=== PATIENT | female | born 1940 | race Caucasian/White ===

== ENCOUNTER 2018-07-27 01:17 | Inpatient (IN) ==
[2018-07-27] MEDS ORDERED: LACTATED RINGERS 1,000 ML IV ONE (01:30)
[2018-07-27] MEDS ORDERED: ONDANSETRON 4 MG/2 ML VIAL IV ONE (01:30)
[2018-07-27] MEDS ORDERED: HYDROmorphone 2 MG/ML VIAL IV PRN (01:41)
[2018-07-27 02:15] LABS: Basophils # (Auto) 0 K/mcL (0.0-0.3); Basophils % (Auto) 0.2 % (0.0-2.0); Eosinophils # (Auto) 0.1 K/mcL (0.0-0.7); Granulocytes % (Auto) 77.4 % (38.0-78.0); Lymphocytes # (Auto) 2.2 K/mcL (1.5-4.8); Mean Cell Volume 85.2 fL (80.0-100.0); Mean Corpuscular HGB Conc 32.3 g/dL (31.0-36.0); Monocytes # (Auto) 0.9 K/mcL (0.1-0.9); Monocytes % (Auto) 6.4 % (1.0-12.0); Platelet Count 394 K/mcL (140-440); RBC 3.87 M/mcL (4.00-5.20); Red Cell Distribution Width 16.6 % (11.5-14.5)
[2018-07-27 02:33] LABS: ALT/SGPT 162 U/l (0-40); Albumin 4.1 gm/dL (3.2-5.2); Albumin/Globulin Ratio 1.2 (1.0-2.3); Alkaline Phosphatase 278 U/L (39-117); Blood Urea Nitrogen 24 mg/dl (8-23); Lipase 72 U/L (7-60)
[2018-07-27 05:24] LABS: Appearance,Urine HAZY; Bacteria,Urine MANY /hpf (0); Bilirubin,Urine NEG (NEG); Color,Urine YELLOW; Glucose,Urine (UA) NEGATIVE (NEG); Leukocyte Esterase,Urine 75 /uL (NEG); Mucus,Urine FEW /hpf (0); Protein,Urine NEG (NEG); Specific Gravity,Urine 1.018 (1.000-1.035); Urine Blood NEG mg/dL (<0.03); Urine RBC 10 /hpf (0-1); Urine Squamous Epithelial Cell 5 /hpf (0-4); Urine WBC 6 /hpf (0-4)
--- NOTE | 2018-07-27 06:41 | Emergency Department Note ---
Abdominal Pain HPI - General Chief Complaint: Abdominal Pain Stated Complaint: abdominal pain Time Seen by Provider: 07/27/18 06:37 Source: family Mode of arrival: ambulatory Limitations: no limitations - History of Present Illness HPI Narrative: This patient developed right upper quadrant pain about 10 PM last evening and it radiated into her back. Did have some associated nausea. She still has her gallbladder. No other symptoms. - Related Data Home Medications Medication Instructions Recorded Confirmed Warfarin [Coumadin] 5 mg PO DAILY 03/23/18 03/23/18 Allergies Allergy/AdvReac Type Severity Reaction Status Date / Time nutritional therapy, Allergy Severe Heartburn Verified 03/23/18 19:38 metabolic disorder, mv, min#2 [From Sendoid] Review of Systems All systems ED: reviewed and negative except as stated. Abdominal Pain PMH - Past Medical History [facility] Narrative: Medical History Arthralgia (Acute) Acute coronary syndrome (Acute) Medical history: Reports: coronary artery disease, CVA, dementia, hypertension, myocardial infarction, valvular heart disease Surgical history ED: Reports: angioplasty/stent, coronary bypass (CABG), pacemaker/AICD - Social History Smoking status: Former smoker Alcohol use: Reports: Unknown Drug use: Reports: none Physical Exam Limitations: no limitations General appearance: alert Head: atraumatic Eye: Present: normal appearance ENT: normal exam Neck: Present: normal inspection Chest: Present: normal inspection Respiratory: Present: normal lung sounds bilaterally Cardiovascular: Present: regular rate, normal rhythm, normal heart sounds Abdominal: Present: soft, tenderness. Absent: distention, guarding, rebound, rigidity Abdominal tenderness: Present: RUQ, moderate Neurological: Present: alert Psychiatric: Present: normal affect Skin: Present: warm, dry Course Vital Signs Temperature 97.3 F 07/27/18 01:19 Pulse Rate 71 07/27/18 01:19 Respiratory Rate 18 07/27/18 01:19 Blood Pressure 182/63 07/27/18 01:19 Pulse Oximetry (%) 98 07/27/18 01:19 Temperature 97.3 F 07/27/18 01:19 Pulse Rate 75 07/27/18 06:42 Respiratory Rate 18 07/27/18 01:19 Blood Pressure 133/60 07/27/18 06:31 Pulse Oximetry (%) 96 07/27/18 06:42 Abdominal Pain - [facility] Narrative Medical decision making narrative: This patient does have cholecystitis of the gallbladder shows stones and sludge and gallbladder wall thickening but a normal common bile duct. She does have elevated LFTs with a normal bilirubin. This patient does take Coumadin and is not clear to me that she really needs to be on it. She does have a pig valve replacement and has had a stroke in the past. She came home from [place] on 6 w hat sounds like perhaps Plavix and her asp net programmer switched her to Coumadin. I discussed the case with Dr. Li the surgeon and she will be admitted to the hospital. - Lab Data Lab results reviewed: Yes I reviewed the patient's lab results. Result diagrams: 07/27/18 01:40 07/27/18 01:40 Lab Results 07/27/18 07/27/18 07/27/18 Range/Units 01:40 01:40 04:00 WBC 14.5 H (4.5-11.0) K/mcL RBC 3.87 L (4.00-5.20) M/mcL Hgb 10.6 L (12.0-15.0) g/dL Hct 33.0 L (36.0-48.0) % MCV 85.2 (80.0-100.0) fL MCH 27.5 (26.0-34.0) pg MCHC 32.3 (31.0-36.0) g/dL RDW 16.6 H (11.5-14.5) % Plt Count 394 (140-440) K/mcL MPV 8.3 (7.4-10.4) fL Gran % 77.4 (38.0-78.0) % Lymph % (Auto) 15.0 L (15.5-49.0) % [place] % (Auto) 6.4 (1.0-12.0) % Eos % (Auto) 1.0 (0.0-7.0) % Baso % (Auto) 0.2 (0.0-2.0) % Gran # 11.2 H (1.8-8.0) K/mcL Lymph # (Auto) 2.2 (1.5-4.8) K/mcL [place] # (Auto) 0.9 (0.1-0.9) K/mcL Eos # (Auto) 0.1 (0.0-0.7) K/mcL Baso # (Auto) 0 (0.0-0.3) K/mcL Sodium 140 (133-145) mmol/L Potassium 3.9 (3.3-5.1) mmol/L Chloride 103 (96-108) mmol/L Carbon Dioxide 25 (22-30) mmol/L Anion Gap 12.0 (8-16) BUN 24 H (8-23) mg/dl Creatinine 0.7 (0.6-1.1) mg/dl GFR Calculation 82 Glucose 120 H (70-105) mg/dL Calcium 9.2 (8.6-10.4) mg/dl Total Bilirubin 0.8 (0.0-1.0) mg/dL AST 381 H (0-37) U/l ALT 162 H (0-40) U/l Alkaline Phosphatase 278 H (39-117) U/L Total Protein 7.4 (5.9-8.4) gm/dL Albumin 4.1 (3.2-5.2) gm/dL Globulin 3.3 (2.2-3.7) gm/dL Albumin/Globulin Ratio 1.2 (1.0-2.3) Lipase 72 H (7-60) U/L Urine Color Yellow Urine Appearance Hazy Urine pH 5.0 (5.0-9.0) Ur Specific [place] 1.018 (1.000-1.035) Urine Protein Neg (NEG) mg/dL Urine Glucose (UA) Negative (NEG) mg/dL Urine Ketones Neg (NEG) mg/dL Urine Occult Blood Neg (<0.03) mg/dL Urine Nitrate Neg (NEG) Urine Bilirubin Neg (NEG) mg/dL Urine Urobilinogen 2.0 A (NEG) mg/dL Ur Leukocyte Esterase 75 A (NEG) /uL Urine RBC 10 H (0-1) /hpf Urine WBC 6 H (0-4) /hpf Ur Squamous Epith Cells 5 H (0-4) /hpf Urine Bacteria Many A (0) /hpf Urine Mucus Few (0) /hpf Ur Culture Indicated? No - Radiology Data Radiology results reviewed: Yes I reviewed the patient's radiology results. Disposition Pt seen by COKE LOADER/PA only: No Clinical Impression: Cholecystitis Disposition: Xfer As Inpt ([facility]) Condition: Good Referrals: Andrea Foster MD [Primary Care Provider] - Time of Disposition: 07:42
[2018-07-27] MEDS ORDERED: PIPERACILLIN SODIUM/TAZOBACTAM 3.375 GM in DEXTROSE 5% IN WATER 50 ML IV ONE (07:42)
--- NOTE | 2018-07-27 08:02 | XRay Report ---
HISTORY: Preop FINDINGS: Prominent increased interstitial lung markings are present bilaterally. This is most apparent in the right lower lobe. This has become worse since the prior exam done at [facility] on 01/28/18. Lung volumes are normal. There is no consolidating infiltrate, mass or pleural effusion. The heart size is normal. There is a dual-chamber pacemaker. There are clips in the right axilla. No lytic or blastic metastasis are detected. IMPRESSION: Mild generalized interstitial lung disease which has progressed since 01/28/18. This may be due to inflammation, pulmonary fibrosis or mild congestive heart failure. Interpreted and Authenticated by: Roberto Ryan 07/27/18
--- NOTE | 2018-07-27 08:13 | Ultrasound Report ---
History: Right upper quadrant pain FINDINGS: The liver is normal in size but somewhat heterogeneous. There may be mild fatty infiltration. There is a 4 x 5 mm calcification centrally in the right lobe. The Calcification is unchanged from the prior abdomen CT done on 06/14/10. Doppler shows normal blood flow in the hepatic and portal veins. No mass is identified within the liver. The gallbladder contains multiple stones and sludge balls. Largest stone measures up to 1.6 cm. The gallbladder wall is mildly thickened measuring up to 3.6 mm. The intra and extrahepatic bile ducts are normal in caliber with the common duct measuring 6 mm. The visualized portions of the pancreas are normal without evidence of inflammation or mass. No ascites is present. IMPRESSION: Cholelithiasis and thickened gallbladder wall suggesting cholecystitis Interpreted and Authenticated by: Roberto Ryan 07/27/18
[2018-07-27] MEDS ORDERED: 0.9 % SODIUM CHLORIDE 250 ML IV SCH (10:15)
[2018-07-27] MEDS ORDERED: 0.9 % SODIUM CHLORIDE 1,000 ML IV SCH ×2 (10:30→13:30)
[2018-07-27] MEDS: PHYTONADIONE 10 MG/ML AMPUL SQ SCH ×2 (10:38→22:33)
[2018-07-27] MEDS ORDERED: ACETAMINOPHEN 850 MG/85 ML BOTTLE IV PRN (12:28)
--- NOTE | 2018-07-27 13:31 | General Surg History&Physical ---
History of Present Illness Patient information: Note initiated : 07/27/18 at 1:28 pm Service Date, if different from initiated Date: [] Patient: Xochilt Pat a 77 y/o F admitted on 07/27/18 for Abdominal Pain . Chief Complaint: [] HPI: Ms. Pat is a 77 year old F admitted with acute cholecystitis with cholelithia sis. The patient awakened about 10 PM last evening with severe right upper quadrant pain. This was followed by nausea and vomiting. The pain radiated through to her back on the right side. Because the pain became more severe. She was seen in the emergency room. White blood count was 14,500. Her transaminases were all elevated. Bilirubin was normal. Gallbladder ultrasound revealed multiple gallstones with sludge and Thickened gallbladder wall, compatible with acute cholecystitis. She is admitted. She is on Coumadin, so her pro time will have to be corrected. She is counseled for cholecystectomy, which probably will be done tomorrow. Review of Systems - Constitutional fatigue, malaise, weakness, weight loss - EENT Nose, mouth and throat: dizziness, no abnormal hearing - Cardiovascular no chest pain at rest, no chest pain with activity, no dyspnea on exertion, no orthopnea, no paroxysmal nocturnal dyspnea, no syncope - Respiratory no cough, no dyspnea on exertion, no wheezing - Gastrointestinal abdominal pain, diarrhea, nausea, vomiting - Genitourinary Genitourinary: no dysuria, no urinary frequency, no urinary hesitancy, no urinary incontinence - Musculoskeletal arthralgias, back pain, stiffness, no numbness - Integumentary no pruritus, no rash - Neurological dizziness, memory loss, weakness, no abnormal gait, no behavioral changes, no other visual disturbances - Psychiatric memory loss, no anxiety, no confusion, no depression, no hallucinations - Endocrine no excessive sweating, no fatigue, no heat intolerance - Hematologic/Lymphatic no easy bleeding, no easy bruising, no lymphadenopathy - Allergic/Immunologic no tongue swelling, no throat swelling, no uticaria, no wheezing, no lip swelling Past History Past medical history: Coronary artery disease, status post myocardial infarction 2015. 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 Mild progressive dementia. History of TIAs and stroke. Hypertension. Valvular heart disease, status post mitral valve replacement with porcine valve Past surgical history: Tubal ligation. Permanent pacemaker 2015. Mitral valve replacement September 2015 Past family history: Mother due to coronary artery disease and UT at age of 76. Father at the complication of seizures age 82; also with history of Parkinson's disease Past social history: Lives alone. . 4 children. Former smoker. Denies drug use. No alcohol use in many years Medications and Allergies Home Medications Medication Instructions Recorded Confirmed Type Warfarin [Coumadin] 2.5 mg PO DAILY 03/23/18 07/27/18 History Aspirin [Adult Aspirin] 325 mg PO DAILY 07/27/18 07/27/18 History Calcium Carbonate/Vitamin D3 1 each PO DAILY 07/27/18 07/27/18 History [Calcium 500-Vit D3 600 Caplet] Cranberry Fruit Concentrate [Azo 250 mg PO DAILY 07/27/18 07/27/18 History Cranberry] Cyanocobalamin (Vitamin B-12) 2,500 mcg PO DAILY 07/27/18 07/27/18 History [Vitamin B12] Furosemide [Lasix] 40 mg PO DAILY 07/27/18 07/27/18 History Garlic [Odor Free Garlic-X] 1 each PO DAILY 07/27/18 07/27/18 History Omeprazole [PriLOSEC] 40 mg PO ACB 07/27/18 07/27/18 History Potassium Chloride [Kdur] 20 meq PO QAMCC 07/27/18 07/27/18 History Allergies Allergy/AdvReac Type Severity Reaction Status Date / Time nutritional therapy, AdvReac Mild Heartburn Verified 07/27/18 09:14 metabolic disorder, mv, min#2 [From Axona] Exam Temp Pulse Resp BP Pulse Ox 97.3 F 75 18 133/60 96 07/27/18 08:43 07/27/18 08:43 07/27/18 08:43 07/27/18 08:43 07/27/18 08:43 - General physical appearance well developed, well nourished, no distress - Eyes PERRL, normal ocular movement. negative: icteric - ENT normal pinna, normal nares, normal mucosa, no hearing loss, no congestion - Head Head exam IM: Present: atraumatic, normal inspection, normocephalic - Neck no masses, no bruits, trachea midline, no lymphadenopathy, no venous distension - Cardiovascular Cardiovascular exam IM: Present: normal rate and rhythm, RRR, +S1, +S2. Absent: JVD, tachycardia - Respiratory normal expansion, normal respiratory effort, clear to auscultation - Abdomen Abdomen: Present: soft, non tender, tender (mild tenderness right upper quadrant and epigastrium with associated guarding), bowel sounds, guarding Hernia: Present: none - Genitourinary Present: normal external genitalia - Integumentary Present: no rash, no growths, no abnormal pigmentation - Neurologic Present: normal coordination, normal sensation - Musculoskeletal Present: normal gait, normal posture - Psychiatric Present: oriented to time, oriented to person, oriented to place, speech is normal, memory intact Assessment and Plan (1) Cholelithiasis and acute cholecystitis without obstruction Zosyn 3.375 g IV every 6 hours Patient counseled for laparoscopic cholecystectomy to be done tomorrow Status: Acute (2) intermediate current use of anticoagulant therapy Correction of elevated pro time with fresh frozen plasma and vitamin K. Check PT/INR in the morning. Status: Acute (3) Middle cerebral artery aneurysm Status: Acute (4) Mild dementia Status: Acute (5) History of stroke Status: Acute (6) Hypertension Resume antihypertensives when vitals stabilized Status: Acute (7) History of valvular heart disease Status: Acute (8) Coronary artery disease Repeat EKG Check baseline echocardiogram Status: Acute
[2018-07-27] MEDS: PIPERACILLIN SODIUM/TAZOBACTAM 3.375 GM in DEXTROSE 5% IN WATER 50 ML IV SCH ×2 (15:19→20:47)
[2018-07-27] MEDS: PANTOPRAZOLE 40 MG VIAL IV SCH (17:04)
[2018-07-27] MEDS: HYDROmorphone 2 MG/ML VIAL IV PRN (20:57)
[2018-07-27] MEDS: FUROSEMIDE 40 MG TABLET PO SCH (23:49)
[2018-07-27] MEDS: 0.9 % SODIUM CHLORIDE 1,000 ML IV SCH (23:49)
[2018-07-27] MEDS ORDERED: FUROSEMIDE 40 MG TABLET ONE (23:49)
[2018-07-28] MEDS: PIPERACILLIN SODIUM/TAZOBACTAM 3.375 GM in DEXTROSE 5% IN WATER 50 ML IV SCH ×4 (01:00→18:09)
[2018-07-28] MEDS: 0.9 % SODIUM CHLORIDE 1,000 ML IV SCH ×2 (03:17→23:20)
[2018-07-28 06:20] LABS: Basophils # (Auto) 0 K/mcL (0.0-0.3); Basophils % (Auto) 0.3 % (0.0-2.0); Eosinophils # (Auto) 0 K/mcL (0.0-0.7); Eosinophils % (Auto) 0.1 % (0.0-7.0); Granulocytes % (Auto) 86.2 % (38.0-78.0); Lymphocytes # (Auto) 0.9 K/mcL (1.5-4.8); Lymphocytes % (Auto) 6.6 % (15.5-49.0); Mean Cell Volume 86.1 fL (80.0-100.0); Mean Corpuscular HGB Conc 32.4 g/dL (31.0-36.0); Monocytes % (Auto) 6.8 % (1.0-12.0); Platelet Count 348 K/mcL (140-440); Red Cell Distribution Width 16.4 % (11.5-14.5)
[2018-07-28 06:38] LABS: ALT/SGPT 240 U/l (0-40); Albumin/Globulin Ratio 1.2 (1.0-2.3); Alkaline Phosphatase 273 U/L (39-117); Bilirubin,Direct 2.4 mg/dL (0.0-0.3); Blood Urea Nitrogen 12 mg/dl (8-23); Gamma Glutamyl Transpeptidase 602 U/L (5-36); Uric Acid 1.9 mg/dL (2.5-8.0)
[2018-07-28] MEDS: PANTOPRAZOLE 40 MG VIAL IV SCH ×2 (07:49→17:20)
[2018-07-28] MEDS: FUROSEMIDE 40 MG TABLET PO SCH (08:49)
[2018-07-28] MEDS ORDERED: POTASSIUM CHLORIDE 40 MEQ in DEXTROSE 5% IN WATER 500 ML IV ONE (09:56)
--- NOTE | 2018-07-28 10:57 | General Surgery Progress Note ---
Subjective Patient reports: no new complaints, feels better, voiding w/o difficulty Narrative: Note initiated : 07/28/18 at 10:55 am Service Date, if different from initiated Date: [] Patient: Xochilt Pat 77 y/o F admitted on 07/27/18 for Abdominal Pain . Chief Complaint: [] No more pain since admitted & got one pain pill. Has PM - had porcine valve, stent & PM so cannot get MRCP. No change in color urine, stools, skin. US + for stones & sludge. LFT's still up today. Pertinent ROS: No N V F C. Objective Temp Pulse Resp BP Pulse Ox 98 F 73 16 148/70 94 07/28/18 08:00 07/28/18 08:00 07/28/18 08:00 07/28/18 08:00 07/28/18 08:00 - Additional Data Intake & Output - Last 24 hours: Intake & Output 07/26/18 07/27/18 07/28/18 07/29/18 05:59 05:59 05:59 05:59 Intake Total 3352 50 Output Total 1782 50 Balance 1570 0 Weight 130 lb 136 lb - General physical appearance well developed, no distress, no pain - Eyes other (non icteric) - Respiratory normal expansion, normal respiratory effort, clear to auscultation - Cardiovascular Cardiovascular exam: Present: normal rate and rhythm. Absent: JVD Additional comments: PM in place lateral L infraclavicular region - Abdomen soft, non tender, bowel sounds Hernia: none - Labs 07/28/18 04:45 07/28/18 04:45 Diabetes panel 07/28/18 Range/Units 04:45 Sodium 141 (133-145) mmol/L Potassium 3.2 L (3.3-5.1) mmol/L Chloride 98 (96-108) mmol/L Carbon Dioxide 27 (22-30) mmol/L BUN 12 (8-23) mg/dl Creatinine 0.9 (0.6-1.1) mg/dl Glucose 112 H (70-105) mg/dL Calcium 9.1 (8.6-10.4) mg/dl AST 208 H (0-37) U/l ALT 240 H (0-40) U/l Alkaline Phosphatase 273 H (39-117) U/L Total Protein 7.4 (5.9-8.4) gm/dL Albumin 4.0 (3.2-5.2) gm/dL Triglycerides 67 (<150) mg/dl Calcium panel 07/28/18 Range/Units 04:45 Calcium 9.1 (8.6-10.4) mg/dl Phosphorus 2.5 L (2.7-4.5) mg/dL Albumin 4.0 (3.2-5.2) gm/dL Pituitary panel 07/28/18 Range/Units 04:45 Sodium 141 (133-145) mmol/L Potassium 3.2 L (3.3-5.1) mmol/L Chloride 98 (96-108) mmol/L Carbon Dioxide 27 (22-30) mmol/L BUN 12 (8-23) mg/dl Creatinine 0.9 (0.6-1.1) mg/dl Glucose 112 H (70-105) mg/dL Calcium 9.1 (8.6-10.4) mg/dl Adrenal panel 07/28/18 Range/Units 04:45 Sodium 141 (133-145) mmol/L Potassium 3.2 L (3.3-5.1) mmol/L Chloride 98 (96-108) mmol/L Carbon Dioxide 27 (22-30) mmol/L BUN 12 (8-23) mg/dl Creatinine 0.9 (0.6-1.1) mg/dl Glucose 112 H (70-105) mg/dL Calcium 9.1 (8.6-10.4) mg/dl Total Bilirubin 4.1 H (0.0-1.0) mg/dL AST 208 H (0-37) U/l ALT 240 H (0-40) U/l Alkaline Phosphatase 273 H (39-117) U/L Total Protein 7.4 (5.9-8.4) gm/dL Albumin 4.0 (3.2-5.2) gm/dL Assessment and Plan (1) Cholelithiasis Status: Acute Assessment and plan: Needs lap buck - still with INR 1.4. Not a candidate for MRCP due to PM. Will need IOC during procedure. Will give another 2 U FFP - has already received max dose of Vit K and 2 U FFP. Anticipate surgery either late today or 1st thing in AM May need ERCP postop depending on IOC findings. All this discussed with patient. She states she is on Coumadin due to her prior history of a CVA. She does have a 7mm MCA aneurysm of note. Current Visit: Yes (2) intermediate card tender current use of anticoagulant therapy Status: Acute Current Visit: Yes (3) Middle cerebral artery aneurysm Status: Acute Current Visit: Yes (4) Mild dementia Status: Acute Current Visit: Yes (5) History of stroke Status: Acute Current Visit: Yes (6) Hypertension Status: Acute Current Visit: Yes (7) History of valvular heart disease Status: Acute Current Visit: Yes (8) Coronary artery disease Status: Acute Current Visit: Yes - Time Spent With Patient Total time spent is greater than 50% in coordination of care (as documented) at patient's floor/unit and/or counseling patient: Greater than 35 minutes (60 minutes in review, orders, discussion)
[2018-07-28] MEDS ORDERED: 0.9 % SODIUM CHLORIDE 250 ML IV SCH (11:00)
[2018-07-28] MEDS: HYDROmorphone 2 MG/ML VIAL IV PRN (14:58)
[2018-07-29] MEDS: HYDROmorphone 2 MG/ML VIAL IV PRN ×3 (00:46→23:31)
[2018-07-29] MEDS: PIPERACILLIN SODIUM/TAZOBACTAM 3.375 GM in DEXTROSE 5% IN WATER 50 ML IV SCH ×4 (00:47→18:24)
[2018-07-29] MEDS: 0.9 % SODIUM CHLORIDE 1,000 ML IV SCH (00:59)
[2018-07-29 05:48] LABS: Basophils # (Auto) 0 K/mcL (0.0-0.3); Basophils % (Auto) 0.1 % (0.0-2.0); Eosinophils # (Auto) 0 K/mcL (0.0-0.7); Eosinophils % (Auto) 0.1 % (0.0-7.0); Granulocytes % (Auto) 81.8 % (38.0-78.0); Lymphocytes # (Auto) 1.3 K/mcL (1.5-4.8); Lymphocytes % (Auto) 8.7 % (15.5-49.0); Mean Cell Volume 85.5 fL (80.0-100.0); Mean Corpuscular HGB Conc 32.7 g/dL (31.0-36.0); Monocytes # (Auto) 1.3 K/mcL (0.1-0.9); Monocytes % (Auto) 9.3 % (1.0-12.0); Platelet Count 287 K/mcL (140-440); RBC 3.64 M/mcL (4.00-5.20); Red Cell Distribution Width 16.4 % (11.5-14.5)
[2018-07-29 06:01] LABS: ALT/SGPT 140 U/l (0-40); Albumin 3.8 gm/dL (3.2-5.2); Albumin/Globulin Ratio 1.1 (1.0-2.3); Alkaline Phosphatase 249 U/L (39-117); Bilirubin,Direct 1.5 mg/dL (0.0-0.3); Blood Urea Nitrogen 10 mg/dl (8-23); Gamma Glutamyl Transpeptidase 514 U/L (5-36); Uric Acid 1.4 mg/dL (2.5-8.0)
[2018-07-29] MEDS ORDERED: amLODIPine 5 MG TABLET PO ONE (07:06)
[2018-07-29] MEDS ORDERED: POTASSIUM CHLORIDE 20 MEQ TABLET PO SCH (08:00)
[2018-07-29] MEDS ORDERED: LIDOCAINE HCL/PF 100 MG/5 ML SYRINGE IV ONE (08:10)
[2018-07-29] MEDS ORDERED: ONDANSETRON 4 MG/2 ML VIAL IV ONE (08:10)
[2018-07-29] MEDS ORDERED: ePHEDrine 50 MG/ML AMPUL IV ONE (08:10)
[2018-07-29] MEDS ORDERED: DEXAMETHASONE 10 MG/ML VIAL IV ONE (08:10)
[2018-07-29] MEDS ORDERED: ROCURONIUM 10 MG/ML ML IV ONE (08:10)
[2018-07-29] MEDS ORDERED: MIDAZOLAM 2 MG/2 ML VIAL IV ONE ×2 (08:10→13:00)
[2018-07-29] MEDS ORDERED: SUCCINYLCHOLINE 20 MG/ML ML IV ONE (08:10)
[2018-07-29] MEDS ORDERED: PROPOFOL 200 MG/20 ML VIAL IV ONE ×2 (08:10→13:00)
[2018-07-29] MEDS ORDERED: fentaNYL 100 MCG/2 ML VIAL IV ONE (08:10)
[2018-07-29] MEDS ORDERED: BUPIVACAINE W/EPI 0.5% 50 ML VIAL IJ ONE (08:33)
[2018-07-29] MEDS ORDERED: CALCIUM W/VIT D3 500 MG TABLET PO SCH (09:00)
[2018-07-29] MEDS ORDERED: ASPIRIN 325 MG ENTERIC COATED TABLET PO SCH (09:00)
[2018-07-29] MEDS ORDERED: CYANOCOBALAMIN (VITAMIN B-12) 500 MCG TABLET PO SCH (09:00)
[2018-07-29] MEDS ORDERED: FLUMAZENIL 0.1 MG/ML ML IV PRN (09:16)
[2018-07-29] MEDS ORDERED: IPRATROPIUM/ALBUTEROL 3 ML AMPUL.NEB NEB PRN ×2 (09:16→10:17)
[2018-07-29] MEDS ORDERED: ATROPINE SULFATE 0.4 MG/ML VIAL IV PRN (09:16)
[2018-07-29] MEDS ORDERED: MEPERIDINE 25 MG/ML SYRINGE IV PRN (09:16)
[2018-07-29] MEDS ORDERED: NALOXONE HCL 0.4 MG/ML VIAL IV PRN ×2 (09:16→10:17)
[2018-07-29] MEDS ORDERED: diphenhydrAMINE 50 MG/ML VIAL IV PRN ×2 (09:16→10:17)
[2018-07-29] MEDS ORDERED: METOPROLOL TARTRATE 5 MG/5 ML VIAL IV PRN (09:16)
[2018-07-29] MEDS ORDERED: ONDANSETRON 4 MG/2 ML VIAL IV PRN ×2 (09:16→12:49)
[2018-07-29] MEDS ORDERED: PROMETHAZINE 25 MG/ML VIAL IV PRN ×2 (09:16→10:17)
[2018-07-29] MEDS ORDERED: fentaNYL 100 MCG/2 ML VIAL IV PRN (09:16)
[2018-07-29] MEDS ORDERED: ePHEDrine 50 MG/ML AMPUL IV PRN (09:16)
--- NOTE | 2018-07-29 09:25 | General Surgery Procedure Note ---
Date of procedure: Note initiated : 07/29/18 at 9:23 am Service Date, if different from initiated Date: [] Pre-op diagnosis: Symptomatic cholelithiasis Post-op diagnosis: other (Cholelithiasis, acute & chronic cholecystitis, choledocholithiasis with common duct obstruction) Procedure: Laparoscopic cholecystectomy with intra-operative cholangiogram Findings: Liver, stomach, other viscera appeared normal. Cholangiogram showed obstructed common duct with ~ 1 cm stone at ampulla with inverted meniscus sign Anesthesia: GETA Surgeon: Juancarlos Mane Estimated blood loss: 20 Pathology: other (gallbladder) Description of procedure: See dictated note Condition: stable Disposition: PACU
[2018-07-29] MEDS ORDERED: LACTATED RINGERS 1,000 ML IV SCH (09:30)
[2018-07-29] MEDS ORDERED: DEXTROSE 5%-1/2NS W/40MEQ KCL 1,000 ML IV SCH ×2 (09:30→10:17)
[2018-07-29] MEDS ORDERED: IOHEXOL 300 10 ML VIAL IV ONE (09:49)
[2018-07-29] MEDS ORDERED: 0.9 % SODIUM CHLORIDE 1,000 ML IV SCH (10:17)
[2018-07-29] MEDS ORDERED: HYDROmorphone 2 MG/ML VIAL IV PRN (10:17)
[2018-07-29] MEDS: FUROSEMIDE 40 MG TABLET PO SCH (10:32)
[2018-07-29] MEDS: PANTOPRAZOLE 40 MG VIAL IV SCH (10:34)
[2018-07-29] MEDS: POTASSIUM CHLORIDE 40 MEQ in DEXTROSE 5%-1/2NS 1,000 ML IV SCH (11:32)
[2018-07-29] MEDS ORDERED: PROPOFOL 40 ML IV ONE ×2 (12:13)
[2018-07-29] MEDS ORDERED: MIDAZOLAM 2 MG/2 ML VIAL ONE (12:13)
[2018-07-29] MEDS ORDERED: ONDANSETRON 4 MG/2 ML VIAL ONE (12:53)
[2018-07-29] MEDS ORDERED: GLUCAGON,HUMAN RECOMBINANT 1 MG VIAL IV ONE (13:00)
[2018-07-29] MEDS ORDERED: IOPAMIDOL 150 ML BOTTLE IJ ONE (13:00)
[2018-07-30] MEDS: POTASSIUM CHLORIDE 40 MEQ in DEXTROSE 5%-1/2NS 1,000 ML IV SCH (03:59)
[2018-07-30 06:27] LABS: Basophils # (Auto) 0 K/mcL (0.0-0.3); Basophils % (Auto) 0 % (0.0-2.0); Eosinophils # (Auto) 0 K/mcL (0.0-0.7); Eosinophils % (Auto) 0 % (0.0-7.0); Granulocytes % (Auto) 85.6 % (38.0-78.0); Lymphocytes # (Auto) 1.2 K/mcL (1.5-4.8); Lymphocytes % (Auto) 6.8 % (15.5-49.0); Mean Cell Volume 85.8 fL (80.0-100.0); Mean Corpuscular HGB Conc 32.7 g/dL (31.0-36.0); Monocytes # (Auto) 1.4 K/mcL (0.1-0.9); Monocytes % (Auto) 7.6 % (1.0-12.0); Platelet Count 298 K/mcL (140-440); RBC 3.39 M/mcL (4.00-5.20); Red Cell Distribution Width 15.6 % (11.5-14.5)
[2018-07-30 06:46] LABS: ALT/SGPT 98 U/l (0-40); Albumin 3.9 gm/dL (3.2-5.2); Alkaline Phosphatase 197 U/L (39-117); Amylase 29 U/L (28-100); Bilirubin,Direct 0.4 mg/dL (0.0-0.3); Blood Urea Nitrogen 14 mg/dl (8-23)
[2018-07-30] MEDS ORDERED: WARFARIN 5 MG TABLET PO ONE (07:51)
--- NOTE | 2018-07-30 07:55 | General Surgery Progress Note ---
Subjective Patient reports: feels better, still having pain, tolerating liquids well, no bowel movement, afebrile Narrative: Note initiated : 07/30/18 at 7:53 am Service Date, if different from initiated Date: [] Patient: Xochilt Pat 77 y/o F admitted on 07/27/18 for Abdominal Pain . Chief Complaint: [] Postop day 1 after laparoscopic cholecystectomy with intraoperative cholangiogram followed by ERCP and stone extraction. Discussed with her once again the details of the surgery and the endoscopic procedure. LFTs come back to normal, which is been tested. Amylase is normal. She's been tolerating liquids. Still requiring some intravenous analgesia, but will switch to by mouth. Has been up out of bed yet. No bowel movement. Dr. Klein Found that she was on the Coumadin because of vascular interv ention for CVA sometime last fall up in [place]. So we'll need to get her started back on her anticoagulation. We'll start Lovenox as afternoon at 1524 hours after ERCP, I'll go ahead and get her started on Coumadin. Give her 5 mg dose today followed by 2.5 mg daily starting tomorrow. I discussed with the fact she'll need to go home. Give herself shots which he has done in the past. She is hungry, wants to go to her regular diet. Pertinent ROS: No fevers or chills, no nausea or vomiting. No chest pains or shortness of breath. Objective Temp Pulse Resp BP Pulse Ox 98 F 73 16 138/72 95 07/30/18 06:30 07/30/18 04:00 07/30/18 06:30 07/30/18 06:30 07/30/18 06:30 - Additional Data Intake & Output - Last 24 hours: Intake & Output 07/28/18 07/29/18 07/30/18 07/31/18 05:59 05:59 05:59 05:59 Intake Total 3352 2411 2970 Output Total 1782 1172 175 Balance 1570 1239 2795 Weight 136 lb 136 lb 131 lb 8 oz - General physical appearance no distress - Eyes PERRL, other (nonicteric) - Neck no venous distension - Respiratory normal expansion, normal respiratory effort, clear to percussion, clear to auscultation - Cardiovascular Cardiovascular exam: Present: normal rate and rhythm. Absent: diastolic murmur, irregular rhythm, systolic murmur - Abdomen soft, non tender, bowel sounds, surgical scars (. Dressings are clean and dry.) - Musculoskeletal other ( Calves nontender with no edema) - Labs 07/30/18 04:26 07/30/18 04:26 Diabetes panel 07/30/18 Range/Units 04:26 Sodium 138 (133-145) mmol/L Potassium 3.6 (3.3-5.1) mmol/L Chloride 102 (96-108) mmol/L Carbon Dioxide 26 (22-30) mmol/L BUN 14 (8-23) mg/dl Creatinine 0.8 (0.6-1.1) mg/dl Glucose 109 H (70-105) mg/dL Calcium 9.3 (8.6-10.4) mg/dl AST 32 (0-37) U/l ALT 98 H (0-40) U/l Alkaline Phosphatase 197 H (39-117) U/L Total Protein 7.4 (5.9-8.4) gm/dL Albumin 3.9 (3.2-5.2) gm/dL Calcium panel 07/30/18 Range/Units 04:26 Calcium 9.3 (8.6-10.4) mg/dl Albumin 3.9 (3.2-5.2) gm/dL Pituitary panel 07/30/18 Range/Units 04:26 Sodium 138 (133-145) mmol/L Potassium 3.6 (3.3-5.1) mmol/L Chloride 102 (96-108) mmol/L Carbon Dioxide 26 (22-30) mmol/L BUN 14 (8-23) mg/dl Creatinine 0.8 (0.6-1.1) mg/dl Glucose 109 H (70-105) mg/dL Calcium 9.3 (8.6-10.4) mg/dl Adrenal panel 07/30/18 Range/Units 04:26 Sodium 138 (133-145) mmol/L Potassium 3.6 (3.3-5.1) mmol/L Chloride 102 (96-108) mmol/L Carbon Dioxide 26 (22-30) mmol/L BUN 14 (8-23) mg/dl Creatinine 0.8 (0.6-1.1) mg/dl Glucose 109 H (70-105) mg/dL Calcium 9.3 (8.6-10.4) mg/dl Total Bilirubin 1.2 H (0.0-1.0) mg/dL AST 32 (0-37) U/l ALT 98 H (0-40) U/l Alkaline Phosphatase 197 H (39-117) U/L Total Protein 7.4 (5.9-8.4) gm/dL Albumin 3.9 (3.2-5.2) gm/dL Assessment and Plan (1) Cholelithiasis Status: Acute Assessment and plan: Needs lap buck - still with INR 1.4. Not a candidate for MRCP due to PM. Will need IOC during procedure. Will give another 2 U FFP - has already received max dose of Vit K and 2 U FFP. Anticipate surgery either late today or 1st thing in AM May need ERCP postop depending on IOC findings. All this discussed with patient. She states she is on Coumadin due to her prior history of a CVA. She does have a 7mm MCA aneurysm of note. Current Visit: Yes (2) skilled nursing current use of anticoagulant therapy Status: Acute Current Visit: Yes (3) Middle cerebral artery aneurysm Status: Acute Current Visit: Yes (4) Mild dementia Status: Acute Current Visit: Yes (5) History of stroke Status: Acute Current Visit: Yes (6) Hypertension Status: Acute Current Visit: Yes (7) History of valvular heart disease Status: Acute Current Visit: Yes (8) Coronary artery disease Status: Acute Current Visit: Yes (9) Choledocholithiasis Status: Acute Current Visit: Yes - Narrative A/P Narrative: We'll go advance her to a regular diet, Hep-Lock her IV. She'll start her Lovenox this afternoon at 3 PM, will go ahead and resume her Coumadin 5 mg today and 2.5 mg daily tomorrow. Her white blood count is still elevated. We'll repeat a test that in the morning along with repeat LFTs and CMP. Potassium looks good. She'll get out of bed and do some walking today. Will use some by mouth analgesics also. - Time Spent With Patient Total time spent is greater than 50% in coordination of care (as documented) at patient's floor/unit and/or counseling patient: 25 - 35 minutes
[2018-07-30] MEDS ORDERED: FUROSEMIDE 40 MG TABLET PO SCH (09:00)
[2018-07-30] MEDS: amLODIPine 5 MG TABLET PO SCH (09:08)
[2018-07-30] MEDS: FUROSEMIDE 40 MG TABLET PO SCH (09:09)
[2018-07-30] MEDS: POTASSIUM CHLORIDE 20 MEQ TABLET PO SCH (09:09)
[2018-07-30] MEDS: ASPIRIN 325 MG ENTERIC COATED TABLET PO SCH ×2 (09:27→09:39)
[2018-07-30] MEDS: HYDROcodone/APAP 5/325MG TABLET PO PRN ×3 (09:27→21:41)
--- NOTE | 2018-07-30 09:55 | Internal Med Progress Note ---
Medical - PN: Subj Patient information: Note initiated : 07/30/18 at 9:52 am Service Date, if different from initiated Date: [] Patient: Xochilt Pat 77 y/o F admitted on 07/27/18 for Abdominal Pain . Chief Complaint: [] lap CCx yesterday followed by ERCP with extraction of fiarly large CBD stone via sphincterotomy Interval history: pt reports only some soreness at incision sites of abd today. Tolerating liqui ds this a.m. and looks forward to advancement of diet this afternoon. Had BM this a.m. with no melena or other signs of bleeding. Pertinent ROS: No fever, no vomiting, no chest pain, no new neurologic changes. - Constitutional Vitals: Vital Signs Temp Pulse Resp BP Pulse Ox 98 F 73 16 138/72 92 07/30/18 06:30 07/30/18 04:00 07/30/18 06:30 07/30/18 06:30 07/30/18 08:00 Period Temp Pulse Resp BP Sys/Hernandez Pulse Ox Last 24 Hr 97.5 F-98.4 F 72-91 12-24 119-182/37-97 91-100 Intake and Output 07/29/18 07/30/18 07/30/18 21:59 05:59 13:59 Intake Total 2270 Output Total 1 2 Balance -1 2268 Weight 131 lb 8 oz Intake & Output: Intake & Output 07/29/18 07/30/18 07/30/18 21:59 05:59 13:59 Intake Total 2270 Output Total 1 2 Balance -1 2268 Weight 131 lb 8 oz Intake: IV 2070 Potassium Chloride 40 Meq In 1020 Dextrose 5%-1/2Ns IV Solution 1 ,000 ml @ 75 mls/hr IV Q13H PENNIE Rx#:[id number] Oral 200 Output: # of times incontinent of urine 1 2 Other: Stool Color Brown Stool Consistency Soft General appearance: cooperative, no acute distress - Eye Eye exam: Absent: scleral icterus - GI/Abdominal GI/Abdominal exam: Present: soft, tenderness Additional comments: minimal tenderness Medical - PN: Obj Da - Labs CBC & Chem 7: 07/30/18 04:26 07/30/18 04:26 Labs: Abnormal Lab Results 07/30/18 07/30/18 07/29/18 04:26 04:26 04:55 WBC 18.3 H RBC 3.39 L Hgb 9.5 L Hct 29.1 L RDW 15.6 H Gran % 85.6 H Lymph % (Auto) 6.8 L Gran # 15.6 H Lymph # (Auto) 1.2 L [place] # (Auto) 1.4 H PT INR Potassium 3.1 L Glucose 109 H 112 H Uric Acid 1.4 L Phosphorus 2.1 L Total Bilirubin 1.2 H 3.2 H Direct Bilirubin 0.4 H 1.5 H GGT 514 H AST 76 H ALT 98 H 140 H Alkaline Phosphatase 197 H 249 H Lactate Dehydrogenase NT-Pro-B Natriuret Pep 07/29/18 07/28/18 07/28/18 04:55 16:36 04:45 WBC 14.4 H RBC 3.64 L Hgb 10.2 L Hct 31.2 L RDW 16.4 H Gran % 81.8 H Lymph % (Auto) 8.7 L Gran # 11.8 H Lymph # (Auto) 1.3 L [place] # (Auto) 1.3 H PT 15.1 H 17.5 H INR 1.2 H 1.4 H Potassium Glucose Uric Acid Phosphorus Total Bilirubin Direct Bilirubin GGT AST ALT Alkaline Phosphatase Lactate Dehydrogenase NT-Pro-B Natriuret Pep 07/28/18 07/28/18 07/27/18 04:45 04:45 11:07 WBC 14.3 H RBC 3.90 L Hgb 10.9 L Hct 33.6 L RDW 16.4 H Gran % 86.2 H Lymph % (Auto) 6.6 L Gran # 12.3 H Lymph # (Auto) 0.9 L [place] # (Auto) 1.0 H PT INR Potassium 3.2 L Glucose 112 H Uric Acid 1.9 L Phosphorus 2.5 L Total Bilirubin 4.1 H Direct Bilirubin 2.4 H GGT 602 H AST 208 H ALT 240 H Alkaline Phosphatase 273 H Lactate Dehydrogenase 262 H NT-Pro-B Natriuret Pep 1363.0 H Meds: Medications Hydrocodone Bitart/Acetaminophen ([place] 5/325mg) 1 tab PO Q4-6HP PRN PRN Reason: PAIN LEVEL 3-6 Last Admin: 07/30/18 09:27 Dose: 1 tab Documented by: Amlodipine Besylate (Norvasc) 5 mg PO DAILY PENNIE Last Admin: 07/30/18 09:08 Dose: 5 mg Documented by: Aspirin (Ecotrin) 325 mg PO DAILY [facility] Last Admin: 07/30/18 09:39 Dose: Not Given Documented by: Calcium/Vitamin D (Calcium W/Vit D3) 500 mg PO DAILY [facility] Cyanocobalamin (Vitamin B-12) 2,500 mcg PO DAILY [facility] Enoxaparin Sodium (Lovenox) 30 mg SQ DAILY [facility] Furosemide (Lasix) 40 mg PO DAILY [facility] Last Admin: 07/30/18 09:09 Dose: 40 mg Documented by: Hydromorphone HCl (Dilaudid) 0.25 mg IV Q2HP PRN PRN Reason: PAIN LEVEL > 6 Last Admin: 07/29/18 23:31 Dose: 0.25 mg Documented by: Ondansetron HCl (Zofran) 4 mg IV Q6HP PRN PRN Reason: Nausea And Vomiting Potassium Chloride (Kdur) 20 meq PO [facility] Last Admin: 07/30/18 09:09 Dose: 20 meq Documented by: Medical - PN: A/P - Time Spent With Patient Total time spent is greater than 50% in coordination of care (as documented) at patient's floor/unit and/or counseling patient: (1) Choledocholithiasis with acute cholecystitis with obstruction Status: Acute Current Visit: Yes - Narrative A/P Narrative: Acute cholecystitis addressed by cholecystectomy and obstructing CBD stone addressed by ERCP with sphincterotomy done yesterday. Her LFT's are improving nicely. Clinically she is doing well. She is being bridged with Lovenox starting this afternoon and Coumadin being resumed. It may take longer for INR to become therapeutic since she recieved vit K on admission. In any event, I informed pt that she is at risk for bleeding from the sphincterotomy site for the next approximately 10-14 days. She is instructed to return to hospital immed iately for melena, hematemesis, maroon stool, lightheadedness, etc. Medical - PN: Qual - VTE Deep Vein Thrombosis/Pulmonary Embolism Present on Admission: No
[2018-07-30] MEDS: ENOXAPARIN 30 MG/0.3 ML SYRINGE SQ SCH (16:39)
[2018-07-30] MEDS: CALCIUM W/VIT D3 500 MG TABLET PO SCH (17:34)
[2018-07-30] MEDS: CYANOCOBALAMIN (VITAMIN B-12) 500 MCG TABLET PO SCH (17:35)
[2018-07-30] MEDS ORDERED: LOPERAMIDE 2 MG CAPSULE PO PRN (18:19)
[2018-07-31] MEDS: HYDROcodone/APAP 5/325MG TABLET PO PRN (04:45)
[2018-07-31 05:41] LABS: Basophils # (Auto) 0 K/mcL (0.0-0.3); Basophils % (Auto) 0.3 % (0.0-2.0); Eosinophils # (Auto) 0.1 K/mcL (0.0-0.7); Eosinophils % (Auto) 1.1 % (0.0-7.0); Granulocytes % (Auto) 68.6 % (38.0-78.0); Lymphocytes # (Auto) 2.2 K/mcL (1.5-4.8); Lymphocytes % (Auto) 18.3 % (15.5-49.0); Mean Cell Volume 86.1 fL (80.0-100.0); Mean Corpuscular HGB Conc 32.4 g/dL (31.0-36.0); Monocytes # (Auto) 1.4 K/mcL (0.1-0.9); Monocytes % (Auto) 11.7 % (1.0-12.0); Platelet Count 296 K/mcL (140-440); RBC 3.38 M/mcL (4.00-5.20)
[2018-07-31 05:58] LABS: ALT/SGPT 66 U/l (0-40); Albumin 3.4 gm/dL (3.2-5.2); Alkaline Phosphatase 152 U/L (39-117); Blood Urea Nitrogen 18 mg/dl (8-23)
--- NOTE | 2018-07-31 07:35 | Discharge Summary ---
Providers - Providers Patient information: Note initiated : 07/31/18 at 7:32 am Service Date, if different from initiated Date: [] Patient: Xochilt Pat 77 y/o F admitted on 07/27/18 for Abdominal Pain . Chief Complaint: [] 77-year-old lady admitted with signs and symptoms of acute and chronic cholecystitis. Because she was on Coumadin due to a previous CVA, she was given vitamin K and plasma as a start to reverse her Anticoagulation. Date of admission: 07/27/18 Discharge date: 07/31/18 Attending physician: Juancarlos Mcgrath Hospitalization Hospital course: Patient was admitted, given vitamin K and 2 units of FFP. The following morning and was noted. Her bilirubin was up to 4.1. Her INR remained elevated at 1.4. She was given 2 more units of FFP on the second hospital day and after her INR came back to normal and her bilirubin had defervesced a bit. She was taken the operating room, underwent a laparoscopic cholecystectomy. If time. Cholangiogram showed a large 1 cm stone obstructing the distal common bile duct. Dr. Franco was consistent consulted and kindly came and did an ERCP, sphincterotomy and stone extraction. Her bilirubin subsequently returned to normal. White blood count was elevated. The day after and came back towards normal. She was covered with perioperative antibiotics using Zosyn. The day prior to discharge 24 hours after the ERCP, she was started back on Lovenox and a 5 mg initial dose of Coumadin. On the day of discharge, she was able, using only minimal pedal analgesics, eating a regular diet, having bowel and bladder habits were normal. Discharge diagnosis: symptomatic cholelithiasis and choledocholithiasis Secondary discharge diagnosis: Hypertension. On active anticoagulation. Middle cerebral artery aneurysm. Aortic valve Reason for admission: same as above Procedures: #1. Laparoscopic cholecystectomy with intraoperative cholangiogram. #2. ERCP with papillotomy and stone extraction Complications: None Exam Temp Pulse Resp BP Pulse Ox 98 F 74 16 132/78 92 07/31/18 07:17 07/31/18 04:50 07/31/18 07:17 07/31/18 07:17 07/31/18 07:17 - General physical appearance well developed, well nourished, no distress - Eyes PERRL, normal ocular movement - Cardiovascular Cardiovascular exam IM: Present: normal rate and rhythm. Absent: irregular rhythm - Respiratory normal expansion, normal respiratory effort, clear to percussion, clear to auscultation - Abdomen Abdomen: Present: soft, non tender, surgical scars (umbilical and dressing had some blood on and will be changed. The others were clean and dry) - Musculoskeletal Present: other (. Calves were soft and nontender) Discharge Plan - Patient/Caregiver Discharge Instructions Discharge Summary: Patient is given and do bridging Lovenox and follow-up with her PCP to manage her Coumadin. Her back on her baseline Coumadin 2.5 mg daily. She'll continue all of her normal medications. However, follow-up in General surgery clinic in 1 week. Activity: increase activity as tolerated Diet: Cardiac Prescriptions: Enoxaparin [Lovenox] 30 mg SQ DAILY #5 syringe HYDROcodone/APAP 5/325MG [[place] 5-325Mg] 1 tab PO Q6HP PRN #10 tab PRN Reason: Pain Level 3-6 - Follow up Plan Follow up with: Andrea Foster MD [Primary Care Provider] - Miguelangel Li MD [Physician] - Disposition: Home, Self-Care Prognosis: Good Rehab Potential: Good Overall status at discharge: patient is not back to baseline Pending Studies Resuscitation Status Full Code Diet Regular Diet Start Sun Jul 30 752 Hydrocodone Bitart/Acetaminophen ([place] 5/325mg) 1 tab PO Q4-6HP PRN PRN Reason: PAIN LEVEL 3-6 Last Admin: 07/31/18 04:45 Dose: 1 tab Documented by: Admin: 07/30/18 21:41 Dose: 1 tab Documented by: Admin: 07/30/18 17:33 Dose: 1 tab Documented by: [email or web address] Admin: 07/30/18 09:27 Dose: 1 tab Documented by: [email or web address] Amlodipine Besylate (Norvasc) 5 mg PO DAILY [facility] Last Admin: 07/30/18 09:08 Dose: 5 mg Documented by: [email or web address] Calcium/Vitamin D (Calcium W/Vit D3) 500 mg PO DAILY [facility] Last Admin: 07/30/18 17:34 Dose: 500 mg Documented by: [email or web address] Cyanocobalamin (Vitamin B-12) 2,500 mcg PO DAILY [facility] Last Admin: 04/14/19 17:35 Dose: Not Given Documented by: [email or web address] Enoxaparin Sodium (Lovenox) 30 mg SQ DAILY [facility] Last Admin: 07/30/18 16:39 Dose: 30 mg Documented by: [email or web address] Furosemide (Lasix) 40 mg PO DAILY [facility] Last Admin: 07/30/18 09:09 Dose: 40 mg Documented by: [email or web address] Hydromorphone HCl (Dilaudid) 0.25 mg IV Q2HP PRN PRN Reason: PAIN LEVEL > 6 Last Admin: 07/29/18 23:31 Dose: 0.25 mg Documented by: Admin: 07/29/18 11:31 Dose: 0.25 mg Documented by: DENICE Loperamide HCl (Imodium) 2 mg PO TIDP PRN PRN Reason: Diarrhea Last Admin: 07/30/18 19:28 Dose: 2 mg Documented by: GARFIELD Pot[facility]) [facility] Last Admin: 07/30/18 09:09 Dose: 20 meq Documented by: [email or web address] Shift Summary 07/31/18 03:04 Shift Summary by Sita Cao Pt AA&Ox4; RA most of the day, 1 L NC hs; noted by both day and clamp jig assembler nursing staff that while awake, pt breathes shallowly but breaths deeply when sleeping; IV SL locked in right fa; x4 lap sites CDI with shadow drainage on gauze dressing at navel; 1 assist to BSC, used d/t urgency and frequency of stress incontinence, wearing briefs; SCDs in place, coumadin restarted yesterday with Lovenox bridge for hx CVA; Dr. Mane stated D/C today; monitor for blood in stool after ERCP per Dr. Mcgrath; tolerating diet; x1 [place] for pain overnight. Will update at bedside. Initialized on 07/31/18 03:04 - END OF NOTE
--- NOTE | 2018-07-31 08:48 | Operative Note ---
DATE OF OPERATION: 07/29/2018 PREOPERATIVE DIAGNOSIS: Symptomatic cholelithiasis. POSTOPERATIVE DIAGNOSIS: Symptomatic cholelithiasis, acute and chronic cholecystitis, and choledocholithiasis with an obstructed bile duct. OPERATION PERFORMED: Laparoscopic cholecystectomy with intraoperative cholangiogram. SURGEON: Juancarlos Mane MD ANESTHESIA: Please see the notes. FINDINGS: Liver, stomach and other intra-abdominal viscera seen appeared normal. The gallbladder was distended, had some pericholecystic edema. The omentum was moderately stuck to it. Cystic duct was about 6 mm in size. Cholangiogram showed an approximately 1 cm stone at the ampulla with an inverted meniscus sign and no flow into the duodenum with some proximal filling into the common hepatic duct. DESCRIPTION OF PROCEDURE: After informed consent and discussion of risks and options, and having spent over 36 hours getting her INR back to normal, she was taken to the operating room. Timeout was performed. She had been on intravenous Zosyn. Adequate general endotracheal anesthesia was obtained, patient in supine position with appropriate protection, padding and SCDs. Abdomen was prepped with chlorhexidine and sterile drapes applied. 0.5% Marcaine with epinephrine was used at all surgical sites. A vertical infraumbilical incision was made, blunt dissection carried down to the fascia. Two stay sutures of 0 Vicryl were placed, the fascia was picked up and incised, and entered into the abdominal cavity atraumatically with a blunt tipped balloon trocar. Pneumoperitoneum was created at 20 mm flow rate to 12 mm of pressure. Laparoscopic exam ensued, findings were as above. Three 5 mm ports were introduced in their standard locations atraumatically. The gallbladder fundus was grasped and distracted superiorly and I was able to bluntly free up the omental adhesions and reduce them until we got to the infundibulum, and it was grasped and distracted appropriately. I bluntly dissected on the medial and lateral sides around the neck of the gallbladder clearly identifying the critical view space both medially and laterally. I was able easily to see the cystic artery in its classic location, the cystic duct as well as its junction into the common duct, which was easily seen. The cystic artery was quadruply clipped and divided. I cleared off the cystic duct, gently stroked up towards the gallbladder feeling no stones or obstruction, and placed two clips on the gallbladder side. I then made a parag with a scissors, through a separate puncture site introduced a cholangiocatheter into the cystic duct and held in place with a clip. Aspirated bile in the air, and then under fluoroscopy did a cholangiogram with findings as above. Clip and catheter were then removed, there was quite a bit of back pressure from the bile as expected. The patient side of the cystic duct was triply clipped nicely across, well away from the junction of the common duct and then divided. The gallbladder was removed from the fossa with a hook electrocautery quite bloodlessly. A little bile was spilled. The gallbladder was placed in the sac and drawn out through the infraumbilical incision. That trocar was replaced. I inspected the gallbladder fossa noting excellent hemostasis. Clips were noted to be intact and in place. There was no blood or bile in the gallbladder fossa after irrigation which we did with copious amounts of saline, with the patient in Trendelenburg until the effluent returned clear. Pneumoperitoneum was relieved and the 5 mm trocars were removed. Good hemostasis noted internally. Infraumbilical trocar was removed and that fascia closed securely with 0 Vicryl. That wound was irrigated. All the skin wounds were closed with interrupted inverted 3-0 Monocryl. Steri-Strips and dressings were applied. She was awakened, extubated, and taken to PACU having tolerated the procedure well. Sponge and needle counts were correct. ESTIMATED BLOOD LOSS: About 20 mL WWW:foreign Job ID: [id number] Doc ID: [id number] Juancarlos Mane MD
[2018-07-31] MEDS ORDERED: ASPIRIN 81 MG TAB.CHEW CHEWED SCH (09:00)
[2018-07-31] MEDS ORDERED: WARFARIN 2.5 MG TABLET PO ONE (09:00)
[2018-07-31] MEDS: POTASSIUM CHLORIDE 20 MEQ TABLET PO SCH ×2 (09:16→09:35)
[2018-07-31] MEDS: CALCIUM W/VIT D3 500 MG TABLET PO SCH (09:17)
[2018-07-31] MEDS: amLODIPine 5 MG TABLET PO SCH (09:17)
[2018-07-31] MEDS: CYANOCOBALAMIN (VITAMIN B-12) 500 MCG TABLET PO SCH (09:18)
[2018-07-31] MEDS: ENOXAPARIN 30 MG/0.3 ML SYRINGE SQ SCH (09:18)
[2018-07-31] MEDS: FUROSEMIDE 40 MG TABLET PO SCH (09:35)
--- NOTE | 2018-07-31 10:16 | Operative Note ---
DATE OF OPERATION: 07/29/2018 PROCEDURE: ERCP with sphincterotomy and biliary ductal dilation by balloon and stone extraction by balloon catheter. SHUT OFF WORKER AND SAFETY AND HEALTH CONSULTANT: Maverick Mcgrath MD ANESTHETIC USED: Propofol 440 mg IV and Versed 2 mg IV, glucagon 0.75 mg IV. PREOPERATIVE DIAGNOSIS: I was contacted earlier today by the surgeon refrigeration mechanic helper at [facility] regarding a common bile duct stone found in this patient at laparoscopic cholecystectomy earlier today. The patient had presented with acute cholecystitis and underwent the cholecystectomy earlier today. Of note, her liver bilirubin had increased from 0.84 yesterday, but I was not notified at that time. Today the bilirubin is above 3.0 with other liver chemistries clearly abnormal. The patient underwent cholecystectomy today and not surprisingly, the intraoperative cholangiogram shows a stone about a cm in diameter at the distal bile duct. POSTOPERATIVE DIAGNOSIS: Moderately large common bile duct stone removed via sphincterotomy as described below. INFORMED CONSENT: Prior to the procedure, the patient provided her own informed consent. The patient was evaluated and considered medically fit for endoscopy. DESCRIPTION OF PROCEDURE: With the patient in the semi-prone position under fluoroscope, a side-viewing duodenoscope was advanced via the mouth to the esophagus under direct vision. The scope was advanced to the second portion of the duodenum without difficulty. The ampulla appears bulging. There are a couple of small periampullary diverticula present. A cholangiogram was obtained with wire-guided technique. The cannulation over the wire was without any difficulty. Cholangiogram demonstrated an oval 8 x 12 mm stone in the bile duct. The bile duct itself was moderately dilated. I then performed a moderate sphincterotomy. I anticipate the patient will be put back on anticoagulation soon and I wanted to limit the size of the sphincterotomy. After completing the sphincterotomy, I then used a dilating balloon catheter over the wire to dilate the sphincterotomy and biliary tract to 8 mm and then 9 mm in diameter. By doing so, there was no bleeding induced from the 9 mm diameter dilatation. I then tried to pass a trapezoid basket over the wire, but I found that I could not get the trapezoid to safely get up into the bile duct well enough so I removed the trapezoid. I then went to a 12 through 15 mm diameter extraction balloon and inflated the balloon above the stone and was able to sweep the stone out of the bile duct through the sphincterotomy site with ease. No bleeding was induced from passage of the stone by balloon catheter. COMPLICATIONS: None immediate. RECOMMENDATIONS AND FOLLOWUP: In talking with the covering surgeon earlier today, he indicated that there may not be a need for the patient to go back onto her Coumadin. The Coumadin had been held on admission by Dr. Miguelangel Li and I believe he also administered vitamin K and fresh frozen plasma. The INR was down to 1.2 today, I believe. Before coming over to [facility], I reviewed available records from [facility] and I find that this patient may well have a meaningful indication to resume Coumadin and anticoagulation as soon as possible. 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 She has the stroke in late 2018 and is known to have a middle cerebral artery aneurysm that has been evaluated by Dr. Galvan in the past. She has also reported to have a history of paroxysmal atrial fibrillation. After the stroke, she required thrombectomy, performed in [place]. After the thrombectomy she was placed on Xarelto, and then later on Coumadin. With this available information it sounds like she is probably going to have to go back onto her anticoagulation as soon as possible. I have not yet been able to review any records from [place]. Based on my review; however, thus far, I would be inclined to start the patient back on therapeutic Lovenox 24 hours from now and to restart Coumadin now. We would continue the Lovenox until she is therapeutic on her Coumadin. Since I am not the attending physician here, I am going to relay these recommendations to the surgeon who is covering this weekend. JCM:foreign Job ID: [id number] Doc ID: [id number] Maverick Li M.D.
--- NOTE | 2018-07-31 13:10 | Surgical Pathology Report ---
HISTOLOGY SPECIMEN MICROSCOPIC DIAGNOSIS GALLBLADDER, CHOLECYSTECTOMY: -- CHRONIC CHOLECYSTITIS. -- CHOLELITHIASIS. (DMT:sln) PROCEDURAL IMPRESSION Cholecystitis. GROSS DESCRIPTION Received in formalin labeled gallbladder per requisition sheet, is an 8.8 x 5.3 x 4.5 cm gallbladder. The surface is smooth, levine-pink with yellow discoloration. The hepatic contact side shows cautery artifact. The specimen is received with the vascular and cystic duct margins clipped. The specimen is opened to reveal copious brown-green bile and multiple round yellow-green stones and stone fragments ranging in size from 0.5 up to 1.2 cm. The mucosal surface is smooth without masses or lesions. Human Resources Project Manager sections submitted in one cassette. (EBD:adj) Electronically Signed by: Maynor Shaffer M.D.
== END 2018-07-31 13:40 | disposition home or self-care (01) | DRG 419 ==
LOC: ED 01:17 → MEDSUR 01:17 → OBSVTOIN 08:33 → MEDSUR 08:35
PROVIDERS: ADMIT Family Medicine Adult Medicine; ATTEND Surgery
PROC: ERCPPAP (ICD-10-PCS; 2018-07-29 13:00)

== ENCOUNTER 2019-04-23 13:09 | Inpatient (IN) ==
--- NOTE | 2019-04-23 14:06 | XRay Report ---
HISTORY: Fell with right hip pain FINDINGS: There is an acute subcapital fracture of the right femoral neck. There is impaction along the lateral border. The joint space in the hip is normal and there is no underlying arthritis. There is a sclerotic intramedullary lesion in the intertrochanteric region of the left femur. 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 There are surgical clips in both sides the pelvis. The pelvic bones are osteoporotic. IMPRESSION: Subcapital fracture of the right hip Interpreted and Authenticated by: Roberto Ryan 04/23/19
--- NOTE | 2019-04-23 14:20 | Emergency Department Note ---
Lower Extremity Injury HPI - General Chief Complaint: Extremity Injury, Lower Stated Complaint: right hip pain, fall, did not hit head Time Seen by Provider: 04/23/19 13:21 Source: patient, EMS Mode of arrival: EMS Limitations: no limitations - History of Present Illness HPI Narrative: 78-year-old female presents with right-sided hip pain. Onset about an hour prior to arrival. She was trying to put some groceries in her car when she tripped on the curb and fell. Landed on the affected hip. Did not hit her head. No loss of consciousness. No head, neck, or back pain. Her only complaint is right hip pain and some bruising to the right elbow but states the elbow is not really painful she thinks she is just bruised because she is on Coumadin. No numbness or tingling. States she cannot get up and bear any weight on that right leg whatsoever. - Related Data Home Medications Medication Instructions Recorded Confirmed Aspirin [Adult Aspirin] 325 mg PO DAILY 07/27/18 01/27/19 Calcium Carbonate/Vitamin D3 1 each PO DAILY 07/27/18 01/27/19 [Calcium 500-Vit D3 600 Caplet] Cranberry Fruit Concentrate [Azo 250 mg PO DAILY 07/27/18 01/27/19 Cranberry] Cyanocobalamin (Vitamin B-12) 2,500 mcg PO DAILY 07/27/18 01/27/19 [Vitamin B12] Furosemide [Lasix] 40 mg PO DAILY 07/27/18 01/27/19 Garlic [Odor Free Garlic-X] 1 each PO DAILY 07/27/18 01/27/19 Omeprazole [Prilosec] 40 mg PO ACB 07/27/18 01/27/19 Potassium Chloride [Kdur] 20 meq PO QAMCC 07/27/18 01/27/19 Hydrocodone/APAP 7.5/325Mg [[facility] 1 tab PO Q6HP PRN 07/28/18 01/27/19 7.5-325Mg] amLODIPine BESYLATE [Amlodipine 5 mg PO DAILY 07/28/18 01/27/19 Besylate] warfarin 5 mg tablet 2.5 mg PO DAILY tab 08/14/18 01/27/19 Allergies Allergy/AdvReac Type Severity Reaction Status Date / Time nutritional therapy, AdvReac Mild Heartburn Verified 04/23/19 13:11 metabolic disorder, mv, min#2 [From [facility]] Review of Systems All systems ED: reviewed and negative except as stated. Past Medical History - Past Medical History [facility] Narrative: Medical History Arthralgia (Acute) Acute coronary syndrome (Acute) Past Surgical History (Last Updated 08/14/18 @ 10:57 by Danielle Quiñones CMA) History of laparoscopic cholecystectomy (Acute) Medical history: Reports: CAD (coronary artery disease), CVA, dementia, hypertension, myocardial infarction, valvular heart disease Surgical history ED: Reports: angioplasty/stent, coronary bypass (CABG) - Social History smoking status: Never smoker Alcohol use: Reports: Unknown Drug use: Reports: none Physical Exam Limitations: no limitations General appearance: alert Head: atraumatic, normocephalic, normal inspection Eye: Present: normal appearance. Absent: conjunctival injection ENT: Present: mucous membranes moist Neck: Present: normal inspection, trachea midline. Absent: tenderness Chest: Present: symmetric chest wall rise Respiratory: Present: normal lung sounds bilaterally. Absent: respiratory dist ress, rales/crackles, wheezes, accessory muscle use Cardiovascular: Present: regular rate, normal heart sounds Extremities: Absent: normal inspection ( right leg is slightly shortened and rotated. Decreased active and passive range of motion to right hip related to pain. Tender diffusely to right hip, pedal pulse strong and sensation intact to lower extremities bilaterally) Back: Present: normal inspection. Absent: tenderness Neurological: Present: alert, oriented X3. Absent: motor sensory deficit Psychiatric: Present: normal affect, normal mood Skin: Present: warm, dry, intact, other (The right elbow does have a 5 cm in diameter area of to the elbow no tenderness palpation) Course Course Narrative: At 1400 I did speak with orthopedics on-call, Dr. Salgado. He would like us to get a CT which we have ordered. He would also like us to talk to the hospital about possible admit and he will consult. We have requested a bed. Vital Signs Temperature 98.1 F 04/23/19 13:18 Pulse Rate 72 04/23/19 13:18 Respiratory Rate 18 04/23/19 13:18 Blood Pressure 154/76 04/23/19 13:18 Pulse Oximetry (%) 95 04/23/19 13:18 Temperature 98.1 F 04/23/19 13:18 Pulse Rate 72 04/23/19 13:18 Respiratory Rate 18 04/23/19 13:18 Blood Pressure 154/76 04/23/19 13:18 Pulse Oximetry (%) 95 04/23/19 13:18 Extremity Injury, Lower - Radiology Data Radiology results reviewed: Yes I reviewed the patient's radiology results. Disposition Pt seen by SU[employer]/PA only: Yes Clinical Impression: Fall, Closed right hip fracture Disposition: Xf Acute [facility] Hospital Condition: Fair Instructions: Hip Fracture (ED) Referrals: Andrea Foster MD [Primary Care Provider] - Graeme Salgado MD [Physician] - Time of Disposition: 14:21
--- NOTE | 2019-04-23 14:32 | Cat Scan Report ---
History: Fell with right hip fracture TECHNIQUE: The pelvis was imaged without contrast at 2.5 mm intervals. Sagittal and coronal reformats were created. Radiation exposure was limited using dose reduction technology. FINDINGS: There is an acute subcapital fracture the right femoral neck. There is impaction along the superior lateral border. The fracture does not extend into the joint space. The joint space is normal in width and alignment. No other pelvic or hip fracture present. 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 SI joints and symphysis pubis are normal. The left hip is normal. There is a sclerotic bone island in the intertrochanteric region left femur. Patient has a very large cystocele. This extends down to the introitus. There are surgical clips in the lower pelvis. No intrapelvic hematoma is present. IMPRESSION: Subcapital fracture the right hip. Very large bladder cystocele Jackie Lees was called with the results Interpreted and Authenticated by: Roberto Ryan 04/23/19
--- NOTE | 2019-04-23 14:35 | XRay Report ---
HISTORY: Preop to repair right hip fracture FINDINGS: Mild interstitial pulmonary fibrosis is present. This has improved since prior chest x-ray done on 07/27/18. There is no acute infiltrate, mass or congestive heart failure.. Heart size is normal. Patient has a pacemaker and there are sternal wires present. Clips are seen in the right axilla. Aorta is tortuous and has calcified plaques along the wall. There is no evidence of metastasis. IMPRESSION: Mild interstitial fibrosis and no acute abnormality Interpreted and Authenticated by: Roberto Ryan 04/23/19
[2019-04-23 14:55] LABS: Basophils # (Auto) 0.06 K/mcL (0.00-0.30); Basophils % (Auto) 0.4 % (0.0-2.0); Eosinophils # (Auto) 0.12 K/mcL (0.00-0.70); Eosinophils % (Auto) 0.8 % (0.0-7.0); Granulocytes % (Auto) 76.2 % (38.0-78.0); Hematocrit 32.6 % (34.1-44.9); Hemoglobin 10.1 g/dL (11.2-15.7); Lymphocytes # (Auto) 2.21 K/mcL (1.50-4.80); Lymphocytes % (Auto) 14.8 % (15.5-49.0); Mean Cell Volume 80.5 fL (80.0-100.0); Mean Platelet Volume 9.9 fL (7.4-10.4); Monocytes # (Auto) 1.17 K/mcL (0.10-0.90); Monocytes % (Auto) 7.8 % (1.0-12.0); Platelet Count 369 K/mcL (140-440); RBC 4.05 M/mcL (3.59-5.38); Red Cell Distribution Width 16.4 % (11.5-14.5)
[2019-04-23 15:17] LABS: ALT/SGPT 18 U/l (0-40); AST/SGOT 26 U/l (0-37); Albumin 4.3 gm/dL (3.2-5.2); Albumin/Globulin Ratio 1.3 (1.0-2.3); Alkaline Phosphatase 105 U/L (39-117); Bilirubin,Total 0.3 mg/dL (0.0-1.0); Blood Urea Nitrogen 18 mg/dl (8-23); Calcium 9.5 mg/dl (8.6-10.4); Carbon Dioxide 22 mmol/L (22-30); Chloride 99 mmol/L (96-108); Globulin 3.4 gm/dL (2.2-3.7); Glomerular Filtration Rate 60; Glucose 102 mg/dL (70-105)
[2019-04-23 15:18] LABS: INR 1.9 (0.9-1.1); Prothrombin Time 21.3 sec (11.9-14.5)
[2019-04-23] MEDS ORDERED: 0.9 % SODIUM CHLORIDE 250 ML IV SCH (15:45)
[2019-04-23 15:57] LABS: Appearance,Urine HAZY; Bacteria,Urine MANY /hpf (0); Bilirubin,Urine NEG (NEG); Color,Urine YELLOW; Culture Indicated,Urine NO; Glucose,Urine (UA) NEGATIVE (NEG); Ketones,Urine 5/TR mg/dL (NEG); Leukocyte Esterase,Urine 75 /uL (NEG); Mucus,Urine FEW /hpf (0); Nitrate,Urine POS (NEG); Protein,Urine 30 mg/dL (NEG); Specific Gravity,Urine 1.015 (1.000-1.035); Urine Blood 0.03 mg/dL (<0.03); Urine Hyaline Cast 9 /lpf (0-2); Urine RBC 3 /hpf (0-1); Urine Squamous Epithelial Cell 18 /hpf (0-4); Urine WBC 6 /hpf (0-4); Urobilinogen,Urine NEG (NEG)
--- NOTE | 2019-04-23 15:59 | Internal Med History&Physical ---
Medical - H&P: [facility] Patient information: Note initiated : 04/23/19 at 3:57 pm Service Date, if different from initiated Date: [] Patient: Xochilt Pat a 78 y/o F admitted on for right hip pain, fall, did not hit head. Chief Complaint: [] History of present illness: Ms. Pat is a 78 year old F 78-year-old female was getting out of a car and tripped on the curb falling on her right hip feeling immediate pain she did not hit her head. Case was discussed with orthopedic surgeon who asked for hospitalist involvement given her history of recurrent strokes and being on anticoagulation. Patient denies any chest pain coughing shortness of breath. No headache fever chills nausea vomiting. Patient will get 1 unit of FFP and plan for surgery tonight. Review of Systems: Pertinent positives as above. Denies headache/fever/chills/nausea/vomiting/chest or abdominal pain/cough/dyspnea/diarrhea. Remaining 10 point review of system reviewed negative Medical - H&P: PMH Medical history: Medical History Arthralgia (Acute) Recurrent CVAs on anticoagulation and aspirin HTN/HLD Mild cognitive impairment versus early dementia CAD w/stent Chronic back pain Past Surgical History (Last Updated 08/14/18 @ 10:57 by Danielle Quiñones CMA) History of laparoscopic cholecystectomy (Acute) T&A Tubal ligation Mitral valve repair in 2016 porcine Pacemaker Social History (Last Updated 08/15/18 @ 13:51 by Miguelangel Li MD) Quit smoking 25 years ago denies alcohol use lives by herself Does not use a cane or walker to ambulate. Medical - H&P: Meds Home Medications Medication Instructions Recorded Confirmed Type Aspirin [Adult Aspirin] 325 mg PO DAILY 07/27/18 01/27/19 History Calcium Carbonate/Vitamin D3 1 each PO DAILY 07/27/18 01/27/19 History [Calcium 500-Vit D3 600 Caplet] Cranberry Fruit Concentrate [Azo 250 mg PO DAILY 07/27/18 01/27/19 History Cranberry] Cyanocobalamin (Vitamin B-12) 2,500 mcg PO DAILY 07/27/18 01/27/19 History [Vitamin B12] Furosemide [Lasix] 40 mg PO DAILY 07/27/18 01/27/19 History Garlic [Odor Free Garlic-X] 1 each PO DAILY 07/27/18 01/27/19 History Omeprazole [Prilosec] 40 mg PO ACB 07/27/18 01/27/19 History Potassium Chloride [Kdur] 20 meq PO QAMCC 07/27/18 01/27/19 History Hydrocodone/APAP 7.5/325Mg [[place] 1 tab PO Q6HP PRN 07/28/18 01/27/19 History 7.5-325Mg] amLODIPine BESYLATE [Amlodipine 5 mg PO DAILY 07/28/18 01/27/19 History Besylate] warfarin 5 mg tablet 2.5 mg PO DAILY tab 08/14/18 01/27/19 History Allergies Allergy/AdvReac Type Severity Reaction Status Date / Time nutritional therapy, AdvReac Mild Heartburn Verified 04/23/19 13:11 metabolic disorder, mv, min#2 [From [employer]] Medical - H&P: Exam - Constitutional Vitals: Temp Pulse Resp BP Pulse Ox 98.1 F 72 18 154/76 95 04/23/19 13:18 04/23/19 13:18 04/23/19 13:18 04/23/19 13:18 04/23/19 13:18 Exam: General: Alert, Awake, No acute Distress Eyes/N/T: EOMI, PERRL, Head/Neck: neck supple, normocephalic atraumatic CV: RRR, 2/6 SM, normal s1/s2 Pulm: Clear b/l, no wheezing/rhonchi/rales Abd: soft, nontender, +BS x4 Ext: no clubbing/cyanosis, trace b/l LE edema Neuro: Alert, no focal deficits, moves all extremities, CN 2-12 grossly intact, sensations intact b/l upper/lower Skin: warm/dry Medical - H&P: Reslt - Labs CBC & Chem 7: 04/23/19 14:22 04/23/19 14:22 Labs: Short CBC 04/23/19 Range/Units 14:22 WBC 15.0 H (4.50-11.00) K/mcL Hgb 10.1 L (11.2-15.7) g/dL Hct 32.6 L (34.1-44.9) % Plt Count 369 (140-440) K/mcL BMP 04/23/19 14:22 Sodium 135 Potassium 4.3 Chloride 99 Carbon Dioxide 22 BUN 18 Creatinine 0.9 Glucose 102 Calcium 9.5 Liver Function 04/23/19 Range/Units 14:22 Total Bilirubin 0.3 (0.0-1.0) mg/dL AST 26 (0-37) U/l ALT 18 (0-40) U/l Alkaline Phosphatase 105 (39-117) U/L Albumin 4.3 (3.2-5.2) gm/dL Medical - H&P: A/P - Narrative A/P Narrative: A: *R Hip Fx: *h/o CVA x2 with residual mild left side weakness and left vision: on ASA/Warfarin *h/o CAD w/stent: on ASA *HTN/HLD: *mild cognitive impairment versus early Dementia: *Chronic back pain: *GERD: *Anemia, chronic P: -pt is at increase perioperative risk given age and comorbidities, patient understand risks -Dr. Salgado for ortho -1 unit FFP tonight before surgery -cont home bp meds -monitor H&H given CAD, goal >8-10 -IS -pt/ot -ppx: warfarin per pharm post-op/home ppi DNR
--- NOTE | 2019-04-23 16:19 | Consultation ---
DATE OF CONSULTATION: 04/23/2019 REASON FOR CONSULTATION: Right hip fracture. HISTORY OF PRESENT ILLNESS: The patient is an 78-year-old female who earlier this afternoon was getting groceries out of her car when she slipped and fell onto her right hip. She had immediate pain and inability to ambulate. She denies loss of consciousness or hitting her head at that time. She was brought to the emergency department for further evaluation and treatment. Upon presentation, she complains only of right hip pain and only with movement. She has several areas of ecchymosis and bruising; however, does not complain of pain at these locations. Pain is localized to her right hip. PAST MEDICAL HISTORY: Significant for coronary artery disease, valvular heart disease status post heart valve replacement. Prior mini strokes, dementia, hypertension, multiple areas of joint pain including low back and right knee arthritis. PAST SURGICAL HISTORY: Pacemaker, heart valve replacement, CABG, cholecystectomy. ALLERGIES: multivitamin/mineral which causes heartburn. MEDICATIONS: 1. Daily aspirin 325 mg. 2. Calcium. 3. Vitamin D. 4. Multivitamin. 5. Lasix. 6. Garlic. 7. Prilosec. 8. Potassium. 9. Narcotic pain medication 7.5 mg daily. 10. Amlodipine. 11. Warfarin 5 mg daily. SOCIAL HISTORY: She resides by herself. Her several years ago. She has two steps to get into her house. She denies tobacco use. Of note, she also has several children within the area and neighbors that would be able to assist her at home. REVIEW OF SYSTEMS: A 10-point review of system otherwise negative. PHYSICAL EXAMINATION: GENERAL: Alert, oriented x3, no acute distress. She is appropriate. VITAL SIGNS: She is afebrile at 98.1. Her pulse rate is 72, blood pressure 154/76, with 95% on room air. EXTREMITIES: Bilateral upper extremities reveal she has bruising over the right elbow. The skin is intact. She has full pain-free range of motion of the shoulder, elbow, wrist, and hand. They are symmetrical. She is neurovascularly intact in the extremities. The pelvis is stable to compression. Left lower extremity: She has skin intact. She has no crepitus or tenderness with palpation. She has no pain with log roll of her hip. She can flex and extend the knee without difficulty as well as her ankles and toes. Her foot is warm and well perfused with sensation intact. Right lower extremity: Skin is intact. There is no bruising about the hip itself. She has no joint effusion about the knee. She does move, flex and roll, internal and externally rotate her hip on her own with minimal discomfort. She has some tenderness about her ankle or foot. Her foot is warm and well perfused with sensation being intact throughout. IMAGING: She has plain x-rays of her pelvis and right hip demonstrating a valgus impacted femoral neck fracture. She has a CT demonstrating the same. There is no displacement on the axial cuts. LABORATORY DATA: She has a CBC with a white count of 15, hemoglobin 10, hematocrit of 32, and a platelet count of 369. She has a normal creatinine of 0.9. Her glucose is 102. She has an INR of 1.9 and a PT of 21.3. Urine is pending. ASSESSMENT AND PLAN: This is an 78-year-old female with a right valgus impacted femoral neck fracture that is closed in nature. I discussed the diagnosis and the treatment options with her. My recommendation is for operative treatment with cannulated screws to hold the fracture in a reduced alignment while it heals. This will allow for the best overall function of her hip. I did discuss there is some risk of AVN developing down the road. This could potentially become symptomatic and require surgical intervention, including a total hip arthroplasty and hardware removal. Discussed the benefits of the surgery to include immediate mobilization, better pain control, no restriction to range of motion. There would be some restriction to weightbearing to partial initially. She does have an increased risk of surgery given her medical comorbidities. Non operative treatment is an option but would be relatively nonmobile until the fracture has healed, which carries its own risks. After discussion, she does want to proceed with the surgery. She will be admitted by the hospitalist and evaluated as well. Plan will be for operative treatment right hip fracture. YAEL:isrrael Job ID: [id number] Doc ID: [id number] Graeme PADRON
[2019-04-23] MEDS ORDERED: ONDANSETRON 4 MG/2 ML VIAL IV PRN ×2 (17:09→18:45)
[2019-04-23] MEDS ORDERED: LABETALOL 5 MG/ML ML IV PRN ×2 (17:09→18:45)
[2019-04-23] MEDS ORDERED: MAGNESIUM SULFATE 2 GM/50 ML BAG IV PRN (17:09)
[2019-04-23] MEDS ORDERED: HYDROcodone/APAP 5/325MG TABLET PO PRN (17:09)
[2019-04-23] MEDS ORDERED: SENNOSIDES 1 TABLET PO PRN (17:09)
[2019-04-23] MEDS ORDERED: IPRATROPIUM/ALBUTEROL 3 ML AMPUL.NEB NEB PRN ×2 (17:09→18:45)
[2019-04-23] MEDS ORDERED: ACETAMINOPHEN 325 MG TABLET PO PRN (17:09)
[2019-04-23] MEDS ORDERED: POTASSIUM CHLORIDE 40 MEQ in DEXTROSE 5% IN WATER 500 ML IV PRN (17:09)
[2019-04-23] MEDS ORDERED: 0.9 % SODIUM CHLORIDE 1,000 ML IV SCH (17:09)
[2019-04-23] MEDS ORDERED: POTASSIUM CHLORIDE 20 MEQ TABLET PO PRN ×2 (17:09)
[2019-04-23] MEDS ORDERED: LACTULOSE 20 GM/30 ML ORAL.SOL PO PRN (17:09)
[2019-04-23] MEDS ORDERED: POLYETHYLENE GLYCOL 3350 17 GM PACKET PO PRN (17:09)
[2019-04-23] MEDS ORDERED: fentaNYL 100 MCG/2 ML VIAL IV ONE (18:15)
[2019-04-23] MEDS ORDERED: GLYCOPYRROLATE 0.2 MG/ML VIAL IV ONE (18:15)
[2019-04-23] MEDS ORDERED: ONDANSETRON 4 MG/2 ML VIAL IV ONE (18:15)
[2019-04-23] MEDS ORDERED: PROPOFOL 200 MG/20 ML VIAL IV ONE (18:15)
[2019-04-23] MEDS ORDERED: LIDOCAINE HCL/PF 100 MG/5 ML SYRINGE IV ONE (18:15)
[2019-04-23] MEDS ORDERED: KETAMINE 100 MG/ML ML IV ONE (18:15)
[2019-04-23] MEDS ORDERED: DEXAMETHASONE 10 MG/ML VIAL IV ONE (18:15)
[2019-04-23] MEDS ORDERED: PHENYLEPHRINE 10 MG/ML VIAL IV ONE (18:15)
[2019-04-23] MEDS ORDERED: BENZOCAINE/MENTHOL 1 LOZENGE PO PRN (18:45)
[2019-04-23] MEDS ORDERED: LACTATED RINGERS 1,000 ML IV SCH ×2 (18:45→19:15)
[2019-04-23] MEDS ORDERED: fentaNYL 100 MCG/2 ML VIAL IV PRN (18:45)
[2019-04-23] MEDS ORDERED: NALOXONE HCL 0.4 MG/ML VIAL IV PRN (18:45)
[2019-04-23] MEDS ORDERED: LACTATED RINGERS 250 ML IV PRN (18:45)
[2019-04-23] MEDS ORDERED: FLUMAZENIL 0.1 MG/ML ML IV PRN (18:45)
[2019-04-23] MEDS ORDERED: ACETAMINOPHEN 1,000 MG/100 ML BOTTLE IV ONE ×2 (18:45→19:18)
[2019-04-23] MEDS ORDERED: MEPERIDINE 25 MG/ML SYRINGE IV PRN (18:45)
[2019-04-23] MEDS ORDERED: METOPROLOL TARTRATE 5 MG/5 ML VIAL IV PRN (18:45)
[2019-04-23] MEDS ORDERED: METHOCARBAMOL 1,000 MG/10 ML VIAL IV PRN (18:45)
[2019-04-23 18:49] LABS: INR 1.8 (0.9-1.1); Prothrombin Time 20.8 sec (11.9-14.5)
--- NOTE | 2019-04-23 19:02 | Brief Operative Note ---
Date of procedure: 04/23/19 Pre-op diagnosis: right valgus impacted femoral neck fracture Post-op diagnosis: same Procedure: operative fixation of right femoral neck fracture with cannulated screws. Grafts/Implants: Yes (6.5mm cannulated tina partially threaded screws) Anesthesia: GETA Findings: valgus impacted femoral neck fracture Complications: none Surgeon: Graeme Salgado Catalyst Impregnator: Arun Felix Estimated blood loss (cc): 15 Tourniquet Time (Minutes): 0 Specimens Removed/Pathology: none sent Condition: stable Disposition: PACU
[2019-04-23] MEDS ORDERED: FLEETS ADULT ENEMA PR PRN (19:03)
[2019-04-23] MEDS ORDERED: BISACODYL 10 MG SUPP.RECT PR PRN (19:03)
[2019-04-23] MEDS ORDERED: MEPERIDINE 50 MG/ML INJECTION ONE (19:25)
[2019-04-23] MEDS ORDERED: MEPERIDINE 50 MG/ML INJECTION IM ONE (19:28)
[2019-04-23] MEDS: HYDROcodone/APAP 5/325MG TABLET PO PRN (23:00)
[2019-04-24] MEDS: ceFAZolin 1 GM VIAL IV SCH ×2 (01:00→07:53)
[2019-04-24] MEDS: 0.9 % SODIUM CHLORIDE 10 ML SYRINGE IV SCH ×4 (01:39→22:06)
[2019-04-24] MEDS: DOCUSATE SODIUM 100 MG CAPSULE PO SCH ×3 (01:59→21:02)
[2019-04-24] MEDS: HYDROcodone/APAP 5/325MG TABLET PO PRN ×2 (03:49→16:21)
--- NOTE | 2019-04-24 07:35 | Internal Med Progress Note ---
Medical - PN: Subj Patient information: Note initiated : 04/24/19 at 7:33 am Service Date, if different from initiated Date: [] Patient: Xochilt Pat 78 y/o F admitted on 04/23/19 for right hip pain, fall, did not hit head. Chief Complaint: [] Interval history: Ms. Pat is a 78 year old F 78-year-old female was getting out of a car and tripped on the curb falling on her right hip feeling immediate pain she did not hit her head. Case was discussed with orthopedic surgeon who asked for hospitalist involvement given her history of recurrent strokes and being on anticoagulation. Patient denies any chest pain coughing shortness of breath. No headache fever chills nausea vomiting. Patient will get 1 unit of FFP and plan for surgery tonight. 04/24 With poor sleep last night. Some nausea this morning. Working with physical therapy this morning. Tolerated procedure yesterday. Review of Systems: denies headache/fever/chills/vomiting/chest or abdominal pain/cough/dyspnea/diar mario. Otherwise see above. - Constitutional Vitals: Vital Signs Temp Pulse Resp BP Pulse Ox 98.0 F 73 16 102/59 98 04/24/19 03:17 04/24/19 06:58 04/24/19 06:58 04/24/19 03:17 04/24/19 06:58 Period Temp Pulse Resp BP Sys/Hernandez Pulse Ox Last 24 Hr 97.5 F-98.9 F 70-77 12-18 102-190/59-105 91-98 Intake and Output 04/23/19 04/24/19 04/24/19 21:59 05:59 13:59 Intake Total 850 320 Output Total 500 950 Balance 350 -630 Weight 64.183 kg Intake & Output: Intake & Output 04/23/19 04/24/19 04/24/19 21:59 05:59 13:59 Intake Total 850 320 Output Total 500 950 Balance 350 -630 Weight 64.183 kg Intake: IV 100 Oral 50 320 IV - Manual Only 700 Output: Urine Catheter Amount 500 950 Other: Meal Dinner Percent of Meal Consumed 50% Feeding Ability Independent Urine Appearance Clear Clear Clear Uretheral (Marshall) Clear Urine Color Bright Yellow Bright Yellow Bright Yellow Uretheral (Marshall) Pale Urine Odor Normal Normal Uretheral (Marshall) Normal Exam: General: Alert, Awake, No acute Distress Eyes/N/T: EOMI, Head/Neck: neck supple, CV: RRR, 2/6 SM, Pulm: Clear b/l, no wheezing/rhonchi/rales Abd: soft, nontender, +BS x4 Ext: no clubbing/cyanosis, trace b/l LE edema Neuro: Alert, no focal deficits, moves all extremities, Skin: warm/dry Medical - PN: Obj Da - Labs CBC & Chem 7: 04/24/19 06:30 04/23/19 14:22 Labs: Abnormal Lab Results 04/23/19 04/23/19 04/23/19 17:18 15:22 14:22 WBC Hgb Hct MCH RDW Lymph % (Auto) Gran # Saunders # (Auto) PT 20.8 H 21.3 H INR 1.8 H 1.9 H Urine Protein 30 A Urine Ketones 5/tr A Urine Occult Blood 0.03 A Urine Nitrate Pos A Ur Leukocyte Esterase 75 A Urine RBC 3 H Urine WBC 6 H Ur Squamous Epith Cells 18 H Urine Bacteria Many A Hyaline Casts 9 H 04/23/19 14:22 WBC 15.0 H Hgb 10.1 L Hct 32.6 L MCH 24.9 L RDW 16.4 H Lymph % (Auto) 14.8 L Gran # 11.39 H Saunders # (Auto) 1.17 H PT INR Urine Protein Urine Ketones Urine Occult Blood Urine Nitrate Ur Leukocyte Esterase Urine RBC Urine WBC Ur Squamous Epith Cells Urine Bacteria Hyaline Casts Meds: Medications Acetaminophen (Tylenol) 650 mg PO Q6HP PRN PRN Reason: PAIN/FEVER > 101 Hydrocodone Bitart/Acetaminophen (Largo 5/325mg) 1 - 2 tab PO Q4HP PRN PRN Reason: PAIN LEVEL 3-6 Last Admin: 04/24/19 03:49 Dose: 1 tab Documented by: Albuterol/Ipratropium (Duoneb) 3 ml NEB Q4HP PRN PRN Reason: Shortness Of Breath Bisacodyl (Dulcolax) 10 mg NE Q2-3DAYS PRN PRN Reason: Constipation Docusate Sodium (Colace) 100 mg PO BID PENNIE Last Admin: 04/24/19 01:59 Dose: Not Given Documented by: Potassium Chloride 40 meq/ (Dextrose) 520 mls @ 130 mls/hr IV UD PRN PRN Reason: Potassium < 3 Magnesium Sulfate (Magnesium Sulfate) 2 gm in 50 mls @ 50 mls/hr IV UD PRN PRN Reason: Magnesium </= 1.6 Lactated Ringer's (Lactated Ringers) 1,000 mls @ 75 mls/hr IV .[id number] [facility] Last Admin: 04/23/19 20:24 Dose: 75 mls/hr Documented by: Labetalol HCl (Trandate) 0 mg IV Q2HP PRN PRN Reason: Hypertension Lactulose (Cephulac) 20 gm PO DAILYP PRN PRN Reason: Constipation Morphine Sulfate (Morphine) 0 mg IV Q3HP PRN PRN Reason: Pain Last Admin: 04/23/19 23:58 Dose: 1 mg Documented by: Morphine Sulfate (Morphine) 2 mg IV Q2HP PRN; Protocol PRN Reason: Per Pain Protocol Ondansetron HCl (Zofran) 4 mg IV Q4HP PRN PRN Reason: Nausea And Vomiting Polyethylene Glycol (Miralax) 17 gm PO DAILYP PRN PRN Reason: Constipation Potassium Chloride (Kdur) 40 meq PO UD PRN PRN Reason: Potssium is 3-3.5 Potassium Chloride (Kdur) 40 meq PO UD PRN PRN Reason: Potassium < 3 Senna (Senokot) 2 tab PO DAILYP PRN PRN Reason: Constipation Sodium Biphosphate/Sodium Phosphate (Fleets Adult) 1 dose NE Q3-4DAYS PRN PRN Reason: Constipation Sodium Chloride (Saline Flush) 10 ml IV Q8 [facility] Last Admin: 04/24/19 01:39 Dose: Not Given Documented by: Warfarin Sodium (Coumadin Per Pharmacy) 1 order PO DAILY@1400 [facility] Last Admin: 04/24/19 07:28 Dose: Not Given Documented by: Medical - PN: A/P - Time Spent With Patient Total time spent is greater than 50% in coordination of care (as documented) at patient's floor/unit and/or counseling patient: - Narrative A/P Narrative: A: *R Hip Fx: s/p ORIF (04/23) *h/o CVA x2 with residual mild left side weakness and left vision: on ASA/Warfarin *h/o CAD w/stent: on ASA *HTN/HLD: *mild cognitive impairment versus early Dementia: *Chronic back pain: *GERD: *Anemia, chronic P: -pt is at increase perioperative risk given age and comorbidities, patient understand risks -Dr. Salgado for ortho -cont home bp meds -monitor H&H given CAD, goal >8-10 -IS -Meds need to be confirmed -pt/ot -ppx: warfarin per pharm post-op/home ppi
--- NOTE | 2019-04-24 07:37 | XRay Report ---
HISTORY: FINDINGS: IMPRESSION: 1.1 minute of fluoroscopy time was used Interpreted and Authenticated by: Roberto Ryan 04/24/19
--- NOTE | 2019-04-24 07:57 | Orthopedic Progress Note ---
Subjective Patient information: Note initiated : 04/24/19 at 7:54 am Service Date, if different from initiated Date: [] Patient: Xochilt Pat 78 y/o F admitted on 04/23/19 for right hip pain, fall, did not hit head. Chief Complaint: [] Interval history: No acute issues overnight with pain controlled this AM. Also complains of back pain give the supine position as she is unable to sleep on her side per usual. No chest pain or shortness of breath. Has not been out of bed yet. Objective Vital signs: Vital Signs Temp Pulse Pulse Resp BP Pulse Ox 04/24/19 06:58 73 16 98 04/24/19 03:17 98.0 F 73 14 102/59 98 04/23/19 22:50 97.9 F 70 14 130/72 97 04/23/19 21:53 77 127/63 96 04/23/19 21:23 76 171/72 95 04/23/19 20:53 77 144/65 92 04/23/19 20:38 77 168/76 93 04/23/19 20:23 70 168/73 94 04/23/19 20:08 76 166/73 91 04/23/19 19:53 97.5 F 76 12 149/82 91 04/23/19 19:37 98.5 F 72 18 169/85 94 04/23/19 19:22 98.8 F 73 16 151/105 94 04/23/19 19:17 74 173/70 94 04/23/19 19:12 72 14 132/101 96 04/23/19 19:07 98.9 F 77 15 158/73 98 04/23/19 17:15 73 18 97 04/23/19 17:09 98.1 F 73 18 190/80 97 04/23/19 16:51 98.1 F 74 18 97 04/23/19 16:29 74 174/82 97 04/23/19 13:18 98.1 F 72 18 154/76 95 Intake and Output 04/23/19 04/24/19 04/24/19 21:59 05:59 13:59 Intake Total 850 320 Output Total 500 950 Balance 350 -630 Intake: IV 100 Oral 50 320 IV - Manual Only 700 Output: Urine Catheter Amount 500 950 Other: Meal Dinner Percent of Meal Consumed 50% Feeding Ability Independent Urine Appearance Clear Clear Clear Uretheral (Lau) Clear Urine Color Bright Yellow Bright Yellow Bright Yellow Uretheral (Lau) Pale Urine Odor Normal Normal Uretheral (Lau) Normal Weight 141 lb 8 oz Intake & Output: Intake & Output 04/23/19 04/24/19 04/24/19 21:59 05:59 13:59 Intake Total 850 320 Output Total 500 950 Balance 350 -630 Weight 141 lb 8 oz Intake: IV 100 Oral 50 320 IV - Manual Only 700 Output: Urine Catheter Amount 500 950 Other: Meal Dinner Percent of Meal Consumed 50% Feeding Ability Independent Urine Appearance Clear Clear Clear Uretheral (Lau) Clear Urine Color Bright Yellow Bright Yellow Bright Yellow Uretheral (Lau) Pale Urine Odor Normal Normal Uretheral (Lau) Normal Incision: Yes clean and dry Dressing: Yes clean, Yes dry, Yes intact Weight bearing status: partial Neurological exam IM: Yes neurovascular intact Additional Comments: NVIT distally. - Labs CBC & BMP: 04/23/19 14:22 04/23/19 14:22 Labs: Orthopedic Labs 04/24/19 04/23/19 04/23/19 06:30 17:18 14:22 PT Pending 20.8 H 21.3 H INR Pending 1.8 H 1.9 H 04/24/19 04/23/19 06:30 14:22 Hgb Pending 10.1 L Hct Pending 32.6 L Assessment and Plan - Narrative A/P Narrative: POD 1 s/p operative fixation of right femoral neck fracture with cannulated screws. -- PT/OT today with 50% weight bearing. No restrictions to ROM -- Pain control- uses norco at baseline and muscle relaxant. Will continue and trend to baseline. IV for only breakthrough pain -- Oral diet -- D/c lau this AM ? UTI -- Labs this AM are still pending -- Appreciate Hospitals management -- Prophy: scds, ambulation, IS, restart coumadin today again per pharmacy protocol -- Dispo: pending on how she does with therapy as she resides alone.
[2019-04-24 07:59] LABS: Basophils # (Auto) 0.02 K/mcL (0.00-0.30); Basophils % (Auto) 0.1 % (0.0-2.0); Eosinophils # (Auto) 0 K/mcL (0.00-0.70); Eosinophils % (Auto) 0 % (0.0-7.0); Granulocytes % (Auto) 88.6 % (38.0-78.0); Hematocrit 25.4 % (34.1-44.9); Hemoglobin 7.8 g/dL (11.2-15.7); Lymphocytes # (Auto) 0.88 K/mcL (1.50-4.80); Lymphocytes % (Auto) 5.5 % (15.5-49.0); Mean Cell Volume 81.7 fL (80.0-100.0); Mean Corpuscular HGB Conc 30.7 g/dL (31.0-36.0); Mean Platelet Volume 10.4 fL (7.4-10.4); Monocytes # (Auto) 0.93 K/mcL (0.10-0.90); Monocytes % (Auto) 5.8 % (1.0-12.0); Platelet Count 334 K/mcL (140-440); RBC 3.11 M/mcL (3.59-5.38); Red Cell Distribution Width 16.5 % (11.5-14.5); WBC 15.9 K/mcL (4.50-11.00)
--- NOTE | 2019-04-24 08:08 | Operative Note ---
DATE OF OPERATION: 04/23/2019 PREOPERATIVE DIAGNOSIS: Right valgus impacted femoral neck fracture. POSTOPERATIVE DIAGNOSIS: Right valgus impacted femoral neck fracture. PROCEDURE PERFORMED: Open reduction with internal fixation with cannulated screws of right hip. SURGEON: Graeme Salgado MD TOOL DESIGN DRAFTSPERSON: Jared Felix PA-C. This provider's expertise and technical skill were required throughout the case. The PA assisted with preoperative coordination, intraoperative retraction, wound closure, dressing and splint application, as well as postoperative documentation and care coordination. ANESTHESIA: General via LMA by Kings Lopez CRNA IV FLUIDS: 600 mL lactated ringer. IV ANTIBIOTICS: 2 grams Ancef. ESTIMATED BLOOD LOSS: Less than 15 mL TOURNIQUET TIME: Not applicable. IMPLANTS: Three Siddhartha 6.5 partially threaded cannulated screws. PATHOLOGY/LAB: None. INTRAOPERATIVE COMPLICATIONS: None apparent. INDICATIONS: The patient is an 78-year-old female who sustained a valgus impacted femoral neck fracture earlier today from a ground level fall without any syncopal event. She has significant medical comorbidities and was evaluated by the hospital as well as Anesthesia and deemed appropriate to proceed with surgery for a pinning of her right hip. I did discuss the risks and benefits of the surgery with the patient as well as the postoperative rehabilitation course and she elected to proceed in that fashion. DESCRIPTION OF PROCEDURE: The patient was taken to the preoperative holding area. Site was verified and marked with the patient's input. She was then taken back to the operating room where she underwent successful anesthesia via LMA. Her left lower extremity was placed into a padded boot as well as her right lower extremity placed in a padded boot. She was placed onto the [place] table with a padded perineal post with minimal traction on bilateral lower extremities. The right hip was then prepped and draped in the usual sterile fashion with ChloraPrep. Surgical timeout was performed to verify patient identity, correct procedure being performed and extremity to be operated on and everybody was in agreement. A large fluoroscopy was utilized to obtain an AP and a perfect lateral of the hip. At this time, we localized to the area just lateral to the lesser trochanter in order not to move inferior to it. The initial guidepin was placed along the inferior neck and subsequently placed to subchondral bone and 2 additional K-wires were placed parallel to this on the AP and lateral, utilizing the targeting device. This was in an inverted triangle construct. These were then measured. The outer cortex was drilled and the screws were placed individually, initially placing the inferior inferior. Subsequently placed the superior posterior screw and the distally and posterior superior screw and the superior anterior screw. The fracture remained well aligned with the valgus impacted nature of the fracture. Multiple views of the hip were obtained to ensure none of the screws penetrated the subchondral bone. At the conclusion of this, the wound was copiously irrigated. Subcutaneous tissue was closed with 3-0 Vicryl and the skin was closed with kelly. The leg with hip was then cleaned and dried and Xeroform along with fluffs and Medipore tape to secure dressing was applied. The patient awoke from anesthesia and was transferred to Post-Anesthetic Care Unit in stable condition. POSTOPERATIVE PLAN: The patient will be admitted back to the floor for postoperative rehabilitation and recovery. YAEL:foreign Job ID: [id number] Doc ID: [id number] Graeme PADRON
[2019-04-24 08:25] LABS: INR 1.9 (0.9-1.1); Prothrombin Time 21.2 sec (11.9-14.5)
[2019-04-24 08:41] LABS: ALT/SGPT 13 U/l (0-40); AST/SGOT 19 U/l (0-37); Albumin 3.8 gm/dL (3.2-5.2); Albumin/Globulin Ratio 1.4 (1.0-2.3); Alkaline Phosphatase 79 U/L (39-117); Bilirubin,Direct < 0.2 mg/dL (0.0-0.3); Bilirubin,Total 0.2 mg/dL (0.0-1.0); Blood Urea Nitrogen 20 mg/dl (8-23); Calcium 9.1 mg/dl (8.6-10.4); Carbon Dioxide 22 mmol/L (22-30); Chloride 100 mmol/L (96-108); Globulin 2.7 gm/dL (2.2-3.7); Glomerular Filtration Rate 43; Glucose 194 mg/dL (70-105); Lactate Dehydrogenase 272 U/L (94-250); Phosphorous 3.1 mg/dL (2.7-4.5); Triglycerides 42 mg/dl (<150); Uric Acid 4.6 mg/dL (2.5-8.0)
[2019-04-24] MEDS ORDERED: 0.9 % SODIUM CHLORIDE 500 ML IV SCH (09:30)
[2019-04-24 09:52] LABS: Appearance,Urine CLEAR; Bacteria,Urine 0 /hpf (0); Bilirubin,Urine NEG (NEG); Color,Urine YELLOW; Culture Indicated,Urine YES; Glucose,Urine (UA) NEGATIVE (NEG); Ketones,Urine NEG (NEG); Leukocyte Esterase,Urine 500 /uL (NEG); Mucus,Urine FEW /hpf (0); Nitrate,Urine NEG (NEG); Protein,Urine NEG (NEG); Specific Gravity,Urine 1.035 (1.000-1.035); Urine Blood 0.03 mg/dL (<0.03); Urine Hyaline Cast 3 /lpf (0-2); Urine RBC 14 /hpf (0-1); Urine Squamous Epithelial Cell 3 /hpf (0-4); Urine Transitional Epi Cells < 1 /hpf (0-2); Urine WBC 52 /hpf (0-4); Urobilinogen,Urine NEG (NEG)
[2019-04-24] MEDS ORDERED: FLU VACC QS2019-20(6MOS UP)/PF 60 MCG/0.5 ML SYRINGE IM ONE (10:00)
[2019-04-24 10:11] LABS: Band Neutrophils % 4 % (0-10); Hypochromasia 1+ (NONE SEEN); Lymphocytes % 5 % (15-49); Monocytes % (Manual) 4 % (1-12); Platelet Estimate NORMAL (NORMAL); RBC Morphology ABNORM (NORMAL); Segmented Neutrophils % 87 % (38-78)
[2019-04-24] MEDS: LIDOCAINE PATCH TOPICAL SCH ×2 (11:54→22:05)
[2019-04-24] MEDS: cefTRIAXone 1 GM VIAL IV SCH (13:30)
[2019-04-24 13:54] LABS: Hematocrit 23.6 % (34.1-44.9); Hemoglobin 7.3 g/dL (11.2-15.7)
[2019-04-24] MEDS ORDERED: WARFARIN 2.5 MG TABLET PO ONE (15:00)
[2019-04-24] MEDS ORDERED: 0.9 % SODIUM CHLORIDE 250 ML IV SCH (15:15)
[2019-04-24] MEDS ORDERED: FUROSEMIDE 40 MG TABLET PO PRN (16:02)
[2019-04-24] MEDS ORDERED: CYCLOBENZAPRINE 10 MG TABLET PO PRN (16:02)
[2019-04-24] MEDS ORDERED: NITROGLYCERIN 0.4 MG TAB.SUBL SL PRN (16:02)
[2019-04-24] MEDS: OMEPRAZOLE 20 MG CAPSULE PO SCH (16:22)
[2019-04-24] MEDS: HYDROCODONE/APAP 7.5/325MG TABLET PO PRN (20:55)
[2019-04-25 02:05] LABS: Hematocrit 25.3 % (34.1-44.9); Hemoglobin 7.8 g/dL (11.2-15.7)
[2019-04-25] MEDS: HYDROCODONE/APAP 7.5/325MG TABLET PO PRN ×4 (06:31→23:09)
[2019-04-25] MEDS: 0.9 % SODIUM CHLORIDE 10 ML SYRINGE IV SCH ×3 (06:35→21:01)
[2019-04-25] MEDS: OMEPRAZOLE 20 MG CAPSULE PO SCH ×2 (07:21→16:52)
--- NOTE | 2019-04-25 07:36 | Internal Med Progress Note ---
Medical - PN: Subj Patient information: Note initiated : 04/25/19 at 7:35 am Service Date, if different from initiated Date: [] Patient: Xochilt Pat 78 y/o F admitted on 04/23/19 for right hip pain, fall, did not hit head. Chief Complaint: [] Interval history: Ms. Pat is a 78 year old F 78-year-old female was getting out of a car and tripped on the curb falling on her right hip feeling immediate pain she did not hit her head. Case was discussed with orthopedic surgeon who asked for hospitalist involvement given her history of recurrent strokes and being on anticoagulation. Patient denies any chest pain coughing shortness of breath. No headache fever chills nausea vomiting. Patient will get 1 unit of FFP and plan for surgery tonight. 04/24 With poor sleep last night. Some nausea this morning. Working with physical therapy this morning. Tolerated procedure yesterday. 04/25 Slept well. Feeling better. No fevers or chills. White blood cells elevated, afebrile. No coughing or respiratory issues Review of Systems: denies headache/fever/chills/vomiting/chest or abdominal pain/cough/dyspnea/diarrhea. Otherwise see above. - Constitutional Vitals: Vital Signs Temp Pulse Resp BP Pulse Ox 98.1 F 76 14 138/61 90 04/25/19 04:29 04/25/19 04:29 04/25/19 04:29 04/25/19 04:29 04/25/19 04:29 Period Temp Pulse Resp BP Sys/Hernandez Pulse Ox Last 24 Hr 97.7 F-98.8 F 71-82 12-18 127-138/53-63 90-95 Intake and Output 04/24/19 04/25/19 04/25/19 21:59 05:59 13:59 Intake Total 1817 443 Output Total 625 176 101 Balance 1192 267 -101 Weight 63.004 kg Intake & Output: Intake & Output 04/24/19 04/25/19 04/25/19 21:59 05:59 13:59 Intake Total 1817 443 Output Total 625 176 101 Balance 1192 267 -101 Weight 63.004 kg Intake: IV 500 43 Sodium Chloride 0.9% 500 ml @ 500 75 mls/hr IV .[id number] [facility] Rx#: [id number] Sodium Chloride 0.9% 250 ml @ 43 20 mls/hr IV .[id number] [facility] Rx#: [id number] Oral 1040 400 Blood Product 277 Output: Urine Catheter Amount 350 Void Amount 275 175 100 # of times incontinent of urine 1 1 Other: Meal Dinner Percent of Meal Consumed 75% Feeding Ability Independent Urine Appearance Clear Clear Urine Color Bright Yellow Pale Urine Odor Normal Normal Stool Size Small Stool Color Brown Stool Consistency Formed # Bowel Movements 1 Exam: General: Alert, Awake, No acute Distress Eyes/N/T: EOMI, Head/Neck: neck supple, CV: RRR, 2/6 SM, Pulm: Clear b/l, no wheezing/rhonchi/rales Abd: soft, nontender, +BS x4 Ext: no clubbing/cyanosis, trace b/l LE edema Neuro: Alert, no focal deficits, moves all extremities, Skin: warm/dry Medical - PN: Obj Da - Labs CBC & Chem 7: 04/25/19 06:16 04/24/19 06:30 Labs: Abnormal Lab Results 04/25/19 04/24/19 04/24/19 01:00 13:21 08:58 WBC RBC Hgb 7.8 L 7.3 L Hct 25.3 L 23.6 L MCH MCHC RDW Gran % Lymph % (Auto) Gran # Lymph # (Auto) Knott # (Auto) Seg Neutrophils % Lymphocytes % RBC Morphology Hypochromasia PT INR Creatinine Glucose Lactate Dehydrogenase Urine Protein Urine Ketones Urine Occult Blood 0.03 A Urine Nitrate Ur Leukocyte Esterase 500 A Urine RBC 14 H Urine WBC 52 H Ur Squamous Epith Cells Urine Bacteria Hyaline Casts 3 H 04/24/19 04/24/19 04/24/19 06:31 06:30 06:30 WBC RBC Hgb Hct MCH MCHC RDW Gran % Lymph % (Auto) Gran # Lymph # (Auto) Knott # (Auto) Seg Neutrophils % 87 H Lymphocytes % 5 L RBC Morphology Abnorm A Hypochromasia 1+ A PT 21.2 H INR 1.9 H Creatinine 1.2 H Glucose 194 H Lactate Dehydrogenase 272 H Urine Protein Urine Ketones Urine Occult Blood Urine Nitrate Ur Leukocyte Esterase Urine RBC Urine WBC Ur Squamous Epith Cells Urine Bacteria Hyaline Casts 04/24/19 04/23/19 04/23/19 06:30 17:18 15:22 WBC 15.9 H RBC 3.11 L Hgb 7.8 L Hct 25.4 L MCH 25.1 L MCHC 30.7 L RDW 16.5 H Gran % 88.6 H Lymph % (Auto) 5.5 L Gran # 14.08 H Lymph # (Auto) 0.88 L Knott # (Auto) 0.93 H Seg Neutrophils % Lymphocytes % RBC Morphology Hypochromasia PT 20.8 H INR 1.8 H Creatinine Glucose Lactate Dehydrogenase Urine Protein 30 A Urine Ketones 5/tr A Urine Occult Blood 0.03 A Urine Nitrate Pos A Ur Leukocyte Esterase 75 A Urine RBC 3 H Urine WBC 6 H Ur Squamous Epith Cells 18 H Urine Bacteria Many A Hyaline Casts 9 H 04/23/19 04/23/19 14:22 14:22 WBC 15.0 H RBC Hgb 10.1 L Hct 32.6 L MCH 24.9 L MCHC RDW 16.4 H Gran % Lymph % (Auto) 14.8 L Gran # 11.39 H Lymph # (Auto) Knott # (Auto) 1.17 H Seg Neutrophils % Lymphocytes % RBC Morphology Hypochromasia PT 21.3 H INR 1.9 H Creatinine Glucose Lactate Dehydrogenase Urine Protein Urine Ketones Urine Occult Blood Urine Nitrate Ur Leukocyte Esterase Urine RBC Urine WBC Ur Squamous Epith Cells Urine Bacteria Hyaline Casts Meds: Medications Acetaminophen (Tylenol) 650 mg PO Q6HP PRN PRN Reason: PAIN/FEVER > 101 Hydrocodone Bitart/Acetaminophen ([place] 5/325mg) 1 - 2 tab PO Q4HP PRN PRN Reason: PAIN LEVEL 3-6 Last Admin: 04/24/19 16:21 Dose: 1 tab Documented by: Hydrocodone Bitart/Acetaminophen ([place] 7.5/325mg) 1 tab PO Q6HP PRN; Protocol PRN Reason: Pain Last Admin: 04/25/19 06:31 Dose: 1 tab Documented by: Albuterol/Ipratropium (Duoneb) 3 ml NEB Q4HP PRN PRN Reason: Shortness Of Breath Amlodipine Besylate (Norvasc) 5 mg PO DAILY [facility] Aspirin (Aspirin) 81 mg PO DAILY [facility] Bisacodyl (Dulcolax) 10 mg UT Q2-3DAYS PRN PRN Reason: Constipation Ceftriaxone Sodium (Rocephin) 1 gm IV Q24H [facility]; Protocol Last Admin: 04/24/19 13:30 Dose: 1 gm Documented by: Cyclobenzaprine HCl (Flexeril) 5 mg PO TIDP PRN PRN Reason: Muscle Spasm Docusate Sodium (Colace) 100 mg PO BID [facility] Last Admin: 04/24/19 21:02 Dose: Not Given Documented by: Furosemide (Lasix) 40 mg PO DAILYP PRN PRN Reason: Hypertension Potassium Chloride 40 meq/ (Dextrose) 520 mls @ 130 mls/hr IV UD PRN PRN Reason: Potassium < 3 Magnesium Sulfate (Magnesium Sulfate) 2 gm in 50 mls @ 50 mls/hr IV UD PRN PRN Reason: Magnesium </= 1.6 Labetalol HCl (Trandate) 0 mg IV Q2HP PRN PRN Reason: Hypertension Lactulose (Cephulac) 20 gm PO DAILYP PRN PRN Reason: Constipation Lidocaine (Lidoderm) 1 patch TOPICAL DAILY@1000 [facility] Last Admin: 04/24/19 11:54 Dose: 1 patch Documented by: Lidocaine (Lidoderm) 0 patch TOPICAL DAILY@2200 [facility] Last Admin: 04/24/19 22:05 Dose: Not Given Documented by: Morphine Sulfate (Morphine) 0 mg IV Q3HP PRN PRN Reason: Pain Last Admin: 04/23/19 23:58 Dose: 1 mg Documented by: Morphine Sulfate (Morphine) 2 mg IV Q2HP PRN; Protocol PRN Reason: Per Pain Protocol Nitroglycerin (Nitrostat) 0.4 mg SL Q5M PRN PRN Reason: Chest Pain [facility] Last Admin: 04/25/19 07:21 Dose: 40 mg Documented by: Ondansetron HCl (Zofran) 4 mg IV Q4HP PRN PRN Reason: Nausea And Vomiting Last Admin: 04/24/19 08:41 Dose: 4 mg Documented by: Polyethylene Glycol (Miralax) 17 gm PO DAILYP PRN PRN Reason: Constipation Potassium Chloride (Kdur) 40 meq PO UD PRN PRN Reason: Potssium is 3-3.5 Potassium Chloride (Kdur) 40 meq PO UD PRN PRN Reason: Potassium < 3 Potassium Chloride (Kdur) 20 meq PO [facility] Senna (Senokot) 2 tab PO DAILYP PRN PRN Reason: Constipation Sodium Biphosphate/Sodium Phosphate (Fleets Adult) 1 dose UT Q3-4DAYS PRN PRN Reason: Constipation Sodium Chloride (Saline Flush) 10 ml IV Q8 [facility] Last Admin: 04/25/19 06:35 Dose: 10 ml Documented by: Warfarin Sodium (Coumadin Per Pharmacy) 1 order PO DAILY@1400 [facility] Last Admin: 04/24/19 14:45 Dose: Not Given Documented by: Medical - PN: A/P - Time Spent With Patient Total time spent is greater than 50% in coordination of care (as documented) at patient's floor/unit and/or counseling patient: - Narrative A/P Narrative: A: *R Hip Fx: s/p ORIF (04/23) *UTI on admit: *Leukocytosis: ?reactive vs UTI vs. 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 Salgado for ortho -rocephin, pending UC -monitor cbc -monitor H&H given CAD, goal >8-10 -cont home bp meds -IS -Meds need to be confirmed -pt/ot -ppx: warfarin per pharm post-op/home ppi
[2019-04-25 07:43] LABS: Basophils # (Auto) 0.05 K/mcL (0.00-0.30); Basophils % (Auto) 0.3 % (0.0-2.0); Eosinophils # (Auto) 0.16 K/mcL (0.00-0.70); Eosinophils % (Auto) 0.9 % (0.0-7.0); Granulocytes % (Auto) 74.5 % (38.0-78.0); Hematocrit 26.4 % (34.1-44.9); Hemoglobin 8.5 g/dL (11.2-15.7); Lymphocytes % (Auto) 15.9 % (15.5-49.0); Mean Cell Volume 80.7 fL (80.0-100.0); Mean Corpuscular HGB Conc 32.2 g/dL (31.0-36.0); Mean Platelet Volume 10.4 fL (7.4-10.4); Monocytes # (Auto) 1.48 K/mcL (0.10-0.90); Monocytes % (Auto) 8.4 % (1.0-12.0); Platelet Count 299 K/mcL (140-440); RBC 3.27 M/mcL (3.59-5.38); Red Cell Distribution Width 15.9 % (11.5-14.5); WBC 17.6 K/mcL (4.50-11.00)
--- NOTE | 2019-04-25 07:46 | Orthopedic Progress Note ---
Subjective Patient information: Note initiated : 04/25/19 at 7:42 am Service Date, if different from initiated Date: [] Patient: Xochilt Pat 78 y/o F admitted on 04/23/19 for right hip pain, fall, did not hit head. Chief Complaint: [] Interval history: Transfused 1 unit yesterday and started on abx for UTI. Otherwise doing better this AM. Able to mobilize with PT and is up in chair this AM. Denies chest p ain or shortness of breath. No dizziness with standing this AM. Objective Vital signs: Vital Signs Temp Pulse Resp BP Pulse Ox 04/25/19 04:29 98.1 F 76 14 138/61 90 04/24/19 23:22 98.3 F 71 12 133/53 93 04/24/19 19:15 98.8 F 82 12 138/61 95 04/24/19 16:00 98.7 F 73 18 127/59 93 04/24/19 12:19 98.2 F 71 18 136/63 93 04/24/19 08:00 97.7 F 71 18 130/61 90 Intake and Output 04/24/19 04/25/19 04/25/19 21:59 05:59 13:59 Intake Total 1817 443 Output Total 625 176 101 Balance 1192 267 -101 Intake: IV 500 43 Sodium Chloride 0.9% 500 ml @ 500 75 mls/hr IV .[id number] [facility] Rx#: [id number] Sodium Chloride 0.9% 250 ml @ 43 20 mls/hr IV .[id number] [facility] Rx#: [id number] Oral 1040 400 Blood Product 277 Output: Urine Catheter Amount 350 Void Amount 275 175 100 # of times incontinent of urine 1 1 Other: Meal Dinner Percent of Meal Consumed 75% Feeding Ability Independent Urine Appearance Clear Clear Urine Color Bright Yellow Pale Urine Odor Normal Normal Stool Size Small Stool Color Brown Stool Consistency Formed # Bowel Movements 1 Weight 138 lb 14.4 oz Intake & Output: Intake & Output 04/24/19 04/25/19 04/25/19 21:59 05:59 13:59 Intake Total 1817 443 Output Total 625 176 101 Balance 1192 267 -101 Weight 138 lb 14.4 oz Intake: IV 500 43 Sodium Chloride 0.9% 500 ml @ 500 75 mls/hr IV .[id number] [facility] Rx#: [id number] Sodium Chloride 0.9% 250 ml @ 43 20 mls/hr IV .[id number] [facility] Rx#: [id number] Oral 1040 400 Blood Product 277 Output: Urine Catheter Amount 350 Void Amount 275 175 100 # of times incontinent of urine 1 1 Other: Meal Dinner Percent of Meal Consumed 75% Feeding Ability Independent Urine Appearance Clear Clear Urine Color Bright Yellow Pale Urine Odor Normal Normal Stool Size Small Stool Color Brown Stool Consistency Formed # Bowel Movements 1 Incision clean and dry: Yes Dressing: Yes intact Weight bearing status: partial Additional Comments: baseline neuropathy. Additional Comments: dressing removed with only small amount of dry drainage. - Labs CBC & BMP: 04/25/19 01:00 04/24/19 06:30 Labs: Orthopedic Labs 04/25/19 04/24/19 04/24/19 06:16 07:58 06:30 PT Pending TNP 21.2 H INR Pending TNP 1.9 H 04/23/19 04/23/19 17:18 14:22 PT 20.8 H 21.3 H INR 1.8 H 1.9 H 04/25/19 04/25/19 04/24/19 06:16 01:00 13:21 Hgb Pending 7.8 L 7.3 L Hct Pending 25.3 L 23.6 L 04/24/19 04/23/19 06:30 14:22 Hgb 7.8 L 10.1 L Hct 25.4 L 32.6 L Assessment and Plan - Narrative A/P Narrative: POD 2 s/p operative fixation of right femoral neck fracture with cannulated screws. -- PT/OT today with 50% weight bearing. No restrictions to ROM -- Pain control- uses norco at baseline and muscle relaxant. Will continue and trend to baseline. -- dressing changed this AM to silver dressing- OK to shower. -- Oral diet -- UTI- started abx yesterday -- Hemaglobin 7.8 this AM, vitals stable -- Appreciate Hospitals management -- Prophy: scds, ambulation, IS, coumadin per pharmacy protocol -- Dispo: plan for dispo to care home facility likely tomorrow.
[2019-04-25] MEDS: POTASSIUM CHLORIDE 20 MEQ TABLET PO SCH (07:49)
[2019-04-25 09:05] LABS: INR 2.3 (0.9-1.1); Prothrombin Time 24.7 sec (11.9-14.5)
[2019-04-25] MEDS: DOCUSATE SODIUM 100 MG CAPSULE PO SCH ×2 (09:17→21:01)
[2019-04-25] MEDS: amLODIPine 5 MG TABLET PO SCH (09:17)
[2019-04-25] MEDS: ASPIRIN 81 MG TAB.CHEW PO SCH (09:17)
[2019-04-25] MEDS: cefTRIAXone 1 GM VIAL IV SCH (09:26)
[2019-04-25] MEDS: LIDOCAINE PATCH TOPICAL SCH ×2 (09:27→21:01)
[2019-04-25] MEDS ORDERED: WARFARIN 2.5 MG TABLET PO ONE (16:00)
[2019-04-26] MEDS: HYDROCODONE/APAP 7.5/325MG TABLET PO PRN (06:07)
[2019-04-26] MEDS: 0.9 % SODIUM CHLORIDE 10 ML SYRINGE IV SCH (06:07)
[2019-04-26 06:47] LABS: INR 1.8 (0.9-1.1); Prothrombin Time 20.6 sec (11.9-14.5)
[2019-04-26] MEDS: OMEPRAZOLE 20 MG CAPSULE PO SCH (06:59)
[2019-04-26 07:22] LABS: Hematocrit 22.7 % (34.1-44.9); Hemoglobin 7.2 g/dL (11.2-15.7); Mean Cell Volume 79.6 fL (80.0-100.0); Mean Corpuscular HGB Conc 31.7 g/dL (31.0-36.0); Mean Platelet Volume 10.2 fL (7.4-10.4); Platelet Count 256 K/mcL (140-440); RBC 2.85 M/mcL (3.59-5.38); WBC 12.3 K/mcL (4.50-11.00)
--- NOTE | 2019-04-26 07:36 | Orthopedic Progress Note ---
Subjective Patient information: Note initiated : 04/26/19 at 7:33 am Service Date, if different from initiated Date: [] Patient: Xochilt Pat 78 y/o F admitted on 04/23/19 for right hip pain, fall, did not hit head. Chief Complaint: [] Principal diagnosis: right hip fracture Interval history: No acute issues overnight . Pain controlled. Denies chest pain/dizziness/shortness of breath. Objective Vital signs: Vital Signs Temp Pulse Resp BP Pulse Ox 04/26/19 04:20 98.3 F 76 14 138/70 91 04/25/19 22:52 98.1 F 75 16 125/60 92 04/25/19 19:45 98.3 F 72 16 147/57 91 04/25/19 19:13 14 04/25/19 12:00 98.4 F 80 14 120/64 92 04/25/19 07:57 98.6 F 82 14 122/58 92 04/25/19 07:53 76 14 94 Intake and Output 04/25/19 04/26/19 04/26/19 21:59 05:59 13:59 Intake Total 240 400 Output Total 400 225 101 Balance -160 175 -101 Intake: Oral 240 400 Output: Void Amount 400 225 100 # of times incontinent of urine 1 Other: Meal Dinner Percent of Meal Consumed 100% Feeding Ability Independent Urine Appearance Clear Clear Clear Urine Color Pale Bright Yellow Pale Urine Odor Normal Normal Normal Stool Size Moderate Small Small Stool Color Brown Brown Stool Consistency Formed Judith Judith Judith # Voids 1 # Bowel Movements 1 1 Weight 139 lb 6.4 oz Intake & Output: Intake & Output 04/25/19 04/26/19 04/26/19 21:59 05:59 13:59 Intake Total 240 400 Output Total 400 225 101 Balance -160 175 -101 Weight 139 lb 6.4 oz Intake: Oral 240 400 Output: Void Amount 400 225 100 # of times incontinent of urine 1 Other: Meal Dinner Percent of Meal Consumed 100% Feeding Ability Independent Urine Appearance Clear Clear Clear Urine Color Pale Bright Yellow Pale Urine Odor Normal Normal Normal Stool Size Moderate Small Small Stool Color Brown Brown Stool Consistency Formed Judith Judith Judith # Voids 1 # Bowel Movements 1 1 Dressing: Yes intact Weight bearing status: partial Additional Comments: baseline neuropathy. Additional Comments: small linear strikethrough on the dressing- minimal. - Labs CBC & BMP: 04/26/19 05:45 04/24/19 06:30 Labs: Orthopedic Labs 04/26/19 04/25/19 04/24/19 05:45 06:16 07:58 PT 20.6 H 24.7 H TNP INR 1.8 H 2.3 H TNP 04/24/19 04/23/19 04/23/19 06:30 17:18 14:22 PT 21.2 H 20.8 H 21.3 H INR 1.9 H 1.8 H 1.9 H 04/26/19 04/25/19 04/25/19 05:45 06:16 01:00 Hgb 7.2 L 8.5 L 7.8 L Hct 22.7 L 26.4 L 25.3 L 04/24/19 04/24/19 04/23/19 13:21 06:30 14:22 Hgb 7.3 L 7.8 L 10.1 L Hct 23.6 L 25.4 L 32.6 L Assessment and Plan - Narrative A/P Narrative: POD 3 s/p operative fixation of right femoral neck fracture with cannulated screws. -- PT/OT today with 50% weight bearing. No restrictions to ROM -- Pain control- uses norco at baseline and muscle relaxant. -- Oral diet -- UTI- on abx with downtrending WBC -- Hemaglobin 7.2 (7.8) this AM -- Appreciate Hospitals management -- Prophy: scds, ambulation, IS, coumadin per pharmacy protocol -- Dispo: plan for dispo to [facility] facility - will need f/u with VINICIO Perez in 11-14 days from surgery.
[2019-04-26 08:38] LABS: Anisocytosis 1+ (NONE SEEN); Eosinophils % (Manual) 3 % (0-7); Lymphocytes % 16 % (15-49); Monocytes % (Manual) 10 % (1-12); Ovalocytes FEW (NONE SEEN); Platelet Estimate NORMAL (NORMAL); RBC Morphology ABNORM (NORMAL); Segmented Neutrophils % 71 % (38-78)
[2019-04-26] MEDS: cefTRIAXone 1 GM VIAL IV SCH (09:43)
[2019-04-26] MEDS: ASPIRIN 81 MG TAB.CHEW PO SCH (09:51)
[2019-04-26] MEDS: DOCUSATE SODIUM 100 MG CAPSULE PO SCH (09:51)
[2019-04-26] MEDS: amLODIPine 5 MG TABLET PO SCH (09:51)
[2019-04-26] MEDS: POTASSIUM CHLORIDE 20 MEQ TABLET PO SCH (09:51)
[2019-04-26] MEDS: LIDOCAINE PATCH TOPICAL SCH (09:52)
--- NOTE | 2019-04-26 09:58 | Internal Med Progress Note ---
Medical - PN: Subj Patient information: Note initiated : 04/26/19 at 9:55 am Service Date, if different from initiated Date: [] Patient: Xochilt Pat 78 y/o F admitted on 04/23/19 for right hip pain, fall, did not hit head. Chief Complaint: [] Interval history: Ms. Pat is a 78 year old F 78-year-old female was getting out of a car and tripped on the curb falling on her right hip feeling immediate pain she did not hit her head. Case was discussed with orthopedic surgeon who asked for hospitalist involvement given her history of recurrent strokes and being on anticoagulation. Patient denies any chest pain coughing shortness of breath. No headache fever chills nausea vomiting. Patient will get 1 unit of FFP and plan for surgery tonight. 04/24 With poor sleep last night. Some nausea this morning. Working with physical therapy this morning. Tolerated procedure yesterday. 04/25 Slept well. Feeling better. No fevers or chills. White blood cells elevated, afebrile. No coughing or respiratory issues 04/26 She is ambulating Her urine culture came back negative and antibiotics stopped Her leukocytosis improved Patient can be discharged and orthopedic planning to release her today Pertinent ROS: Respiratory-no shortness of breath, no cough Cardiovascular-no chest pain no palpitations no dizziness Abdomen-no pain no tenderness no diarrhea Neuro-no focal neuro deficit, no seizure Psychiatric-no anxiety no depression Musculoskeletal-continued having pain improved and able to work with physical therapy - Constitutional Vitals: Vital Signs Temp Pulse Resp BP Pulse Ox 98.7 F 91 H 14 102/53 95 04/26/19 08:00 04/26/19 08:00 04/26/19 08:00 04/26/19 08:00 04/26/19 08:00 Period Temp Pulse Resp BP Sys/Hernandez Pulse Ox Last 24 Hr 98.1 F-98.7 F 72-91 14-16 102-147/53-70 91-95 Intake and Output 04/25/19 04/26/19 04/26/19 21:59 05:59 13:59 Intake Total 240 400 Output Total 400 225 101 Balance -160 175 -101 Weight 139 lb 6.4 oz Intake & Output: Intake & Output 04/25/19 04/26/19 04/26/19 21:59 05:59 13:59 Intake Total 240 400 Output Total 400 225 101 Balance -160 175 -101 Weight 139 lb 6.4 oz Intake: Oral 240 400 Output: Void Amount 400 225 100 # of times incontinent of urine 1 Other: Meal Dinner Percent of Meal Consumed 100% Feeding Ability Independent Urine Appearance Clear Clear Clear Urine Color Pale Bright Yellow Pale Urine Odor Normal Normal Normal Stool Size Moderate Small Small Stool Color Brown Brown Stool Consistency Formed Judith Judith Judith # Voids 1 # Bowel Movements 1 1 - Head Head exam: Present: atraumatic, normal inspection, normocephalic - Eye Eye exam: Present: normal appearance. Absent: periorbital swelling, periorbital tenderness - ENT ENT exam: Present: mucous membranes moist, normal exam, normal external ear exam, normal oropharynx - Neck Neck exam: Present: meningismus. Absent: lymphadenopathy - Respiratory Respiratory exam: Present: normal respiratory exam. Absent: accessory muscle use, chest wall tenderness - Cardiovascular Cardiovascular exam: Present: normal rate and rhythm. Absent: bradycardia - GI/Abdominal GI/Abdominal exam: Present: normal bowel sounds, soft. Absent: distended - Neurological Exam Neurological exam: Present: alert, oriented X3. Absent: motor sensory deficit - Psychiatric Psychiatric exam: Absent: agitated, anxious, depressed Medical - PN: Obj Da - Labs CBC & Chem 7: 04/26/19 05:45 04/24/19 06:30 Labs: Abnormal Lab Results 04/26/19 04/26/19 04/25/19 05:45 05:45 06:16 WBC 12.3 H 17.6 H RBC 2.85 L 3.27 L Hgb 7.2 L 8.5 L Hct 22.7 L 26.4 L MCV 79.6 L MCH 25.3 L MCHC RDW 16.0 H 15.9 H Gran % Lymph % (Auto) Gran # 13.14 H Lymph # (Auto) Deuel # (Auto) 1.48 H Seg Neutrophils % Lymphocytes % RBC Morphology Abnorm A Hypochromasia Anisocytosis 1+ A Ovalocytes Few A PT 20.6 H INR 1.8 H Creatinine Glucose Lactate Dehydrogenase Urine Protein Urine Ketones Urine Occult Blood Urine Nitrate Ur Leukocyte Esterase Urine RBC Urine WBC Ur Squamous Epith Cells Urine Bacteria Hyaline Casts 04/25/19 04/25/19 04/24/19 06:16 01:00 13:21 WBC RBC Hgb 7.8 L 7.3 L Hct 25.3 L 23.6 L MCV MCH MCHC RDW Gran % Lymph % (Auto) Gran # Lymph # (Auto) Deuel # (Auto) Seg Neutrophils % Lymphocytes % RBC Morphology Hypochromasia Anisocytosis Ovalocytes PT 24.7 H INR 2.3 H Creatinine Glucose Lactate Dehydrogenase Urine Protein Urine Ketones Urine Occult Blood Urine Nitrate Ur Leukocyte Esterase Urine RBC Urine WBC Ur Squamous Epith Cells Urine Bacteria Hyaline Casts 04/24/19 04/24/19 04/24/19 08:58 06:31 06:30 WBC RBC Hgb Hct MCV MCH MCHC RDW Gran % Lymph % (Auto) Gran # Lymph # (Auto) Deuel # (Auto) Seg Neutrophils % 87 H Lymphocytes % 5 L RBC Morphology Abnorm A Hypochromasia 1+ A Anisocytosis Ovalocytes PT 21.2 H INR 1.9 H Creatinine Glucose Lactate Dehydrogenase Urine Protein Urine Ketones Urine Occult Blood 0.03 A Urine Nitrate Ur Leukocyte Esterase 500 A Urine RBC 14 H Urine WBC 52 H Ur Squamous Epith Cells Urine Bacteria Hyaline Casts 3 H 04/24/19 04/24/19 04/23/19 06:30 06:30 17:18 WBC 15.9 H RBC 3.11 L Hgb 7.8 L Hct 25.4 L MCV MCH 25.1 L MCHC 30.7 L RDW 16.5 H Gran % 88.6 H Lymph % (Auto) 5.5 L Gran # 14.08 H Lymph # (Auto) 0.88 L Deuel # (Auto) 0.93 H Seg Neutrophils % Lymphocytes % RBC Morphology Hypochromasia Anisocytosis Ovalocytes PT 20.8 H INR 1.8 H Creatinine 1.2 H Glucose 194 H Lactate Dehydrogenase 272 H Urine Protein Urine Ketones Urine Occult Blood Urine Nitrate Ur Leukocyte Esterase Urine RBC Urine WBC Ur Squamous Epith Cells Urine Bacteria Hyaline Casts 04/23/19 04/23/19 04/23/19 15:22 14:22 14:22 WBC 15.0 H RBC Hgb 10.1 L Hct 32.6 L MCV MCH 24.9 L MCHC RDW 16.4 H Gran % Lymph % (Auto) 14.8 L Gran # 11.39 H Lymph # (Auto) Deuel # (Auto) 1.17 H Seg Neutrophils % Lymphocytes % RBC Morphology Hypochromasia Anisocytosis Ovalocytes PT 21.3 H INR 1.9 H Creatinine Glucose Lactate Dehydrogenase Urine Protein 30 A Urine Ketones 5/tr A Urine Occult Blood 0.03 A Urine Nitrate Pos A Ur Leukocyte Esterase 75 A Urine RBC 3 H Urine WBC 6 H Ur Squamous Epith Cells 18 H Urine Bacteria Many A Hyaline Casts 9 H Meds: Medications Acetaminophen (Tylenol) 650 mg PO Q6HP PRN PRN Reason: PAIN/FEVER > 101 Hydrocodone Bitart/Acetaminophen ([place] 5/325mg) 1 - 2 tab PO Q4HP PRN PRN Reason: PAIN LEVEL 3-6 Last Admin: 04/24/19 16:21 Dose: 1 tab Documented by: Hydrocodone Bitart/Acetaminophen ([place] 7.5/325mg) 1 tab PO Q6HP PRN; Protocol PRN Reason: Pain Last Admin: 04/26/19 06:07 Dose: 1 tab Documented by: Albuterol/Ipratropium (Duoneb) 3 ml NEB Q4HP PRN PRN Reason: Shortness Of Breath Amlodipine Besylate (Norvasc) 5 mg PO DAILY [facility] Last Admin: 04/26/19 09:51 Dose: 5 mg Documented by: Aspirin (Aspirin) 81 mg PO DAILY [facility] Last Admin: 04/26/19 09:51 Dose: 81 mg Documented by: Bisacodyl (Dulcolax) 10 mg MD Q2-3DAYS PRN PRN Reason: Constipation Ceftriaxone Sodium (Rocephin) 1 gm IV Q24H [facility]; Protocol Last Admin: 04/26/19 09:43 Dose: Not Given Documented by: Cyclobenzaprine HCl (Flexeril) 5 mg PO TIDP PRN PRN Reason: Muscle Spasm Last Admin: 04/25/19 19:20 Dose: 5 mg Documented by: Docusate Sodium (Colace) 100 mg PO BID [facility] Last Admin: 04/26/19 09:51 Dose: 100 mg Documented by: Furosemide (Lasix) 40 mg PO DAILYP PRN PRN Reason: Hypertension Potassium Chloride 40 meq/ (Dextrose) 520 mls @ 130 mls/hr IV UD PRN PRN Reason: Potassium < 3 Magnesium Sulfate (Magnesium Sulfate) 2 gm in 50 mls @ 50 mls/hr IV UD PRN PRN Reason: Magnesium </= 1.6 Labetalol HCl (Trandate) 0 mg IV Q2HP PRN PRN Reason: Hypertension Lactulose (Cephulac) 20 gm PO DAILYP PRN PRN Reason: Constipation Lidocaine (Lidoderm) 1 patch TOPICAL DAILY@1000 [facility] Last Admin: 04/26/19 09:52 Dose: 1 patch Documented by: Lidocaine (Lidoderm) 0 patch TOPICAL DAILY@2200 [facility] Last Admin: 04/25/19 21:01 Dose: Not Given Documented by: Morphine Sulfate (Morphine) 0 mg IV Q3HP PRN PRN Reason: Pain Last Admin: 04/23/19 23:58 Dose: 1 mg Documented by: Morphine Sulfate (Morphine) 2 mg IV Q2HP PRN; Protocol PRN Reason: Per Pain Protocol Nitroglycerin (Nitrostat) 0.4 mg SL Q5M PRN PRN Reason: Chest Pain Omeprazole (Prilosec) 40 mg PO BIDAC [facility] Last Admin: 04/26/19 06:59 Dose: 40 mg Documented by: Ondansetron HCl (Zofran) 4 mg IV Q4HP PRN PRN Reason: Nausea And Vomiting Last Admin: 04/24/19 08:41 Dose: 4 mg Documented by: Polyethylene Glycol (Miralax) 17 gm PO DAILYP PRN PRN Reason: Constipation Last Admin: 04/25/19 09:17 Dose: 17 gm Documented by: Potassium Chloride (Kdur) 40 meq PO UD PRN PRN Reason: Potssium is 3-3.5 Potassium Chloride (Kdur) 40 meq PO UD PRN PRN Reason: Potassium < 3 Potassium Chloride (Kdur) 20 meq PO QAC [facility] Last Admin: 04/26/19 09:51 Dose: 20 meq Documented by: Senna (Senokot) 2 tab PO DAILYP PRN PRN Reason: Constipation Sodium Biphosphate/Sodium Phosphate (Fleets Adult) 1 dose MD Q3-4DAYS PRN PRN Reason: Constipation Sodium Chloride (Saline Flush) 10 ml IV Q8 [facility] Last Admin: 04/26/19 06:07 Dose: 10 ml Documented by: Warfarin Sodium (Coumadin Per Pharmacy) 1 order PO DAILY@1400 [facility] Last Admin: 04/25/19 15:36 Dose: Not Given Documented by: Warfarin Sodium (Coumadin) 4 mg PO ONCE@1400 ONE Stop: 04/26/19 14:01 Medical - PN: A/P - Time Spent With Patient Total time spent is greater than 50% in coordination of care (as documented) at patient's floor/unit and/or counseling patient: - Narrative A/P Narrative: Right hip fracture-status post ORIF on the sixth Orthopedic planning to discharge her Pain management per orthopedic surgeon Leukocytosis-probably reactive Stopped antibiotic as her culture came back negative No UTI History of CVA Continue aspirin and warfarin home medications\ Mild cognitive impairment and probable underlying early dementia Needs to follow-up with primary care provider Essential hypertension Continue home medications Patient can be discharged from medical standpoint
--- NOTE | 2019-04-26 10:37 | Discharge Summary ---
Medical - DS: Prov Patient information: Note initiated : 04/26/19 at 10:35 am Service Date, if different from initiated Date: [] Patient: Xochilt Pat 78 y/o F admitted on 04/23/19 for right hip pain, fall, did not hit head. Chief Complaint: [] Date of admission: 04/23/19 16:43 Discharge date: 04/26/19 Primary care physician: Andrea Foster Consults: 04/23/19 Consult to Physician [CONS] Stat Comment: Consulting Provider: Charles Maravilla Reason For Exam: Physician to Consult Consult to Physician [CONS] Stat Comment: Consulting Provider: Graeme Salgado Reason For Exam: Physician to Consult Medical - DS: Meds - Discharge Medications Prescriptions: Cyclobenzaprine [Flexeril] 5 mg PO TIDP PRN #30 tab PRN Reason: Muscle Spasm Transmission Status: Received by [id number] Hydrocodone/APAP 7.5/325Mg [[place] 7.5-325Mg] 1 tab PO Q6HP PRN #50 tab PRN Reason: Pain Prescription Printed Active and Home Medications: Home Medications Calcium Carbonate/Vitamin D3 [Calcium 500-Vit D3 600 Caplet] 1 each PO DAILY 07/27/18 [History Confirmed 04/24/19 Last Taken 04/22/19] Cranberry Fruit Concentrate [Azo Cranberry] 4,200 mg PO DAILY 07/27/18 [History Confirmed 04/24/19 Last Taken 04/22/19] Cyanocobalamin (Vitamin B-12) [Vitamin B12] 500 mcg PO DAILY 07/27/18 [History Confirmed 04/24/19 Last Taken 04/22/19] Furosemide [Lasix] 40 mg PO DAILY PRN 07/27/18 [History Confirmed 04/24/19 Last Taken 04/09/19] Garlic [Odor Free Garlic-X] 1,000 mg PO DAILY 07/27/18 [History Confirmed 04/24/19 Last Taken 04/22/19] Omeprazole [Prilosec] 40 mg PO BID 07/27/18 [History Confirmed 04/24/19 Last Taken 04/23/19] Potassium Chloride [Kdur] 20 meq PO QAMCC 07/27/18 [History Confirmed 04/24/19 Last Taken 04/22/19] amLODIPine BESYLATE [Amlodipine Besylate] 5 mg PO DAILY 07/28/18 [History Confirmed 04/24/19 Last Taken 04/23/19] warfarin 5 mg tablet 2.5 mg PO DAILY tab 08/14/18 [History Confirmed 04/24/19 Last Taken 04/23/19] Cyclobenzaprine HCl 5 mg PO TIDP PRN 04/24/19 [History Confirmed 04/24/19 Last Taken Unknown] Nitroglycerin [Nitrostat] 0.4 mg SL Q5M PRN 04/24/19 [History Confirmed 04/24/19 Last Taken Unknown] Aspirin 81 mg PO DAILY tab.chew 04/26/19 [Rx Last Taken Unknown] Cyclobenzaprine [Flexeril] 5 mg PO TIDP PRN #30 tab 04/26/19 [Rx Last Taken Unknown] Docusate Sodium [Colace] 100 mg PO BID #30 cap 04/26/19 [Rx Last Taken Unknown] Hydrocodone/APAP 7.5/325Mg [[place] 7.5-325Mg] 1 tab PO Q6HP PRN #50 tab 04/26/19 [Rx Last Taken Unknown] Medical - DS: Hosp Hospital Course: Ms. Pat is a 78 year old F 78-year-old female was getting out of a car and tripped on the curb falling on her right hip feeling immediate pain she did not hit her head. Case was discussed with orthopedic surgeon who asked for hospitalist involvement given her history of recurrent strokes and being on anticoagulation. Patient denies any chest pain coughing shortness of breath. No headache fever chills nausea vomiting. Patient will get 1 unit of FFP and plan for surgery tonight. 04/24 With poor sleep last night. Some nausea this morning. Working with physical therapy this morning. Tolerated procedure yesterday. 04/25 Slept well. Feeling better. No fevers or chills. White blood cells elevated, afebrile. No coughing or respiratory issues 04/26 She is ambulating Her urine culture came back negative and antibiotics stopped Her leukocytosis improved Patient can be discharged and orthopedic planning to release her today Right hip fracture-status post ORIF on the sixth Orthopedic planning to discharge her Pain management per orthopedic surgeon Leukocytosis-probably reactive Stopped antibiotic as her culture came back negative No UTI History of CVA Continue aspirin and warfarin home medications\ Mild cognitive impairment and probable underlying early dementia Needs to follow-up with primary care provider Essential hypertension Continue home medications Patient can be discharged from medical standpoint Discharge diagnosis: Right hip fracture, leukocytosis, probable early dementia - Time Spent with Patient Total time spent providing and/or coordinating discharge services: Greater than 30 minutes Medical - DS: Exam - Constitutional Vitals: Vital Signs Temp Pulse Resp BP Pulse Ox 04/26/19 08:00 98.7 F 91 H 14 102/53 95 04/26/19 04:20 98.3 F 76 14 138/70 91 04/25/19 22:52 98.1 F 75 16 125/60 92 04/25/19 19:45 98.3 F 72 16 147/57 91 04/25/19 19:13 14 04/25/19 12:00 98.4 F 80 14 120/64 92 Intake and Output 04/25/19 04/26/19 04/26/19 21:59 05:59 13:59 Intake Total 240 400 Output Total 400 225 101 Balance -160 175 -101 Intake: Oral 240 400 Output: Void Amount 400 225 100 # of times incontinent of urine 1 Other: Meal Dinner Percent of Meal Consumed 100% Feeding Ability Independent Urine Appearance Clear Clear Clear Urine Color Pale Bright Yellow Pale Urine Odor Normal Normal Normal Stool Size Moderate Small Small Stool Color Brown Brown Stool Consistency Formed Judith Judith Judith # Voids 1 # Bowel Movements 1 1 Weight 139 lb 6.4 oz General appearance: average body habitus, cooperative - Head Head exam: Present: atraumatic, normal inspection, normocephalic - ENT ENT exam: Present: mucous membranes moist, normal exam, normal external ear exam - Respiratory Respiratory exam: Present: normal respiratory exam. Absent: accessory muscle use, chest wall tenderness, rhonchi, stridor, wheezes - Cardiovascular Cardiovascular exam: Present: normal rate and rhythm. Absent: systolic murmur - GI/Abdominal GI/Abdominal exam: Present: normal bowel sounds, soft. Absent: diminished bowel sounds - Neurological Exam Neurological exam: Present: alert, oriented X3. Absent: motor sensory deficit Medical - DS: Data Labs on day of discharge: Labs from last 24 hours 04/26/19 04/26/19 05:45 05:45 WBC 12.3 H RBC 2.85 L Hgb 7.2 L Hct 22.7 L MCV 79.6 L MCH 25.3 L MCHC 31.7 RDW 16.0 H Plt Count 256 MPV 10.2 Total Counted 100 Seg Neutrophils % 71 Band Neutrophils % Not Reportable Lymphocytes % 16 Monocytes % (Manual) 10 Eosinophils % (Manual) 3 Platelet Estimate Normal RBC Morphology Abnorm A Anisocytosis 1+ A Ovalocytes Few A PT 20.6 H INR 1.8 H Medical - DS: A/P - Patient/Caregiver Discharge Instructions Activity: as per physical therapy Diet: Regular Diet Additional Instructions: Discharge Instructions: OK to shower with dressing in place, do not scrub - let water run over and then pat dry. 50% weight bearing on right lower extremity. No range of motion restrictions or posterior hip precautions. To avoid constipation while taking any narcotic pain medication, take an over the counter stool softener/laxative. Use ice packs as directed, on for 20 minutes at a time, throughout the day. Ice and elevation will help with pain and swelling. If you have any questions or concerns call your orthopedic surgeon before going to the emergency room. [facility] has a compensation consulting manager physician 24 hours per day/7 days per week and can be reached at [phone]. Call for fevers above 100.5 or pain not controlled by medication. Prescriptions: Cyclobenzaprine [Flexeril] 5 mg PO TIDP PRN #30 tab PRN Reason: Muscle Spasm Transmission Status: Received by [facility] Hydrocodone/APAP 7.5/325Mg [[place] 7.5-325Mg] 1 tab PO Q6HP PRN #50 tab PRN Reason: Pain Prescription Printed Other Amb Orders: OT Discharge Order Location: None Selected Physical Therapy at Discharge - General Location: None Selected Prothrombin Time INR Location: None Selected - Follow up Plan Follow up with: Graeme Salgado MD [Physician] - (Please call and schedule surgical follow up to be done 10-14 days post surgery.) Andrea Foster MD [Primary Care Provider] - (Please call and scheduled hospital follow up.) Disposition: Xfer SNF Care Plan Goals: This discharge packet is provided to you to help keep you informed about your care. We want to ensure you get everything you need when you go home. You will also be receiving a call from us in a few days to follow up with you and see how you are doing since your discharge. This gives us a chance to listen to any concerns you maybe experiencing since you were discharged or any additional needs you may have, as well as providing us feedback on your care experience. We strive to always provide excellent care and thank you for your feedback and for choosing [facility]. Prognosis: Fair Rehab Potential: Good Overall status at discharge: patient is progressing back to baseline
[2019-04-26] MEDS ORDERED: WARFARIN 2 MG TABLET PO ONE (14:00)
== END 2019-04-26 11:25 | DRG 481 ==
LOC: ED 13:09 → MEDSUR 16:05
PROVIDERS: ADMIT Internal Medicine; ATTEND Internal Medicine

== ENCOUNTER 2020-02-16 13:42 | Observation (INO) ==
--- NOTE | 2020-02-16 14:31 | Emergency Department Note ---
Back Pain HPI General Chief Complaint: Back Pain/Injury Stated Complaint: back pain Time Seen by Provider: 02/16/20 13:53 Source: EMS Limitations: physical limitation History of Present Illness HPI Narrative: Narrative:Patient reports she has been here twice recently for this back pain. She reports a history of back pain. Today she complains of back pain in her right mid back. She is asking to be admitted for this back pain. She reports it is difficult to tell if she has had dysuria because she has a bladder prolapse.She has had 2 recent visits to the this emergency department. She states that she has had an increase in back pain over the past 2 weeks since she had an intervention done by the pain specialist. She is unable to take care of her self at home and wears incontinence briefs so she does not have to get up to go to the bathroom. She denies chest pain shortness of breath or other illness. Related Data Home Medications Medication Instructions Recorded Confirmed cyanocobalamin (vitamin B-12) 5,000 mcg PO DAILY 07/27/18 02/16/20 furosemide 40 mg PO DAILY PRN 07/27/18 02/16/20 potassium chloride 20 meq PO QAMCC 07/27/18 02/16/20 amlodipine 5 mg PO DAILY 07/28/18 02/16/20 warfarin 5 mg tablet 2.5 mg PO DAILY tab 08/14/18 02/16/20 methocarbamol 750 mg PO Q6 PRN 06/20/19 02/16/20 vitamin E 400 unit PO DAILY 06/20/19 02/16/20 celecoxib 200 mg PO QDAY 02/16/20 02/16/20 cholecalciferol (vitamin D3) 1 unit PO DAILY 02/16/20 02/16/20 [Vitamin D3] cranberry fruit concentrate [Azo 650 mg PO DAILY 02/16/20 02/16/20 Cranberry] famotidine [Pepcid] 40 mg PO DAILY 02/16/20 02/16/20 ferrous sulfate 325 mg PO QDAY 02/16/20 02/16/20 folic acid 1 mg PO DAILY 02/16/20 02/16/20 hydrocodone-acetaminophen 1 tab PO Q6HP PRN 02/16/20 02/16/20 magnesium 1 tab PO DAILY 02/16/20 02/16/20 Previous Rx's Medication Instructions Recorded aspirin 81 mg PO DAILY tab.chew 04/26/19 lidocaine 1 patch TOPICAL QDAY #15 each 02/14/20 nitrofurantoin monohyd/m-cryst 100 mg PO Q12H 5 Days #10 cap 02/14/20 [Macrobid] Allergies Allergy/AdvReac Type Severity Reaction Status Date / Time codeine Allergy Unknown Nausea Verified 01/29/20 14:05 Review of Systems ROS Constitutional: Denies fever and chills ENT ED: Denies throat pain Cardiovascular: Reports as per HPI; Denies chest pain, palpitations and edema Respiratory: Denies shortness of breath, cough and wheezes Gastrointestinal: Denies abdominal pain, nausea and diarrhea Genitourinary: Reports other (Currently being treated for UTI from last visit here at the ED.Reports right flank pain along with her back pain.) Musculoskeletal: Reports back pain; Denies joint swelling Integumentary: Denies rash and lesions Neurological: Denies headache, numbness and dizziness Hematological/Lymphatic: Reports easy bleeding (Patient is on warfarin.) [facility] Narrative Patient History Narrative: Narrative: Medical/Surgical/Family History All Active Problems (Updated 02/16/20 @ 21:10 by AKIRA Schwartz) UTI (urinary tract infection) (Acute) Elevated INR (Acute) Chronic back pain (Acute) Anemia (Acute) Back pain (Acute) Spondylosis without myelopathy or radiculopathy, lumbosacral region (Acute) Spondylosis without myelopathy or radiculopathy, lumbar region (Acute) Low back pain (Chronic) Chronic pain (Chronic) History of breast cancer (Chronic) Myofascial pain (Chronic) Osteoporosis (Chronic) GERD (gastroesophageal reflux disease) (Chronic) Subacromial bursitis (Chronic) Degenerative joint disease (DJD) of lumbar spine (Chronic) Lymphadenopathy (Chronic) Melena (Chronic) Hand contusion (Chronic) Hand laceration (Chronic) Chronic back pain (Chronic) Exacerbation of chronic back pain (Chronic) Strain of right trapezius muscle (Chronic) 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) Coronary artery disease (Chronic) 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 (CVA) (Chronic) TIA (transient ischemic attack) (Chronic) Anemia (Chronic) Middle cerebral artery aneurysm (Chronic) Mild dementia (Chronic) Hypertension (Chronic) History of valvular heart disease (Chronic) Ascending cholangitis (Chronic) Medical History Acute coronary syndrome (Resolved) Anemia (Chronic) Ascending cholangitis (Chronic) Cholecystitis (Resolved) Choledocholithiasis with acute cholecystitis with obstruction (Resolved) Cholelithiasis and acute cholecystitis without obstruction (Resolved) Chronic pain (Chronic) Closed right hip fracture (Resolved) Coronary artery disease (Chronic) Excessive anticoagulation (Resolved) GERD (gastroesophageal reflux disease) (Chronic) History of breast cancer (Chronic) History of valvular heart disease (Chronic) Hypertension (Chronic) 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 (CVA) (Chronic) halfway current use of anticoagulant therapy (Chronic) Low back pain (Chronic) Lymphadenopathy (Chronic) Middle cerebral artery aneurysm (Chronic) Mild dementia (Chronic) Myofascial pain (Chronic) Osteoporosis (Chronic) Rectal bleeding (Resolved) Subacromial bursitis (Chronic) TIA (transient ischemic attack) (Chronic) Surgical History History of laparoscopic cholecystectomy (Acute) 07/29/2018-with intraoperative choleangiogram Family History Other No pertinent family history Social History Smoking Status: Former smoker Exam Narrative Narrative: Narrative: General Limitations: physical limitation Eye Eye: Present normal appearance, PERRL and EOMI; Absent scleral icterus and conjunctival injection ENT ENT: Present normal oropharynx and mucous membranes moist Neck Neck: Present trachea midline; Absent lymphadenopathy and thyromegaly Chest Chest: Present symmetric chest wall rise Respiratory Respiratory: Present normal lung sounds bilaterally; Absent respiratory distress, wheezes, stridor, accessory muscle use and prolonged expiratory phase Cardiovascular Cardiovascular: Present regular rate and normal rhythm; Absent systolic murmur and diastolic murmur Adbominal Abdominal: Present soft; Absent distention, tenderness, guarding, rebound, rigidity, organomegaly and mass Extremities Extremities: Absent pedal edema, pretibial edema and calf tenderness Back Back: Present tenderness (Patient has palpable tenderness from thoracic spine down to her sacrum.), CVA tenderness (R) and other (Has guarding with leg raises on both legs. She has range of motion with assistance. Main complaint is the exquisite pain of her right thoracic area.); Absent CVA tenderness (L) Neurological Neurological: Present alert and oriented X3 Skin Skin: Present warm (WNL), dry and other (Patient has a bruise on her lower back. This appears to be the injection site from her pain intervention performed by the pain clinic. No heat or surrounding redness. No swelling.) Course Course Course Narrative: Perform renal studies due to patient's complaint of right flank pain and treatment of recent UTI. Both of the studies do not explain the patient's right flank pain. I do notice a palpable tenderness and tightness in this area. Patient also reports a history of right hip fracture. Has chronic tenderness in this area as well. Reevaluation(s) Reevaluation #1: Labs show that patient has elevated clotting studies. She reports that this is abnormally high for her. Reevaluation #2: I discussed this case with Dr. Mendieta. He accompanied be during an exam. It was discussed that this patient should be admitted for lack of ability to care for herself at home, elevated INR, anemia and intractable back pain.I had performed a guaiac stool. Exam was negative for blood in stool. Not appear to have signs of bleeding. Vital Signs Vital signs: Vital Signs Temperature 99.1 F H 02/16/20 13:44 Pulse Rate 79 02/16/20 13:44 Respiratory Rate 18 02/16/20 13:44 Blood Pressure 189/88 02/16/20 13:44 Pulse Oximetry (%) 96 02/16/20 13:44 Temperature 99.1 F H 02/16/20 13:44 Pulse Rate 77 02/16/20 20:32 Respiratory Rate 18 02/16/20 13:44 Blood Pressure 179/94 02/16/20 20:47 Pulse Oximetry (%) 96 02/16/20 20:32 [facility] MDM Narrative Medical decision making narrative: Narrative: Lab Data Result diagrams: 02/16/20 14:29 02/16/20 14:29 Labs: Lab Results 02/16/20 02/16/20 02/16/20 Range/Units 14:29 14:29 14:29 WBC 14.6 H (4.5-11.0) K/mcL RBC 3.59 L (4.00-5.20) M/mcL Hgb 7.7 L (12.0-15.0) g/dL Hct 26.7 L (36.0-48.0) % POC Hct 28 L (36-48) % MCV 74.4 L (80.0-100.0) fL MCH 21.4 L (26.0-34.0) pg MCHC 28.8 L (31.0-36.0) g/dL RDW 18.8 H (11.5-14.5) % Plt Count 460 H (140-440) K/mcL MPV 9.5 (7.4-10.4) fL Neut % (Auto) 83.7 H (38.0-78.0) % Lymph % (Auto) 7.2 L (15.0-49.0) % [place] % (Auto) 8.6 (1.0-12.0) % Eos % (Auto) 0.2 (0.0-7.0) % Baso % (Auto) 0.3 (0.0-2.0) % Lymph # (Auto) 1.06 L (1.50-4.80) K/mcL [place] # (Auto) 1.26 H (0.10-0.90) K/mcL Eos # (Auto) 0.03 (0.00-0.70) K/mcL Baso # (Auto) 0.05 (0.00-0.20) K/mcL Absolute Neutrophils 12.23 H (1.80-8.00) K/mcL ESR (0-20) mm/hr PT 43.7 H (11.9-14.5) sec INR 4.6 H (0.9-1.1) APTT 72.3 H (20.0-37.0) sec POC Sodium 140 (133-145) mEq/L Sodium 137 (133-145) mmol/L POC Potassium 3.1 L (3.3-5.1) mEql/L Potassium 3.1 L (3.3-5.1) mmol/L POC Chloride 101 (96-108) mEq/L Chloride 99 (96-108) mmol/L Carbon Dioxide 25 (22-30) mmol/L POC Total CO2 24 (22-30) mmol/L Anion Gap 13.0 (8.0-16.0) POC BUN 17 (6-20) mg/dL BUN 17 (8-23) mg/dL Creatinine 0.7 (0.6-1.1) mg/dL POC Creatinine 0.5 L (0.6-1.2) mg/dL GFR Calculation 81 Glucose 110 H (70-105) mg/dL POC Glucose 103 (70-105) mg/dL Calcium 9.5 (8.6-10.4) mg/dL POC WB Ioniz Calcium 1.24 (1.16-1.32) mmEq/L Total Bilirubin 0.5 (0.1-1.0) mg/dL AST 17 (<32) U/L ALT 8 (<40) U/L Alkaline Phosphatase 73 (39-117) U/L C-Reactive Protein (0.03-0.80) mg/dL Total Protein 7.1 (5.9-8.4) gm/dL Albumin 3.9 (3.2-5.2) gm/dL Globulin 3.2 (2.2-3.7) gm/dL Albumin/Globulin Ratio 1.2 (1.0-2.3) Urine Color Urine Appearance (Clear) Urine pH (5.0-9.0) Ur Specific Dick[place] (1.000-1.035) Urine Protein (Negative) mg/dL Urine Glucose (UA) (Negative) mg/dL Urine Ketones (Negative) mg/dL Urine Occult Blood (Negative) mg/dL Urine Nitrate (Negative) Urine Bilirubin (Negative) mg/dL Urine Urobilinogen mg/dL Ur Leukocyte Esterase (Negative) /ug Urine RBC (0-1) /hpf Urine WBC (0-4) /hpf Ur Squamous Epith Cells (0-4) /hpf Ur Transition Epith Cell (0-2) /hpf Urine Bacteria (0) /hpf Hyaline Casts (0-2) /lph Urine Mucus (None) /hpf Ur Culture Indicated? 02/16/20 02/16/20 02/16/20 Range/Units 14:29 14:29 18:39 WBC (4.5-11.0) K/mcL RBC (4.00-5.20) M/mcL Hgb (12.0-15.0) g/dL Hct (36.0-48.0) % POC Hct (36-48) % MCV (80.0-100.0) fL MCH (26.0-34.0) pg MCHC (31.0-36.0) g/dL RDW (11.5-14.5) % Plt Count (140-440) K/mcL MPV (7.4-10.4) fL Neut % (Auto) (38.0-78.0) % Lymph % (Auto) (15.0-49.0) % [place] % (Auto) (1.0-12.0) % Eos % (Auto) (0.0-7.0) % Baso % (Auto) (0.0-2.0) % Lymph # (Auto) (1.50-4.80) K/mcL [place] # (Auto) (0.10-0.90) K/mcL Eos # (Auto) (0.00-0.70) K/mcL Baso # (Auto) (0.00-0.20) K/mcL Absolute Neutrophils (1.80-8.00) K/mcL ESR 49 H (0-20) mm/hr PT (11.9-14.5) sec INR (0.9-1.1) APTT (20.0-37.0) sec POC Sodium (133-145) mEq/L Sodium (133-145) mmol/L POC Potassium (3.3-5.1) mEql/L Potassium (3.3-5.1) mmol/L POC Chloride (96-108) mEq/L Chloride (96-108) mmol/L Carbon Dioxide (22-30) mmol/L POC Total CO2 (22-30) mmol/L Anion Gap (8.0-16.0) POC BUN (6-20) mg/dL BUN (8-23) mg/dL Creatinine (0.6-1.1) mg/dL POC Creatinine (0.6-1.2) mg/dL GFR Calculation Glucose (70-105) mg/dL POC Glucose (70-105) mg/dL Calcium (8.6-10.4) mg/dL POC WB Ioniz Calcium (1.16-1.32) mmEq/L Total Bilirubin (0.1-1.0) mg/dL AST (<32) U/L ALT (<40) U/L Alkaline Phosphatase (39-117) U/L C-Reactive Protein 8.50 H (0.03-0.80) mg/dL Total Protein (5.9-8.4) gm/dL Albumin (3.2-5.2) gm/dL Globulin (2.2-3.7) gm/dL Albumin/Globulin Ratio (1.0-2.3) Urine Color Yellow Urine Appearance Clear (Clear) Urine pH 5.0 (5.0-9.0) Ur Specific [place] 1.020 (1.000-1.035) Urine Protein 100 A (Negative) mg/dL Urine Glucose (UA) Negative (Negative) mg/dL Urine Ketones 80 A (Negative) mg/dL Urine Occult Blood 0.20 (Negative) mg/dL Urine Nitrate Negative (Negative) Urine Bilirubin Negative (Negative) mg/dL Urine Urobilinogen Negative mg/dL Ur Leukocyte Esterase Negative (Negative) /ug Urine RBC 7 H (0-1) /hpf Urine WBC 3 (0-4) /hpf Ur Squamous Epith Cells 1 (0-4) /hpf Ur Transition Epith Cell < 1 (0-2) /hpf Urine Bacteria Many A (0) /hpf Hyaline Casts 1 (0-2) /lph Urine Mucus Many A (None) /hpf Ur Culture Indicated? T Discharge Plan Patient/Caregiver Discharge Instructions Pt seen by [employer] TECHNICIAN/PA only: No Clinical Impression: Elevated INR, Chronic back pain, Anemia, Back pain Patient Disposition: Xfer As Inpt ([facility]) Condition: Undetermined
[2020-02-16 14:43] LABS: POC Blood Urea Nitrogen 17 mg/dL (6-20); POC CO2 24 mmol/L (22-30); POC Calcium, Ionized 1.24 mmEq/L (1.16-1.32); POC Chloride 101 mEq/L (96-108); POC Creatinine 0.5 mg/dL (0.6-1.2); POC Glucose, Random 103 mg/dL (70-105); POC Hematocrit 28 % (36-48); POC Potassium 3.1 mEql/L (3.3-5.1); POC Sodium 140 mEq/L (133-145)
--- NOTE | 2020-02-16 14:44 | Cat Scan Report ---
INDICATION: Right flank pain COMPARISON: Previous plain film lumbar spine dated 02/14/2020. Previous abdominal ultrasound dated 07/27/2018. Previous CT scan dated 06/14/2010 TECHNIQUE: Axial images were obtained through the abdomen and pelvis. Sagittally and coronally reformatted images. FINDINGS: Lung bases:No pulmonary parenchymal density. No calcified or noncalcified nodule. No pleural or pericardial effusion. There is cardiomegaly. There are pacemaker leads and previous median sternotomy. There is an elliptical shaped soft tissue density in the soft tissues of the right breast. This measures 3.9 cm in size. This is only partially imaged. Correlation with physical examination recommended. Liver:Negative to the limits of noncontrast enhanced examination. Liver contour is smooth without evidence for cirrhosis Gallbladder, bilary:Surgical clips in the gallbladder fossa. Common bile duct is dilated to 9 mm at the gallbladder fossa. No detectable choledocholithiasis. No intrahepatic bile duct dilatation. Spleen:No splenomegaly Pancreas:No pancreatic mass. No peripancreatic abnormality Adrenal glands:Adrenal glands are enlarged bilaterally. Appearance is similar to prior CT scan. No discrete adrenal nodule Kidneys, ureters, bladder: There is a 12 mm low-density abnormality in the right mid pole. This may be a simple cyst. Follow-up ultrasound is recommended to exclude a solid mass. There are no right renal calculi. No right hydronephrosis. Left kidney is negative. No obstructing or nonobstructing calculi. No left hydronephrosis. No hydroureter. No ureteral stone No bladder calculus Gastrointestinal:No significant diverticulosis or evidence for diverticulitis. No detectable colonic mass No mechanical small bowel obstruction. No small bowel dilatation. Stomach and duodenum are negative Appendix: The appendix is negative Vascular:There is extensive calcified atherosclerotic plaque following the length of the abdominal aorta. No abdominal aortic aneurysm. There is calcified plaque at the origins of the celiac trunk and superior mesenteric artery. No evidence for stenosis. Common iliac arteries are calcified. Lymphatic:No retroperitoneal adenopathy. No significant mesenteric adenopathy. Mesentery, peritoneum:No free intraperitoneal fluid. No intra-abdominal abscess. No pneumoperitoneum Reproductive:Uterus is present. No adnexal mass. There are surgical clips in the pelvis. Musculoskeletal:Mild L2 superior endplate depression. Mild 11 compression deformity. Chronicity is not certain. No well-defined discrete fracture lines identified. Sacrum is negative. No insufficiency fracture. Pelvis is negative. Rami are negative for fracture IMPRESSION: 1. No renal or ureteral calculi. There is no hydronephrosis or hydroureter. 2. 12 mm low-density lesion within the kidney. Recommend follow-up ultrasound 3. Mild compression deformity of the T11 vertebral body. Mild superior endplate compression at L2 4. Extensive atherosclerotic disease 5. Previous cholecystectomy. Common bile duct is dilated to approximately 9 mm 6. Elliptical shaped soft tissue density in the anterior right chest wall. This may be within the right breast. Clinical correlation recommended The exam was performed using radiation dose optimization techniques including, but not limited to, automated exposure control, adjustment of the mA and/or kV according to patient size and use of iterative reconstruction technique. Interpreted and Authenticated by: Maverick Reid 02/16/20
[2020-02-16] MEDS ORDERED: ONDANSETRON 4 MG/2 ML VIAL IV ONE (14:52)
[2020-02-16] MEDS: HYDROmorphone 0.5 MG/0.5 ML SYRINGE IV PRN ×3 (15:00→18:10)
[2020-02-16 15:24] LABS: Basophils # (Auto) 0.05 K/mcL (0.00-0.20); Basophils % (Auto) 0.3 % (0.0-2.0); Eosinophils # (Auto) 0.03 K/mcL (0.00-0.70); Eosinophils % (Auto) 0.2 % (0.0-7.0); Hematocrit 26.7 % (36.0-48.0); Hemoglobin 7.7 g/dL (12.0-15.0); Lymphocytes # (Auto) 1.06 K/mcL (1.50-4.80); Lymphocytes % (Auto) 7.2 % (15.0-49.0); Mean Cell Volume 74.4 fL (80.0-100.0); Mean Corpuscular HGB Conc 28.8 g/dL (31.0-36.0); Mean Platelet Volume 9.5 fL (7.4-10.4); Monocytes # (Auto) 1.26 K/mcL (0.10-0.90); Monocytes % (Auto) 8.6 % (1.0-12.0); Neutrophils % (Auto) 83.7 % (38.0-78.0); Platelet Count 460 K/mcL (140-440); RBC 3.59 M/mcL (4.00-5.20); Red Cell Distribution Width 18.8 % (11.5-14.5); WBC 14.6 K/mcL (4.5-11.0)
[2020-02-16 15:45] LABS: ALT/SGPT 8 U/L (<40); AST/SGOT 17 U/L (<32); Albumin 3.9 gm/dL (3.2-5.2); Albumin/Globulin Ratio 1.2 (1.0-2.3); Alkaline Phosphatase 73 U/L (39-117); Bilirubin,Total 0.5 mg/dL (0.1-1.0); Blood Urea Nitrogen 17 mg/dL (8-23); Calcium 9.5 mg/dL (8.6-10.4); Carbon Dioxide 25 mmol/L (22-30); Chloride 99 mmol/L (96-108); Globulin 3.2 gm/dL (2.2-3.7); Glomerular Filtration Rate 81; Glucose 110 mg/dL (70-105)
--- NOTE | 2020-02-16 16:02 | Ultrasound Report ---
INDICATION: R flank pain, mass found on ct TECHNIQUE: Grayscale and color flow Doppler spectral imaging. COMPARISON: Previous noncontrast enhanced abdominal CT scan dated 02/16/2020 FINDINGS: Right kidney: Right kidney [id number] x 4.8 x 4.0 cm. There is no hydronephrosis. No solid right renal mass. Renal cortex is normal. No detectable calculi. There are two right renal cysts. Upper pole cyst measures 10 mm maximally. There is a mid pole cyst which measures 19 mm maximally. This corresponds in location to the CT abnormality Left kidney: Left kidney measures9.8 x 4.4 x 5.5 cm. There is no hydronephrosis. No solid left renal mass. Renal cortex is normal. No detectable calculi. Bladder: Prevoid bladder [id number] mL. No bladder calculi. No detectable mass. Bladder wall appears trabeculated. Bilateral ureteral jets visualized. IMPRESSION: 1. Benign right renal cysts 2. No solid renal mass. No hydronephrosis Interpreted and Authenticated by: Maverick Reid 02/16/20
[2020-02-16 17:55] LABS: INR 4.6 (0.9-1.1); Partial Thromboplastin Time 72.3 sec (20.0-37.0); Prothrombin Time 43.7 sec (11.9-14.5)
[2020-02-16 19:16] LABS: Appearance,Urine CLEAR (Clear); Bacteria,Urine MANY /hpf (0); Bilirubin,Urine Negative (Negative); Color,Urine YELLOW; Culture Indicated,Urine T; Glucose,Urine (UA) Negative (Negative); Ketones,Urine 80 mg/dL (Negative); Leukocyte Esterase,Urine Negative /ug (Negative); Mucus,Urine MANY /hpf; Nitrate,Urine Negative (Negative); Protein,Urine 100 mg/dL (Negative); Urine Hyaline Cast 1 /lph (0-2); Urine RBC 7 /hpf (0-1); Urine Squamous Epithelial Cell 1 /hpf (0-4); Urine Transitional Epi Cells < 1 /hpf (0-2); Urine WBC 3 /hpf (0-4); Urobilinogen,Urine Negative
--- NOTE | 2020-02-16 20:41 | Internal Med History&Physical ---
HPI History of Present Illness Patient information: Note initiated : 02/16/20 at 8:34 pm Service Date, if different from initiated Date: [] Patient: Xochilt Pat a 79 y/o F admitted on for back pain. Chief Complaint: Intractable back pain History of present illness: Ms. Pat is a 79 year old F with a history of CVA/anticoagulation/hypertension/chronic back pain who presents to the ER with intractable back pain limiting her ability to function. She had been following up with the pain clinic and underwent steroid injections at the pain clinic 2 weeks ago. However she has continued to deteriorate. She is unable to perform activities of daily living. She presents today to the ER with worsening symptoms. She denies incontinence/lower extremity weakness/dysesthesia or paresthesia. She further denies bowel incontinence. Initial work-up the ER was essentially unremarkable except for white count over 14,000. However no clear source was identified. T-max 99.1. INR 4.6. Hospitalist service was consulted in light of intractable back pain and inability to take care of self At the time of my evaluation patient endorses history as above. She denies recent trauma or fall. She denies changes in medications. She endorses to minimal relief with opioids administered at the ER. Review of systems 10 point review system was performed and is negative except for ones cussed above PFSH PFSH All Active Problems UTI (urinary tract infection) (Acute) Spondylosis without myelopathy or radiculopathy, lumbosacral region (Acute) Spondylosis without myelopathy or radiculopathy, lumbar region (Acute) Low back pain (Chronic) Chronic pain (Chronic) History of breast cancer (Chronic) Myofascial pain (Chronic) Osteoporosis (Chronic) GERD (gastroesophageal reflux disease) (Chronic) Subacromial bursitis (Chronic) Degenerative joint disease (DJD) of lumbar spine (Chronic) Lymphadenopathy (Chronic) Melena (Chronic) Hand contusion (Chronic) Hand laceration (Chronic) Chronic back pain (Chronic) Exacerbation of chronic back pain (Chronic) Strain of right trapezius muscle (Chronic) FDC current use of anticoagulant therapy (Chronic) Coronary artery disease (Chronic) 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 (CVA) (Chronic) TIA (transient ischemic attack) (Chronic) Anemia (Chronic) Middle cerebral artery aneurysm (Chronic) Mild dementia (Chronic) Hypertension (Chronic) History of valvular heart disease (Chronic) Ascending cholangitis (Chronic) Medical History Acute coronary syndrome (Resolved) Anemia (Chronic) Ascending cholangitis (Chronic) Cholecystitis (Resolved) Choledocholithiasis with acute cholecystitis with obstruction (Resolved) Cholelithiasis and acute cholecystitis without obstruction (Resolved) Chronic pain (Chronic) Closed right hip fracture (Resolved) Coronary artery disease (Chronic) Excessive anticoagulation (Resolved) GERD (gastroesophageal reflux disease) (Chronic) History of breast cancer (Chronic) History of valvular heart disease (Chronic) Hypertension (Chronic) 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 (CVA) (Chronic) 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) Low back pain (Chronic) Lymphadenopathy (Chronic) Middle cerebral artery aneurysm (Chronic) Mild dementia (Chronic) Myofascial pain (Chronic) Osteoporosis (Chronic) Rectal bleeding (Resolved) Subacromial bursitis (Chronic) TIA (transient ischemic attack) (Chronic) Surgical History History of laparoscopic cholecystectomy (Acute) 07/29/2018-with intraoperative choleangiogram Family History Other No pertinent family history Social History (Updated 08/15/18 @ 13:51 by Miguelangel Li MD) smoking status: Former smoker MEDS/ALLERGIES Home Medications and Allergies Home Medications Medication Instructions Recorded Confirmed Type calcium carbonate-vitamin D3 1 each PO DAILY 07/27/18 02/05/20 History cyanocobalamin (vitamin B-12) 500 mcg PO DAILY 07/27/18 02/05/20 History furosemide 40 mg PO DAILY PRN 07/27/18 02/05/20 History potassium chloride 20 meq PO QAMCC 07/27/18 02/05/20 History amlodipine 5 mg PO DAILY 07/28/18 02/05/20 History warfarin 5 mg tablet 2.5 mg PO DAILY tab 08/14/18 02/05/20 History aspirin 81 mg PO DAILY tab.chew 04/26/19 02/05/20 Rx docusate sodium 100 mg PO BID #30 cap 04/26/19 02/05/20 Rx Lactobacillus acidophilus 1 tab PO DAILY 06/20/19 02/05/20 History methocarbamol 750 mg PO Q6 PRN 06/20/19 02/05/20 History omega-3 fatty acids-fish oil 1 each PO DAILY 06/20/19 02/05/20 History vitamin E 400 unit PO DAILY 06/20/19 02/05/20 History cyclobenzaprine 5 mg PO TID PRN #7 tab 10/20/19 02/05/20 Rx hydrocodone-acetaminophen 1 tab PO Q6-8HP PRN #10 tab 02/14/20 Rx lidocaine 1 patch TOPICAL QDAY #15 each 02/14/20 Rx nitrofurantoin monohyd/m-cryst 100 mg PO Q12H 5 Days #10 cap 02/14/20 Rx [Macrobid] Allergies Allergy/AdvReac Type Severity Reaction Status Date / Time codeine Allergy Unknown Nausea Verified 01/29/20 14:05 EXAM Constitutional Vitals: Temp Pulse Resp BP Pulse Ox 99.1 F H 79 18 160/66 96 02/16/20 13:44 02/16/20 13:44 02/16/20 13:44 02/16/20 19:30 02/16/20 13:44 Anxious and distressed Head normocephalic Oral cavity moist No ear nose discharge Eye movement symmetrical Neck supple no lymphadenopathy S1-S2 regular Nonlabored breathing Nondistended nontender abdomen Lower extremity no cyanosis clubbing or joint swelling Skin no suspicious lesion Psych no hallucination delusion Neuro normal higher function DATA Data Completed and Pending Labs: Labs from last 24 hours 02/16/20 02/16/20 02/16/20 18:39 14:29 14:29 WBC RBC Hgb Hct POC Hct MCV MCH MCHC RDW Plt Count MPV Neut % (Auto) Lymph % (Auto) [place] % (Auto) Eos % (Auto) Baso % (Auto) Lymph # (Auto) [place] # (Auto) Eos # (Auto) Baso # (Auto) Absolute Neutrophils ESR 49 H PT INR APTT POC Sodium Sodium POC Potassium Potassium POC Chloride Chloride Carbon Dioxide POC Total CO2 Anion Gap POC BUN BUN Creatinine POC Creatinine GFR Calculation Glucose POC Glucose Calcium POC WB Ioniz Calcium Total Bilirubin AST ALT Alkaline Phosphatase C-Reactive Protein 8.50 H Total Protein Albumin Globulin Albumin/Globulin Ratio Urine Color Yellow Urine Appearance Clear Urine pH 5.0 Ur Specific [place] 1.020 Urine Protein 100 A Urine Glucose (UA) Negative Urine Ketones 80 A Urine Occult Blood 0.20 Urine Nitrate Negative Urine Bilirubin Negative Urine Urobilinogen Negative Ur Leukocyte Esterase Negative Urine RBC 7 H Urine WBC 3 Ur Squamous Epith Cells 1 Ur Transition Epith Cell < 1 Urine Bacteria Many A Hyaline Casts 1 Urine Mucus Many A Ur Culture Indicated? T 02/16/20 02/16/20 02/16/20 14:29 14:29 14:29 WBC 14.6 H RBC 3.59 L Hgb 7.7 L Hct 26.7 L POC Hct 28 L MCV 74.4 L MCH 21.4 L MCHC 28.8 L RDW 18.8 H Plt Count 460 H MPV 9.5 Neut % (Auto) 83.7 H Lymph % (Auto) 7.2 L [place] % (Auto) 8.6 Eos % (Auto) 0.2 Baso % (Auto) 0.3 Lymph # (Auto) 1.06 L [place] # (Auto) 1.26 H Eos # (Auto) 0.03 Baso # (Auto) 0.05 Absolute Neutrophils 12.23 H ESR PT 43.7 H INR 4.6 H APTT 72.3 H POC Sodium 140 Sodium 137 POC Potassium 3.1 L Potassium 3.1 L POC Chloride 101 Chloride 99 Carbon Dioxide 25 POC Total CO2 24 Anion Gap 13.0 POC BUN 17 BUN 17 Creatinine 0.7 POC Creatinine 0.5 L GFR Calculation 81 Glucose 110 H POC Glucose 103 Calcium 9.5 POC WB Ioniz Calcium 1.24 Total Bilirubin 0.5 AST 17 ALT 8 Alkaline Phosphatase 73 C-Reactive Protein Total Protein 7.1 Albumin 3.9 Globulin 3.2 Albumin/Globulin Ratio 1.2 Urine Color Urine Appearance Urine pH Ur Specific [place] Urine Protein Urine Glucose (UA) Urine Ketones Urine Occult Blood Urine Nitrate Urine Bilirubin Urine Urobilinogen Ur Leukocyte Esterase Urine RBC Urine WBC Ur Squamous Epith Cells Ur Transition Epith Cell Urine Bacteria Hyaline Casts Urine Mucus Ur Culture Indicated? A/P Narrative A/P Narrative: * Intractable back pain-no recent trauma, patient follows up with pain clinic. Continue analgesics/conservative management. Lower back imaging. * History of CVA-continue anticoagulation on Coumadin. INR supratherapeutic. 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
[2020-02-16] MEDS ORDERED: guaiFENesin/CODEINE 10 ML UDC PO PRN (21:10)
[2020-02-16] MEDS ORDERED: ACETAMINOPHEN 325 MG TABLET PO PRN (21:10)
[2020-02-16] MEDS ORDERED: ACETAMINOPHEN 650 MG/65 ML BOTTLE IV PRN (21:10)
[2020-02-16] MEDS ORDERED: POLYETHYLENE GLYCOL 3350 17 GM PACKET PO PRN (21:10)
[2020-02-16] MEDS ORDERED: BISACODYL 10 MG SUPP.RECT PR PRN (21:10)
[2020-02-16] MEDS ORDERED: HEPARIN 5,000 UNIT/ML VIAL SQ SCH (21:10)
[2020-02-16] MEDS ORDERED: MAGNESIUM SULFATE 2 GM/50 ML BAG IV PRN (21:10)
[2020-02-16] MEDS ORDERED: ONDANSETRON 4 MG/2 ML VIAL IV PRN (21:10)
[2020-02-16] MEDS: SENNOSIDES/DOCUSATE SODIUM 1 TAB TABLET PO SCH (21:52)
[2020-02-16] MEDS: DOCUSATE SODIUM 100 MG CAPSULE PO SCH (21:52)
[2020-02-16] MEDS: traMADol 50 MG TABLET PO PRN (21:53)
[2020-02-16] MEDS: 0.9 % SODIUM CHLORIDE 1,000 ML IV SCH (21:53)
[2020-02-16] MEDS: 0.9 % SODIUM CHLORIDE 10 ML SYRINGE IV SCH (21:54)
[2020-02-16 22:06] LABS: Basophils # (Auto) 0.04 K/mcL (0.00-0.20); Basophils % (Auto) 0.3 % (0.0-2.0); Eosinophils # (Auto) 0.04 K/mcL (0.00-0.70); Eosinophils % (Auto) 0.3 % (0.0-7.0); Hematocrit 26.8 % (36.0-48.0); Hemoglobin 7.8 g/dL (12.0-15.0); Lymphocytes # (Auto) 1.56 K/mcL (1.50-4.80); Lymphocytes % (Auto) 9.9 % (15.0-49.0); Mean Cell Volume 75.3 fL (80.0-100.0); Mean Corpuscular HGB Conc 29.1 g/dL (31.0-36.0); Mean Platelet Volume 9.4 fL (7.4-10.4); Monocytes # (Auto) 1.51 K/mcL (0.10-0.90); Monocytes % (Auto) 9.6 % (1.0-12.0); Neutrophils % (Auto) 79.9 % (38.0-78.0); Platelet Count 460 K/mcL (140-440); RBC 3.56 M/mcL (4.00-5.20); Red Cell Distribution Width 19.1 % (11.5-14.5); WBC 15.8 K/mcL (4.5-11.0)
[2020-02-16] MEDS: HYDROcodone/APAP 5/325MG TABLET PO PRN (22:37)
[2020-02-17] MEDS: morphine 2 MG/ML VIAL IV PRN ×4 (00:33→20:09)
[2020-02-17] MEDS: HYDROcodone/APAP 5/325MG TABLET PO PRN ×8 (01:48→22:21)
[2020-02-17] MEDS: 0.9 % SODIUM CHLORIDE 10 ML SYRINGE IV SCH ×3 (06:02→22:08)
[2020-02-17] MEDS: FERROUS SULFATE 325 MG TABLET PO SCH ×2 (08:00→14:02)
[2020-02-17] MEDS: traMADol 50 MG TABLET PO PRN ×3 (08:04→23:21)
[2020-02-17] MEDS ORDERED: HYDROcodone/APAP 10/325MG TABLET PO PRN (08:06)
[2020-02-17] MEDS ORDERED: FUROSEMIDE 40 MG TABLET PO PRN (08:06)
[2020-02-17] MEDS ORDERED: IRON SUCROSE COMPLEX 100 MG/5 ML VIAL IV ONE (08:08)
[2020-02-17] MEDS ORDERED: NITROFURANTOIN SR 100 MG CAPSULE PO SCH (08:15)
[2020-02-17] MEDS: CYANOCOBALAMIN (VITAMIN B-12) 500 MCG TABLET PO SCH ×2 (08:23→14:02)
[2020-02-17] MEDS: FAMOTIDINE 20 MG TABLET PO SCH ×2 (08:25→13:57)
[2020-02-17] MEDS: VITAMIN D3 1,000 UNIT TABLET PO SCH ×2 (08:25→14:02)
[2020-02-17] MEDS: VITAMIN E (DL,TOCOPHERYL ACET) 400 UNIT CAPSULE PO SCH ×2 (08:25→14:02)
[2020-02-17] MEDS: ASPIRIN 81 MG TAB.CHEW PO SCH ×2 (08:25→13:58)
[2020-02-17] MEDS: MAGNESIUM OXIDE 400 MG TABLET PO SCH ×2 (08:26→13:58)
[2020-02-17] MEDS: amLODIPine 5 MG TABLET PO SCH ×2 (08:26→13:57)
[2020-02-17] MEDS: MULTIVIT,THER IRON,CA,FA & MIN 1 TABLET PO SCH ×2 (08:26→13:57)
[2020-02-17] MEDS: DOCUSATE SODIUM 100 MG CAPSULE PO SCH ×2 (08:27→20:09)
[2020-02-17] MEDS: CELECOXIB 200 MG CAPSULE PO SCH ×2 (08:27→13:58)
[2020-02-17] MEDS: FOLIC ACID 1 MG TABLET PO SCH ×2 (08:28→13:58)
--- NOTE | 2020-02-17 08:58 | Internal Med Progress Note ---
SUBJECTIVE Subjective Patient information: Note initiated : 02/17/20 at 8:53 am Service Date, if different from initiated Date: [] Patient: Xochilt Pat 79 y/o F admitted on 02/16/20 for back pain. Chief Complaint: History of present illness: Ms. Pat is a 79 year old F with a history of CVA x2/anticoagulation/CAD/HTN/chronic back pain who presents to the ER with intractable back pain limiting her ability to function. She had been following up with the pain clinic with Dr. Macedo and underwent block injections at the pain clinic 2 weeks ago. However she has continued to deteriorate. She is unable to perform activities of daily living. She presents today to the ER with worsening symptoms. She denies incontinence/lower extremity weakness/dysesthesia or paresthesia. She further denies bowel incontinence. Initial work-up the ER was essentially unremarkable except for white count over 14,000. However no clear source was identified. T-max 99.1. INR 4.6. Hospitalist service was consulted in light of intractable back pain and inability to take care of self At the time of my evaluation patient endorses history as above. She denies recent trauma or fall. She denies changes in medications. She endorses to minimal relief with opioids administered at the ER. 02/16-patient complains of persistent pain. Started on lidocaine patch/trial of IV opioids. Hemoglobin 7.7. Check ferritin. Iron sucrose infusion in light of microcytic anemia. No overnight fever chills. Appears anxious and distressed due to persistent lower back pain. Constitutional Vitals: Vital Signs Temp Pulse Resp BP Pulse Ox 97.8 F 72 16 131/75 96 02/17/20 04:14 02/17/20 04:14 02/17/20 04:14 02/17/20 04:14 02/17/20 04:14 Period Temp Pulse Resp BP Sys/[place] Pulse Ox Last 24 Hr 97.8 F-99.2 F 69-98 16-18 131-191/63-94 93-98 Intake and Output 02/16/20 02/17/20 02/17/20 22:59 05:59 13:59 Intake Total Output Total Balance Weight anxious and distressed Nonlabored breathing Persistent lower back pain No lymphedema Intake & Output: Intake & Output 02/16/20 02/17/20 02/17/20 22:59 05:59 13:59 Intake Total Output Total Balance Weight Intake: Oral Output: Void Amount # of times incontinent of urine Other: Urine Appearance Fem Cath Urine Color Fem Cath # Bowel Movements OBJ DATA Labs CBC & Chem 7: 02/16/20 21:25 02/16/20 14:29 Labs: Abnormal Lab Results 02/16/20 02/16/20 02/16/20 21:25 18:39 14:29 WBC 15.8 H RBC 3.56 L Hgb 7.8 L Hct 26.8 L POC Hct MCV 75.3 L MCH 21.9 L MCHC 29.1 L RDW 19.1 H Plt Count 460 H Neut % (Auto) 79.9 H Lymph % (Auto) 9.9 L Lymph # (Auto) [place] # (Auto) 1.51 H Absolute Neutrophils 12.64 H ESR PT INR APTT POC Potassium Potassium POC Creatinine Glucose C-Reactive Protein 8.50 H Urine Protein 100 A Urine Ketones 80 A Urine RBC 7 H Urine Bacteria Many A Urine Mucus Many A 02/16/20 02/16/20 02/16/20 14:29 14:29 14:29 WBC RBC Hgb Hct POC Hct 28 L MCV MCH MCHC RDW Plt Count Neut % (Auto) Lymph % (Auto) Lymph # (Auto) [place] # (Auto) Absolute Neutrophils ESR 49 H PT 43.7 H INR 4.6 H APTT 72.3 H POC Potassium 3.1 L Potassium 3.1 L POC Creatinine 0.5 L Glucose 110 H C-Reactive Protein Urine Protein Urine Ketones Urine RBC Urine Bacteria Urine Mucus 02/16/20 14:29 WBC 14.6 H RBC 3.59 L Hgb 7.7 L Hct 26.7 L POC Hct MCV 74.4 L MCH 21.4 L MCHC 28.8 L RDW 18.8 H Plt Count 460 H Neut % (Auto) 83.7 H Lymph % (Auto) 7.2 L Lymph # (Auto) 1.06 L [place] # (Auto) 1.26 H Absolute Neutrophils 12.23 H ESR PT INR APTT POC Potassium Potassium POC Creatinine Glucose C-Reactive Protein Urine Protein Urine Ketones Urine RBC Urine Bacteria Urine Mucus Meds: Medications Acetaminophen (Tylenol) 650 mg PO Q4-6HP PRN; Protocol PRN Reason: Per Pain Protocol/Fever > 101 Hydrocodone Bitart/Acetaminophen ([place] 5/325mg) 1 - 2 tab PO Q4HP PRN; Protocol PRN Reason: Per Pain Protocol Last Admin: 02/17/20 08:24 Dose: 1 tab Documented by: Amlodipine Besylate (Norvasc) 5 mg PO DAILY [facility] Last Admin: 02/17/20 08:26 Dose: 5 mg Documented by: Aspirin (Aspirin) 81 mg PO DAILY [facility] Last Admin: 02/17/20 08:25 Dose: 81 mg Documented by: Bisacodyl (Dulcolax) 10 mg DE Q2-3DAYS PRN PRN Reason: Constipation Celecoxib (Celebrex) 200 mg PO QDAY [facility] Last Admin: 02/17/20 08:27 Dose: 200 mg Documented by: Ciprofloxacin (Cipro) 250 mg PO BID [facility] Cyanocobalamin (Vitamin B-12) 5,000 mcg PO DAILY [facility] Last Admin: 02/17/20 08:23 Dose: 5,000 mcg Documented by: Docusate Sodium (Colace) 100 mg PO BID [facility] Last Admin: 02/17/20 08:27 Dose: 100 mg Documented by: Famotidine (Pepcid) 40 mg PO DAILY [facility] Last Admin: 02/17/20 08:25 Dose: 40 mg Documented by: Ferrous Sulfate (Ferrous Sulfate) 325 mg PO [facility] Last Admin: 02/17/20 08:00 Dose: 325 mg Documented by: Folic Acid (Folic Acid) 1 mg PO DAILY [facility] Last Admin: 02/17/20 08:28 Dose: 1 mg Documented by: Furosemide (Lasix) 40 mg PO DAILYP PRN PRN Reason: Hypertension Guaifenesin/Codeine Phosphate (Robitussin Ac) 10 ml PO Q4HP PRN PRN Reason: Cough Hydromorphone HCl (Dilaudid) 0.25 - 0.5 mg IV Q4HP PRN; Protocol PRN Reason: Per Pain Protocol Acetaminophen (Ofirmev) 650 mg in 65 mls @ 130 mls/hr IV Q6HP PRN; Protocol PRN Reason: Per Pain Protocol/Fever > 101 Magnesium Sulfate (Magnesium Sulfate) 2 gm in 50 mls @ 50 mls/hr IV UD PRN PRN Reason: MG = or < 1.7 Sodium Chloride (Sodium Chloride 0.9%) 1,000 mls @ 50 mls/hr IV .Q20H [facility] Stop: 02/19/20 09:09 Last Admin: 02/16/20 21:53 Dose: 50 mls/hr Documented by: Iron Carb/Multivit/[place]y/Folic Acid (Multivitamin W/Minerals) 1 tab PO DAILY [facility] Last Admin: 02/17/20 08:26 Dose: 1 tab Documented by: Lidocaine (Lidoderm) 1 patch TOPICAL QDAY [facility] Lidocaine (Lidoderm) 1 patch TOPICAL DAILY@1000 [place] Magnesium Oxide (Magnesium Oxide) 400 mg PO DAILY [facility] Last Admin: 02/17/20 08:26 Dose: 400 mg Documented by: Melatonin (Melatonin 3mg Tablet) 3 mg PO HSP PRN PRN Reason: Insomnia Methocarbamol (Robaxin) 750 mg PO Q6HP PRN PRN Reason: Muscle Spasm Morphine Sulfate (Morphine) 2 mg IV Q4HP PRN; Protocol PRN Reason: Per Pain Protocol Last Admin: 02/17/20 00:33 Dose: 2 mg Documented by: Ondansetron HCl (Zofran Odt) 4 mg SL Q4-6HP PRN; Protocol PRN Reason: Nausea And Vomiting Ondansetron HCl (Zofran) 4 mg IV Q4-6HP PRN; Protocol PRN Reason: Nausea And Vomiting Polyethylene Glycol (Miralax) 17 gm PO DAILYP PRN PRN Reason: Constipation Potassium Chloride (Klor-Con) 40 meq PO DAILYP PRN PRN Reason: K+ < 3.5 Senna/Docusate Sodium (Senna Plus Tablet) 1 tab PO HS [facility] Last Admin: 02/16/20 21:52 Dose: 1 tab Documented by: Sodium Chloride (Saline Flush) 10 ml IV Q8 [facility] Last Admin: 02/17/20 06:02 Dose: Not Given Documented by: Tramadol HCl (Ultram) 50 mg PO Q4-6HP PRN; Protocol PRN Reason: Per Pain Protocol Last Admin: 02/17/20 08:04 Dose: 50 mg Documented by: Vitamin D (Vitamin D3) 2,000 unit PO DAILY [facility] Last Admin: 02/17/20 08:25 Dose: 2,000 unit Documented by: Vitamin E (Vitamin E) 400 unit PO DAILY [facility] Last Admin: 02/17/20 08:25 Dose: 400 unit Documented by: Warfarin Sodium (Coumadin Per Pharmacy) 1 order PO DAILY@1400 [facility] A/P Narrative A/P Narrative: * Intractable acute on chronic back pain- patient follows up with pain clinic Dr. Cooley. Underwent recent steroid injections 02/04 without benefit. No neurological changes. Continue analgesics/conservative management. Lower back imaging. * History of CVA x2 with residual mild left-sided weakness-continue anticoagulation on Coumadin. INR supratherapeutic. Hold Coumadin for 24 hours * History of CAD status post stenting currently on Coumadin * Chronic anemia hemoglobin 7.7. Microcytic. No evidence of bleed. 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
[2020-02-17] MEDS ORDERED: LIDOCAINE PATCH TOPICAL SCH (09:00)
[2020-02-17] MEDS ORDERED: CRANBERRY FRUIT PO SCH (09:00)
[2020-02-17 09:17] LABS: Basophils # (Auto) 0.04 K/mcL (0.00-0.20); Basophils % (Auto) 0.3 % (0.0-2.0); Eosinophils # (Auto) 0.09 K/mcL (0.00-0.70); Eosinophils % (Auto) 0.7 % (0.0-7.0); Hematocrit 25.2 % (36.0-48.0); Hemoglobin 7.2 g/dL (12.0-15.0); Lymphocytes # (Auto) 1.86 K/mcL (1.50-4.80); Lymphocytes % (Auto) 14.7 % (15.0-49.0); Mean Cell Volume 75.2 fL (80.0-100.0); Mean Corpuscular HGB Conc 28.6 g/dL (31.0-36.0); Mean Platelet Volume 9.8 fL (7.4-10.4); Monocytes # (Auto) 1.59 K/mcL (0.10-0.90); Monocytes % (Auto) 12.6 % (1.0-12.0); Neutrophils % (Auto) 71.7 % (38.0-78.0); Platelet Count 446 K/mcL (140-440); RBC 3.35 M/mcL (4.00-5.20); WBC 12.6 K/mcL (4.5-11.0)
[2020-02-17 09:35] LABS: ALT/SGPT 7 U/L (<40); AST/SGOT 14 U/L (<32); Albumin 3.5 gm/dL (3.2-5.2); Albumin/Globulin Ratio 1.1 (1.0-2.3); Alkaline Phosphatase 70 U/L (39-117); Bilirubin,Direct < 0.2 mg/dL (<0.3); Bilirubin,Total 0.4 mg/dL (0.1-1.0); Blood Urea Nitrogen 17 mg/dL (8-23); Calcium 9.4 mg/dL (8.6-10.4); Carbon Dioxide 26 mmol/L (22-30); Chloride 101 mmol/L (96-108); Globulin 3.2 gm/dL (2.2-3.7); Glomerular Filtration Rate 81; Glucose 92 mg/dL (70-105); Lactate Dehydrogenase 229 U/L (135-225); Phosphorous 2.9 mg/dL (2.5-4.5); Triglycerides 92 mg/dL (<150); Uric Acid 4.3 mg/dL (2.5-8.0)
[2020-02-17] MEDS: LIDOCAINE PATCH TOPICAL SCH (10:00)
[2020-02-17 10:04] LABS: INR 4.6 (0.9-1.1)
[2020-02-17] MEDS ORDERED: 0.9 % SODIUM CHLORIDE 250 ML IV SCH (12:15)
[2020-02-17] MEDS: CIPROFLOXACIN 250 MG TABLET PO SCH ×2 (13:58→19:00)
[2020-02-17] MEDS: 0.9 % SODIUM CHLORIDE 1,000 ML IV SCH (15:23)
[2020-02-17] MEDS: METHOCARBAMOL 750 MG TABLET PO PRN (18:54)
[2020-02-17] MEDS: SENNOSIDES/DOCUSATE SODIUM 1 TAB TABLET PO SCH (20:09)
[2020-02-17] MEDS: MELATONIN 3 MG TABLET PO PRN (22:21)
[2020-02-18] MEDS: morphine 2 MG/ML VIAL IV PRN ×6 (00:13→23:49)
[2020-02-18] MEDS: METHOCARBAMOL 750 MG TABLET PO PRN ×3 (00:47→19:13)
[2020-02-18] MEDS: HYDROcodone/APAP 5/325MG TABLET PO PRN ×7 (00:47→22:02)
[2020-02-18] MEDS: POTASSIUM CHLORIDE 20 MEQ PACKET PO PRN (04:04)
[2020-02-18] MEDS: 0.9 % SODIUM CHLORIDE 10 ML SYRINGE IV SCH ×3 (04:11→22:02)
[2020-02-18] MEDS: FERROUS SULFATE 325 MG TABLET PO SCH (07:37)
[2020-02-18 08:07] LABS: Basophils # (Auto) 0.06 K/mcL (0.00-0.20); Basophils % (Auto) 0.4 % (0.0-2.0); Eosinophils # (Auto) 0.09 K/mcL (0.00-0.70); Eosinophils % (Auto) 0.6 % (0.0-7.0); Hemoglobin 9.7 g/dL (12.0-15.0); Mean Cell Volume 76.7 fL (80.0-100.0); Mean Corpuscular HGB Conc 31.3 g/dL (31.0-36.0); Mean Platelet Volume 9.4 fL (7.4-10.4); Monocytes % (Auto) 10.7 % (1.0-12.0); Neutrophils % (Auto) 78.3 % (38.0-78.0); Platelet Count 380 K/mcL (140-440); RBC 4.04 M/mcL (4.00-5.20); Red Cell Distribution Width 18.1 % (11.5-14.5)
[2020-02-18] MEDS: CIPROFLOXACIN 250 MG TABLET PO SCH ×2 (08:13→20:02)
[2020-02-18] MEDS: amLODIPine 5 MG TABLET PO SCH (08:13)
[2020-02-18 08:25] LABS: Prothrombin Time 39.7 sec (11.9-14.5)
[2020-02-18 08:26] LABS: ALT/SGPT 6 U/L (<40); AST/SGOT 12 U/L (<32); Albumin 3.3 gm/dL (3.2-5.2); Albumin/Globulin Ratio 1.1 (1.0-2.3); Alkaline Phosphatase 62 U/L (39-117); Bilirubin,Direct < 0.2 mg/dL (<0.3); Bilirubin,Total 0.7 mg/dL (0.1-1.0); Blood Urea Nitrogen 13 mg/dL (8-23); Calcium 8.7 mg/dL (8.6-10.4); Carbon Dioxide 26 mmol/L (22-30); Chloride 103 mmol/L (96-108); Glomerular Filtration Rate 91; Glucose 91 mg/dL (70-105); Lactate Dehydrogenase 226 U/L (135-225); Phosphorous 2.3 mg/dL (2.5-4.5); Triglycerides 91 mg/dL (<150); Uric Acid 3.2 mg/dL (2.5-8.0)
--- NOTE | 2020-02-18 08:26 | XRay Report ---
HISTORY: Back pain, interval change FINDINGS: There are moderate generalized hazy opacities throughout both lungs, left greater than right. This has become significantly worse since prior chest x-ray done on 04/23/19. This could be due to congestive heart failure or pneumonia. Lung volumes are normal. There is no lobar consolidation or pleural effusion. The heart size is within normal limits. There is a dual-chamber pacemaker and the pacemaker power pack is in left pectoral region. Patient's had a prior right chest surgery and there are clips in the right axilla. No metastasis are identified. IMPRESSION: Congestive heart failure versus diffuse bilateral pneumonia Interpreted and Authenticated by: Roberto Ryan 02/18/20
--- NOTE | 2020-02-18 08:47 | Internal Med Progress Note ---
SUBJECTIVE Subjective Patient information: Note initiated : 02/18/20 at 8:40 am Service Date, if different from initiated Date: [] Patient: Xochilt Pat 79 y/o F admitted on 02/16/20 for back pain. Chief Complaint: History of present illness: Ms. Pat is a 79 year old F with a history of CVA x2/anticoagulation/CAD/HTN/chronic back pain who presents to the ER with intractable back pain limiting her ability to function. She had been following up with the pain clinic with Dr. Macedo and underwent block injections at the pain clinic 2 weeks ago. However she has continued to deteriorate. She is unable to perform activities of daily living. She presents today to the ER with worsening symptoms. She denies incontinence/lower extremity weakness/dysesthesia or paresthesia. She further denies bowel incontinence. Initial work-up the ER was essentially unremarkable except for white count over 14,000. However no clear source was identified. T-max 99.1. INR 4.6. Hospitalist service was consulted in light of intractable back pain and inability to take care of self At the time of my evaluation patient endorses history as above. She denies recent trauma or fall. She denies changes in medications. She endorses to minimal relief with opioids administered at the ER. 02/16-patient complains of persistent pain. Started on lidocaine patch/trial of IV opioids. Hemoglobin 7.7. Check ferritin. Iron sucrose infusion in light of microcytic anemia. No overnight fever chills. Appears anxious and distressed due to persistent lower back pain. 02/17- Pt overnight on multiple opioids. Difficult to control pain despite lidocaine/IV Tylenol/tramadol/morphine/Dilaudid/hydrocodone. Await callback from interventional pain clinic for further recommendations on pain management. Constitutional Vitals: Vital Signs Temp Pulse Resp BP Pulse Ox 97.2 F 74 16 150/73 95 02/18/20 07:19 02/18/20 04:10 02/18/20 07:19 02/18/20 07:19 02/18/20 07:19 Period Temp Pulse Resp BP Sys/Hernandez Pulse Ox Last 24 Hr 97.2 F-99.0 F 72-77 16-18 150-174/73-78 91-95 Intake and Output 02/17/20 02/18/20 02/18/20 21:59 05:59 13:59 Intake Total 1947 385 Output Total 1 3 Balance 1946 382 Weight 57.606 kg Anxious due to pain Nonlabored breathing Unable to ambulate Intake & Output: Intake & Output 02/17/20 02/18/20 02/18/20 21:59 05:59 13:59 Intake Total 1947 385 Output Total 1 3 Balance 1946 382 Weight 57.606 kg Intake: IV 1098 25 Sodium Chloride 0.9% 1,000 ml @ 1098 50 mls/hr IV .Q20H [facility] Rx#: [id number] Sodium Chloride 0.9% 250 ml @ 25 20 mls/hr IV .[id number] [facility] Rx#: [id number] Oral 240 360 Blood Product 610 Output: # of times incontinent of urine 1 3 Other: Meal Dinner Nourishment/Supplement Percent of Meal Consumed 25% Feeding Ability Independent Nourishment/Supplement name crackers OBJ DATA Labs CBC & Chem 7: 02/18/20 05:54 02/18/20 05:54 Labs: Abnormal Lab Results 02/18/20 02/18/20 02/18/20 05:54 05:54 05:54 WBC 14.0 H RBC Hgb 9.7 L Hct 31.0 L POC Hct MCV 76.7 L MCH 24.0 L MCHC RDW 18.1 H Plt Count Neut % (Auto) 78.3 H Lymph % (Auto) 10.0 L [place] % (Auto) Lymph # (Auto) 1.40 L [place] # (Auto) 1.50 H Absolute Neutrophils 10.99 H ESR PT 39.7 H INR 4.0 H APTT POC Potassium Potassium Creatinine 0.5 L POC Creatinine Glucose Phosphorus 2.3 L Lactate Dehydrogenase 226 H C-Reactive Protein Urine Protein Urine Ketones Urine RBC Urine Bacteria Urine Mucus 02/17/20 02/17/20 02/17/20 08:43 06:17 06:17 WBC 12.6 H RBC 3.35 L Hgb 7.2 L Hct 25.2 L POC Hct MCV 75.2 L MCH 21.5 L MCHC 28.6 L RDW 19.0 H Plt Count 446 H Neut % (Auto) Lymph % (Auto) 14.7 L [place] % (Auto) 12.6 H Lymph # (Auto) [place] # (Auto) 1.59 H Absolute Neutrophils 9.06 H ESR PT 44.0 H INR 4.6 H APTT POC Potassium Potassium Creatinine POC Creatinine Glucose Phosphorus Lactate Dehydrogenase 229 H C-Reactive Protein Urine Protein Urine Ketones Urine RBC Urine Bacteria Urine Mucus 02/16/20 02/16/20 02/16/20 21:25 18:39 14:29 WBC 15.8 H RBC 3.56 L Hgb 7.8 L Hct 26.8 L POC Hct MCV 75.3 L MCH 21.9 L MCHC 29.1 L RDW 19.1 H Plt Count 460 H Neut % (Auto) 79.9 H Lymph % (Auto) 9.9 L [place] % (Auto) Lymph # (Auto) [place] # (Auto) 1.51 H Absolute Neutrophils 12.64 H ESR PT INR APTT POC Potassium Potassium Creatinine POC Creatinine Glucose Phosphorus Lactate Dehydrogenase C-Reactive Protein 8.50 H Urine Protein 100 A Urine Ketones 80 A Urine RBC 7 H Urine Bacteria Many A Urine Mucus Many A 02/16/20 02/16/20 02/16/20 14:29 14:29 14:29 WBC RBC Hgb Hct POC Hct 28 L MCV MCH MCHC RDW Plt Count Neut % (Auto) Lymph % (Auto) [place] % (Auto) Lymph # (Auto) [place] # (Auto) Absolute Neutrophils ESR 49 H PT 43.7 H INR 4.6 H APTT 72.3 H POC Potassium 3.1 L Potassium 3.1 L Creatinine POC Creatinine 0.5 L Glucose 110 H Phosphorus Lactate Dehydrogenase C-Reactive Protein Urine Protein Urine Ketones Urine RBC Urine Bacteria Urine Mucus 02/16/20 14:29 WBC 14.6 H RBC 3.59 L Hgb 7.7 L Hct 26.7 L POC Hct MCV 74.4 L MCH 21.4 L MCHC 28.8 L RDW 18.8 H Plt Count 460 H Neut % (Auto) 83.7 H Lymph % (Auto) 7.2 L [place] % (Auto) Lymph # (Auto) 1.06 L [place] # (Auto) 1.26 H Absolute Neutrophils 12.23 H ESR PT INR APTT POC Potassium Potassium Creatinine POC Creatinine Glucose Phosphorus Lactate Dehydrogenase C-Reactive Protein Urine Protein Urine Ketones Urine RBC Urine Bacteria Urine Mucus Meds: Medications Acetaminophen (Tylenol) 650 mg PO Q4-6HP PRN; Protocol PRN Reason: Per Pain Protocol/Fever > 101 Hydrocodone Bitart/Acetaminophen ([place] 5/325mg) 1 - 2 tab PO Q4HP PRN; Protocol PRN Reason: Per Pain Protocol Last Admin: 02/18/20 06:39 Dose: 1 tab Documented by: Amlodipine Besylate (Norvasc) 5 mg PO DAILY [facility] Last Admin: 02/18/20 08:13 Dose: 5 mg Documented by: Aspirin (Aspirin) 81 mg PO DAILY [facility] Last Admin: 02/17/20 13:58 Dose: Not Given Documented by: Bisacodyl (Dulcolax) 10 mg [place] Q2-3DAYS PRN PRN Reason: Constipation Ciprofloxacin (Cipro) 250 mg PO BID [facility] Last Admin: 02/18/20 08:13 Dose: 250 mg Documented by: Cyanocobalamin (Vitamin B-12) 5,000 mcg PO DAILY [facility] Last Admin: 02/17/20 14:02 Dose: Not Given Documented by: Docusate Sodium (Colace) 100 mg PO BID [facility] Last Admin: 02/17/20 20:09 Dose: 100 mg Documented by: Famotidine (Pepcid) 40 mg PO DAILY [facility] Last Admin: 02/17/20 13:57 Dose: Not Given Documented by: Folic Acid (Folic Acid) 1 mg PO DAILY [facility] Last Admin: 02/17/20 13:58 Dose: Not Given Documented by: Furosemide (Lasix) 40 mg PO DAILYP PRN PRN Reason: Hypertension Guaifenesin/Codeine Phosphate (Robitussin Ac) 10 ml PO Q4HP PRN PRN Reason: Cough Hydromorphone HCl (Dilaudid) 0.25 - 0.5 mg IV Q4HP PRN; Protocol PRN Reason: Per Pain Protocol Acetaminophen (Ofirmev) 650 mg in 65 mls @ 130 mls/hr IV Q6HP PRN; Protocol PRN Reason: Per Pain Protocol/Fever > 101 Magnesium Sulfate (Magnesium Sulfate) 2 gm in 50 mls @ 50 mls/hr IV UD PRN PRN Reason: MG = or < 1.7 Sodium Chloride (Sodium Chloride 0.9%) 1,000 mls @ 50 mls/hr IV .Q20H [facility] Stop: 02/19/20 09:09 Last Infusion: 02/17/20 18:50 Dose: 0 mls/hr Documented by: Iron Carb/Multivit/Sprinkler Inspector/Folic Acid (Multivitamin W/Minerals) 1 tab PO DAILY [facility] Last Admin: 02/17/20 13:57 Dose: Not Given Documented by: Lidocaine (Lidoderm) 1 patch TOPICAL DAILY@1000 [facility] Last Admin: 02/17/20 10:00 Dose: 1 patch Documented by: Magnesium Oxide (Magnesium Oxide) 400 mg PO DAILY [facility] Last Admin: 02/17/20 13:58 Dose: Not Given Documented by: Melatonin (Melatonin 3mg Tablet) 3 mg PO HSP PRN PRN Reason: Insomnia Last Admin: 02/17/20 22:21 Dose: 3 mg Documented by: Methocarbamol (Robaxin) 750 mg PO Q6HP PRN PRN Reason: Muscle Spasm Last Admin: 02/18/20 06:40 Dose: 750 mg Documented by: Morphine Sulfate (Morphine) 2 mg IV Q4HP PRN; Protocol PRN Reason: Per Pain Protocol Last Admin: 02/18/20 08:12 Dose: 2 mg Documented by: Ondansetron HCl (Zofran Odt) 4 mg SL Q4-6HP PRN; Protocol PRN Reason: Nausea And Vomiting Ondansetron HCl (Zofran) 4 mg IV Q4-6HP PRN; Protocol PRN Reason: Nausea And Vomiting Polyethylene Glycol (Miralax) 17 gm PO DAILYP PRN PRN Reason: Constipation Potassium Chloride (Klor-Con) 40 meq PO DAILYP PRN PRN Reason: K+ < 3.5 Last Admin: 02/18/20 04:04 Dose: 40 meq Documented by: Senna/Docusate Sodium (Senna Plus Tablet) 1 tab PO HS [facility] Last Admin: 02/17/20 20:09 Dose: 1 tab Documented by: Sodium Chloride (Saline Flush) 10 ml IV Q8 [facility] Last Admin: 02/18/20 04:11 Dose: Not Given Documented by: Tramadol HCl (Ultram) 50 mg PO Q4-6HP PRN; Protocol PRN Reason: Per Pain Protocol Last Admin: 02/17/20 23:21 Dose: 50 mg Documented by: Vitamin D (Vitamin D3) 2,000 unit PO DAILY [facility] Last Admin: 02/17/20 14:02 Dose: Not Given Documented by: Vitamin E (Vitamin E) 400 unit PO DAILY [facility] Last Admin: 02/17/20 14:02 Dose: Not Given Documented by: Warfarin Sodium (Coumadin Per Pharmacy) 1 order PO DAILY@1400 [facility] Last Admin: 02/17/20 18:42 Dose: Not Given Documented by: A/P Narrative A/P Narrative: * Intractable acute on chronic back pain- patient follows up with pain clinic Dr. Arteaga. Underwent recent steroid injections 02/04 without benefit. No neurological changes. Continue analgesics/conservative management. 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 INR supratherapeutic. Continue Coumadin dosing based on INR * History of CAD status post stenting currently on Coumadin * Iron deficiency anemia hemoglobin- status post 2 units blood transfusion/iron infusion. Hemoglobin 9.7. 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
[2020-02-18] MEDS: ONDANSETRON 4 MG ODT TABLET SL PRN (09:00)
[2020-02-18] MEDS: HYDROmorphone 0.5 MG/0.5 ML SYRINGE IV PRN ×2 (09:48→19:12)
[2020-02-18] MEDS: MULTIVIT,THER IRON,CA,FA & MIN 1 TABLET PO SCH (09:49)
[2020-02-18] MEDS: VITAMIN D3 1,000 UNIT TABLET PO SCH (09:49)
[2020-02-18] MEDS: MAGNESIUM OXIDE 400 MG TABLET PO SCH (09:49)
[2020-02-18] MEDS: LIDOCAINE PATCH TOPICAL SCH (09:54)
[2020-02-18] MEDS ORDERED: FLU VACC QS2020-21(6MOS UP)/PF 60 MCG/0.5 ML SYRINGE IM ONE (10:00)
[2020-02-18] MEDS ORDERED: IRON SUCROSE COMPLEX 100 MG/5 ML VIAL IV ONE (10:07)
[2020-02-18] MEDS: FOLIC ACID 1 MG TABLET PO SCH (10:13)
[2020-02-18] MEDS: DOCUSATE SODIUM 100 MG CAPSULE PO SCH ×2 (10:15→20:53)
[2020-02-18] MEDS: CYANOCOBALAMIN (VITAMIN B-12) 500 MCG TABLET PO SCH (10:16)
[2020-02-18] MEDS: VITAMIN E (DL,TOCOPHERYL ACET) 400 UNIT CAPSULE PO SCH (10:16)
[2020-02-18] MEDS: FAMOTIDINE 20 MG TABLET PO SCH (10:16)
[2020-02-18] MEDS: LISINOPRIL 2.5 MG TABLET PO SCH (12:17)
[2020-02-18] MEDS: hydrALAZINE 20 MG/ML VIAL IV PRN ×2 (12:18→21:00)
[2020-02-18] MEDS ORDERED: fentaNYL 12 MCG PATCH TOPICAL SCH (13:00)
--- NOTE | 2020-02-18 13:12 | Internal Med Progress Note ---
SUBJECTIVE Subjective Patient information: Note initiated : 02/18/20 at 1:11 pm Service Date, if different from initiated Date: [] Patient: Xochilt Pat 79 y/o F admitted on 02/16/20 for back pain. Chief Complaint: [] Interval history: History of present illness: Ms. Pat is a 79 year old F with a history of CVA x2/anticoagulation/CAD/HTN/chronic back pain who presents to the ER with intractable back pain limiting her ability to function. She had been following up with the pain clinic with Dr. Macedo and underwent block injections at the pain clinic 2 weeks ago. However she has continued to deteriorate. She is unable to perform activities of daily living. She presents today to the ER with worsening symptoms. She denies incontinence/lower extremity weakness/dysesthesia or paresthesia. She further denies bowel incontinence. Initial work-up the ER was essentially unremarkable except for white count over 14,000. However no clear source was identified. T-max 99.1. INR 4.6. Hospitalist service was consulted in light of intractable back pain and inability to take care of self At the time of my evaluation patient endorses history as above. She denies recent trauma or fall. She denies changes in medications. She endorses to minimal relief with opioids administered at the ER. 02/16-patient complains of persistent pain. Started on lidocaine patch/trial of IV opioids. Hemoglobin 7.7. Check ferritin. Iron sucrose infusion in light of microcytic anemia. No overnight fever chills. Appears anxious and distressed due to persistent lower back pain. 02/17- Pt overnight on multiple opioids. Difficult to control pain despite lidocaine/IV Tylenol/tramadol/morphine/Dilaudid/hydrocodone. Await callback from interventional pain clinic for further recommendations on pain management. 02/18 Constitutional Vitals: Vital Signs Temp Pulse Resp BP Pulse Ox 99 F 73 20 170/72 95 02/18/20 12:00 02/18/20 08:00 02/18/20 12:00 02/18/20 12:00 02/18/20 12:00 Period Temp Pulse Resp BP Sys/Hernandez Pulse Ox Last 24 Hr 97.2 F-99.0 F 72-77 16-20 150-174/72-78 91-95 Intake and Output 02/17/20 02/18/20 02/18/20 21:59 05:59 13:59 Intake Total 1947 385 290 Output Total 1 3 250 Balance 1946 382 40 Weight 57.606 kg Intake & Output: Intake & Output 02/17/20 02/18/20 02/18/20 21:59 05:59 13:59 Intake Total 1947 385 290 Output Total 1 3 250 Balance 1946 382 40 Weight 57.606 kg Intake: IV 1098 25 50 Sodium Chloride 0.9% 1,000 ml @ 1098 50 mls/hr IV .Q20H [facility] Rx#: [id number] Sodium Chloride 0.9% 250 ml @ 25 20 mls/hr IV .[id number] [facility] Rx#: [id number] Oral 240 360 240 Blood Product 610 Output: Void Amount 250 # of times incontinent of urine 1 3 Other: Meal Dinner Nourishment/Supplement Lunch Percent of Meal Consumed 25% bites Feeding Ability Independent Independent Nourishment/Supplement name crackers Urine Appearance Clear Urine Color Dark Yellow Urine Odor Normal Exam: General: Alert, Awake, No acute Distress Eyes/N/T: EOMI, Head/Neck: neck supple, CV: RRR, No murmurs, Pulm: Clear b/l, no wheezing/rhonchi/rales Abd: soft, nontender, +BS x4 Ext: no clubbing/cyanosis/edema Neuro: Alert, no focal deficits, moves all extremities, Skin: warm/dry OBJ DATA Labs CBC & Chem 7: 02/18/20 05:54 02/18/20 05:54 Labs: Abnormal Lab Results 02/18/20 02/18/20 02/18/20 05:54 05:54 05:54 WBC 14.0 H RBC Hgb 9.7 L Hct 31.0 L POC Hct MCV 76.7 L MCH 24.0 L MCHC RDW 18.1 H Plt Count Neut % (Auto) 78.3 H Lymph % (Auto) 10.0 L [place] % (Auto) Lymph # (Auto) 1.40 L [place] # (Auto) 1.50 H Absolute Neutrophils 10.99 H ESR PT 39.7 H INR 4.0 H APTT POC Potassium Potassium Creatinine 0.5 L POC Creatinine Glucose Phosphorus 2.3 L Lactate Dehydrogenase 226 H C-Reactive Protein Urine Protein Urine Ketones Urine RBC Urine Bacteria Urine Mucus 02/17/20 02/17/20 02/17/20 08:43 06:17 06:17 WBC 12.6 H RBC 3.35 L Hgb 7.2 L Hct 25.2 L POC Hct MCV 75.2 L MCH 21.5 L MCHC 28.6 L RDW 19.0 H Plt Count 446 H Neut % (Auto) Lymph % (Auto) 14.7 L [place] % (Auto) 12.6 H Lymph # (Auto) [place] # (Auto) 1.59 H Absolute Neutrophils 9.06 H ESR PT 44.0 H INR 4.6 H APTT POC Potassium Potassium Creatinine POC Creatinine Glucose Phosphorus Lactate Dehydrogenase 229 H C-Reactive Protein Urine Protein Urine Ketones Urine RBC Urine Bacteria Urine Mucus 02/16/20 02/16/20 02/16/20 21:25 18:39 14:29 WBC 15.8 H RBC 3.56 L Hgb 7.8 L Hct 26.8 L POC Hct MCV 75.3 L MCH 21.9 L MCHC 29.1 L RDW 19.1 H Plt Count 460 H Neut % (Auto) 79.9 H Lymph % (Auto) 9.9 L [place] % (Auto) Lymph # (Auto) [place] # (Auto) 1.51 H Absolute Neutrophils 12.64 H ESR PT INR APTT POC Potassium Potassium Creatinine POC Creatinine Glucose Phosphorus Lactate Dehydrogenase C-Reactive Protein 8.50 H Urine Protein 100 A Urine Ketones 80 A Urine RBC 7 H Urine Bacteria Many A Urine Mucus Many A 02/16/20 02/16/20 02/16/20 14:29 14:29 14:29 WBC RBC Hgb Hct POC Hct 28 L MCV MCH MCHC RDW Plt Count Neut % (Auto) Lymph % (Auto) [place] % (Auto) Lymph # (Auto) [place] # (Auto) Absolute Neutrophils ESR 49 H PT 43.7 H INR 4.6 H APTT 72.3 H POC Potassium 3.1 L Potassium 3.1 L Creatinine POC Creatinine 0.5 L Glucose 110 H Phosphorus Lactate Dehydrogenase C-Reactive Protein Urine Protein Urine Ketones Urine RBC Urine Bacteria Urine Mucus 02/16/20 14:29 WBC 14.6 H RBC 3.59 L Hgb 7.7 L Hct 26.7 L POC Hct MCV 74.4 L MCH 21.4 L MCHC 28.8 L RDW 18.8 H Plt Count 460 H Neut % (Auto) 83.7 H Lymph % (Auto) 7.2 L [place] % (Auto) Lymph # (Auto) 1.06 L [place] # (Auto) 1.26 H Absolute Neutrophils 12.23 H ESR PT INR APTT POC Potassium Potassium Creatinine POC Creatinine Glucose Phosphorus Lactate Dehydrogenase C-Reactive Protein Urine Protein Urine Ketones Urine RBC Urine Bacteria Urine Mucus Meds: Medications Acetaminophen (Tylenol) 650 mg PO Q4-6HP PRN; Protocol PRN Reason: Per Pain Protocol/Fever > 101 Hydrocodone Bitart/Acetaminophen ([place] 5/325mg) 1 - 2 tab PO Q4HP PRN; Protocol PRN Reason: Per Pain Protocol Last Admin: 02/18/20 06:39 Dose: 1 tab Documented by: Amlodipine Besylate (Norvasc) 5 mg PO DAILY [facility] Last Admin: 02/18/20 08:13 Dose: 5 mg Documented by: Aspirin (Aspirin) 81 mg PO HS [facility] Bisacodyl (Dulcolax) 10 mg [place] Q2-3DAYS PRN PRN Reason: Constipation Ciprofloxacin (Cipro) 250 mg PO BID [facility] Last Admin: 02/18/20 08:13 Dose: 250 mg Documented by: Cyanocobalamin (Vitamin B-12) 5,000 mcg PO DAILY [facility] Last Admin: 02/18/20 10:16 Dose: Not Given Documented by: Docusate Sodium (Colace) 100 mg PO BID [facility] Last Admin: 02/18/20 10:15 Dose: Not Given Documented by: Famotidine (Pepcid) 40 mg PO DAILY [facility] Last Admin: 02/18/20 10:16 Dose: Not Given Documented by: Fentanyl (Duragesic) 12 mcg TOPICAL Q72H [facility] Folic Acid (Folic Acid) 1 mg PO DAILY [facility] Last Admin: 02/18/20 10:13 Dose: 1 mg Documented by: Guaifenesin/Codeine Phosphate (Robitussin Ac) 10 ml PO Q4HP PRN PRN Reason: Cough Hydralazine HCl (Apresoline) 10 mg IV Q6HP PRN PRN Reason: Hypertension Last Admin: 02/18/20 12:18 Dose: 10 mg Documented by: Hydromorphone HCl (Dilaudid) 0.25 - 0.5 mg IV Q4HP PRN; Protocol PRN Reason: Per Pain Protocol Last Admin: 02/18/20 09:48 Dose: 0.5 mg Documented by: Acetaminophen (Ofirmev) 650 mg in 65 mls @ 130 mls/hr IV Q6HP PRN; Protocol PRN Reason: Per Pain Protocol/Fever > 101 Magnesium Sulfate (Magnesium Sulfate) 2 gm in 50 mls @ 50 mls/hr IV UD PRN PRN Reason: MG = or < 1.7 Last Infusion: 02/18/20 12:05 Dose: Infused Documented by: Sodium Chloride (Sodium Chloride 0.9%) 1,000 mls @ 50 mls/hr IV .Q20H [facility] Stop: 02/19/20 09:09 Last Infusion: 02/17/20 18:50 Dose: 0 mls/hr Documented by: Iron Carb/Multivit/Leather Tacker/Folic Acid (Multivitamin W/Minerals) 1 tab PO DAILY [facility] Last Admin: 02/18/20 09:49 Dose: 1 tab Documented by: Lidocaine (Lidoderm) 1 patch TOPICAL DAILY@1000 [facility] Last Admin: 02/18/20 09:54 Dose: 1 patch Documented by: Lisinopril (Zestril) 2.5 mg PO DAILY [facility] Last Admin: 02/18/20 12:17 Dose: 2.5 mg Documented by: Magnesium Oxide (Magnesium Oxide) 400 mg PO DAILY [facility] Last Admin: 02/18/20 09:49 Dose: 400 mg Documented by: Melatonin (Melatonin 3mg Tablet) 3 mg PO HSP PRN PRN Reason: Insomnia Last Admin: 02/17/20 22:21 Dose: 3 mg Documented by: Methocarbamol (Robaxin) 750 mg PO Q6HP PRN PRN Reason: Muscle Spasm Last Admin: 02/18/20 06:40 Dose: 750 mg Documented by: Morphine Sulfate (Morphine) 2 mg IV Q4HP PRN; Protocol PRN Reason: Per Pain Protocol Last Admin: 02/18/20 08:12 Dose: 2 mg Documented by: Ondansetron HCl (Zofran Odt) 4 mg SL Q4-6HP PRN; Protocol PRN Reason: Nausea And Vomiting Last Admin: 02/18/20 09:00 Dose: 4 mg Documented by: Ondansetron HCl (Zofran) 4 mg IV Q4-6HP PRN; Protocol PRN Reason: Nausea And Vomiting Polyethylene Glycol (Miralax) 17 gm PO DAILYP PRN PRN Reason: Constipation Potassium Chloride (Klor-Con) 40 meq PO DAILYP PRN PRN Reason: K+ < 3.5 Last Admin: 02/18/20 04:04 Dose: 40 meq Documented by: Senna/Docusate Sodium (Senna Plus Tablet) 1 tab PO HS [facility] Last Admin: 02/17/20 20:09 Dose: 1 tab Documented by: Sodium Chloride (Saline Flush) 10 ml IV Q8 [facility] Last Admin: 02/18/20 04:11 Dose: Not Given Documented by: Tramadol HCl (Ultram) 50 mg PO Q4-6HP PRN; Protocol PRN Reason: Per Pain Protocol Last Admin: 02/17/20 23:21 Dose: 50 mg Documented by: Vitamin D (Vitamin D3) 2,000 unit PO DAILY [facility] Last Admin: 02/18/20 09:49 Dose: 2,000 unit Documented by: Vitamin E (Vitamin E) 400 unit PO DAILY [facility] Last Admin: 02/18/20 10:16 Dose: Not Given Documented by: Warfarin Sodium (Coumadin Per Pharmacy) 1 order PO DAILY@1400 [facility] Last Admin: 02/17/20 18:42 Dose: Not Given Documented by: A/P Narrative A/P Narrative: A: *Intractable acute on chronic back pain: follows up with pain clinic Dr. Arteaga. Underwent recent steroid inj. (02/04) -No neurological changes *Persistent leukocytosis, has been present outpt for months *h/o CVA x2 with residual mild left side weakness and left vision: on ASA/Warfarin *h/o CAD w/stent: on ASA *SALAS: status post 2 units blood transfusion/iron infusion. Hemoglobin 9.7. Ferritin 46 *HTN: *JOIE/early dementia: Plan: -Continue analgesics/conservative management -Discussed with Dr. Macedo, recommended MRI but unable d/t pacemaker, ordered CT lumbar -Dr. Macedo also recommended fentanyl patch -PT OT eval -cont home norvasc/lisinopril -f/u with Dr. Macedo -ppx: Coumadin per pharamacy/home pepcid Full code Time Spent With Patient Time: Total time spent is greater than 50% in coordination of care (as documented) at patient's floor/unit and/or counseling patient: QUALITY Stroke Symptom Onset Unknown: No VTE Deep Vein Thrombosis/Pulmonary Embolism Present on Admission: No
[2020-02-18] MEDS: 0.9 % SODIUM CHLORIDE 1,000 ML IV SCH (13:19)
--- NOTE | 2020-02-18 14:22 | Cat Scan Report ---
History: Intractable back pain TECHNIQUE: The lumbar spine was imaged in axial plane without contrast at 2.5 mm intervals. Sagittal and coronal reformats are created. Radiation exposure was limited using dose reduction technology. FINDINGS: There are stable old mild compression fractures involving the superior endplates of T11 and L2. These have remained stable since 2017. No new fracture or destructive bone lesion have developed. There is a mild dextroscoliotic curvature in the mid lumbar spine. This is accentuated by a pelvic tilt. The left iliac crest is higher than the right. There are intermediate size spurs around the margins of the disks at L2-3 with smaller marginal spurs throughout the remainder the spine. There is also arthritis in the facet joints with the most severe degeneration in the right facet at L5-S1. There is a large broad-based posterior disc protrusion at L2-3 and a moderate-sized broad-based posterior disc protrusion at L3-4. This is causing moderate to severe central canal stenosis at L2-3 and moderate central canal stenosis at L3-4. There are smaller posterior bulges at L1-2 and L4-5. Heavily calcified plaques have formed along the wall of the aorta. There is no paraspinal mass. In the deep subcutaneous fat posterior to the spinous processes and posterior to the extensor muscles there is a large collection of fluid which didn't extends from the S1 segment of the sacrum up to the top of L1. Measures 13 cm in length, 7.5 cm in width and 1.5 cm in thickness. This was not seen on the prior CT done on 12/14/16. Comparison with the prior CT, the protruding discs and spinal canal stenosis are chronic stable findings. The arthritis in the right facet at L5-S1 has become worse. IMPRESSION: Spinal canal stenosis at L2-3 and L3-4 due to large broad-based posterior protruding disc. The larger disc protrusion is at L2-3. 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 This may be edema if the patient has been bedridden. A seroma is another possibility. This is unlikely due to an infection. Interpreted and Authenticated by: Roberto Ryan 02/18/20
[2020-02-18 15:22] LABS: Anisocytosis 2+ (None Seen); Band Neutrophils % 1 % (0-10); Eosinophils % (Manual) 1 % (0-7); Hypochromasia 1+ (None Seen); Lymphocytes % 14 % (15-49); Microcytosis 1+ (None Seen); Monocytes % (Manual) 10 % (1-12); Platelet Estimate NORMAL (Normal); Polychromasia 1+ (None Seen); RBC Morphology ABNORMAL (Normal); Segmented Neutrophils % 74 % (38-78)
[2020-02-18] MEDS: ASPIRIN 81 MG TAB.CHEW PO SCH (20:02)
[2020-02-18] MEDS: SENNOSIDES/DOCUSATE SODIUM 1 TAB TABLET PO SCH (20:52)
[2020-02-18] MEDS: MELATONIN 3 MG TABLET PO PRN (22:02)
[2020-02-19] MEDS: HYDROcodone/APAP 5/325MG TABLET PO PRN ×10 (00:35→22:00)
[2020-02-19] MEDS: morphine 2 MG/ML VIAL IV PRN ×2 (04:14→07:59)
[2020-02-19] MEDS: METHOCARBAMOL 750 MG TABLET PO PRN ×2 (04:40→22:00)
[2020-02-19] MEDS: 0.9 % SODIUM CHLORIDE 10 ML SYRINGE IV SCH ×3 (06:20→22:01)
--- NOTE | 2020-02-19 07:08 | Internal Med Progress Note ---
SUBJECTIVE Subjective Patient information: Note initiated : 02/19/20 at 7:05 am Service Date, if different from initiated Date: [] Patient: Xochilt Pat 79 y/o F admitted on 02/16/20 for back pain. Chief Complaint: [] Interval history: History of present illness: Ms. Pat is a 79 year old F with a history of CVA x2/anticoagulation/CAD/HTN/chronic back pain who presents to the ER with intractable back pain limiting her ability to function. She had been following up with the pain clinic with Dr. Macedo and underwent block injections at the pain clinic 2 weeks ago. However she has continued to deteriorate. She is unable to perform activities of daily living. She presents today to the ER with worsening symptoms. She denies incontinence/lower extremity weakness/dysesthesia or paresthesia. She further denies bowel incontinence. Initial work-up the ER was essentially unremarkable except for white count over 14,000. However no clear source was identified. T-max 99.1. INR 4.6. Hospitalist service was consulted in light of intractable back pain and inability to take care of self At the time of my evaluation patient endorses history as above. She denies recent trauma or fall. She denies changes in medications. She endorses to minimal relief with opioids administered at the ER. 02/16-patient complains of persistent pain. Started on lidocaine patch/trial of IV opioids. Hemoglobin 7.7. Check ferritin. Iron sucrose infusion in light of microcytic anemia. No overnight fever chills. Appears anxious and distressed due to persistent lower back pain. 02/17- Pt overnight on multiple opioids. Difficult to control pain despite lidocaine/IV Tylenol/tramadol/morphine/Dilaudid/hydrocodone. Await callback from interventional pain clinic for further recommendations on pain management. 02/18 Feeling a little better today. Able to move around bit more. Ordered LSO brace. Review of Systems: denies headache/fever/chills/nausea/vomiting/chest or abdominal pain/cough/dyspnea/diarrhea. Otherwise see above. Constitutional Vitals: Vital Signs Temp Pulse Resp BP Pulse Ox 98.7 F 74 20 113/62 91 02/19/20 04:58 02/19/20 04:58 02/19/20 04:58 02/19/20 04:58 02/19/20 04:58 Period Temp Pulse Resp BP Sys/Hernandez Pulse Ox Last 24 Hr 97.2 F-99 F 73-82 16-24 109-170/57-91 91-95 Intake and Output 02/18/20 02/19/20 02/19/20 21:59 05:59 13:59 Intake Total 480 400 Output Total 1 Balance 480 399 Weight 60.016 kg Intake & Output: Intake & Output 02/18/20 02/19/20 02/19/20 21:59 05:59 13:59 Intake Total 480 400 Output Total 1 Balance 480 399 Weight 60.016 kg Intake: Oral 480 400 Output: # of times incontinent of urine 1 Other: Meal Dinner Percent of Meal Consumed 25% Feeding Ability Assist with Tray Set Up # Voids 1 Exam: General: Alert, Awake, No acute Distress Eyes/N/T: EOMI, Head/Neck: neck supple, CV: RRR, No murmurs, Pulm: Clear b/l, no wheezing/rhonchi/rales Abd: soft, nontender, +BS x4 Ext: no clubbing/cyanosis/edema Neuro: Alert, no focal deficits, moves all extremities, Skin: warm/dry Back: no mass/abscess/cellulitis OBJ DATA Labs CBC & Chem 7: 02/18/20 05:54 02/18/20 05:54 Labs: Abnormal Lab Results 02/18/20 02/18/20 02/18/20 05:54 05:54 05:54 WBC 14.0 H RBC Hgb 9.7 L Hct 31.0 L POC Hct MCV 76.7 L MCH 24.0 L MCHC RDW 18.1 H Plt Count Neut % (Auto) 78.3 H Lymph % (Auto) 10.0 L [place] % (Auto) Lymph # (Auto) 1.40 L [place] # (Auto) 1.50 H Lymphocytes % 14 L Absolute Neutrophils 10.99 H RBC Morphology Abnormal A Polychromasia 1+ A Hypochromasia 1+ A Anisocytosis 2+ A Microcytosis 1+ A ESR PT 39.7 H INR 4.0 H APTT POC Potassium Potassium Creatinine POC Creatinine Glucose Phosphorus Lactate Dehydrogenase C-Reactive Protein Urine Protein Urine Ketones Urine RBC Urine Bacteria Urine Mucus 02/18/20 02/17/20 02/17/20 05:54 08:43 06:17 WBC 12.6 H RBC 3.35 L Hgb 7.2 L Hct 25.2 L POC Hct MCV 75.2 L MCH 21.5 L MCHC 28.6 L RDW 19.0 H Plt Count 446 H Neut % (Auto) Lymph % (Auto) 14.7 L [place] % (Auto) 12.6 H Lymph # (Auto) [place] # (Auto) 1.59 H Lymphocytes % Absolute Neutrophils 9.06 H RBC Morphology Polychromasia Hypochromasia Anisocytosis Microcytosis ESR PT 44.0 H INR 4.6 H APTT POC Potassium Potassium Creatinine 0.5 L POC Creatinine Glucose Phosphorus 2.3 L Lactate Dehydrogenase 226 H C-Reactive Protein Urine Protein Urine Ketones Urine RBC Urine Bacteria Urine Mucus 02/17/20 02/16/20 02/16/20 06:17 21:25 18:39 WBC 15.8 H RBC 3.56 L Hgb 7.8 L Hct 26.8 L POC Hct MCV 75.3 L MCH 21.9 L MCHC 29.1 L RDW 19.1 H Plt Count 460 H Neut % (Auto) 79.9 H Lymph % (Auto) 9.9 L [place] % (Auto) Lymph # (Auto) [place] # (Auto) 1.51 H Lymphocytes % Absolute Neutrophils 12.64 H RBC Morphology Polychromasia Hypochromasia Anisocytosis Microcytosis ESR PT INR APTT POC Potassium Potassium Creatinine POC Creatinine Glucose Phosphorus Lactate Dehydrogenase 229 H C-Reactive Protein Urine Protein 100 A Urine Ketones 80 A Urine RBC 7 H Urine Bacteria Many A Urine Mucus Many A 02/16/20 02/16/20 02/16/20 14:29 14:29 14:29 WBC RBC Hgb Hct POC Hct MCV MCH MCHC RDW Plt Count Neut % (Auto) Lymph % (Auto) [place] % (Auto) Lymph # (Auto) [place] # (Auto) Lymphocytes % Absolute Neutrophils RBC Morphology Polychromasia Hypochromasia Anisocytosis Microcytosis ESR 49 H PT 43.7 H INR 4.6 H APTT 72.3 H POC Potassium Potassium Creatinine POC Creatinine Glucose Phosphorus Lactate Dehydrogenase C-Reactive Protein 8.50 H Urine Protein Urine Ketones Urine RBC Urine Bacteria Urine Mucus 02/16/20 02/16/20 14:29 14:29 WBC 14.6 H RBC 3.59 L Hgb 7.7 L Hct 26.7 L POC Hct 28 L MCV 74.4 L MCH 21.4 L MCHC 28.8 L RDW 18.8 H Plt Count 460 H Neut % (Auto) 83.7 H Lymph % (Auto) 7.2 L [place] % (Auto) Lymph # (Auto) 1.06 L [place] # (Auto) 1.26 H Lymphocytes % Absolute Neutrophils 12.23 H RBC Morphology Polychromasia Hypochromasia Anisocytosis Microcytosis ESR PT INR APTT POC Potassium 3.1 L Potassium 3.1 L Creatinine POC Creatinine 0.5 L Glucose 110 H Phosphorus Lactate Dehydrogenase C-Reactive Protein Urine Protein Urine Ketones Urine RBC Urine Bacteria Urine Mucus Meds: Medications Acetaminophen (Tylenol) 650 mg PO Q4-6HP PRN; Protocol PRN Reason: Per Pain Protocol/Fever > 101 Hydrocodone Bitart/Acetaminophen ([place] 5/325mg) 1 - 2 tab PO Q4HP PRN; Protocol PRN Reason: Per Pain Protocol Last Admin: 02/19/20 06:19 Dose: 1 tab Documented by: Amlodipine Besylate (Norvasc) 5 mg PO DAILY [facility] Last Admin: 02/18/20 08:13 Dose: 5 mg Documented by: Aspirin (Aspirin) 81 mg PO HS [facility] Last Admin: 02/18/20 20:02 Dose: 81 mg Documented by: Bisacodyl (Dulcolax) 10 mg PA Q2-3DAYS PRN PRN Reason: Constipation Last Admin: 02/18/20 19:00 Dose: 10 mg Documented by: Ciprofloxacin (Cipro) 250 mg PO BID [facility] Last Admin: 02/18/20 20:02 Dose: 250 mg Documented by: Cyanocobalamin (Vitamin B-12) 5,000 mcg PO DAILY [facility] Last Admin: 02/18/20 10:16 Dose: Not Given Documented by: Docusate Sodium (Colace) 100 mg PO BID [facility] Last Admin: 02/18/20 20:53 Dose: 100 mg Documented by: Famotidine (Pepcid) 40 mg PO DAILY [facility] Last Admin: 02/18/20 10:16 Dose: Not Given Documented by: Fentanyl (Duragesic) 12 mcg TOPICAL Q72H [facility] Last Admin: 02/18/20 13:19 Dose: 12 mcg Documented by: Folic Acid (Folic Acid) 1 mg PO DAILY [facility] Last Admin: 02/18/20 10:13 Dose: 1 mg Documented by: Guaifenesin/Codeine Phosphate (Robitussin Ac) 10 ml PO Q4HP PRN PRN Reason: Cough Hydralazine HCl (Apresoline) 10 mg IV Q6HP PRN PRN Reason: Hypertension Last Admin: 02/18/20 21:00 Dose: 10 mg Documented by: Hydromorphone HCl (Dilaudid) 0.25 - 0.5 mg IV Q4HP PRN; Protocol PRN Reason: Per Pain Protocol Last Admin: 02/18/20 19:12 Dose: 0.5 mg Documented by: Acetaminophen (Ofirmev) 650 mg in 65 mls @ 130 mls/hr IV Q6HP PRN; Protocol PRN Reason: Per Pain Protocol/Fever > 101 Magnesium Sulfate (Magnesium Sulfate) 2 gm in 50 mls @ 50 mls/hr IV UD PRN PRN Reason: MG = or < 1.7 Last Infusion: 02/18/20 12:05 Dose: Infused Documented by: Iron Carb/Multivit/[place]/Folic Acid (Multivitamin W/Minerals) 1 tab PO DAILY [facility] Last Admin: 02/18/20 09:49 Dose: 1 tab Documented by: Lidocaine (Lidoderm) 1 patch TOPICAL DAILY@1000 [facility] Last Admin: 02/18/20 09:54 Dose: 1 patch Documented by: Lisinopril (Zestril) 2.5 mg PO DAILY [facility] Last Admin: 02/18/20 12:17 Dose: 2.5 mg Documented by: Magnesium Oxide (Magnesium Oxide) 400 mg PO DAILY [facility] Last Admin: 02/18/20 09:49 Dose: 400 mg Documented by: Melatonin (Melatonin 3mg Tablet) 3 mg PO HSP PRN PRN Reason: Insomnia Last Admin: 02/18/20 22:02 Dose: 3 mg Documented by: Methocarbamol (Robaxin) 750 mg PO Q6HP PRN PRN Reason: Muscle Spasm Last Admin: 02/19/20 04:40 Dose: 750 mg Documented by: Morphine Sulfate (Morphine) 2 mg IV Q4HP PRN; Protocol PRN Reason: Per Pain Protocol Last Admin: 02/19/20 04:14 Dose: 2 mg Documented by: Ondansetron HCl (Zofran Odt) 4 mg SL Q4-6HP PRN; Protocol PRN Reason: Nausea And Vomiting Last Admin: 02/18/20 09:00 Dose: 4 mg Documented by: Ondansetron HCl (Zofran) 4 mg IV Q4-6HP PRN; Protocol PRN Reason: Nausea And Vomiting Polyethylene Glycol (Miralax) 17 gm PO DAILYP PRN PRN Reason: Constipation Last Admin: 02/18/20 17:48 Dose: 17 gm Documented by: Potassium Chloride (Klor-Con) 40 meq PO DAILYP PRN PRN Reason: K+ < 3.5 Last Admin: 02/18/20 04:04 Dose: 40 meq Documented by: Senna/Docusate Sodium (Senna Plus Tablet) 1 tab PO HS [facility] Last Admin: 02/18/20 20:52 Dose: 1 tab Documented by: Sodium Chloride (Saline Flush) 10 ml IV Q8 [facility] Last Admin: 02/19/20 06:20 Dose: Not Given Documented by: Tramadol HCl (Ultram) 50 mg PO Q4-6HP PRN; Protocol PRN Reason: Per Pain Protocol Last Admin: 02/17/20 23:21 Dose: 50 mg Documented by: Vitamin D (Vitamin D3) 2,000 unit PO DAILY [facility] Last Admin: 02/18/20 09:49 Dose: 2,000 unit Documented by: Vitamin E (Vitamin E) 400 unit PO DAILY [facility] Last Admin: 02/18/20 10:16 Dose: Not Given Documented by: Warfarin Sodium (Coumadin Per Pharmacy) 1 order PO DAILY@1400 [facility] Last Admin: 02/18/20 14:45 Dose: Not Given Documented by: A/P Narrative A/P Narrative: A: *Intractable acute on chronic back pain: follows up with pain clinic Dr. Arteaga. Underwent recent steroid inj. (02/04) -No neurological changes -CT lumbar spine no acute pathology, shows DDD and herniated disc *Persistent leukocytosis, has been present outpt for months. 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 Hemoglobin 9.7. Ferritin 46 *HTN: *JOIE/early dementia: Plan: -Continue analgesics/conservative management, fentanyl patch started -LSO brace -Discussed with Dr. Macedo -PT OT eval -cont home norvasc/lisinopril -f/u with Dr. Macedo -JOSE for SNF placement -ppx: Coumadin per pharamacy/home pepcid Full code Time Spent With Patient Time: Total time spent is greater than 50% in coordination of care (as documented) at patient's floor/unit and/or counseling patient: QUALITY Stroke Symptom Onset Unknown: No VTE Deep Vein Thrombosis/Pulmonary Embolism Present on Admission: No
[2020-02-19] MEDS ORDERED: SENNOSIDES 1 TABLET PO ONE (08:22)
[2020-02-19] MEDS ORDERED: POLYETHYLENE GLYCOL 3350 17 GM PACKET PO ONE (08:22)
[2020-02-19] MEDS: LISINOPRIL 2.5 MG TABLET PO SCH (08:47)
[2020-02-19] MEDS: CIPROFLOXACIN 250 MG TABLET PO SCH ×2 (08:48→20:01)
[2020-02-19] MEDS: amLODIPine 5 MG TABLET PO SCH (08:49)
[2020-02-19] MEDS: DOCUSATE SODIUM 100 MG CAPSULE PO SCH ×2 (09:16→22:01)
[2020-02-19] MEDS: MAGNESIUM OXIDE 400 MG TABLET PO SCH (09:16)
[2020-02-19] MEDS: CYANOCOBALAMIN (VITAMIN B-12) 500 MCG TABLET PO SCH (09:21)
[2020-02-19] MEDS: VITAMIN E (DL,TOCOPHERYL ACET) 400 UNIT CAPSULE PO SCH (09:21)
[2020-02-19] MEDS: VITAMIN D3 1,000 UNIT TABLET PO SCH (09:22)
[2020-02-19] MEDS: FAMOTIDINE 20 MG TABLET PO SCH (09:22)
[2020-02-19] MEDS: MULTIVIT,THER IRON,CA,FA & MIN 1 TABLET PO SCH (09:22)
[2020-02-19] MEDS: FOLIC ACID 1 MG TABLET PO SCH (09:22)
[2020-02-19] MEDS: METHYLNALTREXONE BROMIDE 12 MG/0.6 ML SYRINGE SC ONE ×2 (09:24→10:01)
[2020-02-19 09:58] LABS: Basophils # (Auto) 0.03 K/mcL (0.00-0.20); Basophils % (Auto) 0.2 % (0.0-2.0); Eosinophils # (Auto) 0.25 K/mcL (0.00-0.70); Eosinophils % (Auto) 1.7 % (0.0-7.0); Hematocrit 29.6 % (36.0-48.0); Hemoglobin 9.2 g/dL (12.0-15.0); Lymphocytes # (Auto) 1.74 K/mcL (1.50-4.80); Lymphocytes % (Auto) 11.7 % (15.0-49.0); Mean Cell Volume 77.5 fL (80.0-100.0); Mean Corpuscular HGB Conc 31.1 g/dL (31.0-36.0); Monocytes # (Auto) 1.67 K/mcL (0.10-0.90); Monocytes % (Auto) 11.3 % (1.0-12.0); Neutrophils % (Auto) 75.1 % (38.0-78.0); Platelet Count 352 K/mcL (140-440); RBC 3.82 M/mcL (4.00-5.20); Red Cell Distribution Width 19.2 % (11.5-14.5); WBC 14.8 K/mcL (4.5-11.0)
[2020-02-19] MEDS: LIDOCAINE PATCH TOPICAL SCH (10:01)
[2020-02-19 10:24] LABS: ALT/SGPT 6 U/L (<40); AST/SGOT 14 U/L (<32); Alkaline Phosphatase 61 U/L (39-117); Bilirubin,Direct < 0.2 mg/dL (<0.3); Bilirubin,Total 0.6 mg/dL (0.1-1.0); Blood Urea Nitrogen 14 mg/dL (8-23); Calcium 8.6 mg/dL (8.6-10.4); Carbon Dioxide 24 mmol/L (22-30); Chloride 101 mmol/L (96-108); Globulin 2.9 gm/dL (2.2-3.7); Glomerular Filtration Rate 81; Glucose 96 mg/dL (70-105); Lactate Dehydrogenase 263 U/L (135-225); Phosphorous 2.4 mg/dL (2.5-4.5); Triglycerides 90 mg/dL (<150)
--- NOTE | 2020-02-19 10:29 | Discharge Summary ---
Discharge Provider Provider Patient information: Note initiated : 02/19/20 at 10:28 am Service Date, if different from initiated Date: [] Patient: Xochilt Pat 79 y/o F admitted on 02/16/20 for back pain. Chief Complaint: [] Date of admission: 02/16/20 21:05 Discharge date: 02/20/20 Primary care physician: Andrea Foster Consults: 02/17/20 09:13 Consult to Physician [CONS] Routine Comment: Consulting Provider: Yovanny Ly Reason For Exam: Physician to Consult 02/18/20 08:47 Consult to Physician [CONS] Routine Comment: Consulting Provider: Nolberto Macedo Reason For Exam: Physician to Consult Discharge Meds Discharge Medications Home Medications cyanocobalamin (vitamin B-12) 5,000 mcg PO DAILY 07/27/18 [History Confirmed 02/16/20 Last Taken 02/16/20 09:00] furosemide 40 mg PO DAILY PRN 07/27/18 [History Confirmed 02/16/20 Last Taken 04/09/19] potassium chloride 20 meq PO QAMCC 07/27/18 [History Confirmed 02/16/20 Last Taken 02/16/20 09:00] amlodipine 5 mg PO DAILY 07/28/18 [History Confirmed 02/16/20 Last Taken 02/15/20 20:00] warfarin 5 mg tablet 2.5 mg PO DAILY tab 08/14/18 [History Confirmed 02/16/20 Last Taken 02/15/20 22:00] aspirin 81 mg PO DAILY tab.chew 04/26/19 [Rx Confirmed 02/16/20 Last Taken 02/16/20 09:00] methocarbamol 750 mg PO Q6 PRN 06/20/19 [History Confirmed 02/16/20 Last Taken 02/16/20 12:00] vitamin E 400 unit PO DAILY 06/20/19 [History Confirmed 02/16/20 Last Taken 02/16/20 09:00] lidocaine 1 patch TOPICAL QDAY #15 each 02/14/20 [Rx Confirmed 02/16/20 Last Taken Unknown] nitrofurantoin monohyd/m-cryst [Macrobid] 100 mg PO Q12H 5 Days #10 cap 02/14/20 [Rx Confirmed 02/16/20 Last Taken 02/16/20 09:00] Azo Cranberry 650 mg PO DAILY 02/16/20 [History Confirmed 02/16/20 Last Taken 02/16/20 09:00] celecoxib 200 mg PO QDAY 02/16/20 [History Confirmed 02/16/20 Last Taken Unknown] cholecalciferol (vitamin D3) [Vitamin D3] 1 unit PO DAILY 02/16/20 [History Confirmed 02/16/20 Last Taken 02/16/20 09:00] famotidine [Pepcid] 40 mg PO DAILY 02/16/20 [History Confirmed 02/16/20 Last Taken 02/16/20 09:00] ferrous sulfate 325 mg PO QDAY 02/16/20 [History Confirmed 02/16/20 Last Taken Unknown] folic acid 1 mg PO DAILY 02/16/20 [History Confirmed 02/16/20 Last Taken Unknown] hydrocodone-acetaminophen 1 tab PO Q6HP PRN 02/16/20 [History Confirmed 02/16/20 Last Taken 02/16/20 13:00] magnesium 1 tab PO DAILY 02/16/20 [History Confirmed 02/16/20 Last Taken 09:00] fentanyl 12 mcg TOPICAL Q72H #7 ea 02/19/20 [Rx Last Taken Unknown] COURSE Hospital Course Hospital course: History of present illness: Ms. Pat is a 79 year old F with a history of CVA x2/anticoagulation/CAD/HTN/chronic back pain who presents to the ER with intractable back pain limiting her ability to function. She had been following up with the pain clinic with Dr. Macedo and underwent block injections at the pain clinic 2 weeks ago. However she has continued to deteriorate. She is unable to perform activities of daily living. She presents today to the ER with worsening symptoms. She denies incontinence/lower extremity weakness/dysesthesia or paresthesia. She further denies bowel incontinence. Initial work-up the ER was essentially unremarkable except for white count over 14,000. However no clear source was identified. T-max 99.1. INR 4.6. Hospitalist service was consulted in light of intractable back pain and inability to take care of self At the time of my evaluation patient endorses history as above. She denies recent trauma or fall. She denies changes in medications. She endorses to minimal relief with opioids administered at the ER. 02/16-patient complains of persistent pain. Started on lidocaine patch/trial of IV opioids. Hemoglobin 7.7. Check ferritin. Iron sucrose infusion in light of microcytic anemia. No overnight fever chills. Appears anxious and distressed due to persistent lower back pain. 02/17- Pt overnight on multiple opioids. Difficult to control pain despite lidocaine/IV Tylenol/tramadol/morphine/Dilaudid/hydrocodone. Await callback from interventional pain clinic for further recommendations on pain management. 02/18 Feeling a little better today. Able to move around bit more. Ordered LSO brace. CT of the lumbar spine with degeneration/arthritis and herniated disc. Radiologist commented on edema in the soft tissue possibility of seroma. On physical exam its does not look cellulitic and there is no feeling of an abscess, no signs of infection. A lot of her pain is in the paraspinal musculature. 02/19 Doing a little better today. Patient seen by Dr. Macedo yesterday and suspected that she probably developed hematoma over the site of injection causing increased pain. There is a question of some blood in her stool yesterday she had a stool guaiac today which was negative. Patient's otherwise stable labs stable patient stable for discharge A: *Intractable acute on chronic back pain: follows up with pain clinic Dr. Arteaga. Underwent recent steroid inj. (02/04), likely post-procedure hematoma -No neurological changes -CT lumbar spine no acute pathology, shows DDD and herniated disc *suspected hematoma post-procedure: likely etiology of above *Persistent leukocytosis, has been present outpt for months. no bandemia *SALAS: status post 2 units blood transfusion/iron infusion. Hemoglobin 9.7. F erritin 46 -stool guaiac neg *h/o CVA x2 with residual mild left side weakness and left vision: on ASA/Warfarin *h/o CAD w/stent: on ASA *HTN: *JOIE/early dementia: Discharge diagnosis: acute on chronic back pain Secondary discharge diagnosis: History of persistent leukocytosis history of stroke CAD iron deficiency anemia hypertension mild cognitive impairment/early dementia Time Spent with Patient Time attestation: Total time spent providing and/or coordinating discharge services: Time spent: Greater than 30 minutes EXAM Constitutional Vitals: Temp Pulse Resp BP Pulse Ox 97.4 F 77 20 105/54 95 02/19/20 07:11 02/19/20 07:25 02/19/20 07:25 02/19/20 07:11 02/19/20 07:25 Discharge Data Data Completed and Pending Labs on day of discharge: Labs from last 24 hours 02/19/20 02/19/20 02/19/20 09:21 05:16 05:15 WBC RBC Hgb Hct MCV MCH MCHC RDW Plt Count MPV Neut % (Auto) Lymph % (Auto) [place] % (Auto) Eos % (Auto) Baso % (Auto) Lymph # (Auto) [place] # (Auto) Eos # (Auto) Baso # (Auto) Seg Neutrophils % Band Neutrophils % Lymphocytes % Monocytes % (Manual) Eosinophils % (Manual) Absolute Neutrophils Platelet Estimate RBC Morphology Polychromasia Hypochromasia Anisocytosis Microcytosis ESR Pending PT INR Sodium Potassium Chloride Carbon Dioxide Anion Gap BUN Creatinine GFR Calculation Glucose Uric Acid Calcium Phosphorus Magnesium Total Bilirubin Direct Bilirubin GGT AST ALT Alkaline Phosphatase Lactate Dehydrogenase C-Reactive Protein 11.60 H Total Protein Albumin Globulin Albumin/Globulin Ratio Triglycerides SARS-CoV-2 (PCR) Pending 02/19/20 02/19/20 02/19/20 05:15 05:15 05:14 WBC 14.8 H RBC 3.82 L Hgb 9.2 L Hct 29.6 L MCV 77.5 L MCH 24.1 L MCHC 31.1 RDW 19.2 H Plt Count 352 MPV 10.0 Neut % (Auto) 75.1 Lymph % (Auto) 11.7 L [place] % (Auto) 11.3 Eos % (Auto) 1.7 Baso % (Auto) 0.2 Lymph # (Auto) 1.74 [place] # (Auto) 1.67 H Eos # (Auto) 0.25 Baso # (Auto) 0.03 Seg Neutrophils % Band Neutrophils % Lymphocytes % Monocytes % (Manual) Eosinophils % (Manual) Absolute Neutrophils 11.15 H Platelet Estimate RBC Morphology Polychromasia Hypochromasia Anisocytosis Microcytosis ESR PT Pending INR Pending Sodium 136 Potassium 3.4 Chloride 101 Carbon Dioxide 24 Anion Gap 11.0 BUN 14 Creatinine 0.7 GFR Calculation 81 Glucose 96 Uric Acid 3.0 Calcium 8.6 Phosphorus 2.4 L Magnesium 2.1 Total Bilirubin 0.6 Direct Bilirubin < 0.2 GGT 12 AST 14 ALT 6 Alkaline Phosphatase 61 Lactate Dehydrogenase 263 H C-Reactive Protein Total Protein 5.9 Albumin 3.0 L Globulin 2.9 Albumin/Globulin Ratio 1.0 Triglycerides 90 SARS-CoV-2 (PCR) 02/18/20 05:54 WBC RBC Hgb Hct MCV MCH MCHC RDW Plt Count MPV Neut % (Auto) Lymph % (Auto) [place] % (Auto) Eos % (Auto) Baso % (Auto) Lymph # (Auto) [place] # (Auto) Eos # (Auto) Baso # (Auto) Seg Neutrophils % 74 Band Neutrophils % 1 Lymphocytes % 14 L Monocytes % (Manual) 10 Eosinophils % (Manual) 1 Absolute Neutrophils Platelet Estimate Normal RBC Morphology Abnormal A Polychromasia 1+ A Hypochromasia 1+ A Anisocytosis 2+ A Microcytosis 1+ A ESR PT INR Sodium Potassium Chloride Carbon Dioxide Anion Gap BUN Creatinine GFR Calculation Glucose Uric Acid Calcium Phosphorus Magnesium Total Bilirubin Direct Bilirubin GGT AST ALT Alkaline Phosphatase Lactate Dehydrogenase C-Reactive Protein Total Protein Albumin Globulin Albumin/Globulin Ratio Triglycerides SARS-CoV-2 (PCR) Preliminary micro results at discharge 02/16/20 18:39 Urine Culture - Preliminary Urine - Catheterized Gram negative bacillus Discharge Plan Patient/Caregiver Discharge Instructions Activity: increase activity as tolerated Diet: Cardiac Prescriptions: New fentanyl 12 mcg/hr Patch 72 Hour 12 mcg topical Q72H Qty: 7 RF: 0 Continued warfarin 5 mg tablet 2.5 mg PO DAILY RF: 0 furosemide 40 MG tablet 40 mg PO DAILY PRN (Reason: Hypertension) RF: 0 potassium chloride 20 MEQ tablet 20 meq PO QAMCC RF: 0 cyanocobalamin (vitamin B-12) 2,500 MCG tablet,chewable 5,000 mcg PO DAILY RF: 0 amlodipine 5 MG tablet 5 mg PO DAILY RF: 0 aspirin 81 MG tablet,chewable 81 mg PO DAILY RF: 0 methocarbamol 750 MG tablet 750 mg PO Q6 PRN (Reason: Muscle Spasm) RF: 0 vitamin E 400 UNIT capsule 400 unit PO DAILY RF: 0 nitrofurantoin monohyd/m-cryst [Macrobid] 100 mg capsule 100 mg PO Q12H 5 Days Qty: 10 RF: 0 lidocaine 5 % adhesive patch,medicated 1 patch TOPICAL QDAY Qty: 15 RF: 0 hydrocodone-acetaminophen 10-325 mg tablet 1 tab PO Q6HP PRN (Reason: pain) RF: 0 celecoxib 200 mg Capsule 200 mg PO QDAY RF: 0 famotidine [Pepcid] 40 mg Tablet 40 mg PO DAILY RF: 0 folic acid 1 mg Tablet 1 mg PO DAILY RF: 0 ferrous sulfate 325 mg (65 mg iron) Tablet,Delayed Release (Dr/Ec) 325 mg PO QDAY RF: 0 cholecalciferol (vitamin D3) [Vitamin D3] 50 mcg (2,000 unit) Capsule 1 unit PO DAILY RF: 0 Azo Cranberry 250 mg Tablet,Chewable 650 mg PO DAILY RF: 0 magnesium 1 tab PO DAILY RF: 0 Follow Up Plan Follow up with: Andrea Foster MD [Primary Care Provider] - Nolberto Macedo MD [Physician] - Patient Disposition: Xfer SNF Prognosis: Undetermined Rehab Potential: Fair I certify that the patient requires SNF services: Yes Overall status at discharge: patient is progressing back to baseline Discharge Orders: Discharge Order (Routine); Ordered 02/20/20 Ordered By: Charles Maravilla [facility] VTE Deep Vein Thrombosis/Pulmonary Embolism Present on Admission: No
[2020-02-19 10:36] LABS: INR 2.3 (0.9-1.1); Prothrombin Time 26.2 sec (11.9-14.5)
[2020-02-19] MEDS: HYDROmorphone 0.5 MG/0.5 ML SYRINGE IV PRN (11:00)
[2020-02-19] MEDS: traMADol 50 MG TABLET PO PRN (18:56)
[2020-02-19] MEDS: POTASSIUM CHLORIDE 20 MEQ PACKET PO PRN (18:56)
[2020-02-19] MEDS: ASPIRIN 81 MG TAB.CHEW PO SCH ×2 (22:01→22:04)
[2020-02-19] MEDS: SENNOSIDES/DOCUSATE SODIUM 1 TAB TABLET PO SCH ×2 (22:01→22:04)
[2020-02-19] MEDS: MELATONIN 3 MG TABLET PO PRN (22:01)
[2020-02-20] MEDS: HYDROcodone/APAP 5/325MG TABLET PO PRN ×3 (00:03→08:17)
[2020-02-20] MEDS: 0.9 % SODIUM CHLORIDE 10 ML SYRINGE IV SCH ×2 (03:44→06:10)
[2020-02-20] MEDS: traMADol 50 MG TABLET PO PRN ×2 (06:33→10:37)
[2020-02-20 07:03] LABS: Basophils # (Auto) 0.05 K/mcL (0.00-0.20); Basophils % (Auto) 0.4 % (0.0-2.0); Eosinophils # (Auto) 0.36 K/mcL (0.00-0.70); Eosinophils % (Auto) 2.8 % (0.0-7.0); Hematocrit 28.7 % (36.0-48.0); Hemoglobin 8.8 g/dL (12.0-15.0); Lymphocytes # (Auto) 1.12 K/mcL (1.50-4.80); Lymphocytes % (Auto) 8.6 % (15.0-49.0); Mean Cell Volume 79.1 fL (80.0-100.0); Mean Corpuscular HGB Conc 30.7 g/dL (31.0-36.0); Mean Platelet Volume 9.3 fL (7.4-10.4); Monocytes # (Auto) 1.49 K/mcL (0.10-0.90); Monocytes % (Auto) 11.5 % (1.0-12.0); Neutrophils % (Auto) 76.7 % (38.0-78.0); Platelet Count 361 K/mcL (140-440); RBC 3.63 M/mcL (4.00-5.20); Red Cell Distribution Width 20.1 % (11.5-14.5)
--- NOTE | 2020-02-20 07:10 | Internal Med Progress Note ---
SUBJECTIVE Subjective Patient information: Note initiated : 02/20/20 at 7:07 am Service Date, if different from initiated Date: [] Patient: Xochilt Pat 79 y/o F admitted on 02/16/20 for back pain. Chief Complaint: [] Interval history: History of present illness: Ms. Pat is a 79 year old F with a history of CVA x2/anticoagulation/CAD/HTN/chronic back pain who presents to the ER with intractable back pain limiting her ability to function. She had been following up with the pain clinic with Dr. Macedo and underwent block injections at the pain clinic 2 weeks ago. However she has continued to deteriorate. She is unable to perform activities of daily living. She presents today to the ER with worsening symptoms. She denies incontinence/lower extremity weakness/dysesthesia or paresthesia. She further denies bowel incontinence. Initial work-up the ER was essentially unremarkable except for white count over 14,000. However no clear source was identified. T-max 99.1. INR 4.6. Hospitalist service was consulted in light of intractable back pain and inability to take care of self At the time of my evaluation patient endorses history as above. She denies recent trauma or fall. She denies changes in medications. She endorses to minimal relief with opioids administered at the ER. 02/16-patient complains of persistent pain. Started on lidocaine patch/trial of IV opioids. Hemoglobin 7.7. Check ferritin. Iron sucrose infusion in light of microcytic anemia. No overnight fever chills. Appears anxious and distressed due to persistent lower back pain. 02/17- Pt overnight on multiple opioids. Difficult to control pain despite lidocaine/IV Tylenol/tramadol/morphine/Dilaudid/hydrocodone. Await callback from interventional pain clinic for further recommendations on pain management. 02/18 Feeling a little better today. Able to move around bit more. Ordered LSO brace. Review of Systems: denies headache/fever/chills/nausea/vomiting/chest or abdominal pain/cough/dyspnea/diarrhea. Otherwise see above. Constitutional Vitals: Vital Signs Temp Pulse Resp BP Pulse Ox 97.4 F 70 16 134/73 96 02/20/20 03:21 02/20/20 03:21 02/20/20 03:21 02/20/20 03:21 02/20/20 03:21 Period Temp Pulse Resp BP Sys/Hernandez Pulse Ox Last 24 Hr 97.3 F-98.4 F 70-77 16-20 105-153/54-73 95-96 Intake and Output 02/19/20 02/20/20 02/20/20 21:59 05:59 13:59 Intake Total 360 Output Total 1 1 Balance -1 359 Weight 60.47 kg Intake & Output: Intake & Output 02/19/20 02/20/20 02/20/20 21:59 05:59 13:59 Intake Total 360 Output Total 1 1 Balance -1 359 Weight 60.47 kg Intake: Oral 360 Output: # of times incontinent of urine 1 1 Other: Stool Size Large Stool Color Blood Tinged Stool Consistency Judith Loose # Voids 1 1 # Bowel Movements 1 Exam: General: Alert, Awake, No acute Distress Eyes/N/T: EOMI, Head/Neck: neck supple, CV: RRR, No murmurs, Pulm: Clear b/l, no wheezing/rhonchi/rales Abd: soft, nontender, +BS x4 Ext: no clubbing/cyanosis/edema Neuro: Alert, no focal deficits, moves all extremities, Skin: warm/dry Back: no mass/abscess/cellulitis OBJ DATA Labs CBC & Chem 7: 02/20/20 05:17 02/19/20 05:14 Labs: Abnormal Lab Results 02/20/20 02/19/20 02/19/20 05:17 05:16 05:15 WBC 13.0 H RBC 3.63 L Hgb 8.8 L Hct 28.7 L MCV 79.1 L MCH 24.2 L MCHC 30.7 L RDW 20.1 H Plt Count Neut % (Auto) Lymph % (Auto) 8.6 L Tripp % (Auto) Lymph # (Auto) 1.12 L Tripp # (Auto) 1.49 H Lymphocytes % Absolute Neutrophils 9.96 H RBC Morphology Polychromasia Hypochromasia Anisocytosis Microcytosis ESR 41 H PT INR Creatinine Phosphorus Lactate Dehydrogenase C-Reactive Protein 11.60 H Albumin 02/19/20 02/19/20 02/19/20 05:15 05:15 05:14 WBC 14.8 H RBC 3.82 L Hgb 9.2 L Hct 29.6 L MCV 77.5 L MCH 24.1 L MCHC RDW 19.2 H Plt Count Neut % (Auto) Lymph % (Auto) 11.7 L Tripp % (Auto) Lymph # (Auto) Tripp # (Auto) 1.67 H Lymphocytes % Absolute Neutrophils 11.15 H RBC Morphology Polychromasia Hypochromasia Anisocytosis Microcytosis ESR PT 26.2 H INR 2.3 H Creatinine Phosphorus 2.4 L Lactate Dehydrogenase 263 H C-Reactive Protein Albumin 3.0 L 02/18/20 02/18/20 02/18/20 05:54 05:54 05:54 WBC 14.0 H RBC Hgb 9.7 L Hct 31.0 L MCV 76.7 L MCH 24.0 L MCHC RDW 18.1 H Plt Count Neut % (Auto) 78.3 H Lymph % (Auto) 10.0 L Tripp % (Auto) Lymph # (Auto) 1.40 L Tripp # (Auto) 1.50 H Lymphocytes % 14 L Absolute Neutrophils 10.99 H RBC Morphology Abnormal A Polychromasia 1+ A Hypochromasia 1+ A Anisocytosis 2+ A Microcytosis 1+ A ESR PT 39.7 H INR 4.0 H Creatinine Phosphorus Lactate Dehydrogenase C-Reactive Protein Albumin 02/18/20 02/17/20 02/17/20 05:54 08:43 06:17 WBC 12.6 H RBC 3.35 L Hgb 7.2 L Hct 25.2 L MCV 75.2 L MCH 21.5 L MCHC 28.6 L RDW 19.0 H Plt Count 446 H Neut % (Auto) Lymph % (Auto) 14.7 L Tripp % (Auto) 12.6 H Lymph # (Auto) Tripp # (Auto) 1.59 H Lymphocytes % Absolute Neutrophils 9.06 H RBC Morphology Polychromasia Hypochromasia Anisocytosis Microcytosis ESR PT 44.0 H INR 4.6 H Creatinine 0.5 L Phosphorus 2.3 L Lactate Dehydrogenase 226 H C-Reactive Protein Albumin 02/17/20 06:17 WBC RBC Hgb Hct MCV MCH MCHC RDW Plt Count Neut % (Auto) Lymph % (Auto) Tripp % (Auto) Lymph # (Auto) Tripp # (Auto) Lymphocytes % Absolute Neutrophils RBC Morphology Polychromasia Hypochromasia Anisocytosis Microcytosis ESR PT INR Creatinine Phosphorus Lactate Dehydrogenase 229 H C-Reactive Protein Albumin Meds: Medications Acetaminophen (Tylenol) 650 mg PO Q4-6HP PRN; Protocol PRN Reason: Per Pain Protocol/Fever > 101 Hydrocodone Bitart/Acetaminophen ([place] 5/325mg) 1 - 2 tab PO Q4HP PRN; Protocol PRN Reason: Per Pain Protocol Last Admin: 02/20/20 03:44 Dose: 2 tab Documented by: Amlodipine Besylate (Norvasc) 5 mg PO DAILY [facility] Last Admin: 02/19/20 08:49 Dose: 5 mg Documented by: Aspirin (Aspirin) 81 mg PO HS [facility] Last Admin: 02/19/20 22:04 Dose: 81 mg Documented by: Bisacodyl (Dulcolax) 10 mg HI Q2-3DAYS PRN PRN Reason: Constipation Last Admin: 02/18/20 19:00 Dose: 10 mg Documented by: Ciprofloxacin (Cipro) 250 mg PO BID [facility] Last Admin: 02/19/20 20:01 Dose: 250 mg Documented by: Cyanocobalamin (Vitamin B-12) 5,000 mcg PO DAILY [facility] Last Admin: 02/19/20 09:21 Dose: 5,000 mcg Documented by: Docusate Sodium (Colace) 100 mg PO BID [facility] Last Admin: 02/19/20 22:01 Dose: Not Given Documented by: Famotidine (Pepcid) 40 mg PO DAILY [facility] Last Admin: 02/19/20 09:22 Dose: Not Given Documented by: Fentanyl (Duragesic) 12 mcg TOPICAL Q72H [facility] Last Admin: 02/18/20 13:19 Dose: 12 mcg Documented by: Folic Acid (Folic Acid) 1 mg PO DAILY [facility] Last Admin: 02/19/20 09:22 Dose: 1 mg Documented by: Guaifenesin/Codeine Phosphate (Robitussin Ac) 10 ml PO Q4HP PRN PRN Reason: Cough Hydralazine HCl (Apresoline) 10 mg IV Q6HP PRN PRN Reason: Hypertension Last Admin: 02/18/20 21:00 Dose: 10 mg Documented by: Hydromorphone HCl (Dilaudid) 0.25 - 0.5 mg IV Q4HP PRN; Protocol PRN Reason: Per Pain Protocol Last Admin: 02/19/20 11:00 Dose: 0.5 mg Documented by: Acetaminophen (Ofirmev) 650 mg in 65 mls @ 130 mls/hr IV Q6HP PRN; Protocol PRN Reason: Per Pain Protocol/Fever > 101 Magnesium Sulfate (Magnesium Sulfate) 2 gm in 50 mls @ 50 mls/hr IV UD PRN PRN Reason: MG = or < 1.7 Last Infusion: 02/18/20 12:05 Dose: Infused Documented by: Iron Carb/Multivit/Preble/Folic Acid (Multivitamin W/Minerals) 1 tab PO DAILY [facility] Last Admin: 02/19/20 09:22 Dose: 1 tab Documented by: Lidocaine (Lidoderm) 1 patch TOPICAL DAILY@1000 [facility] Last Admin: 02/19/20 10:01 Dose: 1 patch Documented by: Lisinopril (Zestril) 2.5 mg PO DAILY [facility] Last Admin: 02/19/20 08:47 Dose: 2.5 mg Documented by: Magnesium Oxide (Magnesium Oxide) 400 mg PO DAILY [facility] Last Admin: 02/19/20 09:16 Dose: 400 mg Documented by: Melatonin (Melatonin 3mg Tablet) 3 mg PO HSP PRN PRN Reason: Insomnia Last Admin: 02/19/20 22:01 Dose: 3 mg Documented by: Methocarbamol (Robaxin) 750 mg PO Q6HP PRN PRN Reason: Muscle Spasm Last Admin: 02/19/20 22:00 Dose: 750 mg Documented by: Morphine Sulfate (Morphine) 2 mg IV Q4HP PRN; Protocol PRN Reason: Per Pain Protocol Last Admin: 02/19/20 07:59 Dose: 2 mg Documented by: Ondansetron HCl (Zofran Odt) 4 mg SL Q4-6HP PRN; Protocol PRN Reason: Nausea And Vomiting Last Admin: 02/18/20 09:00 Dose: 4 mg Documented by: Ondansetron HCl (Zofran) 4 mg IV Q4-6HP PRN; Protocol PRN Reason: Nausea And Vomiting Polyethylene Glycol (Miralax) 17 gm PO DAILYP PRN PRN Reason: Constipation Last Admin: 02/18/20 17:48 Dose: 17 gm Documented by: Potassium Chloride (Klor-Con) 40 meq PO DAILYP PRN PRN Reason: K+ < 3.5 Last Admin: 02/19/20 18:56 Dose: 40 meq Documented by: Senna/Docusate Sodium (Senna Plus Tablet) 1 tab PO HS [facility] Last Admin: 02/19/20 22:04 Dose: Not Given Documented by: Sodium Chloride (Saline Flush) 10 ml IV Q8 [facility] Last Admin: 02/20/20 06:10 Dose: Not Given Documented by: Tramadol HCl (Ultram) 50 mg PO Q4-6HP PRN; Protocol PRN Reason: Per Pain Protocol Last Admin: 02/20/20 06:33 Dose: 50 mg Documented by: Vitamin D (Vitamin D3) 2,000 unit PO DAILY [facility] Last Admin: 02/19/20 09:22 Dose: 2,000 unit Documented by: Vitamin E (Vitamin E) 400 unit PO DAILY [facility] Last Admin: 02/19/20 09:21 Dose: 400 unit Documented by: Warfarin Sodium (Coumadin Per Pharmacy) 1 order PO DAILY@1400 [facility] Last Admin: 02/19/20 13:55 Dose: Not Given Documented by: A/P Narrative A/P Narrative: A: *Intractable acute on chronic back pain: follows up with pain clinic Dr. Arteaga. Underwent recent steroid inj. (02/04) -No neurological changes -CT lumbar spine no acute pathology, shows DDD and herniated disc *suspected hematoma post-procedure: likely etiology of above *Persistent leukocytosis, has been present outpt for months. no bandemia *SALAS: status post 2 units blood transfusion/iron infusion. Hemoglobin 9.7. 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 Macedo -PT OT eval -cont home norvasc/lisinopril -f/u with Dr. Macedo -CM for SNF placement -ppx: Coumadin per pharmacy/home pepcid Full code Time Spent With Patient Time: Total time spent is greater than 50% in coordination of care (as documented) at patient's floor/unit and/or counseling patient: QUALITY Stroke Symptom Onset Unknown: No VTE Deep Vein Thrombosis/Pulmonary Embolism Present on Admission: No
[2020-02-20 07:23] LABS: INR 1.7 (0.9-1.1); Prothrombin Time 20.8 sec (11.9-14.5)
[2020-02-20 08:08] LABS: ALT/SGPT 6 U/L (<40); AST/SGOT 13 U/L (<32); Alkaline Phosphatase 57 U/L (39-117); Bilirubin,Direct < 0.2 mg/dL (<0.3); Bilirubin,Total 0.5 mg/dL (0.1-1.0); Blood Urea Nitrogen 14 mg/dL (8-23); Carbon Dioxide 25 mmol/L (22-30); Chloride 101 mmol/L (96-108); Globulin 3.1 gm/dL (2.2-3.7); Glomerular Filtration Rate 91; Glucose 97 mg/dL (70-105); Lactate Dehydrogenase 240 U/L (135-225); Phosphorous 2.6 mg/dL (2.5-4.5); Triglycerides 78 mg/dL (<150); Uric Acid 3.6 mg/dL (2.5-8.0)
[2020-02-20] MEDS: ONDANSETRON 4 MG ODT TABLET SL PRN (08:40)
[2020-02-20] MEDS: CIPROFLOXACIN 250 MG TABLET PO SCH (10:38)
[2020-02-20] MEDS: DOCUSATE SODIUM 100 MG CAPSULE PO SCH (10:41)
[2020-02-20] MEDS: FOLIC ACID 1 MG TABLET PO SCH (10:41)
[2020-02-20] MEDS: MAGNESIUM OXIDE 400 MG TABLET PO SCH ×2 (10:42→11:44)
[2020-02-20] MEDS: CYANOCOBALAMIN (VITAMIN B-12) 500 MCG TABLET PO SCH (10:42)
[2020-02-20] MEDS: MULTIVIT,THER IRON,CA,FA & MIN 1 TABLET PO SCH (10:42)
[2020-02-20] MEDS: VITAMIN D3 1,000 UNIT TABLET PO SCH (10:43)
[2020-02-20] MEDS: VITAMIN E (DL,TOCOPHERYL ACET) 400 UNIT CAPSULE PO SCH (10:43)
[2020-02-20] MEDS: FAMOTIDINE 20 MG TABLET PO SCH (10:43)
[2020-02-20] MEDS: amLODIPine 5 MG TABLET PO SCH (10:50)
[2020-02-20] MEDS: LISINOPRIL 2.5 MG TABLET PO SCH (10:50)
[2020-02-20] MEDS: LIDOCAINE PATCH TOPICAL SCH (10:51)
--- NOTE | 2020-02-22 15:44 | Consultation ---
DATE OF CONSULTATION: 02/16/2020 HISTORY OF PRESENT ILLNESS: Xochilt Pat is an 79-year-old woman, who was hospitalized for severe right flank pain. She has had this chronically and [facility]. She had right flank pain and had a right lumbar medial branch blocks, L2-S1. This was done without incident and was negative for relief indicating that is not the source of her pain. She was hospitalized a couple days ago, and I came in to see her today. She now states that she has had increased right flank pain since shortly after that injection a couple of weeks ago. She states this became uncontrollable, and she ended up admitted to the hospital where she was initially on some morphine. She was converted to fentanyl and hydrocodone and has had ice placed to the site. Nurse reports she has been a bit slow to ambulate. She was set to be transferred to a SNF facility today, but kept due to a small amount of blood in her stool. Her history is significant, and she is on chronic warfarin therapy, I believe, due to a stroke she had 6-9 months ago. OBJECTIVE: GENERAL: On exam of the patient, she is pleasant and talkative. MUSCULOSKELETAL: Examination of the back was remarkable and that over her right flank, she has considerable ecchymoses, which appears to be bruising. Her skin is slightly yellowish discolored consistent with a hematoma. LABORATORY DATA: The patient had a CT scan done today, and this is remarkable and that she had some superior endplate fracture, T11 and L2, which remained stable since 2017. She has some severe facet degeneration of the right L5-S1. She has a large posterior broad-based disk protrusions at 2-3 and 3-4, which caused some moderate to severe central stenosis. There is a large collection of fluid which is new compared to old films that extend from the top of L1 to the S1 segment in the subcutaneous fat superficial to the spinous processes. IMPRESSION: Chronic right flank pain with acute severe exacerbation. It is possible that based on her description this is becoming worse after that injection that she developed a hematoma; and on exam, she does have some ecchymosis that look consistent with that across the area where I would have injected her. PLAN: I advised the patient of this. I advised her that she should get out of bed and cooperate with physical therapy, be as active as possible as people with back pain who moved did better than those who sit. I also warned her that lying in bed puts her at risk for deep venous thrombosis and possible complication of more serious nature. I advised her that I thought this flank pain would resolve back to baseline with time, and she understood. LES:chandrika Job ID: [id number] Doc ID: [id number] Nolberto Macedo MD
== END 2020-02-20 12:10 ==
LOC: MEDSUR 13:42 → ED 13:42 → MEDSUR 21:10
PROVIDERS: ADMIT Internal Medicine; ATTEND Internal Medicine

== ENCOUNTER 2020-06-07 14:32 | Observation (INO) ==
[2020-06-07] MEDS ORDERED: HYDROmorphone 1 MG/ML SYRINGE IV ONE (14:37)
[2020-06-07] MEDS ORDERED: morphine 4 MG/ML VIAL IV ONE (14:38)
[2020-06-07] MEDS ORDERED: ONDANSETRON 4 MG/2 ML VIAL IV ONE (14:49)
[2020-06-07 15:06] LABS: Basophils # (Auto) 0.06 K/mcL (0.00-0.20); Basophils % (Auto) 0.5 % (0.0-2.0); Eosinophils # (Auto) 0.21 K/mcL (0.00-0.70); Eosinophils % (Auto) 1.9 % (0.0-7.0); Hematocrit 43.2 % (36.0-48.0); Hemoglobin 13.4 g/dL (12.0-15.0); Lymphocytes # (Auto) 1.83 K/mcL (1.50-4.80); Lymphocytes % (Auto) 16.7 % (15.0-49.0); Mean Cell Volume 91.5 fL (80.0-100.0); Mean Platelet Volume 9.5 fL (7.4-10.4); Monocytes # (Auto) 1.07 K/mcL (0.10-0.90); Monocytes % (Auto) 9.8 % (1.0-12.0); Neutrophils % (Auto) 71.1 % (38.0-78.0); Platelet Count 482 K/mcL (140-440); RBC 4.72 M/mcL (4.00-5.20)
--- NOTE | 2020-06-07 15:25 | Emergency Department Note ---
Back Pain HPI General Chief Complaint: Back Pain/Injury Stated Complaint: back pain Time Seen by Provider: 06/07/20 14:37 History of Present Illness HPI Narrative: Narrative: 79-year-old female presents the emergency department with thoracic back pain. Patient states this is her chronic back pain. States that she had a vertebroplasty done 05/29/2020 says she has had continued pain since then. She was actually recently here a few days ago for the same chronic back pain but she refused to be admitted and does not want to go to a nursing facility. Now she said that she feels like she does need to. Says she has not got off the couch in the last 3 days and she is having a hard time living just secondary to the pain. Says she has been taking her oxycodone 10 mg every 6 hours with 0 pain relief. Says she currently has 10 out of 10 back pain. There is no loss of bladder or bowel movements. She has no neck pain. She said that she is scheduled for another vertebroplasty and procedure to get done on Tuesday but says she is cannot wait until that time. Patient states she wants to be admitted for pain control. Patient said no new falls or trauma to the area. She has no nausea no vomiting. She is not an IV drug user. She does see pain management and receives her pain medication from the pain management team. Related Data Home Medications Medication Instructions Recorded Confirmed cyanocobalamin (vitamin B-12) 5,000 mcg PO DAILY 07/27/18 06/03/20 furosemide 40 mg PO DAILY PRN 07/27/18 06/03/20 potassium chloride 20 meq PO QAC 07/27/18 06/03/20 amlodipine 5 mg PO DAILY 07/28/18 06/03/20 warfarin 5 mg tablet 2.5 mg PO DAILY tab 08/14/18 06/03/20 vitamin E 400 unit PO DAILY 06/20/19 06/03/20 famotidine [Pepcid] 40 mg PO DAILY 02/16/20 06/03/20 folic acid 1 mg PO DAILY 02/16/20 06/03/20 magnesium 1 tab PO DAILY 02/16/20 06/03/20 Previous Rx's Medication Instructions Recorded aspirin 81 mg PO DAILY tab.chew 04/26/19 lidocaine 1 patch TOPICAL QDAY #15 each 10/29/20 hydrocodone-acetaminophen 1 tab PO Q6HP PRN #10 tab 02/20/20 Allergies Allergy/AdvReac Type Severity Reaction Status Date / Time codeine Allergy Unknown Nausea Verified 06/03/20 10:28 Review of Systems ROS ROS Narrative: Narrative: All systems ED: reviewed and negative except as stated. 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) use of opiate analgesic (Acute) Intractable back pain (Acute) Age-related osteoporosis with current pathological fracture, vertebra(e), initial encounter for fracture (Acute) Pain in thoracic spine (Acute) Supratherapeutic INR (Acute) Compression fracture (Acute) Hematochezia (Acute) Edema (Chronic) Chronic back pain (Chronic) Anemia (Chronic) Back pain (Chronic) Spondylosis without myelopathy or radiculopathy, 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, lumbar region (Chronic) Low back pain (Chronic) Chronic pain (Chronic) History of breast cancer (Chronic) Myofascial pain (Chronic) Osteoporosis (Chronic) GERD (gastroesophageal reflux disease) (Chronic) Subacromial bursitis (Chronic) Degenerative joint disease (DJD) of lumbar spine (Chronic) Lymphadenopathy (Chronic) Chronic back pain (Chronic) Strain of right trapezius muscle (Chronic) jail current use of anticoagulant therapy (Chronic) Coronary artery disease (Chronic) 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 (CVA) (Chronic) TIA (transient ischemic attack) (Chronic) Anemia (Chronic) Middle cerebral artery aneurysm (Chronic) Mild dementia (Chronic) Hypertension (Chronic) History of valvular heart disease (Chronic) Medical History Acute coronary syndrome Age-related osteoporosis with current pathological fracture, vertebra(e), initial encounter for fracture Anemia Ascending cholangitis Cholecystitis Choledocholithiasis with acute cholecystitis with obstruction Cholelithiasis and acute cholecystitis without obstruction Chronic pain Closed right hip fracture Coronary artery disease Edema Elevated INR Exacerbation of chronic back pain Excessive anticoagulation GERD (gastroesophageal reflux disease) History of breast cancer History of valvular heart disease Hypertension 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 (CVA) jail current use of anticoagulant therapy Low back pain Lymphadenopathy Melena Middle cerebral artery aneurysm Mild dementia Myofascial pain Osteoporosis Pain in thoracic spine Rectal bleeding Subacromial bursitis TIA (transient ischemic attack) UTI (urinary tract infection) Surgical History History of laparoscopic cholecystectomy 07/29/2018-with intraoperative choleangiogram Family History Other No pertinent family history Social History Smoking Status: Former smoker Alcohol Intake Frequency: does not drink Substance Use: does not use (denies marijuana) Exam Narrative Narrative: Narrative: Vital signs noted General: Awake. Alert. No distress. Skin: Warm. Dry. No rash. HEENT: NCAT. PERRL. EOMI. No conjunctivitis. No nystagmus. No pharyngitis. Membranes moist. No otitis. No rhinitis. Neck: No PTP. Good ROM. No meningeal signs. No stridor. No thyromegaly. No JVD. Cardiovascular: RRR. No murmur. No rubs. No gallops. Respiratory: No respiratory distress. Breath sounds equal. Lungs clear. Gastrointestinal: Abdomen soft. No tenderness. No distention. Normal bowel sounds. No palpable organomegaly or masses. Back: No deformity. No CVAT. Pain while palpating the thoracic spine paraspinal muscles very little in the midline. Musculoskeletal: No tenderness. No swelling. No erythema. No edema. Good peripheral pulses x 4 Lymphatic: No palpable adenopathy. Neurological: No focal neurological deficits observed. CN 2-12 are intact. Course Vital Signs Vital signs: Vital Signs Temperature 97.7 F 06/07/20 14:33 Pulse Rate 77 06/07/20 14:33 Respiratory Rate 16 06/07/20 14:33 Blood Pressure 189/98 06/07/20 14:33 Pulse Oximetry (%) 98 06/07/20 14:33 Temperature 97.7 F 06/07/20 14:33 Pulse Rate 72 06/07/20 16:46 Respiratory Rate 16 06/07/20 14:33 Blood Pressure 172/76 06/07/20 16:46 Pulse Oximetry (%) 92 06/07/20 16:46 MDM MDM Narrative Medical decision making narrative: Narrative: Patient looks well on exam. She does not seem to be in any I did review the imaging that was done from 3 days ago there is been no new trauma since then x- rays did show T9 and T10 with recent vertebroplasty with a extreme compression fracture T10. This vertebrae is probably what the patient is going to receive further treatment on on Tuesday is probably T10. We will give her dose of morphine to see if that helps with the pain. Also give Zofran for nausea and vomiting. We will get basic labs to be sure there is no other acute problems going on. Disposition will be pending results. After the morphine patient was still having pain so I did give her a dose of Dilaudid that did not seem to help her pain at all we tried to sit patient up at the bedside said that she would sit up to the side of the bed but cannot stand secondary to the pain was too bad. Says she does have a bowel movement she cannot even get up to a commode. At this time again I see advanced with the hospitalist about admission for pain control. Spoke with the hospitalist and he is agreeable to admit the patient for chronic back pain and intractable pain. Patient did receive 2 doses of IV pain medications with no relief. She is admitted in stable condition. Lab Data Result diagrams: 06/07/20 14:42 06/07/20 14:42 Labs: Lab Results 06/07/20 06/07/20 Range/Units 14:42 14:42 WBC 11.0 (4.5-11.0) K/mcL RBC 4.72 (4.00-5.20) M/mcL Hgb 13.4 (12.0-15.0) g/dL Hct 43.2 (36.0-48.0) % MCV 91.5 (80.0-100.0) fL MCH 28.4 (26.0-34.0) pg MCHC 31.0 (31.0-36.0) g/dL RDW 15.0 H (11.5-14.5) % Plt Count 482 H (140-440) K/mcL MPV 9.5 (7.4-10.4) fL Neut % (Auto) 71.1 (38.0-78.0) % Lymph % (Auto) 16.7 (15.0-49.0) % [place] % (Auto) 9.8 (1.0-12.0) % Eos % (Auto) 1.9 (0.0-7.0) % Baso % (Auto) 0.5 (0.0-2.0) % Lymph # (Auto) 1.83 (1.50-4.80) K/mcL [place] # (Auto) 1.07 H (0.10-0.90) K/mcL Eos # (Auto) 0.21 (0.00-0.70) K/mcL Baso # (Auto) 0.06 (0.00-0.20) K/mcL Absolute Neutrophils 7.79 (1.80-8.00) K/mcL Sodium 141 (133-145) mmol/L Potassium 3.7 (3.3-5.1) mmol/L Chloride 100 (96-108) mmol/L Carbon Dioxide 27 (22-30) mmol/L Anion Gap 14.0 (8.0-16.0) BUN 20 (8-23) mg/dL Creatinine 0.8 (0.6-1.1) mg/dL GFR Calculation 69 Glucose 109 H (70-105) mg/dL Calcium 9.8 (8.6-10.4) mg/dL Total Bilirubin 0.4 (0.1-1.0) mg/dL AST 14 (<32) U/L ALT 7 (<40) U/L Alkaline Phosphatase 161 H (39-117) U/L Total Protein 7.9 (5.9-8.4) gm/dL Albumin 4.1 (3.2-5.2) gm/dL Globulin 3.8 H (2.2-3.7) gm/dL Albumin/Globulin Ratio 1.1 (1.0-2.3) Discharge Plan Patient/Caregiver Discharge Instructions Pt seen by TIMBER MANAGEMENT SPECIALIST/PA only: No Clinical Impression: Intractable back pain Patient Disposition: Xfer As Outpt/Obs ([facility]) Follow up with: Andrea Foster MD [Primary Care Provider] - Prescriptions: No Action warfarin 5 mg tablet 2.5 mg PO DAILY RF: 0 furosemide 40 MG tablet 40 mg PO DAILY PRN (Reason: Hypertension) RF: 0 potassium chloride 20 MEQ tablet 20 meq PO QAMCC RF: 0 cyanocobalamin (vitamin B-12) 2,500 MCG tablet,chewable 5,000 mcg PO DAILY RF: 0 amlodipine 5 MG tablet 5 mg PO DAILY RF: 0 aspirin 81 MG tablet,chewable 81 mg PO DAILY RF: 0 vitamin E 400 UNIT capsule 400 unit PO DAILY RF: 0 lidocaine 5 % adhesive patch,medicated 1 patch TOPICAL QDAY Qty: 15 RF: 0 famotidine [Pepcid] 40 mg Tablet 40 mg PO DAILY RF: 0 folic acid 1 mg Tablet 1 mg PO DAILY RF: 0 magnesium 1 tab PO DAILY RF: 0 hydrocodone-acetaminophen 10-325 mg tablet 1 tab PO Q6HP PRN (Reason: pain) Qty: 10 RF: 0
[2020-06-07 15:33] LABS: ALT/SGPT 7 U/L (<40); AST/SGOT 14 U/L (<32); Albumin 4.1 gm/dL (3.2-5.2); Albumin/Globulin Ratio 1.1 (1.0-2.3); Alkaline Phosphatase 161 U/L (39-117); Bilirubin,Total 0.4 mg/dL (0.1-1.0); Blood Urea Nitrogen 20 mg/dL (8-23); Calcium 9.8 mg/dL (8.6-10.4); Carbon Dioxide 27 mmol/L (22-30); Chloride 100 mmol/L (96-108); Globulin 3.8 gm/dL (2.2-3.7); Glomerular Filtration Rate 69; Glucose 109 mg/dL (70-105)
[2020-06-07] MEDS ORDERED: HYDROmorphone 0.5 MG/0.5 ML SYRINGE IV ONE (17:53)
--- NOTE | 2020-06-07 18:17 | Internal Med History&Physical ---
HPI History of Present Illness Patient information: Note initiated : 06/07/20 at 6:02 pm Service Date, if different from initiated Date: [] Patient: Xochilt Pat 79 y/o F admitted on for back pain. Chief Complaint: [back pain] History of present illness: Ms. Pat is a 79 year old female with a history of hypertension, coronary artery disease s/p remote stent placement, CVA, mitral valve replacement (bioprosthetic), pacemaker placement, GERD, osteoporosis, recent vertebral fractures status post T10 vertebroplasty (06/02/20) who presented to the hospital for back pain near the recent vertebroplasty site. Since the vertebroplasty, the patient says that her back pain has been increasingly unbearable. Patient presented to the ED on 06/05/20 for back pain and discharged to home. She may have an acute T9 fracture based on repeat xrays. The current plan is for another vertebroplasty after holding coumadin, potentially 06/09/20 if all goes well. Meanwhile she has had difficulty taking care of herself therefore presented again to the ED. The patient lives at home alone but has assistance from friends and family. In the ED, the patient's vitals were stable. Routine labs were unremarkable. No focal neurologic findings to suggest myelopathy. Her back pain is fairly localized in the posterior back near the recent vertebroplasty site. There is no suspicious swelling or point tenderness present. No redness or warmth to suggest an in fectious process. She says her pacemaker is not MRI compatible. She has been holding coumadin. The patient was admitted to observation. Constitutional Constitutional: Absent fatigue and weakness Breasts Breasts: Absent change in shape, mass and skin changes Additional comments: Remote hx of breast surgery. Cardiovascular Cardiovascular: Absent chest pain and dyspnea Respiratory Respiratory: Absent cough and dyspnea Gastrointestinal Gastrointestinal: Present constipation; Absent abdominal pain Genitourinary Genitourinary: Absent difficulty voiding and dysuria Musculoskeletal Musculoskeletal: Present back pain; Absent muscle weakness and stiffness Integumentary Integumentary: Absent new lesions and wounds Neurological Neurological: Absent focal weakness and numbness Psychiatric Psychiatric: Absent anxiety PFSH PFSH All Active Problems (Updated 06/07/20 @ 17:19 by Cj Meléndez DO) Acute thoracic back pain (Acute) S/P vertebroplasty (Acute) 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 analgesic (Acute) Intractable back pain (Acute) Age-related osteoporosis with current pathological fracture, vertebra(e), initial encounter for fracture (Acute) Pain in thoracic spine (Acute) Supratherapeutic INR (Acute) Compression fracture (Acute) Hematochezia (Acute) Edema (Chronic) Chronic back pain (Chronic) Anemia (Chronic) Back pain (Chronic) Spondylosis without myelopathy or radiculopathy, 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, lumbar region (Chronic) Low back pain (Chronic) Chronic pain (Chronic) History of breast cancer (Chronic) Myofascial pain (Chronic) Osteoporosis (Chronic) GERD (gastroesophageal reflux disease) (Chronic) Subacromial bursitis (Chronic) Degenerative joint disease (DJD) of lumbar spine (Chronic) Lymphadenopathy (Chronic) Chronic back pain (Chronic) Strain of right trapezius muscle (Chronic) FDC current use of anticoagulant therapy (Chronic) Coronary artery disease (Chronic) 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 (CVA) (Chronic) TIA (transient ischemic attack) (Chronic) Anemia (Chronic) Middle cerebral artery aneurysm (Chronic) Mild dementia (Chronic) Hypertension (Chronic) History of valvular heart disease (Chronic) Medical History Acute coronary syndrome Age-related osteoporosis with current pathological fracture, vertebra(e), initial encounter for fracture Anemia Ascending cholangitis Cholecystitis Choledocholithiasis with acute cholecystitis with obstruction Cholelithiasis and acute cholecystitis without obstruction Chronic pain Closed right hip fracture Coronary artery disease Edema Elevated INR Exacerbation of chronic back pain Excessive anticoagulation GERD (gastroesophageal reflux disease) History of breast cancer History of valvular heart disease Hypertension 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 (CVA) 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 Low back pain Lymphadenopathy Melena Middle cerebral artery aneurysm Mild dementia Myofascial pain Osteoporosis Pain in thoracic spine Rectal bleeding Subacromial bursitis TIA (transient ischemic attack) UTI (urinary tract infection) Surgical History History of laparoscopic cholecystectomy 07/29/2018-with intraoperative choleangiogram Family History Other No pertinent family history Social History (Updated 08/15/18 @ 13:51 by Miguelangel Li MD) smoking status: Former smoker alcohol intake frequency: does not drink substance use type: does not use (denies marijuana) MEDS/ALLERGIES Home Medications and Allergies Home Medications Medication Instructions Recorded Confirmed Type cyanocobalamin (vitamin B-12) 5,000 mcg PO DAILY 07/27/18 06/07/20 History furosemide 40 mg PO DAILY PRN 07/27/18 06/07/20 History potassium chloride 20 meq PO QAMCC 07/27/18 06/07/20 History amlodipine 5 mg PO DAILY 07/28/18 06/07/20 History warfarin 5 mg tablet 2.5 mg PO DAILY tab 08/14/18 06/07/20 History aspirin 81 mg PO DAILY tab.chew 04/26/19 06/07/20 Rx vitamin E 400 unit PO DAILY 06/20/19 06/07/20 History lidocaine 1 patch TOPICAL QDAY #15 each 02/14/20 06/07/20 Rx famotidine [Pepcid] 40 mg PO DAILY 02/16/20 06/07/20 History folic acid 1 mg PO DAILY 02/16/20 06/07/20 History magnesium 1 tab PO DAILY 02/16/20 06/07/20 History hydrocodone-acetaminophen 1 tab PO Q6HP PRN #10 tab 02/20/20 06/07/20 Rx fentanyl 1 patch TRANSDERMAL Q72H 06/07/20 06/07/20 History Allergies Allergy/AdvReac Type Severity Reaction Status Date / Time codeine AdvReac Mild Nausea Verified 06/07/20 17:59 EXAM Constitutional Vitals: Temp Pulse Resp BP Pulse Ox 97.7 F 75 16 149/94 98 06/07/20 14:33 06/07/20 17:47 06/07/20 14:33 06/07/20 17:47 06/07/20 17:47 Additional findings Additional findings: Head: Atraumatic, normal inspection. Eyes: normal appearance, no scleral icterus. Neck: full ROM Respiratory: no respiratory distress. Breasts: surgical scar on right breast from breast cancer surgery. Cardiovascular: normal rate and rhythm, S1, S2, pacemaker present. GI/Abdominal: soft, nontender, no guarding. Extremities: full range of motion, nontender. Neurological: CN II-XII intact, intact motor, intact sensation. Psychiatric: normal mood. Skin: warm, normal color DATA Data Completed and Pending Labs: Labs from last 24 hours 06/07/20 06/07/20 14:42 14:42 WBC 11.0 RBC 4.72 Hgb 13.4 Hct 43.2 MCV 91.5 MCH 28.4 MCHC 31.0 RDW 15.0 H Plt Count 482 H MPV 9.5 Neut % (Auto) 71.1 Lymph % (Auto) 16.7 [place] % (Auto) 9.8 Eos % (Auto) 1.9 Baso % (Auto) 0.5 Lymph # (Auto) 1.83 [place] # (Auto) 1.07 H Eos # (Auto) 0.21 Baso # (Auto) 0.06 Absolute Neutrophils 7.79 Sodium 141 Potassium 3.7 Chloride 100 Carbon Dioxide 27 Anion Gap 14.0 BUN 20 Creatinine 0.8 GFR Calculation 69 Glucose 109 H Calcium 9.8 Total Bilirubin 0.4 AST 14 ALT 7 Alkaline Phosphatase 161 H Total Protein 7.9 Albumin 4.1 Globulin 3.8 H Albumin/Globulin Ratio 1.1 A/P Narrative A/P Narrative: ASSESSMENT: 79-year-old female with history of hypertension, coronary artery disease s/p prior stent, CVA, mitral valve replacement (bioprosthetic), pacemaker placement (unclear reason but likely related to afib given hx of CVA), GERD, remote breast cancer (no recurrence), osteoporosis, cognitive impairment (documented mild dementia), recent vertebral fractures status post T10 vertebroplasty (06/02/20) who presented to the hospital for back pain near the recent vertebroplasty site. Comparison of recent x-rays suggest a new compression fracture at T9 evidenced by interval decrease in vertebral height, probably the reason for her back pain. #Acute on chronic back pain: probably secondary to T9 compression fracture #Acute T9 compression fracture #Recent T10 compression fracture s/p vertebroplasty #Hx CAD s/p stent: stable #Hx CVA #Hx of pacemaker: reportedly not MRI compatible #Htn #Constipation #Osteoporosis #Hx breast cancer #Cognitive impairment PLAN -Admit to observation -Analgesics prn, lidocaine patch, hot/cold compress -Bowel regimen -Hold Coumadin for planned vertebroplasty (possibly Tuesday), INR in AM -Coordinate with pain clinic regarding plan -Continue other home meds. -PT/OT when able to tolerate -DVT prophylaxis: Heparin SQ -Disposition: home vs SNF Time Spent With Patient Time: Total time spent is greater than 50% in coordination of care (as documented) at patient's floor/unit and/or counseling patient: 75
[2020-06-07] MEDS ORDERED: ACETAMINOPHEN 325 MG TABLET PO PRN (18:37)
[2020-06-07] MEDS ORDERED: HYDROmorphone 0.5 MG/0.5 ML SYRINGE IV PRN (18:37)
[2020-06-07] MEDS ORDERED: fentaNYL 12 MCG PATCH TOPICAL SCH (20:00)
[2020-06-07] MEDS: HEPARIN 5,000 UNIT/ML VIAL SQ SCH (21:42)
[2020-06-07] MEDS: ONDANSETRON 4 MG/2 ML VIAL IV PRN (21:42)
[2020-06-07] MEDS: SENNOSIDES 1 TABLET PO SCH (21:42)
[2020-06-07] MEDS: POLYETHYLENE GLYCOL 3350 17 GM PACKET PO SCH (21:42)
[2020-06-07] MEDS: DOCUSATE SODIUM 100 MG CAPSULE PO SCH (21:42)
[2020-06-07] MEDS: 0.9 % SODIUM CHLORIDE 10 ML SYRINGE IV SCH (21:43)
[2020-06-07] MEDS: amLODIPine 5 MG TABLET PO SCH (22:46)
[2020-06-07] MEDS ORDERED: amLODIPine 5 MG TABLET ONE (22:49)
[2020-06-07] MEDS: HYDROcodone/APAP 5/325MG TABLET PO PRN (23:09)
[2020-06-08] MEDS: 0.9 % SODIUM CHLORIDE 10 ML SYRINGE IV SCH ×3 (04:28→20:14)
[2020-06-08] MEDS: HYDROcodone/APAP 5/325MG TABLET PO PRN ×4 (04:42→21:09)
[2020-06-08 06:31] LABS: INR 1.6 (0.9-1.1); Prothrombin Time 19.5 sec (11.9-14.5)
[2020-06-08] MEDS: ONDANSETRON 4 MG/2 ML VIAL IV PRN ×2 (08:04→17:25)
[2020-06-08] MEDS ORDERED: amLODIPine 5 MG TABLET PO SCH (09:00)
[2020-06-08] MEDS ORDERED: ASPIRIN 81 MG TAB.CHEW PO SCH (09:00)
[2020-06-08] MEDS ORDERED: CYANOCOBALAMIN (VITAMIN B-12) 500 MCG TABLET PO SCH (09:00)
[2020-06-08] MEDS ORDERED: ENOXAPARIN 40 MG/0.4 ML SYRINGE SQ SCH (09:00)
[2020-06-08] MEDS: FOLIC ACID 1 MG TABLET PO SCH (09:24)
[2020-06-08] MEDS: FAMOTIDINE 20 MG TABLET PO SCH (09:24)
[2020-06-08] MEDS: DOCUSATE SODIUM 100 MG CAPSULE PO SCH ×2 (09:24→20:14)
[2020-06-08] MEDS: POTASSIUM CHLORIDE 20 MEQ TABLET PO SCH (09:25)
[2020-06-08] MEDS: LIDOCAINE PATCH TOPICAL SCH (09:59)
[2020-06-08] MEDS: MAGNESIUM OXIDE 400 MG TABLET PO SCH (09:59)
[2020-06-08] MEDS: VITAMIN E (DL,TOCOPHERYL ACET) 400 UNIT CAPSULE PO SCH (09:59)
[2020-06-08] MEDS: HEPARIN 5,000 UNIT/ML VIAL SQ SCH (09:59)
--- NOTE | 2020-06-08 10:15 | Internal Med Progress Note ---
SUBJECTIVE Subjective Patient information: Note initiated : 06/08/20 at 10:13 am Service Date, if different from initiated Date: [] Patient: Xochilt Pat 79 y/o F admitted on 06/07/20 for back pain. Chief Complaint: [] Interval history: Ms. Pat is a 79 year old female with a history of hypertension, coronary artery disease s/p remote stent placement, CVA, mitral valve replacement (bioprosthetic), pacemaker placement, GERD, osteoporosis, rec ent vertebral fractures status post T10 vertebroplasty (06/02/20) who presented to the hospital for back pain near the recent vertebroplasty site. Since the vertebroplasty, the patient says that her back pain has been increasingly unbearable. Patient presented to the ED on 06/05/20 for back pain and discharged to home. She may have an acute T9 fracture based on repeat xrays. The current plan is for another vertebroplasty after holding coumadin, potentially 06/09/20 if all goes well. Meanwhile she has had difficulty taking care of herself therefore presented again to the ED. The patient lives at home alone but has assistance from friends and family. In the ED, the patient's vitals were stabl e. Routine labs were unremarkable. No focal neurologic findings to suggest myelopathy. Her back pain is fairly localized in the posterior back near the recent vertebroplasty site. There is no suspicious swelling or point tenderness present. No redness or warmth to suggest an infectious process. She says her pacemaker is not MRI compatible. She has been holding coumadin. The patient was admitted to observation. 06/08 Stable pain overnight-discontinued dilaudid IV prn. PT/OT consulted, TLSO brace ordered. Constitutional Vitals: Vital Signs Temp Pulse Resp BP Pulse Ox 97.6 F 73 14 139/82 93 06/08/20 06:28 06/08/20 06:28 06/08/20 06:28 06/08/20 06:28 06/08/20 06:28 Period Temp Pulse Resp BP Sys/Hernandez Pulse Ox Last 24 Hr 97.5 F-99.1 F 70-90 13-16 130-189/74-98 90-99 Intake and Output 06/07/20 06/08/20 06/08/20 21:59 05:59 13:59 Intake Total 500 Output Total 1 3 Balance -1 497 Weight 51.851 kg Intake & Output: Intake & Output 06/07/20 06/08/20 06/08/20 21:59 05:59 13:59 Intake Total 500 Output Total 1 3 Balance -1 497 Weight 51.851 kg Intake: Oral 500 Output: # of times incontinent of urine 1 3 Other: Meal Dinner Percent of Meal Consumed 100% Feeding Ability Independent Urine Appearance Clear Urine Color Pale Urine Odor Strong Strong # Voids 1 Additional findings Additional findings: Head: Atraumatic, normal inspection. Eyes: normal appearance, no scleral icterus. Neck: full ROM Respiratory: no respiratory distress. Cardiovascular: normal rate and rhythm, S1, S2, left upper chest pacemaker palpable GI/Abdominal: soft, nontender, no guarding. Extremities: full range of motion, nontender. Neurological: CN II-XII intact, intact motor, intact sensation. Psychiatric: normal mood. Skin: warm, normal color OBJ DATA Labs CBC & Chem 7: 06/07/20 14:42 06/07/20 14:42 Labs: Abnormal Lab Results 06/08/20 06/07/20 06/07/20 05:06 14:42 14:42 RDW 15.0 H Plt Count 482 H [place] # (Auto) 1.07 H PT 19.5 H INR 1.6 H Glucose 109 H Alkaline Phosphatase 161 H Globulin 3.8 H Meds: Medications Acetaminophen (Acetaminophen 325 Mg Tablet) 650 mg PO Q6HP PRN; Protocol PRN Reason: Per Pain Protocol/Fever > 101 Hydrocodone Bitart/Acetaminophen (Hydrocodone/Apap 5/325mg Tablet) 1 tab PO Q4HP PRN; Protocol PRN Reason: Per Pain Protocol Last Admin: 06/08/20 04:42 Dose: 1 tab Documented by: Amlodipine Besylate (Amlodipine 5 Mg Tablet) 5 mg PO HS [facility] Last Admin: 06/07/20 22:46 Dose: Not Given Documented by: Aspirin (Aspirin 81 Mg Tab.Chew) 81 mg PO DAILY [facility] Cyanocobalamin (Cyanocobalamin (Vitamin B-12) 500 Mcg Tablet) 5,000 mcg PO DAILY [facility] Docusate Sodium (Docusate Sodium 100 Mg Capsule) 100 mg PO BID [facility] Last Admin: 06/08/20 09:24 Dose: 100 mg Documented by: Famotidine (Famotidine 20 Mg Tablet) 40 mg PO DAILY [facility] Last Admin: 06/08/20 09:24 Dose: 40 mg Documented by: Fentanyl (Fentanyl 12 Mcg Patch) 12 mcg TOPICAL Q72H [facility] Last Admin: 06/07/20 21:42 Dose: 12 mcg Documented by: Folic Acid (Folic Acid 1 Mg Tablet) 1 mg PO DAILY [facility] Last Admin: 06/08/20 09:24 Dose: 1 mg Documented by: Heparin Sodium (Porcine) (Heparin 5,000 Unit/Ml Vial) 5,000 unit SQ Q12 [facility] Last Admin: 06/08/20 09:59 Dose: 5,000 unit Documented by: Lidocaine (Lidocaine Patch) 1 patch TOPICAL QDAY [facility] Last Admin: 06/08/20 09:59 Dose: 1 patch Documented by: Magnesium Oxide (Magnesium Oxide 400 Mg Tablet) 400 mg PO DAILY [facility] Last Admin: 06/08/20 09:59 Dose: 400 mg Documented by: Ondansetron HCl (Ondansetron 4 Mg/2 Ml Vial) 4 mg IV Q6HP PRN PRN Reason: Nausea And Vomiting Last Admin: 06/08/20 08:04 Dose: 4 mg Documented by: Pneumococcal Polyvalent Vaccine (Pneumococcal 23-Danielle P-Sac Vac 0.5 Ml Syringe) 0.5 ml IM .ONCE ONE Stop: 06/09/20 10:01 Polyethylene Glycol (Polyethylene Glycol 3350 17 Gm Packet) 17 gm PO [facility] Last Admin: 06/07/20 21:42 Dose: 17 gm Documented by: Potassium Chloride (Potassium Chloride 20 Meq Tablet) 20 meq PO QAMCC [facility] Last Admin: 06/08/20 09:25 Dose: 20 meq Documented by: Senna (Sennosides 1 Tablet) 2 tab PO [facility] Last Admin: 06/07/20 21:42 Dose: 2 tab Documented by: Sodium Chloride (0.9 % Sodium Chloride 10 Ml Syringe) 10 ml IV Q8 [facility] Last Admin: 06/08/20 04:28 Dose: 10 ml Documented by: Vitamin E (Vitamin E (Dl,Tocopheryl Acet) 400 Unit Capsule) 400 unit PO DAILY [facility] Last Admin: 06/08/20 09:59 Dose: 400 unit Documented by: A/P Narrative A/P Narrative: ASSESSMENT: 79-year-old female with history of hypertension, coronary artery disease s/p prior stent, CVA, mitral valve replacement (bioprosthetic), pacemaker placement (unclear reason but likely related to afib given hx of CVA and on anticoagulation), GERD, remote breast cancer (no recurrence), osteoporosis, cognitive impairment (documented mild dementia), recent vertebral fractures status post T10 vertebroplasty (06/02/20) who presented to the hospital for back pain near the recent vertebroplasty site. Comparison of recent x-rays suggest a recent compression fracture at T9 evidenced by interval decrease in vertebral height, probably the primary reason for her back pain. #Acute on chronic back pain: probably secondary to T9 compression fracture #Acute T9 compression fracture #Recent T10 compression fracture s/p vertebroplasty #Hx CAD s/p stent: stable #Hx CVA #Hx of pacemaker: reportedly not MRI compatible #Htn #Constipation #Osteoporosis #Hx breast cancer #Cognitive impairment PLAN -Continue home fentanyl patch, tylenol and norco prn, lidocaine patch, hot/cold compress -Discontinue dilaudid IV prn -Bowel regimen -Holding Coumadin for planned vertebroplasty (possibly Tuesday), INR in AM -Holding Aspirin for spinal procedure. -Coordinate with pain clinic Tuesday regarding plan. -Continue other home meds. -PT/OT -TLSO brace trial -DVT prophylaxis: Heparin SQ today AM then d/c -Disposition: probably vertebroplasty tomorrow then will probably need to return to the hospital vs a SNF. Unlikely she can go home at this point with pain issues, difficulty with ADLs, and limited social support. Time Spent With Patient Time: Total time spent is greater than 50% in coordination of care (as do cumented) at patient's floor/unit and/or counseling patient: QUALITY Stroke Symptom Onset Unknown: No VTE Deep Vein Thrombosis/Pulmonary Embolism Present on Admission: No
[2020-06-08] MEDS: amLODIPine 5 MG TABLET PO SCH (20:14)
[2020-06-08] MEDS: POLYETHYLENE GLYCOL 3350 17 GM PACKET PO SCH (20:14)
[2020-06-08] MEDS: SENNOSIDES 1 TABLET PO SCH (20:14)
[2020-06-09] MEDS: HYDROcodone/APAP 5/325MG TABLET PO PRN ×2 (01:23→07:11)
[2020-06-09] MEDS: ONDANSETRON 4 MG/2 ML VIAL IV PRN ×3 (01:23→13:04)
[2020-06-09] MEDS: 0.9 % SODIUM CHLORIDE 10 ML SYRINGE IV SCH (04:18)
[2020-06-09] MEDS ORDERED: PNEUMOCOCCAL 23-VAL P-SAC VAC 0.5 ML SYRINGE IM ONE (10:00)
[2020-06-09] MEDS: LIDOCAINE PATCH TOPICAL SCH (10:12)
--- NOTE | 2020-06-09 11:12 | Discharge Summary ---
Discharge Provider Provider Patient information: Note initiated : 06/09/20 at 11:08 am Service Date, if different from initiated Date: [] Patient: Xochilt Pat 79 y/o F admitted on 06/07/20 for back pain. Chief Complaint: [back pain] Date of admission: 06/07/20 18:18 Discharge date: 06/09/20 Primary care physician: Andrea Foster Consults: 06/07/20 Consult to Physician [CONS] Stat Comment: Consulting Provider: Bartolome Nowak Reason For Exam: Physician to Consult Discharge Meds Discharge Medications Home Medications furosemide 40 mg PO DAILY PRN 07/27/18 [History Confirmed 06/07/20 Last Taken 06/05/20 21:00] potassium chloride 20 meq PO QAMCC 07/27/18 [History Confirmed 06/07/20 Last Taken 06/06/20 21:00] amlodipine 5 mg PO HS 07/28/18 [History Confirmed 06/07/20 Last Taken 06/06/20 21:00] aspirin 81 mg PO DAILY tab.chew 04/26/19 [Rx Confirmed 06/07/20 Last Taken 06/06/20 21:00] vitamin E 400 unit PO DAILY 06/20/19 [History Confirmed 06/07/20 Last Taken 06/06/20 09:00] lidocaine 1 patch TOPICAL QDAY #15 each 02/14/20 [Rx Confirmed 06/07/20 Last Taken Unknown] famotidine [Pepcid] 40 mg PO DAILY 02/16/20 [History Confirmed 06/07/20 Last Taken 06/06/20 09:00] folic acid 1 mg PO DAILY 02/16/20 [History Confirmed 06/07/20 Last Taken 06/06/20 09:00] magnesium 1 tab PO DAILY 02/16/20 [History Confirmed 06/07/20 Last Taken 02/16/20 09:00] acetaminophen 500 mg PO Q6HP PRN 30 Days cap 06/09/20 [Rx Last Taken Unknown] fentanyl 12 mcg TOPICAL Q72H #5 ea 06/09/20 [Rx Last Taken Unknown] hydrocodone-acetaminophen 1 tab PO Q4HP PRN #10 tab 06/09/20 [Rx Last Taken Unknown] polyethylene glycol 3350 [Miralax] 17 gm PO HS #30 ea 06/09/20 [Rx Last Taken Unknown] sennosides [Senna Lax] 2 tab PO HS #60 tab 06/09/20 [Rx Last Taken Unknown] COURSE Hospital Course Hospital course: Ms. aPt is a 79 year old female with a history of hypertension, coronary artery disease s/p remote stent placement, CVA, mitral valve replacement (bioprosthetic), pacemaker placement, GERD, osteoporosis, recent vertebral fractures status post T10 vertebroplasty (06/02/20) who presented to the hospital for back pain near the recent vertebroplasty site. Since the vertebroplasty, the patient says that her back pain has been increasingly unbearable. Patient presented to the ED on 06/05/20 for back pain and discharged to home. She has a new T9 compression fracture based on recent xrays. The pain clinic is away and planning for another vertebroplasty after holding coumadin. Meanwhile she has had difficulty taking care of herself therefore presented again to the ED and admitted for observation over the weekend. The patient lives at home alone but has assistance from friends and family. In the ED, the patient's vitals were stable. Routine labs were unremarkable. No focal neurologic findings to suggest myelopathy. Her back pain is fairly localized in the posterior back near the recent vertebroplasty site. There is no suspicious swelling or point tenderness present. No redness or warmth to suggest an infectious process. She says her pacemaker is not MRI compatible. She has been holding coumadin. 06/08 Stable pain overnight-discontinued dilaudid IV prn. PT/OT consulted, TLSO brace ordered. 06/09 Stable, discharged to SNF and pain clinic appointment for vertebroplasty rescheduled for a later date. Follow up Follow up with the pain clinic for possible vertebroplasty. Holding coumadin at discharge for possible vertebroplasty in the new future. If the a vertebroplasty is not recommended then consider resuming coumadin. Rehab at SNF for physical deconditioning. Pain control. Discharge diagnosis: T9 compression fracture Time Spent with Patient Time attestation: Total time spent providing and/or coordinating discharge services: 35 minutes EXAM Constitutional Vitals: Temp Pulse Resp BP Pulse Ox 97.8 F 72 20 162/81 94 06/09/20 06:30 06/09/20 06:30 06/09/20 06:30 06/09/20 06:30 06/09/20 06:30 Additional findings Additional findings: Head: Atraumatic, normal inspection. Eyes: normal appearance, no scleral icterus. Neck: full ROM Respiratory: no respiratory distress. Cardiovascular: normal rate and rhythm, S1, S2. GI/Abdominal: soft, nontender, no guarding. Extremities: full range of motion, nontender. Neurological: CN II-XII intact, intact motor, intact sensation. Psychiatric: normal mood. Skin: warm, normal color Discharge Plan Patient/Caregiver Discharge Instructions Activity: as per physical therapy Diet: Regular Diet Prescriptions: New acetaminophen 500 mg capsule 500 mg PO Q6HP PRN (Reason: Per Pain Protocol/Fever > 101) 30 Days RF: 0 sennosides [Senna Lax] 8.6 mg Tablet 2 tab PO HS Qty: 60 RF: 0 polyethylene glycol 3350 [Miralax] 17 gram Powder In Packet 17 gm PO HS Qty: 30 RF: 2 hydrocodone-acetaminophen 5-325 mg Tablet 1 tab PO Q4HP PRN (Reason: Per Pain Protocol) Qty: 10 RF: 0 fentanyl 12 mcg/hr Patch 72 Hour 12 mcg topical Q72H Qty: 5 RF: 0 Continued furosemide 40 MG tablet 40 mg PO DAILY PRN (Reason: Hypertension) RF: 0 potassium chloride 20 MEQ tablet 20 meq PO QAMCC RF: 0 amlodipine 5 MG tablet 5 mg PO HS RF: 0 aspirin 81 MG tablet,chewable 81 mg PO DAILY RF: 0 vitamin E 400 UNIT capsule 400 unit PO DAILY RF: 0 lidocaine 5 % adhesive patch,medicated 1 patch TOPICAL QDAY Qty: 15 RF: 0 famotidine [Pepcid] 40 mg Tablet 40 mg PO DAILY RF: 0 folic acid 1 mg Tablet 1 mg PO DAILY RF: 0 magnesium 1 tab PO DAILY RF: 0 Discontinued warfarin 5 mg tablet 2.5 mg PO DAILY RF: 0 hydrocodone-acetaminophen 10-325 mg tablet 1 tab PO Q6HP PRN (Reason: pain) Qty: 10 RF: 0 fentanyl 12 mcg/hr Patch 72 Hour 1 patch TRANSDERMAL Q72H RF: 0 Follow Up Plan Follow up with: Ezio Ghotra MD [Physician] - Andrea Foster MD [Primary Care Provider] - 06/17/20 2:00 pm (Tele-Health appointment. Tara from [employer] will assist with call) Patient Disposition: Xfer SNF Rehab Potential: Fair I certify that the patient requires SNF services: Yes Overall status at discharge: patient is not back to baseline Discharge Orders: Discharge Order (Routine); Ordered 06/09/20 Ordered By: Bartolome DE JESUS VTE Deep Vein Thrombosis/Pulmonary Embolism Present on Admission: No
[2020-06-09] MEDS: VITAMIN E (DL,TOCOPHERYL ACET) 400 UNIT CAPSULE PO SCH (11:41)
[2020-06-09] MEDS: FAMOTIDINE 20 MG TABLET PO SCH (13:05)
[2020-06-09] MEDS: FOLIC ACID 1 MG TABLET PO SCH (15:29)
[2020-06-09] MEDS: POTASSIUM CHLORIDE 20 MEQ TABLET PO SCH (15:29)
[2020-06-09] MEDS: DOCUSATE SODIUM 100 MG CAPSULE PO SCH (15:29)
[2020-06-09] MEDS: MAGNESIUM OXIDE 400 MG TABLET PO SCH (15:30)
== END 2020-06-09 16:55 ==
LOC: ED 14:32 → MEDSUR 14:32
PROVIDERS: ADMIT Internal Medicine; ATTEND Internal Medicine

== ENCOUNTER 2021-02-23 09:50 | Inpatient (IN) ==
[2021-02-23 10:19] LABS: POC Blood Urea Nitrogen 21 mg/dL (6-20); POC CO2 23 mmol/L (22-30); POC Calcium, Ionized 1.17 mmEq/L (1.16-1.32); POC Chloride 102 mEq/L (96-108); POC Creatinine 0.8 mg/dL (0.6-1.2); POC Glucose, Random 124 mg/dL (70-105); POC Hematocrit 24 % (36-48); POC Potassium 3.5 mEql/L (3.3-5.1); POC Sodium 139 mEq/L (133-145)
[2021-02-23] MEDS ORDERED: PANTOPRAZOLE 40 MG VIAL IV ONE (10:47)
--- NOTE | 2021-02-23 10:48 | Emergency Department Note ---
GI Bleed HPI General Chief complaint: Rectal Bleed Stated complaint: rectal bleeding since yesterday, weakness Time Seen by Provider: 02/23/21 10:09 Source: patient Mode of arrival: wheelchair Limitations: no limitations History of Present Illness HPI Narrative: Narrative: 80 yo F w/ h/o CAD, CVA, HTN, on coumadin after a stroke p/w GI bleeding. She reports that starting 2 days ago she had episodes of melanotic stool w/ bright red blood mixed in the bowl. She has had a few episodes since then. She reports that she has felt weak, but o/w no lightheadedness, no syncope. She continues to take her coumadin. She has never had any similar episodes, and recently had an endoscopy although the indication for that was unclear from her Hx. She called her assurance specialist Dr Chadwick, whose office staff referred her here to the ED. Related Data Home Medications Medication Instructions Recorded Confirmed potassium chloride 20 meq PO QAMCC 07/27/18 02/23/21 vitamin E 400 unit PO DAILY 06/20/19 02/23/21 folic acid 1 mg PO DAILY 02/16/20 02/23/21 magnesium 1 tab PO DAILY 02/16/20 02/23/21 warfarin 5 mg tablet 5 mg PO QDAY 07/15/20 02/23/21 polyethylene glycol 3350 [Miralax] 17 gm PO HS PRN 02/23/21 02/23/21 Previous Rx's Medication Instructions Recorded aspirin 81 mg PO DAILY tab.chew 04/26/19 hydrocodone-acetaminophen 1 tab PO Q4HP PRN #10 tab 06/09/20 sennosides [Senna Lax] 2 tab PO HS #60 tab 06/09/20 hydrocodone 10 mg-acetaminophen 1 tab PO QID #120 tab 12/25/20 325 mg tablet Allergies Allergy/AdvReac Type Severity Reaction Status Date / Time codeine AdvReac Mild Nausea Verified 02/23/21 09:52 Review of Systems ROS ROS Narrative: Narrative: All systems ED: reviewed and negative except as stated. PFSH Narrative Patient History Narrative: Narrative: Medical/Surgical/Family History All Active Problems (Updated 02/23/21 @ 17:03 by Nain Freed MD) Hematochezia (Acute) Acute lower gastrointestinal bleeding (Acute) Bleeding on Coumadin (Acute) Elevated INR (Acute) Anemia due to GI blood loss (Acute) Shortness of breath (Acute) Compression fracture (Acute) Back pain of thoracolumbar region (Acute) Compressed spine fracture (Acute) Compression fracture of T9 vertebra (Acute) Acute thoracic back pain (Acute) S/P vertebroplasty (Acute) longterm (current) use of opiate analgesic (Acute) Intractable back pain (Acute) Age-related osteoporosis with current pathological fracture, vertebra(e), initial encounter for fracture (Acute) Pain in thoracic spine (Acute) Supratherapeutic INR (Acute) Compression fracture (Acute) Hematochezia (Acute) Edema (Chronic) Chronic back pain (Chronic) Anemia (Chronic) Back pain (Chronic) Spondylosis without myelopathy or radiculopathy, 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, lumbar region (Chronic) Low back pain (Chronic) Chronic pain (Chronic) History of breast cancer (Chronic) Myofascial pain (Chronic) Osteoporosis (Chronic) GERD (gastroesophageal reflux disease) (Chronic) Subacromial bursitis (Chronic) Degenerative joint disease (DJD) of lumbar spine (Chronic) Lymphadenopathy (Chronic) Chronic back pain (Chronic) 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) Coronary artery disease (Chronic) 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 (CVA) (Chronic) TIA (transient ischemic attack) (Chronic) Anemia (Chronic) Middle cerebral artery aneurysm (Chronic) Mild dementia (Chronic) Hypertension (Chronic) History of valvular heart disease (Chronic) Medical History Acute coronary syndrome Age-related osteoporosis with current pathological fracture, vertebra(e), initial encounter for fracture Anemia Ascending cholangitis Cholecystitis Choledocholithiasis with acute cholecystitis with obstruction Cholelithiasis and acute cholecystitis without obstruction Chronic pain Closed right hip fracture Coronary artery disease Edema Elevated INR Exacerbation of chronic back pain Excessive anticoagulation GERD (gastroesophageal reflux disease) History of breast cancer History of valvular heart disease Hypertension 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 (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 Low back pain Lymphadenopathy Melena Middle cerebral artery aneurysm Mild dementia Myofascial pain Osteoporosis Pain in thoracic spine Rectal bleeding Subacromial bursitis TIA (transient ischemic attack) UTI (urinary tract infection) Surgical History History of laparoscopic cholecystectomy 07/29/2018-with intraoperative choleangiogram Family History Other No pertinent family history Social History Smoking Status: Former smoker Alcohol Intake Frequency: does not drink Substance Use: does not use (denies marijuana) Exam Narrative Narrative: Narrative: General Limitations: no limitations General appearance: Present alert and in no apparent distress Head Head: Present atraumatic and normocephalic ENT ENT: Present normal oropharynx and mucous membranes moist Chest Chest: Present normal inspection and symmetric chest wall rise Respiratory Respiratory: Present normal lung sounds bilaterally; Absent respiratory distress, rales/crackles, wheezes and stridor Cardiovascular Cardiovascular: Present regular rate, normal rhythm, +S1, +S2 and other (2+ B/L radial pulses); Absent systolic murmur and diastolic murmur Adbominal Abdominal: Present soft and normal bowel sounds; Absent distention and tenderness Extremities Extremities: Absent pedal edema Neurological Neurological: Present alert and oriented X3 Psychiatric Psychiatric: Present normal affect Skin Skin: Present warm (WNL) and dry Course Vital Signs Vital signs: Vital Signs Temperature 98.6 F 02/23/21 09:51 Pulse Rate 88 02/23/21 09:51 Respiratory Rate 16 02/23/21 09:51 Blood Pressure 130/62 02/23/21 09:51 Pulse Oximetry (%) 95 02/23/21 09:51 Temperature 97.8 F 02/23/21 16:23 Pulse Rate 67 02/23/21 14:44 Respiratory Rate 16 02/23/21 16:01 Blood Pressure 165/64 02/23/21 16:01 Pulse Oximetry (%) 95 02/23/21 16:01 [facility] MDM Narrative Medical decision making narrative: Narrative: 80 yo F w/ CAD, CVA, on coumadin p/w BRBPR. DDx - hemorrhagic shock, coagulopathy, upper GI bleed, lower GI bleed. Pt presented stable, in NAD. She had a negative shock index, reassuring vitals. Her exam was notable for melanotic stool, c/w her Hx. Her labs showed a hgb of 7.5, down from around 12 in November, along w/ a leukocytosis that was likely reactive. CMP showed a normal BUN and Cr, making UGIB less likely. Her INR was 3.3. Overall I felt that her GI bleed was likely 2/2 coumadin coagulopathy. I started her on protonix shortly after arrival. Once labs resulted, I called Dr Jennifer jj. We both agreed that the bleed was likely 2/2 coumadin and might not need endoscopy if it improves w/ coumadin reversal. The bleed was not life threatening and thus we both agreed w/ vitamin K IV. PCC was not required. He agreed to be available as needed through her hospital stay and would scope her if needed, and she was then accepted by the hospitalist. Lab Data Lab results reviewed: Yes I reviewed the patient's lab results. Result diagrams: 02/23/21 10:05 02/23/21 10:05 Labs: Lab Results 02/23/21 02/23/21 02/23/21 Range/Units 10:04 10:04 10:05 WBC 15.6 H (4.5-11.0) K/mcL RBC 2.57 L (3.59-5.38) M/mcL Hgb 7.5 L (11.2-15.7) g/dL Hct 23.2 L (34.1-44.9) % POC Hct 24 L (36-48) % MCV 90.3 (80.0-100.0) fL MCH 29.2 (26.0-34.0) pg MCHC 32.3 (31.0-36.0) g/dL RDW 15.2 H (11.5-14.5) % Plt Count 317 (140-440) K/mcL MPV 10.3 (7.4-10.4) fL Neut % (Auto) 78.5 H (38.0-78.0) % Lymph % (Auto) 12.1 L (15.5-49.0) % [place] % (Auto) 7.9 (1.0-12.0) % Eos % (Auto) 1.2 (0.0-7.0) % Baso % (Auto) 0.3 (0.0-2.0) % Lymph # (Auto) 1.89 (1.50-4.80) K/mcL [place] # (Auto) 1.24 H (0.10-0.90) K/mcL Eos # (Auto) 0.18 (0.00-0.70) K/mcL Baso # (Auto) 0.05 (0.00-0.30) K/mcL Absolute Neutrophils 12.26 H (1.80-8.00) K/mcL PT 35.2 H (11.9-14.5) sec INR 3.3 H (0.9-1.1) POC Sodium 139 (133-145) mEq/L Sodium (133-145) mmol/L POC Potassium 3.5 (3.3-5.1) mEql/L Potassium (3.3-5.1) mmol/L POC Chloride 102 (96-108) mEq/L Chloride (96-108) mmol/L Carbon Dioxide (22-30) mmol/L POC Total CO2 23 (22-30) mmol/L Anion Gap (8.0-16.0) POC BUN 21 H (6-20) mg/dL BUN (8-23) mg/dL Creatinine (0.6-1.1) mg/dL POC Creatinine 0.8 (0.6-1.2) mg/dL GFR Calculation Glucose (70-105) mg/dL POC Glucose 124 H (70-105) mg/dL Calcium (8.6-10.4) mg/dL POC WB Ioniz Calcium 1.17 (1.16-1.32) mmEq/L Total Bilirubin (0.1-1.0) mg/dL AST (<32) U/L ALT (<40) U/L Alkaline Phosphatase (39-117) U/L Total Protein (5.9-8.4) gm/dL Albumin (3.2-5.2) gm/dL Globulin (2.2-3.7) gm/dL Albumin/Globulin Ratio (1.0-2.3) 02/23/21 Range/Units 10:05 WBC (4.5-11.0) K/mcL RBC (3.59-5.38) M/mcL Hgb (11.2-15.7) g/dL Hct (34.1-44.9) % POC Hct (36-48) % MCV (80.0-100.0) fL MCH (26.0-34.0) pg MCHC (31.0-36.0) g/dL RDW (11.5-14.5) % Plt Count (140-440) K/mcL MPV (7.4-10.4) fL Neut % (Auto) (38.0-78.0) % Lymph % (Auto) (15.5-49.0) % [place] % (Auto) (1.0-12.0) % Eos % (Auto) (0.0-7.0) % Baso % (Auto) (0.0-2.0) % Lymph # (Auto) (1.50-4.80) K/mcL [place] # (Auto) (0.10-0.90) K/mcL Eos # (Auto) (0.00-0.70) K/mcL Baso # (Auto) (0.00-0.30) K/mcL Absolute Neutrophils (1.80-8.00) K/mcL PT (11.9-14.5) sec INR (0.9-1.1) POC Sodium (133-145) mEq/L Sodium 142 (133-145) mmol/L POC Potassium (3.3-5.1) mEql/L Potassium 3.6 (3.3-5.1) mmol/L POC Chloride (96-108) mEq/L Chloride 104 (96-108) mmol/L Carbon Dioxide 22 (22-30) mmol/L POC Total CO2 (22-30) mmol/L Anion Gap 16.0 (8.0-16.0) POC BUN (6-20) mg/dL BUN 21 (8-23) mg/dL Creatinine 0.8 (0.6-1.1) mg/dL POC Creatinine (0.6-1.2) mg/dL GFR Calculation 69 Glucose 126 H (70-105) mg/dL POC Glucose (70-105) mg/dL Calcium 8.6 (8.6-10.4) mg/dL POC WB Ioniz Calcium (1.16-1.32) mmEq/L Total Bilirubin 0.4 (0.1-1.0) mg/dL AST 13 (<32) U/L ALT 7 (<40) U/L Alkaline Phosphatase 75 (39-117) U/L Total Protein 6.3 (5.9-8.4) gm/dL Albumin 3.7 (3.2-5.2) gm/dL Globulin 2.6 (2.2-3.7) gm/dL Albumin/Globulin Ratio 1.4 (1.0-2.3) Discharge Plan Patient/Caregiver Discharge Instructions Pt seen by 3D TECHNOLOGIST/PA only: No Clinical Impression: Hematochezia, Acute lower gastrointestinal bleeding, Bleeding on Coumadin, Elevated INR Patient Disposition: Xfer As Inpt ([facility]) Condition: Fair Discharge Date/Time: 02/23/21 15:18
[2021-02-23 10:53] LABS: Basophils # (Auto) 0.05 K/mcL (0.00-0.30); Basophils % (Auto) 0.3 % (0.0-2.0); Eosinophils # (Auto) 0.18 K/mcL (0.00-0.70); Eosinophils % (Auto) 1.2 % (0.0-7.0); Hematocrit 23.2 % (34.1-44.9); Hemoglobin 7.5 g/dL (11.2-15.7); Lymphocytes # (Auto) 1.89 K/mcL (1.50-4.80); Lymphocytes % (Auto) 12.1 % (15.5-49.0); Mean Cell Volume 90.3 fL (80.0-100.0); Mean Corpuscular HGB Conc 32.3 g/dL (31.0-36.0); Mean Platelet Volume 10.3 fL (7.4-10.4); Monocytes # (Auto) 1.24 K/mcL (0.10-0.90); Monocytes % (Auto) 7.9 % (1.0-12.0); Neutrophils % (Auto) 78.5 % (38.0-78.0); Platelet Count 317 K/mcL (140-440); RBC 2.57 M/mcL (3.59-5.38); Red Cell Distribution Width 15.2 % (11.5-14.5); WBC 15.6 K/mcL (4.5-11.0)
[2021-02-23 11:15] LABS: ALT/SGPT 7 U/L (<40); AST/SGOT 13 U/L (<32); Albumin 3.7 gm/dL (3.2-5.2); Albumin/Globulin Ratio 1.4 (1.0-2.3); Alkaline Phosphatase 75 U/L (39-117); Bilirubin,Total 0.4 mg/dL (0.1-1.0); Blood Urea Nitrogen 21 mg/dL (8-23); Calcium 8.6 mg/dL (8.6-10.4); Carbon Dioxide 22 mmol/L (22-30); Chloride 104 mmol/L (96-108); Globulin 2.6 gm/dL (2.2-3.7); Glomerular Filtration Rate 69; Glucose 126 mg/dL (70-105)
[2021-02-23 11:17] LABS: INR 3.3 (0.9-1.1); Prothrombin Time 35.2 sec (11.9-14.5)
[2021-02-23] MEDS ORDERED: MVI, ADULT NO.4 WITH VIT K 10 ML in DEXTROSE 5% IN WATER 500 ML IV ONE (12:20)
[2021-02-23] MEDS ORDERED: PHYTONADIONE 10 MG in 0.9 % SODIUM CHLORIDE 50 ML IV ONE (12:48)
--- NOTE | 2021-02-23 13:41 | Internal Med History&Physical ---
HPI History of Present Illness Patient information: Note initiated : 02/23/21 at 1:34 pm Service Date, if different from initiated Date: [] Patient: Xochilt Pat a 80 y/o F admitted on for rectal bleeding since yesterday, weakness. Chief Complaint: [GI bleeding] History of present illness: Ms. Pat is a 80 year old F history of CAD, status post cardiac pacemaker placement, ischemic stroke with left-sided hemiplegia, sent with 2-day history of black and bloody stool as well as general body weakness. She had a prior history of GI bleeding 2 to 3 years ago. She have had a colonoscopy a month ago by her GI doctor Dr. Hamilton, which the result was unremarkable but did not. Patient had 2 episode of bloody and black stool yesterday evening as well as earlier this morning, associated with general body weakness. Patient also have chronic cramping abdominal pain. Patient denies any chest pain, palpitations, or shortness of breath. Patient is on Coumadin therapy and she takes Coumadin as directed. Due to her symptoms, she presented to our ED for further evaluations. Vital signs significant for soft blood pressure 90s over 80s mmHg. Labs significant for hemoglobin level of 7.5 with a baseline of 12.23 months ago. Her WBC was 15.6 with a baseline of 16.73 months ago. INR level 3.3. Constitutional Constitutional: Present weakness; Absent chills, excessive sweating, fatigue and fever(s) EENT Eyes: Absent blurry vision, change in vision, loss of vision and other visual disturbances Ears: Absent decreased hearing and tinnitus Nose, mouth and throat: Absent abnormal hearing, dry mouth, headache(s), nasal congestion and sore throat Cardiovascular Cardiovascular: Absent chest pain, chest pain at rest, edema, irregular heart rhythm and palpatations Respiratory Respiratory: Absent cough, dyspnea and wheezing Gastrointestinal Gastrointestinal: Present abdominal pain, hematochezia and melena; Absent c onstipation, diarrhea, nausea and vomiting Musculoskeletal Musculoskeletal: Absent back pain, deformity, limited range of motion, muscle cramps, muscle weakness and numbness Integumentary Integumentary: Absent lesions, rash and wounds Neurological Neurological: Absent focal weakness, headache(s) and numbness Psychiatric Psychiatric: Absent anxiety, depression and hallucinations PFSH PFSH All Active Problems (Updated 02/23/21 @ 13:40 by Buddy Meng MD) Anemia due to GI blood loss (Acute) Shortness of breath (Acute) Compression fracture (Acute) Back pain of thoracolumbar region (Acute) Compressed spine fracture (Acute) Compression fracture of T9 vertebra (Acute) Acute thoracic back pain (Acute) S/P vertebroplasty (Acute) [facility] (current) use of opiate analgesic (Acute) Intractable back pain (Acute) Age-related osteoporosis with current pathological fracture, vertebra(e), initial encounter for fracture (Acute) Pain in thoracic spine (Acute) Supratherapeutic INR (Acute) Compression fracture (Acute) Hematochezia (Acute) Edema (Chronic) Chronic back pain (Chronic) Anemia (Chronic) Back pain (Chronic) Spondylosis without myelopathy or radiculopathy, 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, lumbar region (Chronic) Low back pain (Chronic) Chronic pain (Chronic) History of breast cancer (Chronic) Myofascial pain (Chronic) Osteoporosis (Chronic) GERD (gastroesophageal reflux disease) (Chronic) Subacromial bursitis (Chronic) Degenerative joint disease (DJD) of lumbar spine (Chronic) Lymphadenopathy (Chronic) Chronic back pain (Chronic) Strain of right trapezius muscle (Chronic) [facility] current use of anticoagulant therapy (Chronic) Coronary artery disease (Chronic) 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 (CVA) (Chronic) TIA (transient ischemic attack) (Chronic) Anemia (Chronic) Middle cerebral artery aneurysm (Chronic) Mild dementia (Chronic) Hypertension (Chronic) History of valvular heart disease (Chronic) Medical History Acute coronary syndrome Age-related osteoporosis with current pathological fracture, vertebra(e), initial encounter for fracture Anemia Ascending cholangitis Cholecystitis Choledocholithiasis with acute cholecystitis with obstruction Cholelithiasis and acute cholecystitis without obstruction Chronic pain Closed right hip fracture Coronary artery disease Edema Elevated INR Exacerbation of chronic back pain Excessive anticoagulation GERD (gastroesophageal reflux disease) History of breast cancer History of valvular heart disease Hypertension 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 (CVA) [facility] current use of anticoagulant therapy Low back pain Lymphadenopathy Melena Middle cerebral artery aneurysm Mild dementia Myofascial pain Osteoporosis Pain in thoracic spine Rectal bleeding Subacromial bursitis TIA (transient ischemic attack) UTI (urinary tract infection) Surgical History History of laparoscopic cholecystectomy 07/29/2018-with intraoperative choleangiogram Family History Other No pertinent family history Social History alcohol intake frequency: does not drink substance use type: does not use (denies marijuana) MEDS/ALLERGIES Home Medications and Allergies Home Medications Medication Instructions Recorded Confirmed Type furosemide 40 mg PO DAILY PRN 07/27/18 02/16/21 History potassium chloride 20 meq PO QAMCC 07/27/18 02/16/21 History amlodipine 5 mg PO HS 07/28/18 02/16/21 History aspirin 81 mg PO DAILY tab.chew 04/26/19 02/16/21 Rx vitamin E 400 unit PO DAILY 06/20/19 02/16/21 History lidocaine 1 patch TOPICAL QDAY #15 each 02/14/20 02/16/21 Rx famotidine [Pepcid] 40 mg PO DAILY 02/16/20 02/16/21 History folic acid 1 mg PO DAILY 02/16/20 02/16/21 History magnesium 1 tab PO DAILY 02/16/20 02/16/21 History fentanyl 12 mcg TOPICAL Q72H #5 ea 06/09/20 02/16/21 Rx hydrocodone-acetaminophen 1 tab PO Q4HP PRN #10 tab 06/09/20 02/16/21 Rx polyethylene glycol 3350 [Miralax] 17 gm PO HS #30 ea 06/09/20 02/16/21 Rx sennosides [Senna Lax] 2 tab PO HS #60 tab 06/09/20 02/16/21 Rx ondansetron HCl 4 mg tablet 4 mg PO Q6H 07/15/20 02/16/21 History phytonadione (vitamin K1) 10 mg/mL 10 mg IM ONCE #1 ml 07/15/20 02/16/21 Rx injection solution warfarin 5 mg tablet 5 mg PO Q OTHER DAY 07/15/20 02/16/21 History calcitonin (salmon) 200 1 spray INTRANASAL (ALT) QDAY #3.7 10/14/20 02/16/21 Rx unit/actuation nasal spray ml MDD One spray per nare daily. ciprofloxacin HCl 250 mg tablet 250 mg PO BID #10 tab 11/21/20 02/16/21 Rx sulfamethoxazole 800 1 tab PO BID #14 tab 11/21/20 02/16/21 Rx mg-trimethoprim 160 mg tablet hydrocodone 10 mg-acetaminophen 1 tab PO QID #120 tab 12/25/20 02/16/21 Rx 325 mg tablet Allergies Allergy/AdvReac Type Severity Reaction Status Date / Time codeine AdvReac Mild Nausea Verified 02/23/21 09:52 EXAM Constitutional Vitals: Temp Pulse Resp BP Pulse Ox 37.0 C 75 16 99/87 99 02/23/21 09:51 02/23/21 13:01 02/23/21 09:51 02/23/21 13:01 02/23/21 13:01 General appearance: cooperative and no acute distress Head Head exam: Present atraumatic and normocephalic Eye Eye exam: Present EOMI and PERRL ENT ENT exam: Present mucous membranes moist, normal exam and normal external ear exam Neck Neck exam: Present normal inspection; Absent lymphadenopathy, tenderness and thyromegaly Respiratory Respiratory exam: Absent accessory muscle use, respiratory distress and wheezes Cardiovascular Cardiovascular exam: Present normal rate and rhythm; Absent JVD Additional comments: PACEMAKER IN PLACE GI/Abdominal GI/Abdominal exam: Present normal bowel sounds and soft; Absent organomegaly and tenderness Rectal Rectal exam: Present black stool and heme (+) stool Extremities Exam Extremities exam: Present full ROM, normal capillary refill and normal inspection; Absent tenderness Neurological Exam Neurological exam: Present alert, CN II-XII intact and oriented X3; Absent motor sensory deficit Psychiatric Psychiatric exam: Present normal affect and normal mood; Absent anxious and depressed Skin Skin exam: Present dry and intact DATA Data Completed and Pending Labs: Labs from last 24 hours 02/23/21 02/23/21 02/23/21 10:05 10:05 10:04 WBC 15.6 H RBC 2.57 L Hgb 7.5 L Hct 23.2 L POC Hct 24 L MCV 90.3 MCH 29.2 MCHC 32.3 RDW 15.2 H Plt Count 317 MPV 10.3 Neut % (Auto) 78.5 H Lymph % (Auto) 12.1 L [place] % (Auto) 7.9 Eos % (Auto) 1.2 Baso % (Auto) 0.3 Lymph # (Auto) 1.89 [place] # (Auto) 1.24 H Eos # (Auto) 0.18 Baso # (Auto) 0.05 Absolute Neutrophils 12.26 H PT INR POC Sodium 139 Sodium 142 POC Potassium 3.5 Potassium 3.6 POC Chloride 102 Chloride 104 Carbon Dioxide 22 POC Total CO2 23 Anion Gap 16.0 POC BUN 21 H BUN 21 Creatinine 0.8 POC Creatinine 0.8 GFR Calculation 69 Glucose 126 H POC Glucose 124 H Calcium 8.6 POC WB Ioniz Calcium 1.17 Total Bilirubin 0.4 AST 13 ALT 7 Alkaline Phosphatase 75 Total Protein 6.3 Albumin 3.7 Globulin 2.6 Albumin/Globulin Ratio 1.4 02/23/21 10:04 WBC RBC Hgb Hct POC Hct MCV MCH MCHC RDW Plt Count MPV Neut % (Auto) Lymph % (Auto) [place] % (Auto) Eos % (Auto) Baso % (Auto) Lymph # (Auto) [place] # (Auto) Eos # (Auto) Baso # (Auto) Absolute Neutrophils PT 35.2 H INR 3.3 H POC Sodium Sodium POC Potassium Potassium POC Chloride Chloride Carbon Dioxide POC Total CO2 Anion Gap POC BUN BUN Creatinine POC Creatinine GFR Calculation Glucose POC Glucose Calcium POC WB Ioniz Calcium Total Bilirubin AST ALT Alkaline Phosphatase Total Protein Albumin Globulin Albumin/Globulin Ratio A/P Assessment and plan (1) 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 (CVA): Status: Chronic (2) Anemia due to GI blood loss: Status: Acute (3) Hypertension: Status: Chronic (4) Coronary artery disease: Status: Chronic (5) [facility] current use of anticoagulant therapy: Status: 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 Anemia associated with GI bleeding: DDx: Coumadin overdose, vs gastritis/gastric ulcer, vs internal hemorrhoid Admit to inpatient PCU with telemetry Spoke with GI Dr. Hamilton, recs. no scoping at this time; instead, will focus on Coumadin reversal therapy Clear liquid diet s/p Vitamin K 10mg once given in the ED Hold ASA and Coumadin Continue Pepcid from home regimen 2 unit pRBC transfusion Daily cbc w/ auto diff Daily PT INR 2. h/o Stroke with left hemiparesis: Atorvastatin Hold ASA/Coumadin for now given active GI bleeding 3. Chronic lower back pain: Continue Lidocaine patch, Fentanyl patch, and [place] from home pain regimen 4. h/o essential HTN: Hold oral antihypertensives for now given soft blood pressure; resumes once blood pressures normalizes 5. h/o CAD, s/p cardiac pacemaker placement: Hold ASA/Coumadin for now given active GI bleeding Atorvastatin 6. h/o GERD: Continue Pepcid from home regimen GI ppx: Continue Pepcid from home regimen DVT ppx: SCDs Code status: Full Prognosis: Guarded Disposition: inpatient PCU Time Spent With Patient Time: Total time spent is greater than 50% in coordination of care (as documented) at patient's floor/unit and/or counseling patient: Total time spent with greater than 50% in coordination of care (as documented) at patient's floor/unit and/or counseling patient:: Greater than 35 minutes
[2021-02-23] MEDS ORDERED: SENNOSIDES 1 TABLET PO PRN (15:17)
[2021-02-23] MEDS ORDERED: PHYTONADIONE 10 MG/ML AMPUL IM SCH (15:17)
[2021-02-23] MEDS ORDERED: HYDROcodone/APAP (PP) 5/325MG TABLET (#4) PO PRN (15:17)
[2021-02-23] MEDS ORDERED: IPRATROPIUM/ALBUTEROL 3 ML AMPUL.NEB NEB PRN (15:17)
[2021-02-23] MEDS ORDERED: LACTULOSE 20 GM/30 ML ORAL.SOL PO PRN (15:17)
[2021-02-23] MEDS ORDERED: ACETAMINOPHEN 325 MG TABLET PO PRN (15:17)
[2021-02-23] MEDS ORDERED: 0.9 % SODIUM CHLORIDE 250 ML IV SCH (15:17)
[2021-02-23] MEDS: HYDROcodone/APAP 10/325MG TABLET PO PRN ×2 (15:36→22:16)
[2021-02-23] MEDS: 0.9 % SODIUM CHLORIDE 10 ML SYRINGE IV SCH ×2 (15:37→20:59)
[2021-02-23] MEDS ORDERED: fentaNYL 12 MCG PATCH TOPICAL SCH (16:00)
[2021-02-23] MEDS: DOCUSATE SODIUM 100 MG CAPSULE PO SCH (20:57)
[2021-02-23] MEDS: SENNOSIDES 1 TABLET PO SCH (20:59)
[2021-02-23] MEDS: POLYETHYLENE GLYCOL 3350 17 GM PACKET PO SCH (20:59)
[2021-02-24] MEDS: 0.9 % SODIUM CHLORIDE 10 ML SYRINGE IV SCH ×2 (05:36→14:10)
[2021-02-24 06:37] LABS: Basophils # (Auto) 0.06 K/mcL (0.00-0.30); Basophils % (Auto) 0.5 % (0.0-2.0); Eosinophils # (Auto) 0.31 K/mcL (0.00-0.70); Eosinophils % (Auto) 2.7 % (0.0-7.0); Hematocrit 31.3 % (34.1-44.9); Hemoglobin 10.4 g/dL (11.2-15.7); Lymphocytes # (Auto) 2.79 K/mcL (1.50-4.80); Lymphocytes % (Auto) 24.6 % (15.5-49.0); Mean Cell Volume 89.7 fL (80.0-100.0); Mean Corpuscular HGB Conc 33.2 g/dL (31.0-36.0); Mean Platelet Volume 10.2 fL (7.4-10.4); Monocytes # (Auto) 1.26 K/mcL (0.10-0.90); Monocytes % (Auto) 11.1 % (1.0-12.0); Neutrophils % (Auto) 61.1 % (38.0-78.0); Platelet Count 280 K/mcL (140-440); RBC 3.49 M/mcL (3.59-5.38); Red Cell Distribution Width 14.6 % (11.5-14.5); WBC 11.4 K/mcL (4.5-11.0)
[2021-02-24 07:06] LABS: ALT/SGPT 7 U/L (<40); AST/SGOT 15 U/L (<32); Albumin 3.8 gm/dL (3.2-5.2); Albumin/Globulin Ratio 1.5 (1.0-2.3); Alkaline Phosphatase 68 U/L (39-117); Bilirubin,Total 0.9 mg/dL (0.1-1.0); Blood Urea Nitrogen 18 mg/dL (8-23); Calcium 8.8 mg/dL (8.6-10.4); Carbon Dioxide 24 mmol/L (22-30); Chloride 103 mmol/L (96-108); Globulin 2.5 gm/dL (2.2-3.7); Glomerular Filtration Rate 81; Glucose 90 mg/dL (70-105)
[2021-02-24 07:23] LABS: INR 1.3 (0.9-1.1); Prothrombin Time 16.3 sec (11.9-14.5)
[2021-02-24] MEDS: HYDROcodone/APAP 10/325MG TABLET PO PRN ×3 (08:18→22:03)
[2021-02-24] MEDS: DOCUSATE SODIUM 100 MG CAPSULE PO SCH (08:42)
[2021-02-24] MEDS: ATORVASTATIN 40 MG TABLET PO SCH (09:13)
[2021-02-24] MEDS: VITAMIN E (DL,TOCOPHERYL ACET) 400 UNIT CAPSULE PO SCH (09:13)
[2021-02-24] MEDS: POTASSIUM CHLORIDE 20 MEQ TABLET PO SCH ×2 (09:13→12:24)
[2021-02-24] MEDS: FOLIC ACID 1 MG TABLET PO SCH (09:13)
[2021-02-24] MEDS: FAMOTIDINE 20 MG TABLET PO SCH (09:13)
[2021-02-24] MEDS: LIDOCAINE PATCH TOPICAL SCH (09:15)
[2021-02-24] MEDS: MAGNESIUM OXIDE 400 MG TABLET PO SCH (09:15)
[2021-02-24] MEDS: CALCITONIN NASAL SPRAY 3.7ML BOTTLE NS SCH (09:39)
[2021-02-24] MEDS ORDERED: POLYETHYLENE GLYCOL 3350 17 GM PACKET PO PRN (10:50)
--- NOTE | 2021-02-24 10:57 | Internal Med Progress Note ---
SUBJECTIVE Subjective Patient information: Note initiated : 02/24/21 at 10:51 am Service Date, if different from initiated Date: [] Patient: Xochilt Pat 80 y/o F admitted on 02/23/21 for rectal bleeding since yesterday, weakness. Chief Complaint: [GI bleeding] Interval history: History of present illness: Ms. Pat is a 80 year old F history of CAD, status post cardiac pacemaker placement, ischemic stroke with left-sided hemiplegia, sent with 2-day history of black and bloody stool as well as general body weakness. She had a prior history of GI bleeding 2 to 3 years ago. She have had a colonoscopy a month ago by her GI doctor Dr. Hamilton, which the result was unremarkable but did not. Patient had 2 episode of bloody and black stool yesterday evening as well as earlier this morning, associated with general body weakness. Patient also have chronic cramping abdominal pain. Patient denies any chest pain, palpitations, or shortness of breath. Patient is on Coumadin therapy and she takes Coumadin as directed. Due to her symptoms, she presented to our ED for further evaluations. Vital signs significant for soft blood pressure 90s over 80s mmHg. Labs significant for hemoglobin level of 7.5 with a baseline of 12.23 months ago. Her WBC was 15.6 with a baseline of 16.73 months ago. INR level 3.3. 02/24: s/p 2 unit pRBC transfusion. Hemoglobin 7.5-->10.4. INR 3.3-->1.3. Several more episodes of bloody stool. No hematemesis. No abdominal pain. No chest pain. Improving general body weakness. No lightheadedness or dizziness. Constitutional Vitals: Vital Signs Temp Pulse Resp BP Pulse Ox 36.6 C 74 17 140/67 96 02/24/21 08:01 02/23/21 20:00 02/24/21 08:01 02/24/21 08:01 02/24/21 08:01 Period Temp Pulse Resp BP Sys/Hernandez Pulse Ox Last 24 Hr 36.3 C-37.1 C 67-83 14-23 99-170/43-139 91-99 Intake and Output 02/23/21 02/24/21 02/24/21 21:59 05:59 13:59 Intake Total 1581 Output Total 675 126 50 Balance 906 -126 -50 Weight 56.245 kg Intake & Output: Intake & Output 02/23/21 02/24/21 02/24/21 21:59 05:59 13:59 Intake Total 1581 Output Total 675 126 50 Balance 906 -126 -50 Weight 56.245 kg Intake: IV 51 [place] 10 mg In Sodium 51 Chloride 0.9% 50 ml @ 50 mls/hr IV ONCE ONE Rx#:[id number] Oral 880 Blood Product 650 Output: Void Amount 675 125 50 # of times incontinent of urine 1 Other: Meal Dinner Percent of Meal Consumed 100% Urine Appearance Cloudy Clear Urine Color Bright Yellow Straw Urine Odor Ammonia Stool Size Moderate Small Stool Color Dark Red Blood Black Stool Consistency Loose Soft # Voids 1 # Bowel Movements 1 General appearance: cooperative and no acute distress Head Head exam: Present atraumatic and normocephalic Eye Eye exam: Present EOMI and PERRL ENT ENT exam: Present mucous membranes moist, normal exam and normal external ear exam Neck Neck exam: Present normal inspection; Absent lymphadenopathy, tenderness and thyromegaly Respiratory Respiratory exam: Absent accessory muscle use, respiratory distress and wheezes Cardiovascular Cardiovascular exam: Present normal rate and rhythm; Absent JVD GI/Abdominal GI/Abdominal exam: Present normal bowel sounds and soft; Absent organomegaly and tenderness Additional comments: vaginal prolapse Extremities Exam Extremities exam: Present full ROM, normal capillary refill and normal inspection; Absent tenderness Neurological Exam Neurological exam: Present alert, CN II-XII intact and oriented X3; Absent motor sensory deficit Psychiatric Psychiatric exam: Present normal affect and normal mood; Absent anxious and depressed Skin Skin exam: Present dry and intact OBJ DATA Labs CBC & Chem 7: 02/24/21 05:16 02/24/21 05:16 Labs: Abnormal Lab Results 02/24/21 02/24/21 02/23/21 05:16 05:16 10:05 WBC 11.4 H RBC 3.49 L Hgb 10.4 L Hct 31.3 L POC Hct RDW 14.6 H Neut % (Auto) Lymph % (Auto) [place] # (Auto) 1.26 H Absolute Neutrophils PT 16.3 H INR 1.3 H POC BUN Glucose 126 H POC Glucose 02/23/21 02/23/21 02/23/21 10:05 10:04 10:04 WBC 15.6 H RBC 2.57 L Hgb 7.5 L Hct 23.2 L POC Hct 24 L RDW 15.2 H Neut % (Auto) 78.5 H Lymph % (Auto) 12.1 L [place] # (Auto) 1.24 H Absolute Neutrophils 12.26 H PT 35.2 H INR 3.3 H POC BUN 21 H Glucose POC Glucose 124 H Meds: Medications Acetaminophen (Acetaminophen 325 Mg Tablet) 650 mg PO Q6HP PRN; Protocol PRN Reason: Per Pain Protocol/Fever > 101 Hydrocodone Bitart/Acetaminophen (Hydrocodone/Apap 10/325mg Tablet) 1 tab PO QIDP PRN; Protocol PRN Reason: Pain Last Admin: 02/24/21 08:18 Dose: 1 tab Documented by: Albuterol/Ipratropium (Ipratropium/Albuterol 3 Ml Ampul.Neb) 3 ml NEB Q4HRT PRN PRN Reason: Wheezing Amlodipine Besylate (Amlodipine 5 Mg Tablet) 5 mg PO DAILY [facility] Atorvastatin Calcium (Atorvastatin 40 Mg Tablet) 40 mg PO DAILY [facility] Last Admin: 02/24/21 09:13 Dose: 40 mg Documented by: Calcitonin [place] (Calcitonin Nasal [place] 3.7ml Bottle) 1 spray NS DAILY [facility] Last Admin: 02/24/21 09:39 Dose: Not Given Documented by: Docusate Sodium (Docusate Sodium 100 Mg Capsule) 100 mg PO BID [facility] Last Admin: 02/24/21 08:42 Dose: Not Given Documented by: Famotidine (Famotidine 20 Mg Tablet) 40 mg PO DAILY [facility] Last Admin: 02/24/21 09:13 Dose: 40 mg Documented by: Fentanyl (Fentanyl 12 Mcg Patch) 12 mcg TOPICAL Q72H [facility] Last Admin: 02/23/21 15:31 Dose: 12 mcg Documented by: Folic Acid (Folic Acid 1 Mg Tablet) 1 mg PO DAILY [facility] Last Admin: 02/24/21 09:13 Dose: 1 mg Documented by: Lactulose (Lactulose 20 Gm/30 Ml Oral.Caity) 10 gm PO DAILYP PRN PRN Reason: Constipation Lidocaine (Lidocaine Patch) 1 patch TOPICAL QDAY [facility] Last Admin: 02/24/21 09:15 Dose: 1 patch Documented by: Magnesium Oxide (Magnesium Oxide 400 Mg Tablet) 400 mg PO DAILY [facility] Last Admin: 11/09/21 09:15 Dose: 400 mg Documented by: Ondansetron HCl (Ondansetron 4 Mg/2 Ml Vial) 4 mg IV Q4HP PRN; Protocol PRN Reason: Nausea And Vomiting Polyethylene Glycol (Polyethylene Glycol 3350 17 Gm Packet) 17 gm PO HS [facility] Last Admin: 02/23/21 20:59 Dose: Not Given Documented by: Polyethylene Glycol (Polyethylene Glycol 3350 17 Gm Packet) 17 gm PO HS PRN PRN Reason: Constipation Potassium Chloride (Potassium Chloride 20 Meq Tablet) [facility] Senna (Sennosides 1 Tablet) 2 tab PO [facility] Last Admin: 02/23/21 20:59 Dose: Not Given Documented by: Sodium Chloride (0.9 % Sodium Chloride 10 Ml Syringe) 10 ml IV Q8 [facility] Last Admin: 02/24/21 05:36 Dose: 10 ml Documented by: Vitamin E (Vitamin E (Dl,Tocopheryl Acet) 400 Unit Capsule) 400 unit PO DAILY [facility] Last Admin: 02/24/21 09:13 Dose: 400 unit Documented by: A/P Assessment and plan (1) 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 (CVA): Status: Chronic (2) Anemia due to GI blood loss: Status: Acute (3) Hypertension: Status: Chronic (4) Coronary artery disease: Status: Chronic (5) [facility] current use of anticoagulant therapy: Status: 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 Anemia associated with GI bleeding: DDx: Coumadin overdose, vs gastritis/gastric ulcer, vs internal hemorrhoid Stays in inpatient PCU with telemetry Spoke with GI Dr. Hamilton, recs. no scoping at this time; instead, will focus on Coumadin reversal therapy Consult Dr. Li for potential scoping, recs. appreciated Clear liquid diet s/p Vitamin K 10mg once given in the ED Hold ASA and Coumadin Continue Pepcid from home regimen s/p 2 unit pRBC transfusion, hemoglobin 7.5-->10.4 Daily cbc w/ auto diff Daily PT INR, INR 3.3-->1.3 2. h/o Stroke with left hemiparesis: Atorvastatin Hold ASA/Coumadin for now given active GI bleeding 3. Chronic lower back pain: Continue Lidocaine patch, Fentanyl patch, and [place] from home pain regimen 4. h/o essential HTN: Amlodipine 5mg PO daily 5. h/o CAD, s/p cardiac pacemaker placement: Hold ASA/Coumadin for now given active GI bleeding Atorvastatin 6. h/o GERD: Continue Pepcid from home regimen GI ppx: Continue Pepcid from home regimen DVT ppx: SCDs Code status: Full Prognosis: Guarded Disposition: inpatient PCU Time Spent With Patient Time: Total time spent is greater than 50% in coordination of care (as documented) at patient's floor/unit and/or counseling patient: QUALITY VTE Deep Vein Thrombosis/Pulmonary Embolism Present on Admission: No
[2021-02-24] MEDS: POTASSIUM CHLORIDE 20 MEQ PACKET PO SCH (13:02)
[2021-02-24] MEDS ORDERED: METOPROLOL TARTRATE 5 MG/5 ML VIAL IV PRN (13:08)
[2021-02-24] MEDS: OXYBUTYNIN CHLORIDE 5 MG TAB.XL.24H PO SCH (13:18)
[2021-02-24] MEDS: amLODIPine 5 MG TABLET PO SCH (13:18)
[2021-02-24] MEDS: ONDANSETRON 4 MG/2 ML VIAL IV PRN (14:02)
[2021-02-24 15:33] LABS: Hematocrit 32.9 % (34.1-44.9); Hemoglobin 10.8 g/dL (11.2-15.7)
[2021-02-24] MEDS ORDERED: hydrALAZINE 20 MG/ML VIAL IV PRN (16:09)
[2021-02-25] MEDS: SENNOSIDES 1 TABLET PO SCH ×2 (00:15→21:22)
[2021-02-25] MEDS: POLYETHYLENE GLYCOL 3350 17 GM PACKET PO SCH ×2 (00:15→21:22)
[2021-02-25] MEDS: DOCUSATE SODIUM 100 MG CAPSULE PO SCH ×3 (00:15→21:21)
[2021-02-25] MEDS: 0.9 % SODIUM CHLORIDE 10 ML SYRINGE IV SCH ×4 (00:16→21:31)
[2021-02-25] MEDS: POTASSIUM CHLORIDE 20 MEQ TABLET PO SCH (06:50)
[2021-02-25 06:55] LABS: Basophils # (Auto) 0.04 K/mcL (0.00-0.30); Basophils % (Auto) 0.4 % (0.0-2.0); Eosinophils # (Auto) 0.09 K/mcL (0.00-0.70); Eosinophils % (Auto) 0.8 % (0.0-7.0); Hematocrit 27.1 % (34.1-44.9); Hemoglobin 8.8 g/dL (11.2-15.7); Lymphocytes # (Auto) 1.38 K/mcL (1.50-4.80); Mean Cell Volume 89.1 fL (80.0-100.0); Mean Corpuscular HGB Conc 32.5 g/dL (31.0-36.0); Mean Platelet Volume 10.4 fL (7.4-10.4); Monocytes # (Auto) 1.04 K/mcL (0.10-0.90); Monocytes % (Auto) 9.8 % (1.0-12.0); Platelet Count 271 K/mcL (140-440); RBC 3.04 M/mcL (3.59-5.38); Red Cell Distribution Width 14.7 % (11.5-14.5); WBC 10.7 K/mcL (4.5-11.0)
[2021-02-25 07:10] LABS: INR 1.2 (0.9-1.1); Prothrombin Time 16.1 sec (11.9-14.5)
[2021-02-25 07:16] LABS: ALT/SGPT 6 U/L (<40); AST/SGOT 15 U/L (<32); Albumin 3.3 gm/dL (3.2-5.2); Albumin/Globulin Ratio 1.4 (1.0-2.3); Alkaline Phosphatase 66 U/L (39-117); Bilirubin,Total 0.7 mg/dL (0.1-1.0); Blood Urea Nitrogen 13 mg/dL (8-23); Calcium 8.6 mg/dL (8.6-10.4); Carbon Dioxide 22 mmol/L (22-30); Chloride 104 mmol/L (96-108); Globulin 2.3 gm/dL (2.2-3.7); Glomerular Filtration Rate 85; Glucose 104 mg/dL (70-105)
[2021-02-25] MEDS: ONDANSETRON 4 MG/2 ML VIAL IV PRN ×2 (07:52→12:33)
[2021-02-25] MEDS ORDERED: PEG 3350/NA SULF,BICARB,CL/KCL 4,000 ML ORAL.SOL PO ONE (08:00)
[2021-02-25] MEDS ORDERED: POLYETHYLENE GLYCOL 3350 17 GM PACKET PO ONE (08:02)
[2021-02-25] MEDS: OXYBUTYNIN CHLORIDE 5 MG TAB.XL.24H PO SCH (08:51)
[2021-02-25] MEDS: amLODIPine 5 MG TABLET PO SCH (08:51)
[2021-02-25] MEDS: POTASSIUM CHLORIDE 20 MEQ PACKET PO SCH (08:51)
[2021-02-25] MEDS: LIDOCAINE PATCH TOPICAL SCH (08:51)
--- NOTE | 2021-02-25 08:57 | Internal Med Progress Note ---
SUBJECTIVE Subjective Patient information: Note initiated : 02/25/21 at 8:55 am Service Date, if different from initiated Date: [] Patient: Xochilt Pat a 80 y/o F admitted on 02/23/21 for rectal bleeding since yesterday, weakness. Chief Complaint: [GI bleeding] Interval history: History of present illness: Ms. Pat is a 80 year old F history of CAD, status post cardiac pacemaker placement, ischemic stroke with left-sided hemiplegia, sent with 2-day history of black and bloody stool as well as general body weakness. She had a prior history of GI bleeding 2 to 3 years ago. She have had a colonoscopy a month ago by her GI doctor Dr. Hamilton, which the result was unremarkable but did not. Patient had 2 episode of bloody and black stool yesterday evening as well as earlier this morning, associated with general body weakness. Patient also have chronic cramping abdominal pain. Patient denies any chest pain, palpitations, or shortness of breath. Patient is on Coumadin therapy and she takes Coumadin as directed. Due to her symptoms, she presented to our ED for further evaluations. Vital signs significant for soft blood pressure 90s over 80s mmHg. Labs significant for hemoglobin level of 7.5 with a baseline of 12.23 months ago. Her WBC was 15.6 with a baseline of 16.73 months ago. INR level 3.3. 02/24: s/p 2 unit pRBC transfusion. Hemoglobin 7.5-->10.4. INR 3.3-->1.3. Several more episodes of bloody stool. No hematemesis. No abdominal pain. No chest pain. Improving general body weakness. No lightheadedness or dizziness. 02/25: Hemoglobin 10.8-->8.8. No hematemesis or black/bloody stool. Denies abdominal pain. Denies nausea or vomiting. No chest pain. Improving general body weakness. No lightheadedness or dizziness. Constitutional Vitals: Vital Signs Temp Pulse Resp BP Pulse Ox 36.9 C 74 19 146/55 97 02/25/21 08:01 02/23/21 20:00 02/25/21 08:01 02/25/21 08:01 02/25/21 08:01 Period Temp Pulse Resp BP Sys/Hernandez Pulse Ox Last 24 Hr 36.2 C-37.0 C 14-27 86-189/36-163 93-98 Intake and Output 02/24/21 02/25/21 02/25/21 21:59 05:59 13:59 Intake Total 1140 Output Total 150 251 Balance 990 -251 Weight 54.148 kg Intake & Output: Intake & Output 02/24/21 02/25/21 02/25/21 21:59 05:59 13:59 Intake Total 1140 Output Total 150 251 Balance 990 -251 Weight 54.148 kg Intake: IV 0 Sodium Chloride 0.9% 250 ml @ 0 20 mls/hr IV .[id number] PENINE Rx#: [id number] Oral 1140 Output: Void Amount 150 250 # of times incontinent of urine 1 Other: Meal Dinner Percent of Meal Consumed 100% Urine Appearance Clear Clear Urine Color Bright Yellow Pale Urine Odor Strong General appearance: cooperative and no acute distress Head Head exam: Present atraumatic and normocephalic Eye Eye exam: Present EOMI and PERRL ENT ENT exam: Present mucous membranes moist, normal exam and normal external ear ex am Neck Neck exam: Present normal inspection; Absent lymphadenopathy, tenderness and thyromegaly Respiratory Respiratory exam: Absent accessory muscle use, respiratory distress and wheezes Cardiovascular Cardiovascular exam: Present normal rate and rhythm; Absent JVD GI/Abdominal GI/Abdominal exam: Present normal bowel sounds and soft; Absent organomegaly and tenderness Extremities Exam Extremities exam: Present normal capillary refill; Absent full ROM, normal inspection and tenderness Additional comments: Left hemiparesis Neurological Exam Neurological exam: Present alert, CN II-XII intact, motor sensory deficit and oriented X3 Additional comments: Left hemiparesis Psychiatric Psychiatric exam: Present normal affect and normal mood; Absent anxious and depressed Skin Skin exam: Present dry and intact OBJ DATA Labs CBC & Chem 7: 02/25/21 05:06 02/25/21 05:05 Labs: Abnormal Lab Results 02/25/21 02/25/21 02/25/21 05:06 05:05 05:05 WBC RBC 3.04 L Hgb 8.8 L Hct 27.1 L POC Hct RDW 14.7 H Neut % (Auto) Lymph % (Auto) 13.0 L Lymph # (Auto) 1.38 L [place] # (Auto) 1.04 H Absolute Neutrophils 8.10 H PT 16.1 H INR 1.2 H POC BUN Glucose POC Glucose Total Protein 5.6 L 02/24/21 02/24/21 02/24/21 14:33 05:16 05:16 WBC 11.4 H RBC 3.49 L Hgb 10.8 L 10.4 L Hct 32.9 L 31.3 L POC Hct RDW 14.6 H Neut % (Auto) Lymph % (Auto) Lymph # (Auto) [place] # (Auto) 1.26 H Absolute Neutrophils PT 16.3 H INR 1.3 H POC BUN Glucose POC Glucose Total Protein 02/23/21 02/23/21 02/23/21 10:05 10:05 10:04 WBC 15.6 H RBC 2.57 L Hgb 7.5 L Hct 23.2 L POC Hct 24 L RDW 15.2 H Neut % (Auto) 78.5 H Lymph % (Auto) 12.1 L Lymph # (Auto) [place] # (Auto) 1.24 H Absolute Neutrophils 12.26 H PT INR POC BUN 21 H Glucose 126 H POC Glucose 124 H Total Protein 02/23/21 10:04 WBC RBC Hgb Hct POC Hct RDW Neut % (Auto) Lymph % (Auto) Lymph # (Auto) [place] # (Auto) Absolute Neutrophils PT 35.2 H INR 3.3 H POC BUN Glucose POC Glucose Total Protein Meds: Medications Acetaminophen (Acetaminophen 325 Mg Tablet) 650 mg PO Q6HP PRN; Protocol PRN Reason: Per Pain Protocol/Fever > 101 Hydrocodone Bitart/Acetaminophen (Hydrocodone/Apap 10/325mg Tablet) 1 tab PO QIDP PRN; Protocol PRN Reason: Pain Last Admin: 02/24/21 22:03 Dose: 1 tab Documented by: Albuterol/Ipratropium (Ipratropium/Albuterol 3 Ml Ampul.Neb) 3 ml NEB Q4HRT PRN PRN Reason: Wheezing Amlodipine Besylate (Amlodipine 5 Mg Tablet) 5 mg PO DAILY [facility] Last Admin: 02/25/21 08:51 Dose: 5 mg Documented by: Atorvastatin Calcium (Atorvastatin 40 Mg Tablet) 40 mg PO DAILY [facility] Last Admin: 02/24/21 09:13 Dose: 40 mg Documented by: Calcitonin [place] (Calcitonin Nasal [place] 3.7ml Bottle) 1 spray NS DAILY [facility] Last Admin: 02/24/21 09:39 Dose: Not Given Documented by: Docusate Sodium (Docusate Sodium 100 Mg Capsule) 100 mg PO BID [facility] Last Admin: 02/25/21 00:15 Dose: Not Given Documented by: Famotidine (Famotidine 20 Mg Tablet) 40 mg PO DAILY [facility] Last Admin: 02/24/21 09:13 Dose: 40 mg Documented by: Fentanyl (Fentanyl 12 Mcg Patch) 12 mcg TOPICAL Q72H [facility] Last Admin: 02/23/21 15:31 Dose: 12 mcg Documented by: Folic Acid (Folic Acid 1 Mg Tablet) 1 mg PO DAILY [facility] Last Admin: 02/24/21 09:13 Dose: 1 mg Documented by: Hydralazine HCl (Hydralazine 20 Mg/Ml Vial) 10 mg IV Q4-6HP PRN PRN Reason: Hypertension Last Admin: 02/25/21 00:26 Dose: 10 mg Documented by: Hydrochlorothiazide (Hydrochlorothiazide 25 Mg Tablet) 25 mg PO DAILY [facility] Lactulose (Lactulose 20 Gm/30 Ml Oral.Caity) 10 gm PO DAILYP PRN PRN Reason: Constipation Lidocaine (Lidocaine Patch) 1 patch TOPICAL QDAY [facility] Last Admin: 02/25/21 08:51 Dose: 1 patch Documented by: Magnesium Oxide (Magnesium Oxide 400 Mg Tablet) 400 mg PO DAILY [facility] Last Admin: 02/24/21 09:15 Dose: 400 mg Documented by: Ondansetron HCl (Ondansetron 4 Mg/2 Ml Vial) 4 mg IV Q4HP PRN; Protocol PRN Reason: Nausea And Vomiting Last Admin: 02/25/21 07:52 Dose: 4 mg Documented by: Oxybutynin Chloride (Oxybutynin Chloride 5 Mg Tab.Xl.24h) 10 mg PO DAILY [facility] Last Admin: 02/25/21 08:51 Dose: 10 mg Documented by: Polyethylene Glycol (Polyethylene Glycol 3350 17 Gm Packet) 17 gm PO [facility] Last Admin: 02/25/21 00:15 Dose: Not Given Documented by: Potassium Chloride (Potassium Chloride 20 Meq Tablet) 20 meq PO [facility] Last Admin: 02/25/21 06:50 Dose: Not Given Documented by: Potassium Chloride (Potassium Chloride 20 Meq Packet) [facility] Last Admin: 02/25/21 08:51 Dose: 20 meq Documented by: Senna (Sennosides 1 Tablet) 2 tab PO [facility] Last Admin: 02/25/21 00:15 Dose: Not Given Documented by: Sodium Chloride (0.9 % Sodium Chloride 10 Ml Syringe) 10 ml IV Q8 [facility] Last Admin: 02/25/21 07:52 Dose: 10 ml Documented by: Vitamin E (Vitamin E (Dl,Tocopheryl Acet) 400 Unit Capsule) 400 unit PO DAILY [facility] Last Admin: 02/24/21 09:13 Dose: 400 unit Documented by: A/P Assessment and plan (1) 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 (CVA): Status: Chronic (2) Anemia due to GI blood loss: Status: Acute (3) Hypertension: Status: Chronic (4) Coronary artery disease: Status: Chronic (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 Anemia associated with GI bleeding: DDx: Coumadin overdose, vs gastritis/gastric ulcer, vs internal hemorrhoid Stays in inpatient PCU with telemetry Spoke with GI Dr. Hamilton, recs. will perform colonoscopy this evening Consult Dr. Li for potential scoping, recs. appreciated s/p Vitamin K 10mg once given in the ED Hold ASA and Coumadin Continue Pepcid from home regimen s/p 2 unit pRBC transfusion, hemoglobin 10.8-->8.8 Daily cbc w/ auto diff Daily PT INR, INR 1.3-->1.2 2. h/o Stroke with left hemiparesis: Atorvastatin Hold ASA/Coumadin for now given active GI bleeding 3. Chronic lower back pain: Continue Lidocaine patch, Fentanyl patch, and [place] from home pain regimen 4. h/o essential HTN: Amlodipine 5mg PO daily 5. h/o CAD, s/p cardiac pacemaker placement: Hold ASA/Coumadin for now given active GI bleeding Atorvastatin 6. h/o GERD: Continue Pepcid from home regimen GI ppx: Continue Pepcid from home regimen DVT ppx: SCDs Code status: Full Prognosis: Guarded Disposition: inpatient PCU Time Spent With Patient Time: Total time spent is greater than 50% in coordination of care (as documented) at patient's floor/unit and/or counseling patient: QUALITY VTE Deep Vein Thrombosis/Pulmonary Embolism Present on Admission: No
[2021-02-25] MEDS: CALCITONIN NASAL SPRAY 3.7ML BOTTLE NS SCH (09:21)
[2021-02-25] MEDS: MAGNESIUM OXIDE 400 MG TABLET PO SCH (09:21)
[2021-02-25] MEDS: FOLIC ACID 1 MG TABLET PO SCH (09:21)
[2021-02-25] MEDS: ATORVASTATIN 40 MG TABLET PO SCH (09:21)
[2021-02-25] MEDS: HYDROCHLOROTHIAZIDE 25 MG TABLET PO SCH (09:22)
[2021-02-25] MEDS: VITAMIN E (DL,TOCOPHERYL ACET) 400 UNIT CAPSULE PO SCH (09:22)
[2021-02-25] MEDS: FAMOTIDINE 20 MG TABLET PO SCH (09:22)
[2021-02-25] MEDS ORDERED: amLODIPine 5 MG TABLET PO ONE (10:07)
[2021-02-25] MEDS ORDERED: METOCLOPRAMIDE 10 MG/2 ML VIAL IV PRN (10:09)
[2021-02-25] MEDS ORDERED: MIDAZOLAM 2 MG/2 ML VIAL IV SCH (17:30)
[2021-02-25] MEDS ORDERED: PROPOFOL 200 MG/20 ML VIAL IV SCH (17:30)
[2021-02-25] MEDS ORDERED: MIDAZOLAM 2 MG/2 ML VIAL ONE (17:37)
[2021-02-25] MEDS ORDERED: PROPOFOL 200 MG/20 ML VIAL IV ONE (17:37)
[2021-02-25] MEDS ORDERED: EPINEPHrine 1 MG/ML AMPUL IJ ONE (19:23)
[2021-02-25] MEDS ORDERED: EPINEPHrine 1 MG/ML AMPUL ONE (19:32)
[2021-02-26] MEDS: HYDROcodone/APAP 10/325MG TABLET PO PRN ×3 (05:24→19:25)
[2021-02-26] MEDS: 0.9 % SODIUM CHLORIDE 10 ML SYRINGE IV SCH ×3 (05:25→21:15)
[2021-02-26 06:56] LABS: Basophils # (Auto) 0.04 K/mcL (0.00-0.30); Basophils % (Auto) 0.3 % (0.0-2.0); Eosinophils # (Auto) 0.07 K/mcL (0.00-0.70); Eosinophils % (Auto) 0.5 % (0.0-7.0); Hemoglobin 8.5 g/dL (11.2-15.7); Lymphocytes # (Auto) 1.49 K/mcL (1.50-4.80); Mean Cell Volume 91.5 fL (80.0-100.0); Mean Corpuscular HGB Conc 31.5 g/dL (31.0-36.0); Monocytes # (Auto) 1.23 K/mcL (0.10-0.90); Monocytes % (Auto) 8.3 % (1.0-12.0); Neutrophils % (Auto) 80.9 % (38.0-78.0); Platelet Count 272 K/mcL (140-440); RBC 2.95 M/mcL (3.59-5.38); WBC 14.8 K/mcL (4.5-11.0)
[2021-02-26 07:23] LABS: INR 1.2 (0.9-1.1); Prothrombin Time 15.5 sec (11.9-14.5)
[2021-02-26 07:32] LABS: ALT/SGPT 7 U/L (<40); AST/SGOT 17 U/L (<32); Albumin 3.2 gm/dL (3.2-5.2); Albumin/Globulin Ratio 1.3 (1.0-2.3); Alkaline Phosphatase 63 U/L (39-117); Bilirubin,Total 0.6 mg/dL (0.1-1.0); Blood Urea Nitrogen 10 mg/dL (8-23); Calcium 8.6 mg/dL (8.6-10.4); Carbon Dioxide 24 mmol/L (22-30); Chloride 104 mmol/L (96-108); Globulin 2.4 gm/dL (2.2-3.7); Glomerular Filtration Rate 81; Glucose 83 mg/dL (70-105)
--- NOTE | 2021-02-26 08:02 | Colonoscopy Procedure Note ---
DATE OF : 1940 PREOPERATIVE DIAGNOSIS: Lower gastrointestinal bleed, possibly secondary to diverticula. POSTOPERATIVE DIAGNOSES: 1. Diverticulosis. 2. Hemorrhoids, descending colon polyp. No bleeding site found, presumed bleeding site is from a diverticulum that has stopped bleeding at this time. PROCEDURE: Colonoscopy with polypectomy. INSTRUMENT USED: Olympus VENECIA [id number] colonoscope. SPECIMENS OBTAINED: Polyp from descending colon, 5-6 mm in size. INDICATIONS: The patient is an 80-year-old lady who did present to [facility] Emergency Department with GI bleeding. Her INR was a little prolonged at 3.3. Initially, it was felt that she probably had oozing of blood throughout the intestinal tract and once the INR was improved, she would probably stop. She did for a while, then she started bleeding more. She did drop her hemoglobin down. I believe she received some units of blood in transfusion. On or around the time of the ER visit, the BUN was 21, creatinine 0.8. I believe the patient did receive some Protonix. I believe the patient had a colonoscopy in June of 2019, diverticula were noted. No angiodysplasia were seen. I believe her last EGD was on 07/21/2020. I believe she had some dysphagia. No pathology was found there that would explain a chronic bleeding problem. Because the patient had continued bleeding and I believe had some blood pressure changes that definitely dropped her hemoglobin, a couple units after the INR had been significantly improved, decision was made to proceed with a colonoscopy. The patient did have a preparation. I wanted a thorough preparation, so angiodysplasia could be seen. The patient did state she had some blood during the preparation. However, staff stated that there was no blood in the last 1 or 2 bowel movements. INFORMED CONSENT: Time of informed consent 1729. The procedure was reviewed with the patient. The patient had no further questions and accepts the risks and benefits thereof. One of the risks that were discussed included . Additional risks that were also discussed included bleeding, reaction to medication, possible perforation and possible need for surgery. IV MEDICATIONS USED: Versed 1, propofol 750 mL. FINDINGS: RECTUM: Minimal Hemorrhoids were noted. SIGMOID/DESCENDING COLON: Several diverticula were noted. There was no red blood seen in or around diverticula. No significant inflammation was seen in or around diverticula. There was some fecal matter noted in the diverticula. Despite careful slow passage through this area multiple times, no definite bleeding site was found. In the descending colon, there was a little polyp about 5-6 mm in size, larger than a very tiny polyp. If this was not removed at this time, I feel the patient should come back for another exam to remove the polyp. Therefore, I did remove the polyp. However, she did have some bleeding from this. This persisted. Hypertonic saline and epinephrine mixture was injected to decrease the risk of further bleeding. A total of 4 mL were used. By the time the hypertonic epinephrine mixture was ready and the site was found once again, the patient had stopped bleeding. However, because of her earlier more than minimal bleeding, the area was treated. SPLENIC FLEXURE/TRANSVERSE COLON/HEPATIC FLEXURE: Normal. ASCENDING COLON: Normal. CECUM: Cecum was identified by the appendiceal dimple and the ileocecal valve. No angiodysplasia were seen. No bleeding site was found. TERMINAL ILEUM: Not inspected. DISCUSSION/RECOMMENDATIONS: Diverticular bleeding often bleeds briskly and then stops on its own. Sometimes with colonoscopy we can find the probable bleeding site or definite bleeding site. However, frequently no bleeding site is found. I believe the patient could be allowed a diet clear to full liquid. She could be observed for a little while longer. When the bleeding seems to be resolved and the diet as tolerated I have no objections to her leaving the hospital. SEDATION TIME: 17:38-19:25. Please refer to the preprocedure nurse's notes, procedure flowsheet, procedure record, and post-procedure assessment for details of the sedation including the pre-, intra-, and post-service work. CRD:foreign Job ID: [id number] Doc ID: [id number] Finn Hamilton MD
[2021-02-26] MEDS: POTASSIUM CHLORIDE 20 MEQ TABLET PO SCH ×2 (08:43→08:54)
[2021-02-26] MEDS: POTASSIUM CHLORIDE 20 MEQ PACKET PO SCH (08:43)
[2021-02-26] MEDS: HYDROCHLOROTHIAZIDE 25 MG TABLET PO SCH ×2 (09:01→10:18)
[2021-02-26] MEDS: VITAMIN E (DL,TOCOPHERYL ACET) 400 UNIT CAPSULE PO SCH (09:01)
[2021-02-26] MEDS: DOCUSATE SODIUM 100 MG CAPSULE PO SCH ×2 (09:01→21:12)
[2021-02-26] MEDS: MAGNESIUM OXIDE 400 MG TABLET PO SCH (09:01)
[2021-02-26] MEDS: FOLIC ACID 1 MG TABLET PO SCH (09:01)
[2021-02-26] MEDS: ATORVASTATIN 40 MG TABLET PO SCH (09:01)
[2021-02-26] MEDS: CALCITONIN NASAL SPRAY 3.7ML BOTTLE NS SCH (09:02)
[2021-02-26] MEDS: FAMOTIDINE 20 MG TABLET PO SCH (09:02)
[2021-02-26] MEDS: OXYBUTYNIN CHLORIDE 5 MG TAB.XL.24H PO SCH (09:02)
[2021-02-26] MEDS: LIDOCAINE PATCH TOPICAL SCH (09:03)
[2021-02-26] MEDS: amLODIPine 10 MG TABLET PO SCH ×2 (09:03→10:18)
--- NOTE | 2021-02-26 10:33 | Internal Med Progress Note ---
SUBJECTIVE Subjective Patient information: Note initiated : 02/26/21 at 10:26 am Service Date, if different from initiated Date: [] Patient: Xochilt Pat a 80 y/o F admitted on 02/23/21 for rectal bleeding since yesterday, weakness. Chief Complaint: [] Interval history: History of present illness: Ms. Pat is a 80 year old F history of CAD, status post cardiac pacemaker placement, ischemic stroke with left-sided hemiplegia, sent with 2-day history of black and bloody stool as well as general body weakness. She had a prior history of GI bleeding 2 to 3 years ago. She have had a colonoscopy a month ago by her GI doctor Dr. Hamilton, which the result was unremarkable but did not. Patient had 2 episode of bloody and black stool yesterday evening as well as earlier this morning, associated with general body weakness. Patient also have chronic cramping abdominal pain. Patient denies any chest pain, palpitations, or shortness of breath. Patient is on Coumadin therapy and she takes Coumadin as directed. Due to her symptoms, she presented to our ED for further evaluations. Vital signs significant for soft blood pressure 90s over 80s mmHg. Labs significant for hemoglobin level of 7.5 with a baseline of 12.23 months ago. Her WBC was 15.6 with a baseline of 16.73 months ago. INR level 3.3. 02/24: s/p 2 unit pRBC transfusion. Hemoglobin 7.5-->10.4. INR 3.3-->1.3. Several more episodes of bloody stool. No hematemesis. No abdominal pain. No chest pain. Improving general body weakness. No lightheadedness or dizziness. 02/25: Hemoglobin 10.8-->8.8. No hematemesis or black/bloody stool. Denies abdominal pain. Denies nausea or vomiting. No chest pain. Improving general body weakness. No lightheadedness or dizziness. 02/26: Dr. Hamilton performed colonoscopy on 02/25 and found extensive diverticula disease without active source of bleeding. Also found a 5-6mm polyp in descending colon. Hemoglobin 8.8-->8.5. Tolerating diet. Denies any bloody or black stool. Denies any hematemesis. Denies any abdominal pain. Constitutional Vitals: Vital Signs Temp Pulse Resp BP Pulse Ox 36.7 C 78 19 130/47 95 02/26/21 04:01 02/25/21 19:28 02/26/21 06:01 02/26/21 06:01 02/26/21 06:01 Period Temp Pulse Resp BP Sys/Hernandez Pulse Ox Last 24 Hr 36.5 C-37.1 C 70-89 7-31 119-158/38-87 94-100 Intake and Output 02/25/21 02/26/21 02/26/21 21:59 05:59 13:59 Output Total 901 1 75 Balance -901 -1 -75 Weight 52.362 kg Intake & Output: Intake & Output 02/25/21 02/26/21 02/26/21 21:59 05:59 13:59 Output Total 901 1 75 Balance -901 -1 -75 Weight 52.362 kg Output: Void Amount 75 # of times incontinent of urine 1 1 Stool 900 Other: Urine Appearance Cloudy Urine Color Bright Yellow Urine Odor Strong Stool Size Smear Stool Color Yellow Brown Green Stool Consistency Liquid General appearance: cooperative and no acute distress Head Head exam: Present atraumatic and normocephalic Eye Eye exam: Present EOMI and PERRL ENT ENT exam: Present mucous membranes moist, normal exam and normal external ear exam Neck Neck exam: Present normal inspection; Absent lymphadenopathy, tenderness and thyromegaly Respiratory Respiratory exam: Absent accessory muscle use, respiratory distress and wheezes Cardiovascular Cardiovascular exam: Present normal rate and rhythm; Absent JVD GI/Abdominal GI/Abdominal exam: Present normal bowel sounds and soft; Absent organomegaly and tenderness Extremities Exam Extremities exam: Present full ROM, normal capillary refill and normal inspection; Absent tenderness Neurological Exam Neurological exam: Present alert, CN II-XII intact and oriented X3; Absent motor sensory deficit Psychiatric Psychiatric exam: Present normal affect and normal mood; Absent anxious and depressed Skin Skin exam: Present dry and intact OBJ DATA Labs CBC & Chem 7: 02/26/21 05:12 02/26/21 05:00 Labs: Abnormal Lab Results 02/26/21 02/26/21 02/26/21 05:12 05:12 05:00 WBC 14.8 H RBC 2.95 L Hgb 8.5 L Hct 27.0 L RDW 15.0 H Neut % (Auto) 80.9 H Lymph % (Auto) 10.0 L Lymph # (Auto) 1.49 L [place] # (Auto) 1.23 H Absolute Neutrophils 12.00 H PT 15.5 H INR 1.2 H Glucose Total Protein 5.6 L 02/25/21 02/25/21 02/25/21 05:06 05:05 05:05 WBC RBC 3.04 L Hgb 8.8 L Hct 27.1 L RDW 14.7 H Neut % (Auto) Lymph % (Auto) 13.0 L Lymph # (Auto) 1.38 L [place] # (Auto) 1.04 H Absolute Neutrophils 8.10 H PT 16.1 H INR 1.2 H Glucose Total Protein 5.6 L 02/24/21 02/24/21 02/24/21 14:33 05:16 05:16 WBC 11.4 H RBC 3.49 L Hgb 10.8 L 10.4 L Hct 32.9 L 31.3 L RDW 14.6 H Neut % (Auto) Lymph % (Auto) Lymph # (Auto) [place] # (Auto) 1.26 H Absolute Neutrophils PT 16.3 H INR 1.3 H Glucose Total Protein 02/23/21 02/23/21 02/23/21 10:05 10:05 10:04 WBC 15.6 H RBC 2.57 L Hgb 7.5 L Hct 23.2 L RDW 15.2 H Neut % (Auto) 78.5 H Lymph % (Auto) 12.1 L Lymph # (Auto) [place] # (Auto) 1.24 H Absolute Neutrophils 12.26 H PT 35.2 H INR 3.3 H Glucose 126 H Total Protein Meds: Medications Acetaminophen (Acetaminophen 325 Mg Tablet) 650 mg PO Q6HP PRN; Protocol PRN Reason: Per Pain Protocol/Fever > 101 Hydrocodone Bitart/Acetaminophen (Hydrocodone/Apap 10/325mg Tablet) 1 tab PO QIDP PRN; Protocol PRN Reason: Pain Last Admin: 02/26/21 05:24 Dose: 1 tab Documented by: Albuterol/Ipratropium (Ipratropium/Albuterol 3 Ml Ampul.Neb) 3 ml NEB Q4HRT PRN PRN Reason: Wheezing Amlodipine Besylate (Amlodipine 10 Mg Tablet) 10 mg PO DAILY PENNIE Last Admin: 02/26/21 10:18 Dose: Not Given Documented by: Atorvastatin Calcium (Atorvastatin 40 Mg Tablet) 40 mg PO DAILY [facility] Last Admin: 02/26/21 09:01 Dose: 40 mg Documented by: Calcitonin [place] (Calcitonin Nasal [place] 3.7ml Bottle) 1 spray NS DAILY [facility] Last Admin: 02/26/21 09:02 Dose: Not Given Documented by: Docusate Sodium (Docusate Sodium 100 Mg Capsule) 100 mg PO BID [facility] Last Admin: 02/26/21 09:01 Dose: Not Given Documented by: Famotidine (Famotidine 20 Mg Tablet) 40 mg PO DAILY [facility] Last Admin: 02/26/21 09:02 Dose: 40 mg Documented by: Fentanyl (Fentanyl 12 Mcg Patch) 12 mcg TOPICAL Q72H [facility] Last Admin: 02/23/21 15:31 Dose: 12 mcg Documented by: Folic Acid (Folic Acid 1 Mg Tablet) 1 mg PO DAILY [facility] Last Admin: 02/26/21 09:01 Dose: 1 mg Documented by: Hydralazine HCl (Hydralazine 20 Mg/Ml Vial) 10 mg IV Q4-6HP PRN PRN Reason: Hypertension Last Admin: 02/25/21 00:26 Dose: 10 mg Documented by: Hydrochlorothiazide (Hydrochlorothiazide 25 Mg Tablet) 25 mg PO DAILY [facility] Last Admin: 02/26/21 10:18 Dose: Not Given Documented by: Lactulose (Lactulose 20 Gm/30 Ml Oral.Caity) 10 gm PO DAILYP PRN PRN Reason: Constipation Lidocaine (Lidocaine Patch) 1 patch TOPICAL QDAY [facility] Last Admin: 02/26/21 09:03 Dose: 1 patch Documented by: Magnesium Oxide (Magnesium Oxide 400 Mg Tablet) 400 mg PO DAILY [facility] Last Admin: 02/26/21 09:01 Dose: 400 mg Documented by: Metoclopramide HCl (Metoclopramide 10 Mg/2 Ml Vial) 10 mg IV Q6HP PRN PRN Reason: Nausea And Vomiting Last Admin: 02/25/21 10:18 Dose: 10 mg Documented by: Ondansetron HCl (Ondansetron 4 Mg/2 Ml Vial) 4 mg IV Q4HP PRN; Protocol PRN Reason: Nausea And Vomiting Last Admin: 02/25/21 12:33 Dose: 4 mg Documented by: Oxybutynin Chloride (Oxybutynin Chloride 5 Mg Tab.Xl.24h) 10 mg PO DAILY [facility] Last Admin: 02/26/21 09:02 Dose: 10 mg Documented by: Polyethylene Glycol (Polyethylene Glycol 3350 17 Gm Packet) 17 gm PO [facility] Last Admin: 02/25/21 21:22 Dose: Not Given Documented by: Potassium Chloride (Potassium Chloride 20 Meq Tablet) 20 meq PO [facility] Last Admin: 02/26/21 08:54 Dose: Not Given Documented by: Potassium Chloride (Potassium Chloride 20 Meq Packet) 20 meq PO [facility] Last Admin: 02/26/21 08:43 Dose: 20 meq Documented by: Senna (Sennosides 1 Tablet) 2 tab PO [facility] Last Admin: 02/25/21 21:22 Dose: Not Given Documented by: Sodium Chloride (0.9 % Sodium Chloride 10 Ml Syringe) 10 ml IV Q8 [facility] Last Admin: 02/26/21 05:25 Dose: 10 ml Documented by: Vitamin E (Vitamin E (Dl,Tocopheryl Acet) 400 Unit Capsule) 400 unit PO DAILY [facility] Last Admin: 02/26/21 09:01 Dose: 400 unit Documented by: A/P Assessment and plan (1) 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 (CVA): Status: Chronic (2) Anemia due to GI blood loss: Status: Acute (3) Hypertension: Status: Chronic (4) Coronary artery disease: Status: Chronic (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 Anemia associated with GI bleeding: DDx: Coumadin overdose, vs gastritis/gastric ulcer, vs internal hemorrhoid Transfer to med surg Dr. Hamilton performed colonoscopy on 02/25 and found extensive diverticula disease without active source of bleeding. Also found a 5-6mm polyp in descending colon. Hemoglobin 8.8-->8.5 s/p Vitamin K 10mg once given in the ED Hold ASA and Coumadin Continue Pepcid from home regimen Daily cbc w/ auto diff Daily PT INR 2. h/o Stroke with left hemiparesis: Atorvastatin Hold ASA/Coumadin for now given active GI bleeding 3. Chronic lower back pain: Continue Lidocaine patch, Fentanyl patch, and [place] from home pain regimen 4. h/o essential HTN: Amlodipine 5mg PO daily 5. h/o CAD, s/p cardiac pacemaker placement: Hold ASA/Coumadin for now given active GI bleeding Atorvastatin 6. h/o GERD: Continue Pepcid from home regimen GI ppx: Continue Pepcid from home regimen DVT ppx: SCDs Code status: Full Prognosis: stable Disposition: transfer to med surg, planning to discharge tomorrow 02/27 Time Spent With Patient Time: Total time spent is greater than 50% in coordination of care (as documented) at patient's floor/unit and/or counseling patient: QUALITY VTE Deep Vein Thrombosis/Pulmonary Embolism Present on Admission: No
[2021-02-26] MEDS ORDERED: ONDANSETRON 4 MG/2 ML VIAL IV PRN (11:04)
[2021-02-26] MEDS ORDERED: LACTULOSE 20 GM/30 ML ORAL.SOL PO PRN (11:04)
[2021-02-26] MEDS ORDERED: ACETAMINOPHEN 325 MG TABLET PO PRN (11:04)
[2021-02-26] MEDS ORDERED: IPRATROPIUM/ALBUTEROL 3 ML AMPUL.NEB NEB PRN (11:04)
[2021-02-26] MEDS ORDERED: METOCLOPRAMIDE 10 MG/2 ML VIAL IV PRN (11:04)
[2021-02-26] MEDS ORDERED: hydrALAZINE 20 MG/ML VIAL IV PRN (11:04)
[2021-02-26 12:52] LABS: Appearance,Urine HAZY (Clear); Bilirubin,Urine Negative (Negative); Color,Urine YELLOW; Culture Indicated,Urine No; Glucose,Urine (UA) Negative (Negative); Ketones,Urine 20 mg/dL (Negative); Leukocyte Esterase,Urine 25 /uL (Negative); Mucus,Urine FEW /hpf; Nitrate,Urine Negative (Negative); Protein,Urine Negative (Negative); Specific Gravity,Urine 1.012 (1.000-1.035); Urine Blood 0.03 mg/dL (Negative); Urine RBC 1 /hpf (0-3); Urine Squamous Epithelial Cell 6 /hpf (0-4); Urine WBC 35 /hpf (0-4); Urobilinogen,Urine Negative
[2021-02-26] MEDS ORDERED: fentaNYL 12 MCG PATCH TOPICAL SCH (16:00)
[2021-02-26] MEDS ORDERED: POLYETHYLENE GLYCOL 3350 17 GM PACKET PO SCH (21:00)
[2021-02-26] MEDS ORDERED: SENNOSIDES 1 TABLET PO SCH (21:00)
[2021-02-27] MEDS: 0.9 % SODIUM CHLORIDE 10 ML SYRINGE IV SCH (05:49)
[2021-02-27 06:57] LABS: Basophils # (Auto) 0.05 K/mcL (0.00-0.30); Basophils % (Auto) 0.4 % (0.0-2.0); Eosinophils # (Auto) 0.52 K/mcL (0.00-0.70); Eosinophils % (Auto) 4.1 % (0.0-7.0); Hemoglobin 8.8 g/dL (11.2-15.7); Lymphocytes # (Auto) 1.65 K/mcL (1.50-4.80); Mean Corpuscular HGB Conc 31.4 g/dL (31.0-36.0); Mean Platelet Volume 9.7 fL (7.4-10.4); Monocytes # (Auto) 1.37 K/mcL (0.10-0.90); Monocytes % (Auto) 10.8 % (1.0-12.0); Neutrophils % (Auto) 71.7 % (38.0-78.0); Platelet Count 279 K/mcL (140-440); RBC 2.98 M/mcL (3.59-5.38); Red Cell Distribution Width 15.2 % (11.5-14.5); WBC 12.7 K/mcL (4.5-11.0)
[2021-02-27 07:06] LABS: INR 1.2 (0.9-1.1); Prothrombin Time 15.3 sec (11.9-14.5)
[2021-02-27] MEDS: POTASSIUM CHLORIDE 20 MEQ TABLET PO SCH ×2 (07:07→07:12)
[2021-02-27] MEDS: HYDROcodone/APAP 10/325MG TABLET PO PRN ×2 (07:08→12:38)
[2021-02-27 07:20] LABS: ALT/SGPT 8 U/L (<40); AST/SGOT 19 U/L (<32); Albumin 3.4 gm/dL (3.2-5.2); Albumin/Globulin Ratio 1.4 (1.0-2.3); Alkaline Phosphatase 62 U/L (39-117); Bilirubin,Total 0.5 mg/dL (0.1-1.0); Blood Urea Nitrogen 16 mg/dL (8-23); Calcium 8.5 mg/dL (8.6-10.4); Carbon Dioxide 23 mmol/L (22-30); Chloride 104 mmol/L (96-108); Globulin 2.5 gm/dL (2.2-3.7); Glomerular Filtration Rate 81; Glucose 90 mg/dL (70-105)
[2021-02-27] MEDS ORDERED: POTASSIUM CHLORIDE 20 MEQ PACKET PO SCH (08:00)
[2021-02-27] MEDS ORDERED: OXYBUTYNIN CHLORIDE 5 MG TAB.XL.24H PO SCH (09:00)
[2021-02-27] MEDS ORDERED: FOLIC ACID 1 MG TABLET PO SCH (09:00)
[2021-02-27] MEDS ORDERED: ATORVASTATIN 40 MG TABLET PO SCH (09:00)
[2021-02-27] MEDS ORDERED: FAMOTIDINE 20 MG TABLET PO SCH (09:00)
[2021-02-27] MEDS ORDERED: HYDROCHLOROTHIAZIDE 25 MG TABLET PO SCH (09:00)
[2021-02-27] MEDS ORDERED: VITAMIN E (DL,TOCOPHERYL ACET) 400 UNIT CAPSULE PO SCH (09:00)
[2021-02-27] MEDS ORDERED: MAGNESIUM OXIDE 400 MG TABLET PO SCH (09:00)
[2021-02-27] MEDS ORDERED: LIDOCAINE PATCH TOPICAL SCH (09:00)
[2021-02-27] MEDS ORDERED: CALCITONIN NASAL SPRAY 3.7ML BOTTLE NS SCH (09:00)
[2021-02-27] MEDS ORDERED: amLODIPine 10 MG TABLET PO SCH (09:00)
[2021-02-27] MEDS: DOCUSATE SODIUM 100 MG CAPSULE PO SCH (10:02)
--- NOTE | 2021-02-27 10:35 | Discharge Summary ---
Discharge Provider Provider Patient information: Note initiated : 02/27/21 at 10:31 am Service Date, if different from initiated Date: [] Patient: Xochilt Pat 80 y/o F admitted on 02/23/21 for rectal bleeding since yesterday, weakness. Chief Complaint: [] Date of admission: 02/23/21 15:15 Discharge date: 02/27/21 Primary care physician: PCP No Attending physician on admission: Buddy Meng Consults: 02/23/21 Consult to Physician [CONS] Stat Comment: Consulting Provider: Finn Hamilton Reason For Exam: Physician to Consult Consult to Physician [CONS] Stat Comment: Consulting Provider: Buddy Meng Reason For Exam: Physician to Consult Attending physician on discharge: Buddy Meng Discharge Meds Discharge Medications Home Medications potassium chloride 20 mEq tablet,extended release(part/cryst) 20 meq PO [facility] 07/27/18 [History Confirmed 02/23/21 Last Taken 06/06/20 21:00] vitamin E 400 unit capsule 400 unit PO DAILY 06/20/19 [History Confirmed 02/23/21 Last Taken 06/06/20 09:00] folic acid 1 mg tablet 1 mg PO DAILY 02/16/20 [History Confirmed 02/23/21 Last Taken 06/06/20 09:00] magnesium 1 tab PO DAILY 02/16/20 [History Confirmed 02/23/21 Last Taken 02/16/20 09:00] hydrocodone 5 mg-acetaminophen 325 mg tablet 1 tab PO Q4HP PRN #10 tab 06/09/20 [Rx Confirmed 02/23/21 Last Taken Unknown] sennosides 8.6 mg tablet (Senna Lax) 2 tab PO HS #60 tab 06/09/20 [Rx Confirmed 02/23/21 Last Taken Unknown] hydrocodone 10 mg-acetaminophen 325 mg tablet 1 tab PO QID #120 tab 12/25/20 [Rx Confirmed 02/23/21 Last Taken Unknown] polyethylene glycol 3350 17 gram oral powder packet (Miralax) 17 gm PO HS PRN 02/23/21 [History Confirmed 02/23/21 Last Taken Unknown] amlodipine 5 mg tablet 5 mg PO DAILY 02/26/21 [History Confirmed 02/26/21 Last Taken Unknown] sulfamethoxazole 800 mg-trimethoprim 160 mg tablet (Bactrim DS) 1 tab PO BID 3 Days #6 tab 02/27/21 [Rx Last Taken Unknown] COURSE Hospital Course Hospital course: History of present illness: Ms. Pat is a 80 year old F history of CAD, status post cardiac pacemaker placement, ischemic stroke with left-sided hemiplegia, sent with 2-day history of black and bloody stool as well as general body weakness. She had a prior history of GI bleeding 2 to 3 years ago. She have had a colonoscopy a month ago by her GI doctor Dr. Hamilton, which the result was unremarkable but did not. Patient had 2 episode of bloody and black stool yesterday evening as well as earlier this morning, associated with general body weakness. Patient also have chronic cramping abdominal pain. Patient denies any chest pain, palpitations, or shortness of breath. Patient is on Coumadin therapy and she takes Coumadin as directed. Due to her symptoms, she presented to our ED for further evaluations. Vital signs significant for soft blood pressure 90s over 80s mmHg. Labs significant for hemoglobin level of 7.5 with a baseline of 12.23 months ago. Her WBC was 15.6 with a baseline of 16.73 months ago. INR level 3.3. 02/24: s/p 2 unit pRBC transfusion. Hemoglobin 7.5-->10.4. INR 3.3-->1.3. Several more episodes of bloody stool. No hematemesis. No abdominal pain. No chest pain. Improving general body weakness. No lightheadedness or dizziness. 02/25: Hemoglobin 10.8-->8.8. No hematemesis or black/bloody stool. Denies abdominal pain. Denies nausea or vomiting. No chest pain. Improving general body weakness. No lightheadedness or dizziness. 02/26: Dr. Hamilton performed colonoscopy on 02/25 and found extensive diverticula disease without active source of bleeding. Also found a 5-6mm polyp in descending colon. Hemoglobin 8.8-->8.5. Tolerating diet. Denies any bloody or black stool. Denies any hematemesis. Denies any abdominal pain. 02/27: Reached clinical stability. To be discharged with oral antibiotics for presumed UTI. PCP follow up appointment in 3-4 days. Hold Coumadin and Aspirin. Discharge diagnosis: GI bleeding Time Spent with Patient Time attestation: Total time spent providing and/or coordinating discharge services: Time spent: Less than 30 minutes EXAM Constitutional Vitals: Temp Pulse Resp BP Pulse Ox 36.7 C 66 18 123/74 95 02/27/21 06:55 02/27/21 06:55 02/27/21 06:55 02/27/21 06:55 02/27/21 06:55 General appearance: cooperative and no acute distress Head Head exam: Present atraumatic and normocephalic Eye Eye exam: Present EOMI and PERRL ENT ENT exam: Present mucous membranes moist, normal exam and normal external ear exam Neck Neck exam: Present normal inspection; Absent lymphadenopathy, tenderness or thyromegaly Respiratory Respiratory exam: Absent accessory muscle use, respiratory distress or wheezes Cardiovascular Cardiovascular exam: Present normal rate and rhythm; Absent JVD GI/Abdominal GI/Abdominal exam: Present normal bowel sounds and soft; Absent organomegaly or tenderness Extremities Exam Extremities exam: Present full ROM, normal capillary refill and normal inspection; Absent tenderness Neurological Exam Neurological exam: Present alert, CN II-XII intact and oriented X3; Absent motor sensory deficit Psychiatric Psychiatric exam: Present normal affect and normal mood; Absent anxious or depressed Skin Skin exam: Present dry and intact Discharge Data Data Completed and Pending Labs on day of discharge: Labs from last 24 hours 02/27/21 02/27/21 02/27/21 05:56 05:56 05:56 WBC 12.7 H RBC 2.98 L Hgb 8.8 L Hct 28.0 L MCV 94.0 MCH 29.5 MCHC 31.4 RDW 15.2 H Plt Count 279 MPV 9.7 Neut % (Auto) 71.7 Lymph % (Auto) 13.0 L [place] % (Auto) 10.8 Eos % (Auto) 4.1 Baso % (Auto) 0.4 Lymph # (Auto) 1.65 [place] # (Auto) 1.37 H Eos # (Auto) 0.52 Baso # (Auto) 0.05 Absolute Neutrophils 9.06 H PT 15.3 H INR 1.2 H Sodium 139 Potassium 3.7 Chloride 104 Carbon Dioxide 23 Anion Gap 12.0 BUN 16 Creatinine 0.7 GFR Calculation 81 Glucose 90 Calcium 8.5 L Total Bilirubin 0.5 AST 19 ALT 8 Alkaline Phosphatase 62 Total Protein 5.9 Albumin 3.4 Globulin 2.5 Albumin/Globulin Ratio 1.4 Urine Color Urine Appearance Urine pH Ur Specific [place] Urine Protein Urine Glucose (UA) Urine Ketones Urine Occult Blood Urine Nitrate Urine Bilirubin Urine Urobilinogen Ur Leukocyte Esterase Urine RBC Urine WBC Ur Squamous Epith Cells Urine Bacteria Urine Mucus Ur Culture Indicated? 02/26/21 10:55 WBC RBC Hgb Hct MCV MCH MCHC RDW Plt Count MPV Neut % (Auto) Lymph % (Auto) [place] % (Auto) Eos % (Auto) Baso % (Auto) Lymph # (Auto) [place] # (Auto) Eos # (Auto) Baso # (Auto) Absolute Neutrophils PT INR Sodium Potassium Chloride Carbon Dioxide Anion Gap BUN Creatinine GFR Calculation Glucose Calcium Total Bilirubin AST ALT Alkaline Phosphatase Total Protein Albumin Globulin Albumin/Globulin Ratio Urine Color Yellow Urine Appearance Hazy A Urine pH 5.0 Ur Specific [place] 1.012 Urine Protein Negative Urine Glucose (UA) Negative Urine Ketones 20 A Urine Occult Blood 0.03 Urine Nitrate Negative Urine Bilirubin Negative Urine Urobilinogen Negative Ur Leukocyte Esterase 25 A Urine RBC 1 Urine WBC 35 H Ur Squamous Epith Cells 6 H Urine Bacteria None Urine Mucus Few A Ur Culture Indicated? No Discharge Plan Patient/Caregiver Discharge Instructions Activity: increase activity as tolerated Diet: Regular Diet Activity Restrictions/Additional Instructions: PCP follow up in 3-4 days Prescriptions: New sulfamethoxazole-trimethoprim [Bactrim DS] 800-160 mg tablet 1 tab PO BID 3 Days Qty: 6 0RF Continued hydrocodone-acetaminophen 10-325 mg tablet 1 tab PO QID Qty: 120 0RF Rx Instructions: *MUST LAST 30 DAYS* P/U 02/28, START 03/01 potassium chloride 20 MEQ tablet 20 meq PO QAMCC 0RF vitamin E 400 UNIT capsule 400 unit PO DAILY 0RF folic acid 1 mg Tablet 1 mg PO DAILY 0RF magnesium 1 tab PO DAILY 0RF sennosides [Senna Lax] 8.6 mg Tablet 2 tab PO HS Qty: 60 0RF hydrocodone-acetaminophen 5-325 mg Tablet 1 tab PO Q4HP PRN (Reason: Per Pain Protocol) Qty: 10 0RF polyethylene glycol 3350 [Miralax] 17 gram powder in packet 17 gm PO HS PRN (Reason: Constipation) 0RF amlodipine 5 mg tablet 5 mg PO DAILY 0RF Discontinued warfarin 5 mg tablet 5 mg PO QDAY 0RF Label Comments: Unsure of actual dose. Pt reports she does take Warfarin daily. Pt's caregiver feels her dose is 5mg. Rx Instructions: on odd numbered days aspirin 81 MG tablet,chewable 81 mg PO DAILY 0RF Follow Up Plan Follow up with: Finn Hamilton MD [Physician] - Patient Disposition: Home, Self-Care Prognosis: Fair Rehab Potential: Good I certify that the patient requires SNF services: No Overall status at discharge: patient is progressing back to baseline Discharge Orders: Discharge Order (Routine); Ordered 02/27/21 Ordered By: Buddy DE JESUS VTE Deep Vein Thrombosis/Pulmonary Embolism Present on Admission: No
--- NOTE | 2021-02-27 10:47 | Surgical Pathology Report ---
Histology Microscopic Diagnosis Specimen A- COLON, DESCENDING, POLYPECTOMY: --- TUBULAR ADENOMA. (RLF) Clinical History Lower GI bleeding; history of diverticula. Procedural Impression Diverticulosis; hemorrhoids; polyp. Gross Description Received in formalin labeled with the patient information and designated as descending, is a 0.4 cm fragment of levine tissue. Totally submitted in one cassette. ([id number]) Electronically Signed Sandhya Pat MD, FCAP Electronically Signed 02/27/2021 10:44
== END 2021-02-27 13:20 | disposition home or self-care (01) | DRG 378 ==
LOC: ED 09:50 → ICU 15:15 → MEDSUR 02-26 14:22
PROVIDERS: ADMIT Internal Medicine; ATTEND Internal Medicine

== ENCOUNTER 2024-09-07 05:03 | Inpatient (IN) ==
[2024-09-07] MEDS: ONDANSETRON 4 MG/2 ML VIAL IV ONE (05:49)
[2024-09-07] MEDS: morphine 4 MG/ML VIAL IV ONE (05:49)
[2024-09-07 05:58] LABS: Basophils # (Auto) 0.04 K/mcL (0.00-0.30); Basophils % (Auto) 0.4 % (0.0-2.0); Eosinophils # (Auto) 0.31 K/mcL (0.00-0.70); Eosinophils % (Auto) 2.9 % (0.0-7.0); Hemoglobin 9.1 g/dL (11.2-15.7); Lymphocytes # (Auto) 1.41 K/mcL (1.50-4.80); Mean Cell Volume 84.5 fL (80.0-100.0); Mean Corpuscular HGB Conc 30.3 g/dL (31.0-36.0); Mean Platelet Volume 8.9 fL (8.8-12.5); Monocytes # (Auto) 1.12 K/mcL (0.10-0.90); Monocytes % (Auto) 10.3 % (1.0-12.0); Neutrophils % (Auto) 73.2 % (38.0-78.0); Platelet Count 522 K/mcL (140-440); RBC 3.55 M/mcL (3.59-5.38); Red Cell Distribution Width 15.8 % (11.5-14.5); WBC 10.9 K/mcL (4.5-11.0)
[2024-09-07 06:27] LABS: ALT/SGPT 6 U/L (<40); AST/SGOT 13 U/L (<32); Albumin 3.9 gm/dL (3.2-5.2); Albumin/Globulin Ratio 1.2 (1.0-2.3); Alkaline Phosphatase 80 U/L (39-117); Bilirubin,Total 0.3 mg/dL (0.1-1.0); Blood Urea Nitrogen 15 mg/dL (8-23); Calcium 9.2 mg/dL (8.6-10.4); Carbon Dioxide 25 mmol/L (22-30); Chloride 102 mmol/L (96-108); Globulin 3.3 gm/dL (2.2-3.7); Glomerular Filtration Rate 83; Glucose 106 mg/dL (70-105); Sodium 139 mmol/L (133-145)
[2024-09-07] MEDS ORDERED: hydrALAZINE 20 MG/ML VIAL IV PRN (11:56)
[2024-09-07] MEDS ORDERED: HYDROmorphone 1 MG/ML SYRINGE IV PRN (11:56)
[2024-09-07] MEDS ORDERED: guaiFENesin/DEXTROMETHORPHAN 5ML UD CUP PO PRN (11:56)
[2024-09-07] MEDS ORDERED: IPRATROPIUM/ALBUTEROL 3 ML AMPUL.NEB NEB PRN (11:56)
[2024-09-07] MEDS ORDERED: AZITHROMYCIN 500 MG in DEXTROSE 5% IN WATER 250 ML IV SCH (13:00)
[2024-09-07] MEDS: cefTRIAXone 1 GM VIAL IV SCH (13:05)
[2024-09-07] MEDS: AZITHROMYCIN 500 MG in 0.9 % SODIUM CHLORIDE 250 ML IV SCH (14:14)
[2024-09-07] MEDS: LIDOCAINE 4% TOP SOL 50ML BOTTLE TOPICAL SCH (14:36)
[2024-09-07] MEDS: ONDANSETRON 4 MG/2 ML VIAL IV PRN (14:46)
[2024-09-07] MEDS: LIDOCAINE 4% TOP PATCH TOPICAL SCH (14:46)
[2024-09-07] MEDS: 0.9 % SODIUM CHLORIDE 10 ML SYRINGE IV SCH (14:46)
[2024-09-07] MEDS: oxyCODONE/APAP 5/325MG TABLET PO PRN (19:04)
[2024-09-07] MEDS: METHOCARBAMOL 500 MG TABLET PO PRN (19:21)
[2024-09-07] MEDS: APIXABAN 2.5 MG TABLET PO SCH (20:23)
[2024-09-07] MEDS: traZODone HCL 50 MG TABLET PO PRN (20:23)
[2024-09-07] MEDS: DOCUSATE SODIUM 100 MG CAPSULE PO SCH (20:24)
[2024-09-07] MEDS: SENNOSIDES 1 TABLET PO SCH (20:24)
[2024-09-07] MEDS: morphine 15 MG TAB.SR.12H PO SCH (20:24)
[2024-09-08 06:21] LABS: Basophils # (Auto) 0.05 K/mcL (0.00-0.30); Basophils % (Auto) 0.5 % (0.0-2.0); Eosinophils # (Auto) 0.34 K/mcL (0.00-0.70); Eosinophils % (Auto) 3.5 % (0.0-7.0); Hematocrit 32.7 % (34.1-44.9); Hemoglobin 10.1 g/dL (11.2-15.7); Lymphocytes # (Auto) 1.88 K/mcL (1.50-4.80); Lymphocytes % (Auto) 19.6 % (15.5-49.0); Mean Cell Volume 84.1 fL (80.0-100.0); Mean Corpuscular HGB Conc 30.9 g/dL (31.0-36.0); Mean Platelet Volume 9.2 fL (8.8-12.5); Monocytes # (Auto) 1.16 K/mcL (0.10-0.90); Monocytes % (Auto) 12.1 % (1.0-12.0); Neutrophils % (Auto) 64.1 % (38.0-78.0); Platelet Count 538 K/mcL (140-440); RBC 3.89 M/mcL (3.59-5.38); Red Cell Distribution Width 15.7 % (11.5-14.5); WBC 9.6 K/mcL (4.5-11.0)
[2024-09-08 06:46] LABS: ALT/SGPT < 5 U/L (<40); AST/SGOT 13 U/L (<32); Albumin 3.9 gm/dL (3.2-5.2); Albumin/Globulin Ratio 1.2 (1.0-2.3); Alkaline Phosphatase 79 U/L (39-117); Bilirubin,Total 0.4 mg/dL (0.1-1.0); Blood Urea Nitrogen 11 mg/dL (8-23); Calcium 9.2 mg/dL (8.6-10.4); Carbon Dioxide 27 mmol/L (22-30); Chloride 100 mmol/L (96-108); Globulin 3.2 gm/dL (2.2-3.7); Glomerular Filtration Rate 83; Glucose 97 mg/dL (70-105); Sodium 136 mmol/L (133-145)
[2024-09-08] MEDS: amLODIPine 5 MG TABLET PO SCH (08:09)
[2024-09-08] MEDS: AZITHROMYCIN 250 MG TABLET PO SCH (09:28)
[2024-09-09 06:22] LABS: Basophils # (Auto) 0.03 K/mcL (0.00-0.30); Basophils % (Auto) 0.3 % (0.0-2.0); Eosinophils # (Auto) 0.34 K/mcL (0.00-0.70); Hematocrit 29.8 % (34.1-44.9); Hemoglobin 9.3 g/dL (11.2-15.7); Lymphocytes # (Auto) 1.59 K/mcL (1.50-4.80); Lymphocytes % (Auto) 13.8 % (15.5-49.0); Mean Cell Volume 83.7 fL (80.0-100.0); Mean Corpuscular HGB Conc 31.2 g/dL (31.0-36.0); Mean Platelet Volume 9.4 fL (8.8-12.5); Monocytes # (Auto) 1.32 K/mcL (0.10-0.90); Monocytes % (Auto) 11.5 % (1.0-12.0); Neutrophils % (Auto) 71.2 % (38.0-78.0); Platelet Count 487 K/mcL (140-440); RBC 3.56 M/mcL (3.59-5.38); Red Cell Distribution Width 15.7 % (11.5-14.5); WBC 11.5 K/mcL (4.5-11.0)
[2024-09-09 06:34] LABS: ALT/SGPT 6 U/L (<40); AST/SGOT 14 U/L (<32); Albumin 3.7 gm/dL (3.2-5.2); Albumin/Globulin Ratio 1.2 (1.0-2.3); Alkaline Phosphatase 83 U/L (39-117); Bilirubin,Total 0.2 mg/dL (0.1-1.0); Blood Urea Nitrogen 17 mg/dL (8-23); Calcium 9.4 mg/dL (8.6-10.4); Carbon Dioxide 27 mmol/L (22-30); Chloride 100 mmol/L (96-108); Globulin 3.2 gm/dL (2.2-3.7); Glomerular Filtration Rate 83; Glucose 97 mg/dL (70-105); Potassium 4.2 mmol/L (3.3-5.1); Sodium 135 mmol/L (133-145)
[2024-09-09] MEDS ORDERED: FUROSEMIDE 40 MG TABLET PO PRN (11:04)
[2024-09-09] MEDS ORDERED: NITROGLYCERIN 0.4 MG TAB.SUBL SL PRN (11:06)
[2024-09-10 06:15] LABS: Basophils # (Auto) 0.05 K/mcL (0.00-0.30); Basophils % (Auto) 0.5 % (0.0-2.0); Eosinophils # (Auto) 0.31 K/mcL (0.00-0.70); Eosinophils % (Auto) 3.1 % (0.0-7.0); Hematocrit 30.8 % (34.1-44.9); Hemoglobin 9.3 g/dL (11.2-15.7); Lymphocytes # (Auto) 1.54 K/mcL (1.50-4.80); Lymphocytes % (Auto) 15.2 % (15.5-49.0); Mean Cell Volume 84.4 fL (80.0-100.0); Mean Corpuscular HGB Conc 30.2 g/dL (31.0-36.0); Mean Platelet Volume 10.4 fL (8.8-12.5); Monocytes # (Auto) 1.28 K/mcL (0.10-0.90); Monocytes % (Auto) 12.6 % (1.0-12.0); Neutrophils % (Auto) 68.3 % (38.0-78.0); Platelet Count 388 K/mcL (140-440); RBC 3.65 M/mcL (3.59-5.38); Red Cell Distribution Width 15.7 % (11.5-14.5); WBC 10.1 K/mcL (4.5-11.0)
[2024-09-10 06:51] LABS: ALT/SGPT 6 U/L (<40); AST/SGOT 12 U/L (<32); Albumin 3.5 gm/dL (3.2-5.2); Albumin/Globulin Ratio 1.2 (1.0-2.3); Alkaline Phosphatase 73 U/L (39-117); Bilirubin,Total 0.2 mg/dL (0.1-1.0); Blood Urea Nitrogen 20 mg/dL (8-23); Calcium 9.3 mg/dL (8.6-10.4); Carbon Dioxide 26 mmol/L (22-30); Chloride 101 mmol/L (96-108); Globulin 2.9 gm/dL (2.2-3.7); Glomerular Filtration Rate 83; Glucose 88 mg/dL (70-105); Potassium 4.7 mmol/L (3.3-5.1); Sodium 137 mmol/L (133-145)
[2024-09-10] MEDS: ACETAMINOPHEN 325 MG TABLET PO PRN (13:52)
[2024-09-11 06:23] LABS: Basophils # (Auto) 0.06 K/mcL (0.00-0.30); Basophils % (Auto) 0.6 % (0.0-2.0); Eosinophils # (Auto) 0.38 K/mcL (0.00-0.70); Hematocrit 29.2 % (34.1-44.9); Hemoglobin 8.9 g/dL (11.2-15.7); Lymphocytes # (Auto) 1.39 K/mcL (1.50-4.80); Lymphocytes % (Auto) 14.6 % (15.5-49.0); Mean Cell Volume 83.9 fL (80.0-100.0); Mean Corpuscular HGB Conc 30.5 g/dL (31.0-36.0); Mean Platelet Volume 9.3 fL (8.8-12.5); Monocytes # (Auto) 1.31 K/mcL (0.10-0.90); Monocytes % (Auto) 13.8 % (1.0-12.0); Neutrophils % (Auto) 66.8 % (38.0-78.0); Platelet Count 445 K/mcL (140-440); RBC 3.48 M/mcL (3.59-5.38); Red Cell Distribution Width 15.7 % (11.5-14.5); WBC 9.5 K/mcL (4.5-11.0)
[2024-09-11 07:16] LABS: ALT/SGPT < 5 U/L (<40); AST/SGOT 10 U/L (<32); Albumin 3.6 gm/dL (3.2-5.2); Albumin/Globulin Ratio 1.3 (1.0-2.3); Alkaline Phosphatase 77 U/L (39-117); Bilirubin,Total < 0.2 mg/dL (0.1-1.0); Blood Urea Nitrogen 25 mg/dL (8-23); Calcium 9.2 mg/dL (8.6-10.4); Carbon Dioxide 27 mmol/L (22-30); Chloride 100 mmol/L (96-108); Globulin 2.8 gm/dL (2.2-3.7); Glomerular Filtration Rate 83; Glucose 92 mg/dL (70-105); Potassium 4.5 mmol/L (3.3-5.1); Sodium 138 mmol/L (133-145)
[2024-09-11 13:14] VITALS: TEMP 98.3; O2SAT 98
[2024-09-11] MEDS ORDERED: CEFDINIR 300 MG CAPSULE PO SCH (21:00)
== END 2024-09-11 14:15 | DRG 194 ==
LOC: ED 05:03 → MEDSUR 11:36
PROVIDERS: ADMIT Internal Medicine; ATTEND Student in an Organized Health Care Education/Training Program